=== PATIENT | male | born 1965 | race Caucasian/White ===

== ENCOUNTER 2017-07-19 09:00 | Day surgery (SDC) | payer BC ==
[2017-07-15 11:38] VITALS: BMI 24.3
[~2017-07-19 09:00] MED LIST: LACTATED RINGERS 1,000 ML IV SCH
[2017-07-19 09:27] VITALS: RESP 18; TEMP 07.7
[2017-07-19] MEDS ORDERED: LIDOCAINE 1% INJ 10MG/ML (20 ML MDV) ONE (09:42)
[2017-07-19] MEDS ORDERED: PROPOFOL 10 MG/ML 20 ML VIAL IV ONE (09:42)
[2017-07-19 10:45] VITALS: BP 138/87; PULSE 58
--- NOTE | 2017-07-19 14:45 | P.PCN ---
Date of Procedure: 07/19/17 Procedure(s) Performed: Procedure: Total colonoscopy. Preoperative diagnosis: Screening for neoplasia, patient has history of polyps. Postoperative diagnosis: Sigmoid diverticulosis with no evidence of acute diverticulitis, strictures, polyps or cancer. Preparation: HalfLytely prep. Sedation: Was provided by anesthesia. Brief clinical history: The patient is a 52-year-old male who is scheduled for this evaluation because of history of polyps. His last exam was at age 49. The patient has no abdominal complaints, bleeding or anemia. Procedure: With the patient on his left lateral decubitus position and after informed consent and adequate sedation, the perianal area was inspected and it did not show any fissures or fistulas. There were no masses felt on digital rectal examination. The Olympus CFQ 160L video colonoscope was then inserted in the rectum in the usual fashion and advanced to the cecum. There were multiple diverticular orifices seen scattered in the sigmoid as previously described with no evidence of acute diverticulitis or strictures. The mucosa appeared healthy. No obvious polyps or tumors were seen. I retroflexed the endoscope in the rectum before the endoscope was withdrawn. The patient tolerated the procedure well. Plan: Discussed dietary measures. Repeat exam in 5 years. He will follow up with you as planned.
== END 2017-07-19 11:03 | disposition home or self-care (01) ==
LOC: ORWHC2ENDO 09:00
DX: Z12.11 Encounter for screening for malignant neoplasm of colon (principal); Z86.010 Personal history of colon polyps; K57.30 Diverticulosis of large intestine without perforation or abscess without bleeding; Z87.891 Personal history of nicotine dependence; Z79.899 Other long term (current) drug therapy
CPT/HCPCS: J2001; J2704; G0105; 45378

== ENCOUNTER → 2017-10-05 | Outpatient (CLI) | payer BC ==
--- NOTE | 2017-10-06 09:26 | XR ---
EXAMINATION TYPE: XR chest 2V DATE OF EXAM: 10/05/2017 COMPARISON: 06/30/2016 TECHNIQUE: PA and lateral views submitted. HISTORY: Cough FINDINGS: The lungs are clear and there is no pneumothorax, pleural effusion, or focal pneumonia. Hyperinflat ion suggests COPD. Biapical pleural thickening. Hypertrophic and degenerative change of the spine. No overt failure. There is a 5 mm nodule in the right upper lobe. IMPRESSION: 1. COPD. There is a new 5 mm nodule right upper lobe recommend CT scan of the chest..
== END | disposition home or self-care (01) ==
LOC: RADXRMAIN 16:20
PROVIDERS: ATTEND Internal Medicine
DX: J44.9 Chronic obstructive pulmonary disease, unspecified (principal); R91.1 Solitary pulmonary nodule
CPT/HCPCS: 71046

== ENCOUNTER → 2017-10-21 | Outpatient (CLI) | payer BC ==
--- NOTE | 2017-10-21 14:33 | CT ---
EXAMINATION TYPE: CT chest w con DATE OF EXAM: 10/21/2017 COMPARISON: Chest x-ray 10/05/2017 HISTORY: Patient complains of chronic unproductive cough. Abnormal CXR here showing solitary lung no dule. CT DLP: 265.7 mGycm Automated exposure control for dose reduction was used. CONTRAST: CT scan of the chest is performed with IV Contrast, patient injected with 100 mL of Isovue 300. FINDINGS: LUNGS: The lungs are remarkable for 2 spiculated densities in the right upper lobe one of which measu res approximately 7 x 9 x 11 mm and the second measuring approximately 15 x 4 x 8 mm. Spiculations ex tend to the pleural surface. There are interstitial changes within the lungs. Interlobular septal ple ural lines are present in the upper lobes anteriorly. Subpleural cystic change, paraseptal emphysemat ous change at the apices bilaterally. Subpleural nodule and axial image 34 is 5 mm in the superior se gment of the left lower lobe, some minimal additional subpleural nodularity is questioned which may B E postinflammatory at this level and also in the right lower lobe, some additional interstitial vergara es are present in the lower lobes posteriorly. There is no pleural effusion or pneumothorax seen. Th e tracheobronchial tree is patent. MEDIASTINUM: There are no greater than 1 cm hilar or mediastinal lymph nodes. No pericardial effusi on is seen. AORTA: No additional significant abnormality is seen. OTHER: The liver shows low attenuation likely due to hepatic steatosis. There is a hypodense exophyt ic focus at the midpole the posterior right kidney measuring approximately 10 to 11 mm which could po ssibly represent a proteinaceous cyst. Nonobstructive calculus is present in the mid pole calyx in th e right kidney. No evident adrenal mass. IMPRESSION: Spiculated masses are small in the right upper lobe. Bronchogenic carcinoma not excluded . Follow-up is recommended. Interstitial lung disease. Nonobstructive right nephrolithiasis. Hyperden se focus in the right kidney could represent proteinaceous cyst. Follow-up to assess for stability. A dditional findings above.
== END | disposition home or self-care (01) ==
LOC: RADCTMAIN 12:55
PROVIDERS: ATTEND Internal Medicine
DX: J84.9 Interstitial pulmonary disease, unspecified (principal); R91.8 Other nonspecific abnormal finding of lung field; J43.9 Emphysema, unspecified
CPT/HCPCS: 71260; Q9967

== ENCOUNTER → 2018-04-04 | Outpatient (CLI) | payer BC ==
--- NOTE | 2018-04-04 18:20 | CT ---
EXAMINATION TYPE: CT chest w con DATE OF EXAM: 04/04/2018 COMPARISON: Prior chest CT October 21, 2017 HISTORY: Follow up pulmonary nodule. CT DLP: 515 mGycm. Automated Exposure Control for Dose Reduction was Utilized. TECHNIQUE: CT scan of the thorax is performed following with IV Contrast, patient injected with 100 mL of Isovue 300. FINDINGS: LUNGS: There is background mild to moderate chronic emphysematous change redemonstrated most prominen t in the lung apices. There is stable right apical scar like opacity measuring 1.2 x 0.5 cm axial yolette ge 8 and second inferior lateral lesion is slightly more suspicious measuring 1.0 x 0.8 cm axial imag e 10. Neither are significantly changed in size or appearance from prior. There is third 5 x 3 mm sca rlike opacity inferior to these right upper lobe axial image 18 in retrospect stable from prior. Ther e is dependent atelectasis in the bilateral lower lobes. This additional scattered linear scarring an d/or atelectasis in both bases. No new concerning greater than 5 mm parenchymal nodules or masses are clearly identified bilaterally. No pleural effusion or pneumothorax is seen bilaterally. Tracheobron chial tree is patent. MEDIASTINUM: There are no greater than 1 cm hilar or mediastinal lymph nodes. No cardiomegaly or p ericardial effusion is seen. OTHER: Nonspecific borderline 1.0 cm exophytic low dense lesion right kidney axial image 65 is stable favoring proteinaceous cyst. Slight thickening of both adrenal glands favors hyperplasia. IMPRESSION: Stable scarlike opacities right upper lung favor postinflammatory etiology, spiculated no dules related neoplasm not excluded. Consider PET CT and/or follow-up CT in 6 months time to follow.
== END | disposition home or self-care (01) ==
LOC: RADCTMAIN 17:37
PROVIDERS: ATTEND Internal Medicine
DX: R91.8 Other nonspecific abnormal finding of lung field (principal)
CPT/HCPCS: 71260; Q9967

== ENCOUNTER → 2018-10-03 | Outpatient (CLI) | payer BC ==
--- NOTE | 2018-10-03 13:21 | XR ---
EXAMINATION TYPE: XR hand complete LT DATE OF EXAM: 10/03/2018 COMPARISON: NONE HISTORY: Pain TECHNIQUE: Three views are submitted. FINDINGS: There is marked deformity of the proximal middle phalanx second digit with fusion of the joint space. Findings suggest remote trauma. Arthropathy of the PIP and DIP joints of the second no acute fractur e. Dislocation IMPRESSION: 1. Chronic deformity involving the third digit likely the basis of previous trauma with fusion of the PIP joint. Marked arthropathy of the MCP joint. 2. PIP and DIP joint arthropathy second digit. There appears to be a flexion deformity which could be correlated with MRI if there is concern for ligamentous or tendinous injury.
== END | disposition home or self-care (01) ==
LOC: RADXRMAIN 12:42
PROVIDERS: ATTEND Internal Medicine
DX: M19.042 Primary osteoarthritis, left hand (principal); M20.002 Unspecified deformity of left finger(s)

== ENCOUNTER → 2018-10-27 | Outpatient (CLI) | payer BC ==
--- NOTE | 2018-10-28 08:25 | CT ---
EXAMINATION TYPE: CT chest w con DATE OF EXAM: 10/27/2018 COMPARISON: 04/04/2018 HISTORY: Solitary pulmonary nodule. CT DLP: 253.7 mGycm Automated exposure control for dose reduction was used. CONTRAST: CT scan of the chest is performed with IV Contrast, patient injected with 100ml mL of Isovue 300. FINDINGS: LUNGS: 3 pulmonary nodules right upper lobe remains stable. Right apical nodule currently measures 7. 3 mm versus up to 1.2 cm previously. Adjacent pulmonary nodule measures 7 mm versus 7 mm previously. A third pulmonary nodule within the right upper lobe image 18 of 73 measures 5 mm versus 5 mm previou sly. No additional nodules are identified. No new nodules are seen. There is mild linear atelectasis or parenchymal scarring at the lung bases. Mild upper lobe emphysematous changes noted. No evidence f or pneumonia or effusion. MEDIASTINUM: There are no greater than 1 cm hilar or mediastinal lymph nodes. No pericardial effusi on is seen. Thoracic aorta is of normal caliber. The heart is not enlarged. UPPER ABDOMEN: Stable high density right renal lesion measuring 1 cm may reflect a hemorrhagic cyst o r proteinaceous cyst. OTHER: No additional significant abnormality is seen. IMPRESSION: 1. Stable upper lobe pulmonary nodules. Quality over a two-year timeframe should be documented radiog raphically.
== END ==
LOC: RADCTMAIN 16:37
PROVIDERS: ATTEND Internal Medicine
DX: R91.8 Other nonspecific abnormal finding of lung field (principal)
CPT/HCPCS: 71260; Q9967

== ENCOUNTER → 2019-12-14 | Outpatient (CLI) | payer BC ==
--- NOTE | 2019-12-14 16:12 | CT ---
EXAMINATION TYPE: CT chest w con DATE OF EXAM: 12/14/2019 COMPARISON: 10/27/2018 and 10/21/2017 HISTORY: 54-year-old male follow up abnormal lung monteiro TECHNIQUE: Contiguous axial scanning of the chest after the administration of 100 mL of Isovue 300. Coronal/sagittal reconstructions performed. CT DLP: 260.2mGycm. Automatic exposure control utilized for a dose reduction. FINDINGS: Heart normal size without pericardial effusion. Aortic root is ectatic at 3.8 cm. Bovine configuration to the aortic arch. No thoracic lymphadenopathy by CT size criteria. Some strandy left basilar atelectasis. Hazy posterior midlung density along the dependent portion of the lungs, likely atelectasis. Mild emphysematous changes present. Irregular right apical nodule redemonstrated. Its irregular shape is best demonstrated on coronal yolette ge 57 and continues to measure approximately 1.2 cm wide on axial series. Right upper lobe nodule just adjacent continues to measure 1.0 cm, axial image 13. A third right upper lobe nodule measures 7 mm, axial image 20, also unchanged. No new nodules, consolidation, or pleural effusion. This seems to be some mucosal fold thickening throughout the gastric body and fundus. 1.2 cm intermed iate density exophytic lesion posterior right kidney measured 10 mm, previously. Probable right-sided cortical cyst measuring 1 cm. Mild diffuse thickening left adrenal gland without discrete nodularity . Bones: No osseous destructive process. IMPRESSION: 1. Three right upper lobe nodules measuring up to 1.2 cm remain relatively stable back to 10/21/2017. Continued annual surveillance is recommended given their irregular shape and patient's increased risk for development of lung cancer. 2. A 1.2 cm indeterminate exophytic lesion posterior right kidney minimally larger from 1.0 cm, previ ously. Hemorrhagic/proteinaceous cyst and an indolent small solid mass/RCC are in the differential. C ontinued surveillance recommended.
== END | disposition home or self-care (01) ==
LOC: RADCTMAIN 14:49
PROVIDERS: ATTEND Internal Medicine Critical Care Medicine
DX: R91.8 Other nonspecific abnormal finding of lung field (principal); J98.4 Other disorders of lung
CPT/HCPCS: 71260; Q9967

== ENCOUNTER → 2020-06-21 | Outpatient (CLI) | payer BC ==
--- NOTE | 2020-06-21 14:01 | CT ---
EXAMINATION TYPE: CT chest w con DATE OF EXAM: 06/21/2020 COMPARISON: 12/14/2019 HISTORY: Abnormal lung field CT DLP: 291.3 mGycm Automated exposure control for dose reduction was used. CONTRAST: CT scan of the chest is performed with IV Contrast, patient injected with 100 mL of Isovue 300. FINDINGS: LUNGS: Right apical pulmonary nodule is redemonstrated however smaller in size and measures 9.5 mm ve rsus 12 mm previously. An adjacent pulmonary nodule right upper lobe is also smaller in size and does persist and currently measures 7.6 mm versus 10 mm previously. A third pulmonary nodule right upper lobe image 18 measures 6 mm versus 7 mm previously. No new pulmonary nodules seen. No additional pulm onary nodules or masses seen. MEDIASTINUM: There are no greater than 1 cm hilar or mediastinal lymph nodes. No pericardial effusi on is seen. Thoracic aorta is of normal caliber. The heart is not enlarged. UPPER ABDOMEN: Hyperdense lesion upper pole right kidney measures 1 cm unchanged from prior study. Th ere is also nephrolithiasis of the right kidney. OTHER: No additional significant abnormality is seen. IMPRESSION: 1. 3 right upper lobe pulmonary nodules are redemonstrated. 2 of the nodules appear to be slightly sm aller in size. No new nodules are evident.
== END | disposition home or self-care (01) ==
LOC: RADCTMAIN 12:54
PROVIDERS: ATTEND Internal Medicine
DX: R91.8 Other nonspecific abnormal finding of lung field (principal)
CPT/HCPCS: 71260; Q9967

== ENCOUNTER → 2021-07-24 | Outpatient (CLI) | payer BC ==
--- NOTE | 2021-07-24 19:07 | CT ---
EXAMINATION TYPE: CT chest w con CT DLP: 299.4 mGycm, Automated exposure control for dose reduction was used. DATE OF EXAM: 07/24/2021 6:03 PM COMPARISON: Multiple CTs of the chest with most recent on 06/21/2020 . CLINICAL INDICATION:Male, 56 years old with history of R91.8 abnormal lung monteiro;, h/o abnormal lung field TECHNIQUE: Multiple axial images were obtained through the chest without IV contrast. Lack of IV or o ral contrast limits evaluation of solid and hollow organ viscera. FINDINGS: LUNGS/ PLEURA: Stable right upper lobe pulmonary nodules measuring 9 mm in the right lung apex. More inferior right upper lobe nodule measures 6 mm and is also stable back to at least inferior nodule mo re solid-appearing. Streaky atelectasis/scarring seen in the dependent portion of the lungs and withi n the lung bases. AIRWAY: Patent and unremarkable. HEART: Size within normal limits. MEDIASTINUM: No gross evidence of adenopathy. VASCULATURE: No aortic aneurysm. MUSCULOSKELETAL: No acute osseous abnormalities SOFT TISSUES/LYMPH NODES: Unremarkable. LOWER NECK: No significant findings. UPPER ABDOMEN: A right renal exophytic hyperdense cyst measuring 14 mm on today's exam was 12 mm in 2 018 likely representing proteinaceous cyst. IMPRESSION: 1. Stable right upper lobe pulmonary nodules dating back to at least 2018. 2. Stable right renal exophytic hyperdense cyst likely representing proteinaceous cyst.
== END | disposition home or self-care (01) ==
LOC: RADCTMAIN 17:36 → MERGE 18:00
PROVIDERS: ATTEND Internal Medicine Critical Care Medicine
DX: R91.8 Other nonspecific abnormal finding of lung field (principal); N28.1 Cyst of kidney, acquired
CPT/HCPCS: 71260; Q9967

== ENCOUNTER → 2022-08-03 | Outpatient (CLI) | payer BC ==
--- NOTE | 2022-08-04 07:27 | XR ---
EXAMINATION TYPE: XR chest 2V DATE OF EXAM: 08/03/2022 4:00 PM COMPARISON: Chest radiographs from 10/05/2017 TECHNIQUE: XR chest 2V Frontal and lateral views of the chest. CLINICAL INDICATION:Male, 57 years old with history of J44.9; FINDINGS: Lungs/Pleura: There is no evidence of pleural effusion, focal consolidation, or pneumothorax. Right u pper lobe nodule not definitively visualized on today's exam. Pulmonary vascularity: Unremarkable. Heart/mediastinum: Cardiomediastinal silhouette is unremarkable. Musculoskeletal: No acute osseous pathology. IMPRESSION: No acute cardiopulmonary disease/process.
== END | disposition home or self-care (01) ==
LOC: RADXRMAIN 15:50
PROVIDERS: ATTEND Nurse Practitioner Family
DX: J44.9 Chronic obstructive pulmonary disease, unspecified (principal)
CPT/HCPCS: 71046

== ENCOUNTER → 2022-10-09 | Outpatient (CLI) | payer BC ==
--- NOTE | 2022-10-09 15:13 | CT ---
EXAMINATION TYPE: CT soft tissue neck w con DATE OF EXAM: 10/09/2022 HISTORY: 3 lumps on right side of neck, marked by radiopaque BB's. COMPARISON: Chest CT December 14, 2019 CT DLP: 462 mGycm. Automated Exposure Control for Dose Reduction was Utilized. TECHNIQUE: CT scan of the neck is performed with IV Contrast, patient injected with 100cc mL of Isov ue 300, axial images are obtained, coronal and sagittal reformatted images are reviewed. FINDINGS: Airway: Mild emphysematous change and visualized upper lungs. Stable 1.1 x 0.7 cm spiculated nodule i n the right lung apex axial image 77 and 1.0 x 0.8 cm right lung nodule axial image 81 from several p rior studies consistent with postinflammatory and nodular scarring. Irregularly otherwise grossly pat ent. No obvious mucosal mass. Parotid/submandibular glands: No gross abnormality seen. Carotid/Vascular Structures: No suspicious abnormality. Osseous Structures: Grade 1 retrolisthesis C4 on C5 and C5 on C6 . Other: Abnormal right neck adenopathy corresponds to metallic BB. Right supraclavicular adenopathy is present on the current study. For reference is largest 2.4 x 1.9 cm lymph node at level of right thy roid gland on axial image 75. There are adjacent prominent and enlarged lymph node superior to this. 4) a 1.4 x 1.3 cm lymph node at level of the vocal cords axial image 61. There are prominent but subc entimeter lymph nodes superior to the hyoid bone. No greater than 1 cm left-sided neck adenopathy is seen. Prominent right-sided vessels near the physical therapist muscles axial image 25 are noted. IMPRESSION: Abnormal right neck adenopathy. Neoplasm needs to be excluded. Etiology uncertain as ther e is no definitive adnexal mucosal mass or neoplasm identified. Consider follow-up PET/CT to further evaluate. Consider ENT referral.
== END | disposition home or self-care (01) ==
LOC: RADCTMAIN 14:20
PROVIDERS: ATTEND Internal Medicine Geriatric Medicine
DX: R22.1 Localized swelling, mass and lump, neck (principal)
CPT/HCPCS: 70491; Q9967

== ENCOUNTER → 2022-11-19 | Outpatient (CLI) | payer BC ==
--- NOTE | 2022-11-19 21:21 | MR ---
EXAMINATION TYPE: MR brain wo/w con DATE OF EXAM: 11/19/2022 8:49 PM CLINICAL INDICATION:Male, 57 years old with history of C80.0; Cancer unknown primary. COMPARISON: 11/07/2022 TECHNIQUE: Multi planar, multi sequence imaging was performed through the brain including: T1, T2, In version recovery, susceptibility weighted imaging and gradient echo imaging and Diffusion weighted im aging. The patient was then given intravenous contrast and multi planar, T1 fat-saturation images wer e obtained. IV Contrast: 7.5 cc Gadavist FINDINGS: Mild cerebral atrophy changes with proportional dilation to the ventricular system. The mcpherson-white junctions, ventricular system, basal cisterns appear unremarkable. Diffusion-weighted imaging shows no evidence of restricted diffusion to suggest acute/subacute infarct. Intracranial art erial flow voids are maintained. Midline structures show no abnormality. The susceptibility weighted images do not reveal any evidence for micro-hemorrhage. After administration of gadolinium, no abnorm al enhancement is seen. The bone marrow signal is within normal limits. Paranasal sinuses and mastoid air cells: Mild scattered paranasal sinus disease. Visualized orbits: Orbital contents are intact. IMPRESSION: 1. No evidence of intracranial mass, acute/subacute infarct, or abnormal enhancement to suggest meta static disease. 2. Mild cerebral atrophy
== END | disposition home or self-care (01) ==
LOC: RADMRIMAIN 20:15
PROVIDERS: ATTEND Internal Medicine
DX: G31.9 Degenerative disease of nervous system, unspecified (principal); C80.0 Disseminated malignant neoplasm, unspecified
CPT/HCPCS: 70553; A9585

== ENCOUNTER 2022-11-25 05:36 | Day surgery (SDC) | payer BC ==
[2022-11-23 13:49] VITALS: BMI 25.0
[2022-11-25] MEDS ORDERED: LACTATED RINGERS 1,000 ML IV SCH (05:53)
[2022-11-25 06:19] VITALS: RESP 16; TEMP 96.5
[2022-11-25] MEDS ORDERED: LACTATED RINGERS 1,000 ML IV ONE (06:28)
[2022-11-25] MEDS ORDERED: LIDOCAINE 2% INJ 20 MG/ML (2 ML VIAL) ONE (07:02)
[2022-11-25] MEDS ORDERED: PROPOFOL 10 MG/ML 20 ML VIAL IV ONE (07:02)
--- NOTE | 2022-11-25 07:30 | P.PCN ---
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 He denies any GI symptoms. Procedure performed: Esophagogastroduodenoscopy Colonoscopy Preoperative diagnosis: Metastatic carcinoma of unknown primary Anesthesia: MAC Procedure: After informed consent was obtained from the patient was brought into the end oscopy unit and IV sedation was administered by anesthesia under continuous monitoring. Initially upper endoscopy was done. The Olympus GF 160 video endoscope was inserted inserted into the mouth and esophagus intubated without any difficulty and was gradually advanced into the stomach and duodenum and carefully examined. The bulb and second part of the duodenum appeared normal. The scope was then withdrawn into the stomach adequately insufflated with air and upon careful examination the antrum and body, cardia and fundus appeared normal. The scope was then withdrawn into the esophagus. The GE junction was located at 40 cm to the incisors. It appeared regular with no erythema erosions or ulcerations. Rest of the esophagus appeared normal. Patient tolerated the procedure well. At this time the patient continued to remain sedation. Initial digital rectal examination was normal. Olympus CF 160 video colonoscope was then inserted into the rectum and gradually advanced to the cecum without any difficulty. Careful examination was performed as the scope was gradually being withdrawn. The prep was excellent. The cecum, ascending colon, transverse colon, descending colon, sigmoid colon and rectum appeared normal. Retroflexion was performed in the rectum and all internal hemorrhoids were noted. Patient tolerated the procedure well. Impression: 1. Upper endoscopy was within normal limits with no evidence of esophagitis or peptic ulcer disease 2. Colonoscopy revealed small internal hemorrhoids but no evidence of colorectal neoplasia Recommendations: Findings of this examination were discussed with the patient as well as his family. He was advised to follow with Dr. barcenas, scheduled the rectum and a repeat screening colonoscopy in 10 years.
[2022-11-25 07:48] VITALS: BP 117/77; PULSE 61
== END 2022-11-25 08:17 ==
LOC: ORWHC2ENDO 05:36
PROVIDERS: ATTEND Internal Medicine Gastroenterology
DX: K64.8 Other hemorrhoids (principal); J44.9 Chronic obstructive pulmonary disease, unspecified; C34.90 Malignant neoplasm of unspecified part of unspecified bronchus or lung; Z79.899 Other long term (current) drug therapy
CPT/HCPCS: 45378; 43235; J2704; J2001

== ENCOUNTER → 2023-02-24 | Outpatient (CLI) | payer BC ==
[2023-02-24 12:00] LABS: African American GFR (CKD) >90 (>60 ml/min/1.73 sqM); Blood Urea Nitrogen 15 mg/dL (9-20); Non-African American GFR(CKD) >90 (>60 ml/min/1.73 sqM)
--- NOTE | 2023-02-24 13:13 | CT ---
EXAMINATION TYPE: CT soft tissue neck w con DATE OF EXAM: 02/24/2023 COMPARISON: HISTORY: lung ca, possible mets CT DLP: 279.8 mGycm CONTRAST: CT scan of the neck is performed with IV Contrast, patient injected with 100 mL of Isovue 300. Contrast enhanced CT of the neck was performed from the skull base through the lung apices. AIRWAY: The supraglottic, glottic, and subglottic portions of the airway appear patent and free of mass. SALIVARY GLANDS: The submandibular and parotid glands are free of mass or inflammatory process. THYROID GLAND: No nodules or masses seen. LYMPH NODES: No adenopathy seen greater than 1cm. Supraclavicular adenopathy seen previously on the r ight has resolved in the interval. No new adenopathy present. OTHER: Vascular structures are patent. No significant degenerative change of the cervical spine. N o abscess seen. IMPRESSION: Supraclavicular adenopathy seen previously on the right has resolved in the interval. No new adenopat hy present.
--- NOTE | 2023-02-24 13:25 | CT ---
EXAMINATION TYPE: CT chest abdomen w con DATE OF EXAM: 02/24/2023 COMPARISON: 07/24/2021 CT chest and PET/CT 11/07/2022 HISTORY: f/u lung ca CT DLP: 614.4 mGycm CONTRAST: CT scan of the chest, abdomen is performed with Oral Contrast and with IV Contrast, patient injected with 100 mL of I[address]vue [address]. [address] Chest: LUNGS: Right apical pulmonary nodule measures 1.1 cm versus 1.1 cm previously. Spiculated right upper lobe nodule measures 10 mm versus 9 mm previously. Additional right upper lobe pulmonary nodule emma ures 7 mm versus 6 mm previously. There is pleural-based density right lower lobe measuring about 1.2 cm with increased activity seen at the PET scan. There is also lobulated right lower lobe pulmonary nodule measuring 1.9 x 1.4 cm. There is right basilar compressive atelectasis. The left lung is free of nodule or mass. Mild subpleural fibrosis noted. MEDIASTINUM: Thoracic aorta is of normal caliber. The heart is not enlarged. Subcarinal adenopathy measures 1.2 cm versus subcentimeter previously. No paratracheal or AP window adenopathy greater than 1 cm. HILAR STRUCTURES: No evidence for mass. No hilar adenopathy is appreciated. OTHER: No significant abnormality. CONTRAST CT ABDOMEN AND PELVIS FINDINGS: LIVER/GB: No calcified gallstones. No space occupying hepatic lesion. Biliary tree is of normal ca liber. PANCREAS: No inflammation. No distinct mass. SPLEEN: No splenic enlargement. No lesion seen. ADRENALS: No nodule. No thickening. KIDNEYS/BLADDER: No hydronephrosis. No nephrolithiasis. Solid exophytic nodule upper pole right kid brennan measures 1.4 cm versus 1.4 cm previously. Renal cystic changes persist. BOWEL: Normal appendix. Normal bowel caliber. No inflammation. GENITAL ORGANS: No gross abnormality. LYMPH NODES: No greater than 1cm abdominal or pelvic lymph nodes are appreciated. AORTA: No significant abnormality. OSSEOUS STRUCTURES: T12 superior endplate compression fracture(o is new since the prior study. Pathol ogic component not excluded. OTHER: No significant additional abnormality is seen. IMPRESSION: 1. Right-sided pulmonary nodules as discussed above as well as pleural-based nodule right lower lobe and new lobulated nodular density right lower lobe. 2. Persistent but improved mediastinal adenopathy. 3. Stable solid nodule upper pole right kidney. 4. New mild compression fracture involving the superior endplate of T12 with loss of height estimated at 15%. Pathologic component cannot be excluded. Consider further evaluation with bone scan and/or M RI.
== END | disposition home or self-care (01) ==
LOC: RADCTMAIN 10:42
PROVIDERS: ATTEND Internal Medicine
DX: C34.11 Malignant neoplasm of upper lobe, right bronchus or lung (principal); M48.54XA Collapsed vertebra, not elsewhere classified, thoracic region, initial encounter for fracture; N28.89 Other specified disorders of kidney and ureter; R91.8 Other nonspecific abnormal finding of lung field; R59.0 Localized enlarged lymph nodes; R29.890 Loss of height
CPT/HCPCS: 82565; 84520; 70491; 71260; 74160; 36415; Q9967

== ENCOUNTER → 2023-04-26 | Outpatient (CLI) | payer BC ==
[2023-04-27 02:40] LABS: HCT 40.2 % (39.6-50.0); HGB 12.9 d/dL (13.0-17.0); MCH 34.8 pg (27.0-32.0); MCHC 32.1 d/dL (32.0-37.0); MCV 108.4 FL (80.0-97.0); Mean Platelet Volume 9.2 FL (9.5-12.2); NRBC Per 100 WBC 0 X 10*3/uL (0.00-0.01); Platelet Count 310 X 10*3/uL (140-440); RBC 3.71 X 10*6/uL (4.40-5.60); RDW 13.5 % (11.5-14.5); WBC 5.01 X 10*3/uL (4.50-10.00)
[2023-04-27 03:46] LABS: INR 1.01 sec (0.93-1.11); Prothrombin Time 10.9 sec (9.9-11.9)
[2023-04-27 04:04] LABS: ALT 23 U/L (10-49); AST 24 U/L (14-35); Albumin/Globulin Ratio 1.38 Ratio (1.60-3.17); Alkaline Phosphatase 107 U/L (41-126); BUN/Creat Ratio 20.71 Ratio (12.00-20.00); Blood Urea Nitrogen 14.5 mg/dL (9.0-27.0); Calcium 10.3 mg/dL (8.7-10.3); Chloride 105 mmol/L (96-109); Globulin 2.9 d/dL (1.6-3.3); Glucose 95 mg/dL (70-110); Potassium 4.6 mmol/L (3.5-5.5); Sodium 140 mmol/L (135-145); Total Bilirubin 0.4 mg/dL (0.3-1.2); Total Protein 6.9 d/dL (6.2-8.2)
[2023-04-27 05:51] LABS: Basophils # (A) 0.02 X 10*3/uL (0.00-0.10); Basophils % (A) 0.4 %; Eosinophils # (A) 0.12 X 10*3/uL (0.04-0.35); Eosinophils % (A) 2.4 %; Lymphocytes # (A) 0.54 X 10*3/uL (0.90-5.00); Lymphocytes % (A) 10.8 %; Macrocytosis (M) 3+; Monocytes # (A) 0.77 X 10*3/uL (0.20-1.00); Monocytes % (A) 15.4 %; Neutrophils # (A) 3.54 X 10*3/uL (1.80-7.70); Neutrophils % (A) 70.6 %
[2023-04-27 06:40] LABS: Microalbumin Creatinine Ratio <9 mg/g Cr (0-30)
== END | disposition home or self-care (01) ==
LOC: LABWHC1 14:19
PROVIDERS: ATTEND Orthopaedic Surgery
DX: Z01.812 Encounter for preprocedural laboratory examination (principal); Z22.322 Carrier or suspected carrier of Methicillin resistant Staphylococcus aureus; S22.009A Unspecified fracture of unspecified thoracic vertebra, initial encounter for closed fracture; Y99.9 Unspecified external cause status
CPT/HCPCS: 36415; 80053; 82043; 82570; 85025; 85610; 86850; 86900; 86901; 87070; 93005

== ENCOUNTER → 2023-05-10 | Outpatient (CLI) | payer BC ==
[2023-05-10 16:38] LABS: African American GFR (CKD) >90 (>60 ml/min/1.73 sqM); Blood Urea Nitrogen 22 mg/dL (9-20); Non-African American GFR(CKD) >90 (>60 ml/min/1.73 sqM)
--- NOTE | 2023-05-11 09:43 | CT ---
EXAMINATION TYPE: CT chest w con DATE OF EXAM: 05/10/2023 COMPARISON: 02/24/2023 HISTORY: dx with lung cancer November 2022 CT DLP: 233.6 mGycm Automated exposure control for dose reduction was used. TECHNIQUE: CT scan of the chest is performed with IV Contrast, patient injected with 100 cc mL of Isovue 300. M IP Images are created on CT scanner and reviewed. 3D reconstructed images are created on an [employer] workstation and reviewed. FINDINGS: LUNGS: There multiple 1 cm nodules in the right apex stable. Emphysematous changes are seen with subsegmental scarring or the lung bases. There is a area of consolidation extending from the right hilum and in the right lower lobe with smal l pleural effusion. No pneumothorax. A 1 cm subpleural nodule right upper lobe anteriorly. Right lowe r lobe lobulated nodule noted in prior exam is obscured by the consolidation. Bilateral subsegmental consolidation scarring. Subpleural additional bilateral micronodules stable. MEDIASTINUM: There is right paratracheal soft tissue density measuring 1.5 cm in short axis. There is a 1.2 cm short axis right hilar lymphadenopathy. Small pericardial effusion is seen. Aorta normal c aliber with mild atherosclerotic change OTHER: Previous vertebroplasty with multilevel hypertrophic and degenerative change of the spine. Th ere is a right-sided renal calculus. Bilateral hypodense lesions are most simple cyst. However there is a suspicious exophytic right upper pole solid lesion measuring 1.7 cm. Bilateral adrenal gland thi ckening nonspecific. IMPRESSION: 1. Small right effusion with large areas of consolidation involving the superior segment right lower lobe could represent pneumonia or post therapeutic atelectasis. Correlation with repeat PET scan as c linically warranted. 2. Pulmonary nodules previously noted are stable. 3. Emphysematous changes. 4. Hilar and subcarinal pathologic adenopathy. 5. There is a solid upper pole right renal exophytic lesion measuring 1.7 cm increased in size from p rior exam where it measured 1.4 cm and suspicious for malignancy.
== END | disposition home or self-care (01) ==
LOC: RADCTMAIN 15:46
PROVIDERS: ATTEND Internal Medicine
DX: J43.9 Emphysema, unspecified (principal); R59.0 Localized enlarged lymph nodes; N28.89 Other specified disorders of kidney and ureter; R91.8 Other nonspecific abnormal finding of lung field
CPT/HCPCS: 82565; 84520; 71260; 36415; Q9967

== ENCOUNTER 2023-06-04 11:03 | Day surgery (SDC) | payer BC ==
[2023-06-02 10:36] VITALS: BMI 21.9
[2023-06-04] MEDS ORDERED: LACTATED RINGERS 1,000 ML IV SCH (11:23)
[2023-06-04] MEDS ORDERED: DEXAMETHASONE SOD PHOSPHATE 4 MG/ML 1 ML VIAL IV ONE (11:23)
[2023-06-04] MEDS ORDERED: ONDANSETRON 4 MG/2 ML VIAL IVP ONE ×2 (11:23→11:51)
[2023-06-04] MEDS ORDERED: LIDOCAINE 1% (10MG/ML) FOR IV START INTRADERMA PRN (11:23)
[2023-06-04] MEDS ORDERED: MIDAZOLAM 2 MG/2 ML VIAL IV PRN (11:23)
[2023-06-04] MEDS ORDERED: HYDROmorphone 0.5 MG/0.5 ML SYRINGE IVP PRN (11:23)
[2023-06-04] MEDS ORDERED: DEXAMETHASONE SOD PHOSPHATE 4 MG/ML 1 ML VIAL IVP ONE (11:51)
[2023-06-04] MEDS ORDERED: GLYCOPYRROLATE 0.2 MG/ML 2 ML VIAL ONE (12:11)
[2023-06-04] MEDS ORDERED: MIDAZOLAM 2 MG/2 ML VIAL ONE (12:11)
[2023-06-04] MEDS ORDERED: fentaNYL (PF) 50 MCG/ML 2 ML AMP ONE (12:11)
[2023-06-04] MEDS ORDERED: PROPOFOL 10 MG/ML 20 ML VIAL IV ONE (12:11)
[2023-06-04] MEDS ORDERED: KETAMINE HCL IN 0.9 % NACL 50 MG/5 ML SYRINGE ONE (12:11)
[2023-06-04 12:12] VITALS: TEMP 97.6
[2023-06-04] MEDS ORDERED: LIDOCAINE 2% INJ 20 MG/ML INTRATRACH ONE ×2 (12:15)
[2023-06-04 13:05] VITALS: RESP 20
[2023-06-04 13:32] VITALS: BP 124/86; PULSE 93
--- NOTE | 2023-06-04 20:05 | OP ---
OPERATIVE REPORT DATE OF SERVICE : PROCEDURES PERFORMED: Bronchoscopy, bronchoalveolar lavage of the right lower lobe, and endobronchial biopsies of the superior segment bronchus of the right lower lobe. PREOPERATIVE DIAGNOSIS: Right lower lobe and right middle lobe collapse. POSTOPERATIVE DIAGNOSIS: Right lower lobe and right middle lobe collapse. Strongly suspect bronchogenic carcinoma involving the superior segment of the right lower lobe bronchus. ANESTHESIA USED: IV conscious sedation. DESCRIPTION OF PROCEDURE: The patient was prepared according to the bronchoscopy protocol. He was brought into the bronchoscopy suite. O2 was applied via Ventimask. The patient was monitored including monitoring his blood pressure intermittently, cardiac rhythm was continuously monitored, and O2 saturation was continuously monitored. After adequate IV conscious sedation, lidocaine was instilled in the right nostril, and the bronchoscope was advanced through the right nostril down to the area of the vocal cords. No vocal cord abnormality was noted. Lidocaine was applied over the vocal cords, and the bronchoscope was advanced further down, and though examination was done of the right upper lobe, right middle lobe, right lower lobe, left upper lobe, lingula, and left lower lobe. There was evidence of minimal purulent secretions throughout, and these were suctioned. Then, as we entered the right upper lobe, there was slightly extrinsic compression on the right upper lobe bronchus, but no evidence of endobronchial tumor in the right upper lobe bronchus. Went down to the right middle lobe, which was compressed, and the patient seemed to have what looked like a right middle lobe syndrome with extreme narrowing of the segment into the right middle lobe and seemed to be extrinsically compressed. But I was able to visualize the right middle lobe medial and lateral segments as I went in through the narrow opening. Then, the right lower lobe was examined, and the main finding in the right lower lobe was the fact that the superior segment of the right lower lobe was noted to be extremely narrowed, the bronchus was very prominent, and multiple endobronchial biopsies were done from the bronchus of the superior segment of the right lower lobe. Lavage of the right lower lobe was also performed including the basilar and the superior segment of the right lower lobe. Procedure was well tolerated, no complications, minimal and negligible blood loss noted. Biopsies were sent for different diagnostic studies, and the lavage from the right lower lobe was also sent for different diagnostic studies. Again, no complications. Family was updated on his condition. MMODL / IJN: [id number] /
== END 2023-06-04 13:25 | disposition home or self-care (01) ==
LOC: ORWHC2ENDO 11:03
PROVIDERS: ATTEND Internal Medicine
DX: C34.31 Malignant neoplasm of lower lobe, right bronchus or lung (principal); J98.19 Other pulmonary collapse; K21.9 Gastro-esophageal reflux disease without esophagitis; Z79.51 Long term (current) use of inhaled steroids; Z79.899 Other long term (current) drug therapy
CPT/HCPCS: 88108; 88305; 88342; 88341; 87070; 87205; 87116; 87102; 87206; 31625; 31624; J2001; J2250; J1100; J2405; J3010; J2704

== ENCOUNTER 2023-06-08 17:47 | Emergency (ER) | payer BC ==
[2023-06-08] MEDS ORDERED: SODIUM CHLORIDE 0.9% 500 ML 500 ML IV STA (18:17)
[2023-06-08] MEDS ORDERED: SODIUM CHLORIDE 0.9% 1,000 ML IV STA (18:17)
[2023-06-08] MEDS ORDERED: IPRATROPIUM-ALBUTEROL 3 ML NEB INHALATION STA (18:17)
[2023-06-08] MEDS ORDERED: MORPHINE SULFATE 4 MG/ML SYRINGE IV STA (18:18)
--- NOTE | 2023-06-08 18:35 | ED ---
General Adult HPI - General Chief complaint: Recheck/Abnormal Lab/Rx Stated complaint: KHOI,history of Lung Cancer Time Seen by Provider: 06/08/23 18:06 Source: patient Mode of arrival: ambulatory Limitations: no limitations - History of Present Illness Initial comments: This 58-year-old male presents with complaint of right-sided chest pain. This extends from the upper lateral chest down to the inferior ribs on the right side. He states that this is been chronic in nature but worse over the past 3 days. It is worse with any deep inspiration. He states that it is fairly severe in nature. He was prescribed [place] for the pain but this does not seem to alleviate his symptomatology. He also has had an increased cough over the last 3 days. He denies any fevers or chills. There is occasional shortness of breath. He does have a history of lung cancer. This was initially diagnosed in November of this year. He is undergone chemotherapy as well as radiation therapy and also is currently on immunotherapy. He just had a lung biopsy this past week and they're waiting on the results. He was sent in by his art framing manager for further evaluation and treatment. He denies any leg pain or swelling. There is no history of DVT or PE. No other complaints or modifying factors. He relates that they diagnosed him with pneumonia during the bronchoscopy and he was prescribed doxycycline. He is only had 2 doses of this medication so far. He states that he did have some spread of the cancer into the lymph nodes of his left neck at one time. He denies any bone metastasis that he is aware of. He does have an albuterol inhaler but he utilizes this very infrequently. He was prescribed [place] 5/325 to take every 6 hours as needed for pain. He is only taking about 1-1/2 pills every 12 hours. - Related Data Home Medications Medication Instructions Recorded Confirmed Doxycycline Hyclate 100 mg PO BID 06/08/23 06/08/23 HYDROcodone/APAP 5-325MG [Delhi 1 tab PO Q6HR PRN 06/08/23 06/08/23 5-325] Allergies Allergy/AdvReac Type Severity Reaction Status Date / Time No Known Allergies Allergy Verified 06/08/23 19:21 Review of Systems ROS Statement: Those systems with pertinent positive or pertinent negative responses have been documented in the HPI. ROS Other: All systems not noted in ROS Statement are negative. Past Medical History Past Medical History: Cancer, COPD Additional Past Medical History / Comment(s): Small cell carcinoma - lung. CHEMO AND RADIATION, Mild COPD. History of Any Multi-Drug Resistant Organisms: None Reported Past Surgical History: Orthopedic Surgery Additional Past Surgical History / Comment(s): LEFT HAND SURGERY, COLONOSCOPY. T-12 FUSION FOR FX, Past Anesthesia/Blood Transfusion Reactions: No Reported Reaction Past Psychological History: No Psychological Hx Reported Smoking Status: Former smoker Past Alcohol Use History: None Reported Past Drug Use History: None Reported - Past Family History Mother Family Medical History: No Reported History General Exam - General Exam Comments Initial Comments: GENERAL: The patient is well nourished and well hydrated. VITAL SIGNS: Heart rate, blood pressure, respiratory rate reviewed as recorded in nurse's notes. EYES: Pupils are round and reactive. Extraocular movements are intact. No conjunctival / lid redness or swelling. ENT: No external evidence of injury, swelling, or ecchymosis. Airway is patent. Throat is clear. NECK: Nontender. No swelling or evidence of injury. No subcutaneous emphysema. Trachea is midline. No thyroid mass. HEART: Regular rate and rhythm. Good peripheral pulses. LUNGS/CHEST: Rhonchi noted to the right lung. Left lung is clear. ABDOMEN: Abdomen soft without tenderness. No palpable masses or organomegaly. No peritoneal signs. No abdominal wall swelling or ecchymosis. EXTREMITIES: No extremity tenderness. Normal muscle tone and function. No thoracolumbar tenderness. No extremity swelling. NEUROLOGIC: Sensation is grossly intact. Cranial nerve exam reveals face is symmetrical, tongue is midline, speech is clear. SKIN: No abrasions or ecchymosis is noted. No induration or masses noted. PSYCHIATRIC: Alert and oriented. Appropriate behavior and judgment. Limitations: no limitations Course Vital Signs 06/08/23 06/08/23 17:54 20:00 Temperature 97.5 F L Pulse Rate 96 83 Respiratory 18 16 Rate Blood Pressure 141/95 151/101 O2 Sat by Pulse 96 97 Oximetry Medical Decision Making - Medical Decision Making The patient was seen and examined. All diagnostics are reviewed. EKG shows a normal sinus rhythm at a rate of 97. There is no acute ST or T wave changes noted per my interpretation. Intervals are normal. IV is established and patient is mildly hydrated. He also receives morphine for pain. He receives a DuoNeb breathing treatment. The laboratory does not show any acute significant abnormalities. The patient also had a CT angiogram of the chest and this does not show any evidence of pulmonary embolism per my interpretation and radiologist interpretation. There is a consolidation in the right perihilum region. There are also was 3 spiculated masses that are apparently 1-2 mm larger than previous per radiologist. Please see report for details. He is feeling markedly improved on recheck. It is felt as though his pain likely is related to the cancer and potentially related to the pneumonia. He is to tian nue with his doxycycline. He is to utilize his albuterol more frequently at approximately 2 puffs every 4 hours as needed for cough. It is also felt as though he may benefit from increasing his pain medication from 1 pill as prescribed to 2 pills every 6 hours as needed for pain. He has an appointment with his art framing manager as well as a PET scan in 3 days. He also was offered admission to the hospital for further pain control and IV antibiotics but refuses. Risks and benefits are discussed in this regard. Return parameters are discussed. Close follow-up with primary care also recommended. Was pt. sent in by a medical professional or institution (, PA, SECURITY SHIFT SUPERVISOR, urgent care, hospital, or [place] [facility] facility...) When possible be specific @ -Patient was sent in by his art framing manager. Did you speak to anyone other than the patient for history (EMS, parent, family, police, friend...)? What history was obtained from this source @ -Case is discussed with family who is present and they give additional medical information. Did you review nursing and triage notes (agree or disagree)? Why? @ -I reviewed and agree with nursing and triage notes Were old charts reviewed (outside hosp., previous admission, EMS record, old EKG, old radiological studies, urgent care reports/EKG's, [place] health [facility] facility records)? Report findings @ -Old records were reviewed in detail. Bronchoscopy report is reviewed from this past week. Differential Diagnosis (chest pain, altered mental status, abdominal pain women, abdominal pain men, vaginal bleeding, weakness, fever, dyspnea, syncope, headache, dizziness, GI bleed, back pain, seizure, CVA, palpatations, mental health, musculoskeletal)? @ -Pulmonary embolism, chest pain related to lung cancer, chest pain related to pneumonia, pneumonia, lung cancer, musculoskeletal chest pain. EKG interpreted by me (3pts min.). @ -As above X-rays interpreted by me (1pt min.). @ -None done CT interpreted by me (1pt min.). @ -As above U/S interpreted by me (1pt. min.). @ -None done What testing was considered but not performed or refused? (CT, X-rays, U/S, labs)? Why? @ -None What meds were considered but not given or refused? Why? @ -None Did you discuss the management of the patient with other professionals (professionals i.e. DrMinh, PA, SECURITY SHIFT SUPERVISOR, lab, RT, psych nurse, social service worker, shredded filler machine wrapper layer, teacher, zoology technical officer, ed case manager)? Give summary @ -No Was smoking cessation discussed for >3mins.? @ -No Was critical care preformed (if so, how long)? @ -No Were there social determinants of health that impacted care today? How? (Homelessness, low income, unemployed, alcoholism, drug addiction, transportation, low edu. Level, literacy, decrease access to med. care, fdc, rehab)? @ -No Was there de-escalation of care discussed even if they declined (Discuss DNR or withdrawal of care, Hospice)? DNR status @ -No What co-morbidities impacted this encounter? (DM, HTN, Smoking, COPD, CAD, Cancer, CVA, ARF, Chemo, Hep., AIDS, mental health diagnosis, sleep apnea, morbid obesity)? @ -Lung cancer Was patient admitted / discharged? Hospital course, mention meds given and route, prescriptions, significant lab abnormalities, going to OR and other pertinent info. @ -She was discharged, please see above. Undiagnosed new problem with uncertain prognosis? @ -No Drug Therapy requiring intensive monitoring for toxicity (Heparin, Nitro, Insulin, Cardizem)? @ -No Were any procedures done? @ -No Diagnosis/symptom? @ -Right-sided chest pain, pneumonia, lung cancer Acute, or Chronic, or Acute on Chronic? @ -Acute on chronic Uncomplicated (without systemic symptoms) or Complicated (systemic symptoms)? @ -Uncomplicated Side effects of treatment? @ -No Exacerbation, Progression, or Severe Exacerbation? @ -Exacerbation Poses a threat to life or bodily function? How? (Chest pain, [place], [place], pneumonia, PE, COPD, DKA, ARF, appy, cholecystitis, CVA, Diverticulitis, Homicidal, Suicidal, threat to staff... and all critical care pts) @ -No - Lab Data Result diagrams: 06/08/23 18:30 06/08/23 18:30 Lab Results 06/08/23 06/08/23 06/08/23 Range/Units 18:30 18:30 18:30 WBC 5.9 (3.8-10.6) k/uL RBC 4.73 (4.30-5.90) m/uL Hgb 16.1 (13.0-17.5) gm/dL Hct 47.7 (39.0-53.0) % MCV 100.9 H (80.0-100.0) fL MCH 34.0 (25.0-35.0) pg MCHC 33.7 (31.0-37.0) g/dL RDW 12.9 (11.5-15.5) % Plt Count 299 (150-450) k/uL MPV 7.0 Neutrophils % 71 % Lymphocytes % 11 % Monocytes % 12 % Eosinophils % 3 % Basophils % 1 % Neutrophils # 4.2 (1.3-7.7) k/uL Lymphocytes # 0.7 L (1.0-4.8) k/uL Monocytes # 0.7 (0-1.0) k/uL Eosinophils # 0.2 (0-0.7) k/uL Basophils # 0.0 (0-0.2) k/uL PT 10.5 (10.0-12.5) sec INR 0.9 (<1.2) APTT 24.3 (22.0-30.0) sec Sodium 134 L (137-145) mmol/L Potassium 4.2 (3.5-5.1) mmol/L Chloride 105 (98-107) mmol/L Carbon Dioxide 16 L (22-30) mmol/L Anion Gap 13 mmol/L BUN 17 (9-20) mg/dL Creatinine 0.66 (0.66-1.25) mg/dL Est GFR (CKD-EPI)AfAm >90 (>60 ml/min/1.73 sqM) Est GFR (CKD-EPI)NonAf >90 (>60 ml/min/1.73 sqM) Glucose 100 H (74-99) mg/dL Plasma Lactic Acid Yandel (0.7-2.0) mmol/L Calcium 9.8 (8.4-10.2) mg/dL Total Bilirubin 0.8 (0.2-1.3) mg/dL AST 35 (17-59) U/L ALT 26 (4-49) U/L Alkaline Phosphatase 118 (38-126) U/L Troponin I (0.000-0.034) ng/mL NT-Pro-B Natriuret Pep 51 pg/mL Total Protein 7.4 (6.3-8.2) g/dL Albumin 4.0 (3.5-5.0) g/dL 06/08/23 06/08/23 Range/Units 18:30 18:30 WBC (3.8-10.6) k/uL RBC (4.30-5.90) m/uL Hgb (13.0-17.5) gm/dL Hct (39.0-53.0) % MCV (80.0-100.0) fL MCH (25.0-35.0) pg MCHC (31.0-37.0) g/dL RDW (11.5-15.5) % Plt Count (150-450) k/uL MPV Neutrophils % % Lymphocytes % % Monocytes % % Eosinophils % % Basophils % % Neutrophils # (1.3-7.7) k/uL Lymphocytes # (1.0-4.8) k/uL Monocytes # (0-1.0) k/uL Eosinophils # (0-0.7) k/uL Basophils # (0-0.2) k/uL PT (10.0-12.5) sec INR (<1.2) APTT (22.0-30.0) sec Sodium (137-145) mmol/L Potassium (3.5-5.1) mmol/L Chloride (98-107) mmol/L Carbon Dioxide (22-30) mmol/L Anion Gap mmol/L BUN (9-20) mg/dL Creatinine (0.66-1.25) mg/dL Est GFR (CKD-EPI)AfAm (>60 ml/min/1.73 sqM) Est GFR (CKD-EPI)NonAf (>60 ml/min/1.73 sqM) Glucose (74-99) mg/dL Plasma Lactic Acid Yandel 1.0 (0.7-2.0) mmol/L Calcium (8.4-10.2) mg/dL Total Bilirubin (0.2-1.3) mg/dL AST (17-59) U/L ALT (4-49) U/L Alkaline Phosphatase (38-126) U/L Troponin I <0.012 (0.000-0.034) ng/mL NT-Pro-B Natriuret Pep pg/mL Total Protein (6.3-8.2) g/dL Albumin (3.5-5.0) g/dL Disposition Clinical Impression: Right-sided chest pain, Cough, Lung cancer, Pneumonia Disposition: HOME SELF-CARE Condition: Good Instructions (If sedation given, give patient instructions): Bacterial Pneumonia (ED), Noncardiac Chest Pain (ED) Is patient prescribed a controlled substance at d/c from ED?: No Referrals: Rigo Dinero MD [Primary Care Provider] - 1-2 days Tessa Avilez MD [STAFF PHYSICIAN] - 06/11/23 Time of Disposition: 20:42
[2023-06-08 18:50] LABS: Basophils % (A) 1 %; Eosinophils # (A) 0.2 k/uL (0-0.7); Eosinophils % (A) 3 %; HCT 47.7 % (39.0-53.0); HGB 16.1 gm/dL (13.0-17.5); Lymphocytes # (A) 0.7 k/uL (1.0-4.8); Lymphocytes % (A) 11 %; MCHC 33.7 g/dL (31.0-37.0); MCV 100.9 fL (80.0-100.0); Monocytes # (A) 0.7 k/uL (0-1.0); Monocytes % (A) 12 %; Neutrophils # (A) 4.2 k/uL (1.3-7.7); Neutrophils % (A) 71 %; Platelet Count 299 k/uL (150-450); RBC 4.73 m/uL (4.30-5.90); RDW 12.9 % (11.5-15.5); WBC 5.9 k/uL (3.8-10.6)
[2023-06-08 19:01] LABS: ALT 26 U/L (4-49); AST 35 U/L (17-59); African American GFR (CKD) >90 (>60 ml/min/1.73 sqM); Alkaline Phosphatase 118 U/L (38-126); Anion Gap 13 mmol/L; Blood Urea Nitrogen 17 mg/dL (9-20); Calcium 9.8 mg/dL (8.4-10.2); Carbon Dioxide 16 mmol/L (22-30); Chloride 105 mmol/L (98-107); Glucose 100 mg/dL (74-99); Non-African American GFR(CKD) >90 (>60 ml/min/1.73 sqM); Potassium 4.2 mmol/L (3.5-5.1); Sodium 134 mmol/L (137-145); Total Bilirubin 0.8 mg/dL (0.2-1.3); Total Protein 7.4 g/dL (6.3-8.2)
[2023-06-08 19:02] LABS: INR 0.9 (<1.2); Partial Thromboplastin Time 24.3 sec (22.0-30.0); Prothrombin Time 10.5 sec (10.0-12.5)
[2023-06-08 19:09] LABS: NT-Pro-B-Type Natriuretic Pept 51 pg/mL
--- NOTE | 2023-06-08 20:18 | CT ---
EXAMINATION TYPE: CT angio chest CT DLP: 283.4 mGycm, Automated exposure control for dose reduction was used. DATE OF EXAM: 06/08/2023 7:21 PM COMPARISON: 05/10/2023 CT. CLINICAL INDICATION:Male, 58 years old with history of Chest pain, pulmonary embolism suspected; ches t pain, lung ca TECHNIQUE/CONTRAST: CTA scan of the thorax is performed with IV Contrast, patient injected with 100 mL of Isovue 370, MIP images are created and reviewed these are created on a separate workstation.. FINDINGS: Pulmonary Artery: There is no evidence for a filling defect within the pulmonary vasculature to sugge st acute pulmonary embolism. The pulmonary artery is of normal size. Lungs/Pleura: Small right pleural effusion with associated atelectasis. Right perihilar consolidation . There is spiculated right upper lung nodules including a apical 14 x 11 mm image 19 series 401 nodu le previously 13 x 7, 10 x 9 mm image 23 previously 9 x 9 mm. 8mm image 37 previously 6 mm no left-si ded pneumothorax, pleural effusion or focal consolidation. Mild emphysema changes around the lungs bi laterally. Airway: Large airways are patent. Heart: Heart is within normal limits for size. Vasculature: No evidence of aortic aneurysm. Mediastinum: No gross evidence of adenopathy. Musculoskeletal: No acute osseous abnormalities Soft Tissues: Unremarkable. Lower neck: No significant findings. Upper Abdomen: Nonobstructing right renal calculus measuring 8 mm. IMPRESSION: 1. No evidence of pulmonary embolism. 2. Right pleural effusion with right perihilar soft tissue mass with surrounding atelectasis. Overall the pleural effusion and masslike area has increased compared to immediate prior. Right apical nodul es also appear fractionally larger. Follow up recommendations for incidental pulmonary nodules, if there are any, are per [employer] or [employer].
[2023-06-08 21:53] VITALS: BP 152/113; PULSE 92; RESP 18; TEMP 97.9
== END 2023-06-08 21:59 | disposition home or self-care (01) ==
LOC: EC 17:47
DX: C34.90 Malignant neoplasm of unspecified part of unspecified bronchus or lung (principal); R07.89 Other chest pain; R05.9 Cough, unspecified; J18.9 Pneumonia, unspecified organism; J90 Pleural effusion, not elsewhere classified; J44.9 Chronic obstructive pulmonary disease, unspecified; Z87.891 Personal history of nicotine dependence
CPT/HCPCS: 36415; 94640; 93005; 83880; 80053; 83605; 84484; 85025; 85610; 85730; 87040; 71275; 99284; 96374; 96361 ×3; J2270; Q9967

== ENCOUNTER → 2023-06-11 | Outpatient (CLI) | payer BC ==
--- NOTE | 2023-06-14 18:06 | PE ---
EXAMINATION TYPE: PET CT fusion skull to thigh DATE OF EXAM: 06/11/2023 COMPARISON: 06/08/2023 CTA chest Prior PET/CT: 11/07/2022 HISTORY: Lung cancer TECHNIQUE: Following the intravenous administration of 11.7 mCi of F-18 FDG, whole body images are p erformed from the skull base to the midthigh. Images are reviewed on the computer in the coronal, ax ial, and sagittal planes. Reconstructed rotating images are created on independent workstation and r eviewed on the computer. A localization and attenuation correction CT is performed in conjunction w ith the PET scan. DLP: 268.12 mGycm SCAN: Subsequent Scan Blood glucose: 79 mg/dL Average Mediastinum SUV: 2.5 Average Liver SUV: 2.57 FINDINGS: NECK: No abnormal soft tissue uptake THORAX: There are bilateral foci of uptake within the hilar regions compatible with metastatic lesion s. Image 93, SUV 8 at the right hilum, image 91, SUV 5.46 left hilum. Image 101 left infrahilar regio n with an SUV of 6.43. There is a focus of uptake within the right infrahilar region image 108 SUV 8. 4. Focus of radiotracer is posterior to the aorta within the lower left lung field, image 118, SUV 10 .13. There is more generalized uptake within the consolidation in the left lower lung field. A area of hig her uptake within the midportion of this consolidation has an SUV of 8.11. ABDOMEN: There is a small focus of radiotracer anterior to the liver, image 129, SUV 5.48. Retrocrura l adenopathy appears to be present, image 129, SUV 13.87 the posterior aortic region and SUV 8.95 to the right the aorta. Large subcarinal lymph node is an SUV of 12.91, image 141 PELVIS: A subcutaneous hyperintense nodules present posterior to the left gluteal muscle, image 193 S UV 9.21. OSSEOUS STRUCTURES: Multiple osseous metastases are present. This would include a focus of radiotrace r at the left C2 vertebral body, image 28, SUV 14.5. There is uptake within the right sixth seventh a nd eighth ribs. This would include image 136 anterior laterally with an SUV of 13.28, Lateral right l ower rib, image 139, SUV 4.86 slightly more anterior image 142 additional rib uptake is on the right with an SUV of 5.48. There is a focus of radiotracer within the L2 vertebral body on the right, SUV 13.4. There is a focus of radiotracer within the anterior lateral left L3 vertebral body, SUV 4.27. Some uptake may be with in the spinous process at the same level. Image 179, SUV 4.46. There is a focus of radiotracer commun ication within the posterior lateral right fourth rib image 190, SUV 3.45. There is a focus of radiot racer accumulation within the anterior right L5 level, image 197, SUV 6.69. This focus radiotracer ac cumulation within the left ischio ramus, image 242 SUV 12.73. Some uptake is within the posterior rig ht hemipelvis at the level of the right acetabulum, image 223, SUV 10.48. There is a focus of radiotr acer within the right superior acetabulum, image 228, SUV 12.[address]: Small right pleural effusion is present. COMPARISON: Previous right neck uptake not identified currently. Superior mediastinal and pretracheal and subcarinal adenopathy is diminished. Right hilar adenopathy was present previously. Uptake withi n the posterior right lung is not identified currently. Osseous metastases appear to be an interval f inding. IMPRESSION: 1. Interval development of multiple osseous metastasis extending from the neck to the pelvis. 2. There are new soft tissue metastases discussed above. 3. Hilar uptake is diminished in intensity centrally although new hilar adenopathy appears to be pres ent. 4. Previous posterior right lung cancer not identified on the current examination. This may be dimini shed within the consolidation anterior to the pleural effusion
== END | disposition home or self-care (01) ==
LOC: RADPETMAIN 13:09
PROVIDERS: ATTEND Internal Medicine
DX: C79.51 Secondary malignant neoplasm of bone (principal); C34.11 Malignant neoplasm of upper lobe, right bronchus or lung; C79.89 Secondary malignant neoplasm of other specified sites
CPT/HCPCS: 78815; A9552

== ENCOUNTER → 2023-06-22 | Outpatient (CLI) | payer BC ==
--- NOTE | 2023-06-22 19:53 | MR ---
EXAMINATION TYPE: MR brain wo/w con DATE OF EXAM: 06/22/2023 7:38 PM CLINICAL INDICATION:Male, 58 years old with history of C34.11; PHH, Lung and bone cancer COMPARISON: Pet/CT 06/11/2023 MRI brain 11/19/2022 TECHNIQUE: Multi planar, multi sequence imaging was performed through the brain including: T1, T2, In version recovery, susceptibility weighted imaging and gradient echo imaging and Diffusion weighted im aging. The patient was then given intravenous contrast and multi planar, T1 fat-saturation images wer e obtained. IV Contrast: 7 cc Gadavist FINDINGS: Scattered peripherally enhancing lesions are new one which demonstrates restricted effusion in the left frontal lobe centrum semiovale measuring 6 mm. Other examples as described below: Left frontal lobe cortex series 801 image 143, image 135 left frontal lobe, image 94 left occipital l obe which is the largest and measures at least 10 mm with at least 2 adjacent lesions also present. Blooming artifact along the left occipital lobe lesion suggestive of hemosiderin deposition. The mcpherson -white junctions, ventricular system, basal cisterns appear unremarkable. Intracranial arterial flow voids are maintained. Midline structures show no abnormality. The bone marrow signal is within normal limits. Paranasal sinuses and mastoid air cells: No significant paranasal sinus disease. Visualized orbits: Orbital contents are intact. IMPRESSION: Scattered peripherally enhancing lesions are now present, (at least 6) These are new from 11/19/2022. Findings concerning for metastatic disease. One of the lesions in the left frontal lobe centrum semio samir demonstrates restricted diffusion.
== END | disposition home or self-care (01) ==
LOC: RADMRIMAIN 18:41
PROVIDERS: ATTEND Internal Medicine
DX: C34.11 Malignant neoplasm of upper lobe, right bronchus or lung (principal)
CPT/HCPCS: 70553; A9585

== ENCOUNTER 2023-07-04 08:48 | Emergency (ER) | payer BC, OTHER ==
[2023-07-04 09:05] VITALS: RESP 18; TEMP 97.8
[2023-07-04] MEDS ORDERED: HYDROmorphone 1 MG/ML 1 ML SYRINGE IM STA ×2 (09:23→13:54)
--- NOTE | 2023-07-04 09:28 | ED ---
General Adult HPI - General Chief complaint: Abdominal Pain Stated complaint: Constipation Time Seen by Provider: 07/04/23 09:20 Source: patient, RN notes reviewed, old records reviewed Mode of arrival: ambulatory Limitations: no limitations - History of Present Illness Initial comments: This is an 58-year-old male who presents emergency Department with a past history significant for lung cancer which has metastasized to the bone. Patient states his pain is been chronic but the pain medicines at home have not been helping. Patient states he takes [place] 7.5. Patient states he came in today because he hasn't had a bowel movement in 2 weeks. States he normally doesn't have one for about 3 days been 2 weeks is excessive. Patient states she's ta patricia Colace and senna and he is not had any results. Patient denies any fever chills for palpitations any chest pain. Patient denies any new difficulty breathing or worsening of difficulty breathing. Patient states he is being treated for infection in the lung currently. - Related Data Home Medications Medication Instructions Recorded Confirmed Doxycycline Hyclate 100 mg PO BID 06/08/23 06/08/23 HYDROcodone/APAP 5-325MG [[place] 1 tab PO Q6HR PRN 06/08/23 06/08/23 5-325] Allergies Allergy/AdvReac Type Severity Reaction Status Date / Time No Known Allergies Allergy Verified 07/04/23 09:03 Review of Systems ROS Statement: Those systems with pertinent positive or pertinent negative responses have been documented in the HPI. ROS Other: All systems not noted in ROS Statement are negative. Past Medical History Past Medical History: Cancer, COPD Additional Past Medical History / Comment(s): Small cell carcinoma - lung. CHEMO AND RADIATION, Mild COPD. History of Any Multi-Drug Resistant Organisms: None Reported Past Surgical History: Orthopedic Surgery Additional Past Surgical History / Comment(s): LEFT HAND SURGERY, COLONOSCOPY. T-12 FUSION FOR FX, Past Anesthesia/Blood Transfusion Reactions: No Reported Reaction Past Psychological History: No Psychological Hx Reported Smoking Status: Former smoker Past Alcohol Use History: None Reported Past Drug Use History: None Reported - Past Family History Mother Family Medical History: No Reported History General Exam - General Exam Comments Initial Comments: GENERAL: Patient is well-developed and well-nourished. Patient is nontoxic and well- hydrated and is in mild distress. ENT: Neck is soft and supple. No significant lymphadenopathy is noted. Oropharynx is clear. Moist mucous membranes. Neck has full range of motion without eliciting any pain. EYES: The sclera were anicteric and conjunctiva were pink and moist. Extraocular movements were intact and pupils were equal round and reactive to light. Eyelids were unremarkable. PULMONARY: Unlabored respirations. Good breath sounds bilaterally. No audible rales rhonchi or wheezing was noted. CARDIOVASCULAR: There is a regular rate and rhythm without any murmurs gallops or rubs. ABDOMEN: Soft and nontender with normal bowel sounds. SKIN: Skin is clear with no lesions or rashes and otherwise unremarkable. NEUROLOGIC: Patient is alert and oriented x3. Cranial nerves II through XII are grossly intact. Motor and sensory are also intact. Normal speech, volume and content. Symmetrical smile. MUSCULOSKELETAL: Normal extremities with adequate strength and full range of motion. LYMPHATICS: No significant lymphadenopathy is noted PSYCHIATRIC: Normal psychiatric evaluation. Limitations: no limitations Course Vital Signs 07/04/23 09:00 Temperature 97.8 F Pulse Rate 83 Respiratory 18 Rate Blood Pressure 140/90 O2 Sat by Pulse 96 Oximetry Medical Decision Making - Medical Decision Making Was pt. sent in by a medical professional or institution (, PA, COMMERCIAL LIGHT FIXTURE ASSEMBLER, urgent care, hospital, or assisted...) When possible be specific @ -No Did you speak to anyone other than the patient for history (EMS, parent, family, police, friend...)? What history was obtained from this source @ -No Did you review nursing and triage notes (agree or disagree)? Why? @ -I reviewed and agree with nursing and triage notes Were old charts reviewed (outside hosp., previous admission, EMS record, old EKG, old radiological studies, urgent care reports/EKG's, assisted records)? Report findings @ -No old charts were reviewed Differential Diagnosis (chest pain, altered mental status, abdominal pain women, abdominal pain men, vaginal bleeding, weakness, fever, dyspnea, syncope, headache, dizziness, GI bleed, back pain, seizure, CVA, palpatations, mental health, musculoskeletal)? @ -not applicable EKG interpreted by me (3pts min.). @ -As above X-rays interpreted by me (1pt min.). @ -KUB shows moderate constipation CT interpreted by me (1pt min.). @ -None done U/S interpreted by me (1pt. min.). @ -None done What testing was considered but not performed or refused? (CT, X-rays, U/S, labs)? Why? @ -None What meds were considered but not given or refused? Why? @ -None Did you discuss the management of the patient with other professionals (professionals i.e. , PA, COMMERCIAL LIGHT FIXTURE ASSEMBLER, lab, RT, psych nurse, social insurance analyst, bake room worker, teacher, transit police officer, case folder)? Give summary @ -No Was smoking cessation discussed for >3mins.? @ -No Was critical care preformed (if so, how long)? @ -No Were there social determinants of health that impacted care today? How? (Homelessness, low income, unemployed, alcoholism, drug addiction, transportation, low edu. Level, literacy, decrease access to med. care, alf, rehab)? @ -No Was there de-escalation of care discussed even if they declined (Discuss DNR or withdrawal of care, Hospice)? DNR status @ -No What co-morbidities impacted this encounter? (DM, HTN, Smoking, COPD, CAD, Cancer, CVA, ARF, Chemo, Hep., AIDS, mental health diagnosis, sleep apnea, morbid obesity)? @ -None Was patient admitted / discharged? Hospital course, mention meds given and route, prescriptions, significant lab abnormalities, going to OR and other pertinent info. @ -Patient had 2 enemas with some results patient was comfortable going home and following up with his oncologist. Patient also did receive Dilaudid here for his chronic pain. Undiagnosed new problem with uncertain prognosis? @ -No Drug Therapy requiring intensive monitoring for toxicity (Heparin, Nitro, Insulin, Cardizem)? @ -No Were any procedures done? @ -No Diagnosis/symptom? @ -Constipation Acute, or Chronic, or Acute on Chronic? @ -Acute Uncomplicated (without systemic symptoms) or Complicated (systemic symptoms)? @ -Uncomplicated Side effects of treatment? @ -No Exacerbation, Progression, or Severe Exacerbation? @ -No Poses a threat to life or bodily function? How? (Chest pain, [place], [place], pneumonia, PE, COPD, DKA, ARF, appy, cholecystitis, CVA, Diverticulitis, Homicidal, Suicidal, threat to staff... and all critical care pts) @ -No Diagnosis/symptom? @ -Chronic pain Acute, or Chronic, or Acute on Chronic? @ -Chronic Uncomplicated (without systemic symptoms) or Complicated (systemic symptoms)? @ -Uncomplicated Side effects of treatment? @ -No Exacerbation, Progression, or Severe Exacerbation? @ -No Poses a threat to life or bodily function? How? (Chest pain, [place], [place], pneumonia, PE, COPD, DKA, ARF, appy, cholecystitis, CVA, Diverticulitis, Homicidal, Suicidal, threat to staff... and all critical care pts) @ -No Disposition Clinical Impression: Constipation, Chronic pain Disposition: HOME SELF-CARE Condition: Good Instructions (If sedation given, give patient instructions): Constipation (ED) Is patient prescribed a controlled substance at d/c from ED?: No Referrals: Rigo Dinero MD [Primary Care Provider] - 1-2 days Time of Disposition: 13:54
--- NOTE | 2023-07-04 10:14 | XR ---
EXAMINATION TYPE: XR KUB DATE OF EXAM: 07/04/2023 9:40 AM CLINICAL INDICATION:Male, 58 years old with history of constipation; [facility] COMPARISON: Chest x-ray 08/03/2022 TECHNIQUE: Frontal upright views of the abdomen and pelvis. FINDINGS: Please refer to separate chest x-ray report. The bowel gas pattern is nonspecific, likely nonobstructive without dilated loops of small or large b owel. Fecal material and gas are demonstrated throughout the colon and rectum. Mild to moderate colon ic stool burden. No gross evidence of organomegaly. No evidence of pneumoperitoneum. Calcification up to 8.2 mm in size projects over the mid right kidney. Pelvic phleboliths. Osseous structures appear grossly intact, with S-shaped thoracolumbar scoliosis noted. Vertebral augmentation cement in T12. IMPRESSION: 1. Probable 8 mm right renal calculus. 2. Nonspecific, likely nonobstructive bowel gas pattern. Mild/moderate colonic stool burden.
--- NOTE | 2023-07-04 10:25 | XR ---
EXAMINATION TYPE: XR chest 2V DATE OF EXAM: 07/04/2023 9:40 AM CLINICAL INDICATION:Male, 58 years old with history of COUGH, HX LUNG CA; PHH COMPARISON: Chest x-ray 06/01/2023, PET/CT 06/11/2023, CT chest 06/08/2023 TECHNIQUE: XR chest 2V. Frontal PA and lateral views of the chest. FINDINGS: Lines/Tubes: None. Heart/mediastinum: Cardiac mediastinal silhouette is partially obscured by the lung opacities, heart size is indeterminate. Similar enlarged appearance of the right hilum could be from consolidation mas s or adenopathy. Pulmonary vascularity: Mild congestion, appears increased from prior. Lungs/Pleura: Moderate to large right pleural effusion with atelectasis or infiltrate in the right mi d to lower lung. Some fluid tracks along the horizontal fissure and right lung apex. Right apical daniel g nodule without significant change. Left lung shows mild congestive changes without focal consolidat ion, sizable effusion, or pneumothorax. Musculoskeletal: No acute osseous abnormality demonstrated in the limits of the exam. Mild osseous d egenerative changes and kyphoplasty cement in T12. Other findings: None. IMPRESSION: 1. Pulmonary vascular congestion, appears increased from previous. 2. Similar enlarged appearance of the right hilum could be from consolidation, mass, or adenopathy. 3. Moderate to large right pleural effusion with atelectasis or infiltrate in the right mid to lower lung, slightly increased from prior. 4. Right apical lung nodule without significant change.
[2023-07-04 14:44] VITALS: BP 158/98; PULSE 72
== END 2023-07-04 14:37 | disposition home or self-care (01) ==
LOC: EC 08:48
DX: G89.29 Other chronic pain (principal); K59.00 Constipation, unspecified; J90 Pleural effusion, not elsewhere classified; J44.9 Chronic obstructive pulmonary disease, unspecified; Z87.891 Personal history of nicotine dependence
CPT/HCPCS: 71046; 74018; 99284; 96372 ×2; J1170

== ENCOUNTER 2023-07-11 05:47 | Emergency (ER) | payer BC ==
[2023-07-11] MEDS ORDERED: PEG 3350 (236 GM/BTL) + LYTES 4,000 ML BOTTLE PO ONE (06:29)
[2023-07-11] MEDS ORDERED: HYDROmorphone 1 MG/ML 1 ML SYRINGE IM STA (07:17)
[2023-07-11] MEDS ORDERED: oxyCODONE-APAP 5-325MG 1 EACH TAB PO STA (07:23)
--- NOTE | 2023-07-11 07:23 | XR ---
EXAMINATION TYPE: XR KUB DATE OF EXAM: 07/11/2023 Comparison: 07/04/2023 Clinical History: 58-year-old male Pain, constipation Findings: Moderate right pleural effusion persists. No evidence for free intraperitoneal air. A few scattered small air-fluid levels seen throughout the central small bowel as well as the colon. No dilated small bowel. [id number] overall stool burden with air and stool extending distally to the rectum. 7 mm right renal calculus redemonstrated. Previous T12 vertebroplasty changes. Impression: 1. A few scattered small air-fluid levels within both the small bowel and colon could reflect a mild ileus or enteritis. Overall nonobstructive bowel gas pattern. 2. Mild to moderate stool burden. 3. A 7 mm right renal calculus redemonstrated. 4. Ongoing moderate right pleural effusion with adjacent atelectasis and/or consolidation. Correlate with prior workup and any known diagnosis.
--- NOTE | 2023-07-11 07:24 | ED ---
Abdominal Pain HPI - General Chief Complaint: Abdominal Pain Stated Complaint: Abdominal Pain, Cough Time Seen by Provider: 07/11/23 05:57 Source: patient, RN notes reviewed Mode of arrival: ambulatory Limitations: no limitations - History of Present Illness Initial Comments: 58-year-old male presents emergency Department chief complaint constipation. He states he has not had a bowel movement in several weeks. Patient states he was seen in emergency department but did not have relief after. Patient states she still complaint abdominal pain constipation this is from his chronic pain meds there is currently on from his lung cancer with metastasis. Patient states she's tried several phjm-mvx-kwhidem laxatives and stool softeners patient denies any fever or Chills no localized abdominal pain. - Related Data Home Medications Medication Instructions Recorded Confirmed Doxycycline Hyclate 100 mg PO BID 06/08/23 06/08/23 HYDROcodone/APAP 5-325MG [[place] 1 tab PO Q6HR PRN 06/08/23 06/08/23 5-325] Allergies Allergy/AdvReac Type Severity Reaction Status Date / Time No Known Allergies Allergy Verified 07/04/23 09:03 Review of Systems ROS Statement: Those systems with pertinent positive or pertinent negative responses have been documented in the HPI. ROS Other: All systems not noted in ROS Statement are negative. Past Medical History Past Medical History: Cancer, COPD Additional Past Medical History / Comment(s): Small cell carcinoma - lung. CHEMO AND RADIATION, Mild COPD. History of Any Multi-Drug Resistant Organisms: None Reported Past Surgical History: Orthopedic Surgery Additional Past Surgical History / Comment(s): LEFT HAND SURGERY, COLONOSCOPY. T-12 FUSION FOR FX, Past Anesthesia/Blood Transfusion Reactions: No Reported Reaction Past Psychological History: No Psychological Hx Reported Smoking Status: Former smoker Past Alcohol Use History: None Reported Past Drug Use History: None Reported - Past Family History Mother Family Medical History: No Reported History General Exam Limitations: no limitations General appearance: alert, in no apparent distress Head exam: Present: atraumatic, normocephalic, normal inspection Eye exam: Present: normal appearance, PERRL, EOMI. Absent: scleral icterus, conjunctival injection, periorbital swelling Neck exam: Present: normal inspection. Absent: tenderness, meningismus, lymphadenopathy Respiratory exam: Present: normal lung sounds bilaterally. Absent: respiratory distress, wheezes, rales, rhonchi, stridor Cardiovascular Exam: Present: regular rate, normal rhythm, normal heart sounds. Absent: systolic murmur, diastolic murmur, rubs, gallop, clicks GI/Abdominal exam: Present: soft, normal bowel sounds. Absent: distended, tenderness, guarding, rebound, rigid Course Vital Signs 07/11/23 07/11/23 05:50 07:37 Temperature 98.1 F 97.9 F Pulse Rate 93 79 Respiratory 18 Rate Blood Pressure 141/98 158/105 O2 Sat by Pulse 98 97 Oximetry Medical Decision Making - Medical Decision Making Was pt. sent in by a medical professional or institution (CAROL Hernandez, LOCKS INSPECTOR, urgent care, hospital, or longterm...) When possible be specific @ -No Did you speak to anyone other than the patient for history (EMS, parent, family, police, friend...)? What history was obtained from this source @ -No Did you review nursing and triage notes (agree or disagree)? Why? @ -I reviewed and agree with nursing and triage notes Were old charts reviewed (outside hosp., previous admission, EMS record, old EKG, old radiological studies, urgent care reports/EKG's, longterm records)? Report findings @ -Reviewed imaging and charting from prior ER visit Differential Diagnosis (chest pain, altered mental status, abdominal pain women, abdominal pain men, vaginal bleeding, weakness, fever, dyspnea, syncope, headache, dizziness, GI bleed, back pain, seizure, CVA, palpatations, mental health, musculoskeletal)? @ -Constipation, abdominal pain, lung cancer with metastasis EKG interpreted by me (3pts min.). @ -As above X-rays interpreted by me (1pt min.). @ -X-ray KUB overall nonobstructive, there is moderate constipation noted CT interpreted by me (1pt min.). @ -None done U/S interpreted by me (1pt. min.). @ -None done What testing was considered but not performed or refused? (CT, X-rays, U/S, labs)? Why? @ -None What meds were considered but not given or refused? Why? @ -None Did you discuss the management of the patient with other professionals (professionals i.e. CAROL Hernandez, LOCKS INSPECTOR, lab, RT, psych nurse, social work therapist, gravel machine operator, teacher, chief safety officer, assistant case manager)? Give summary @ -No Was smoking cessation discussed for >3mins.? @ -No Was critical care preformed (if so, how long)? @ -No Were there social determinants of health that impacted care today? How? (Homelessness, low income, unemployed, alcoholism, drug addiction, transportation, low edu. Level, literacy, decrease access to med. care, alf, rehab)? @ -No Was there de-escalation of care discussed even if they declined (Discuss DNR or withdrawal of care, Hospice)? DNR status @ -No What co-morbidities impacted this encounter? (DM, HTN, Smoking, COPD, CAD, Cancer, CVA, ARF, Chemo, Hep., AIDS, mental health diagnosis, sleep apnea, morbid obesity)? @ -[Lung CVA, chronic pain meds Was patient admitted / discharged? Hospital course, mention meds given and route, prescriptions, significant lab abnormalities, going to OR and other pertinent info. @ -[Discharge patient started with GoLYTELY had significant stool output stated that he feels greatly improved does not want enema at this time. Enema was ordered. Patient feels comfortable discharged return parameters were discussed. Undiagnosed new problem with uncertain prognosis? @ -No Drug Therapy requiring intensive monitoring for toxicity (Heparin, Nitro, Insulin, Cardizem)? @ -No Were any procedures done? @ -No Diagnosis/symptom? @ -Constipation Acute, or Chronic, or Acute on Chronic? @ -Acute Uncomplicated (without systemic symptoms) or Complicated (systemic symptoms)? @ -Uncomplicated Side effects of treatment? @ -No Exacerbation, Progression, or Severe Exacerbation? @ -No Poses a threat to life or bodily function? How? (Chest pain, [place], [place], pneumonia, PE, COPD, DKA, ARF, appy, cholecystitis, CVA, Diverticulitis, Homicidal, Suicidal, threat to staff... and all critical care pts) @ -No Disposition Clinical Impression: Constipation Disposition: HOME SELF-CARE Condition: Stable Instructions (If sedation given, give patient instructions): Constipation (ED) Additional Instructions: Please return to the Emergency Department if symptoms worsen or any other concerns. Is patient prescribed a controlled substance at d/c from ED?: No Referrals: Rigo Dinero MD [Primary Care Provider] - 1-2 days Time of Disposition: 07:23
[2023-07-11 07:53] VITALS: TEMP 97.9
[2023-07-11 08:17] VITALS: BP 159/98; PULSE 89; RESP 16
== END 2023-07-11 08:07 | disposition home or self-care (01) ==
LOC: EC 05:47
DX: K59.00 Constipation, unspecified (principal); J44.9 Chronic obstructive pulmonary disease, unspecified; Z87.891 Personal history of nicotine dependence
CPT/HCPCS: 74018; 99284; 96372; J1170

== ENCOUNTER → 2023-07-20 | Outpatient (CLI) | payer BC ==
--- NOTE | 2023-07-23 13:21 | MR ---
EXAMINATION TYPE: MR brain wo/w con DATE OF EXAM: 07/20/2023 8:42 PM CLINICAL INDICATION:Male, 58 years old with history of C79.51; PHH, Lung cancer COMPARISON: 06/22/2023 TECHNIQUE: Multi planar, multi sequence imaging was performed through the brain including: T1, T2, In version recovery, susceptibility weighted imaging and gradient echo imaging and Diffusion weighted im aging. The patient was then given intravenous contrast and multi planar, T1 fat-saturation images wer e obtained. IV Contrast: 6.5 cc Gadavist FINDINGS: Scattered lytic lesions with peripheral enhancement throughout the left frontal lobe the largest emma uring 11 x 11 mm series 1001 image 137 previously 5 x 7 mm., additionally 5 mm 4 mm and 6 mm lesions are also present. In the left occipital lobe there is areas of peripheral enhancement compatible with additional site of metastatic disease measuring 15 x 11, previously 13 x 10 mm series 901 image 77. There is mild vasogenic edema on FLAIR imaging. No evidence for acute/subacute ischemia. The bone marrow signal is within normal limits. Paranasal sinuses and mastoid air cells: No significant paranasal sinus disease. Visualized orbits: Orbital contents are intact. IMPRESSION: No demonstration metastatic foci with the dominant left frontal lobe and left occipital lobe lesions appearing larger on today's exam.
== END | disposition home or self-care (01) ==
LOC: RADMRIMAIN 20:00
PROVIDERS: ATTEND Radiology Radiation Oncology
DX: C79.51 Secondary malignant neoplasm of bone (principal); C34.31 Malignant neoplasm of lower lobe, right bronchus or lung; C77.8 Secondary and unspecified malignant neoplasm of lymph nodes of multiple regions
CPT/HCPCS: 70553; A9585

== ENCOUNTER 2023-07-27 17:01 | Inpatient (IN) | payer BC ==
[2023-07-27] MEDS: SODIUM CHLORIDE 0.9% 500 ML 500 ML IV STA (18:23)
[2023-07-27 18:30] LABS: Basophils % (A) 0 %; Eosinophils # (A) 0.1 k/uL (0-0.7); Eosinophils % (A) 1 %; HCT 39.7 % (39.0-53.0); HGB 13.5 gm/dL (13.0-17.5); Lymphocytes # (A) 0.4 k/uL (1.0-4.8); Lymphocytes % (A) 4 %; MCH 33.4 pg (25.0-35.0); MCHC 33.9 g/dL (31.0-37.0); MCV 98.5 fL (80.0-100.0); Mean Platelet Volume 7.4; Monocytes # (A) 0.9 k/uL (0-1.0); Monocytes % (A) 9 %; Neutrophils # (A) 8.6 k/uL (1.3-7.7); Neutrophils % (A) 84 %; Platelet Count 324 k/uL (150-450); RBC 4.04 m/uL (4.30-5.90); RDW 13.8 % (11.5-15.5); WBC 10.3 k/uL (3.8-10.6)
--- NOTE | 2023-07-27 18:38 | XR ---
EXAMINATION TYPE: XR chest 2V DATE OF EXAM: 07/27/2023 6:29 PM CLINICAL INDICATION:Male, 58 years old with history of difficulty breathing; COMPARISON: Chest radiographs from 07/04/2023 TECHNIQUE: XR chest 2V Frontal and lateral views of the chest. FINDINGS: Lungs/Pleura: Increased left upper lung airspace opacities. Similar tenting of the right diaphragm wi th right pleural effusion. There is no evidence of pleural effusion, focal consolidation, or pneumoth orax. Pulmonary vascularity: Unremarkable. Heart/mediastinum: Cardiomediastinal silhouette is unremarkable. Musculoskeletal: No acute osseous pathology. Fixation changes to the spine with vertebroplasty cement . IMPRESSION: Increased left upper lung airspace opacities correlate for pneumonia.
[2023-07-27 18:41] LABS: ALT 65 U/L (4-49); AST 48 U/L (17-59); African American GFR (CKD) >90 (>60 ml/min/1.73 sqM); Albumin 3.6 g/dL (3.5-5.0); Alkaline Phosphatase 138 U/L (38-126); Anion Gap 8 mmol/L; Blood Urea Nitrogen 14 mg/dL (9-20); Calcium 8.3 mg/dL (8.4-10.2); Carbon Dioxide 22 mmol/L (22-30); Chloride 101 mmol/L (98-107); Glucose 105 mg/dL (74-99); Magnesium 2.1 mg/dL (1.6-2.3); Non-African American GFR(CKD) >90 (>60 ml/min/1.73 sqM); Sodium 131 mmol/L (137-145); Total Bilirubin 0.9 mg/dL (0.2-1.3); Total Protein 7.1 g/dL (6.3-8.2)
[2023-07-27 18:42] LABS: Potassium 3.5 mmol/L (3.5-5.1)
[2023-07-27] MEDS ORDERED: PNEUMONIA PROTOCOL UTILIZED 1 EACH MISC PO PRN (18:46)
[2023-07-27] MEDS ORDERED: LACTULOSE 20 GM/30 ML CUP PO PRN (18:56)
[2023-07-27] MEDS ORDERED: ALBUTEROL NEBULIZED 2.5 MG/3 ML INHALATION PRN (18:56)
[2023-07-27 18:57] LABS: NT-Pro-B-Type Natriuretic Pept 81 pg/mL
[2023-07-27] MEDS: PIPERACILLIN-TAZOBACTAM 3.375 GM in SODIUM CHLORIDE 0.9% 100 ML IVPB STA (19:02)
[2023-07-27 19:07] LABS: INR 0.9 (<1.2); Partial Thromboplastin Time 24.3 sec (22.0-30.0); Prothrombin Time 10.2 sec (10.0-12.5)
[2023-07-27 19:28] LABS: Appearance,Urine Clear (Clear); Bilirubin,Urine Negative (Negative); Blood,Urine Negative (Negative); Color,Urine Yellow; Glucose,Urine (UA) Negative (Negative); Ketones,Urine Negative (Negative); Leukocyte Esterase,Urine Negative (Negative); Mucus,Urine Rare /hpf; Nitrite,Urine Negative (Negative); PH, Urine 6.5 (5.0-8.0); Protein,Urine 1+ (Negative); Specific Gravity,Urine 1.022 (1.001-1.035); WBC,Urine 6 /hpf (0-5)
[2023-07-27] MEDS: IPRATROPIUM-ALBUTEROL 3 ML NEB INHALATION STA (19:35)
[2023-07-27] MEDS ORDERED: ONDANSETRON 4 MG/2 ML VIAL IVP PRN (19:43)
[2023-07-27] MEDS ORDERED: NALOXONE 0.4 MG/ML 1 ML VIAL IV PRN (19:43)
[2023-07-27] MEDS: MORPHINE SULFATE IR 15 MG TABLET PO SCH (19:45)
--- NOTE | 2023-07-27 19:47 | ED ---
General Adult HPI - General Chief complaint: Shortness of Breath Stated complaint: SOB Time Seen by Provider: 07/27/23 17:54 Source: patient, RN notes reviewed, old records reviewed Mode of arrival: ambulatory Limitations: no limitations - History of Present Illness Initial comments: Patient is a 58-year-old male with past medical history remarkable for lung cancer who presents emergency department complaining of shortness of breath since Wednesday. Has been worse with a productive cough of colored sputum. He has chronic right-sided chest discomfort from his known cancer on that side. Also endorses worsening shortness of breath when laying down flat. States he does have a known fluid collection around his right lung diagnosed on prior chest x-ray. Denies any chest pain otherwise. Denies any nausea or vomiting or abdominal pain. Denies any fevers. Is on oral chemotherapy medication. Presents for further evaluation at this time. - Related Data Home Medications Medication Instructions Recorded Confirmed Afatinib Dimaleate [Gilotrif] 40 mg PO DAILY@0830 07/27/23 07/27/23 Albuterol Sulfate [Albuterol 2 puff INHALATION RT-Q4H PRN 07/27/23 07/27/23 Sulfate Hfa] Docusate [Colace] 200 mg PO DAILY 07/27/23 07/27/23 Lactulose 30 gm PO DAILY PRN 07/27/23 07/27/23 Morphine Sulfate Ir [MSIR] 15 mg PO Q4H 07/27/23 07/27/23 Omeprazole Magnesium [PriLOSEC OTC] 20 mg PO DAILY 07/27/23 07/27/23 Ondansetron [Zofran] 4 mg PO Q4H PRN 07/27/23 07/27/23 Allergies Allergy/AdvReac Type Severity Reaction Status Date / Time No Known Allergies Allergy Verified 07/27/23 18:51 Review of Systems ROS Statement: Those systems with pertinent positive or pertinent negative responses have been documented in the HPI. Review of Systems: CONST: Denies fever EYES: Denies blurry vision ENT: Endorses nasal congestion C/V: Denies Chest pain RESP: Endorses shortness of breath, cough GI: Denies abdominal pain : Denies dysuria SKIN: Denies rash. MSK: Denies joint pain. NEURO: Denies headache ROS Other: All systems not noted in ROS Statement are negative. Past Medical History Past Medical History: Cancer, COPD Additional Past Medical History / Comment(s): Small cell carcinoma - lung. CHEMO AND RADIATION, Mild COPD. History of Any Multi-Drug Resistant Organisms: None Reported Past Surgical History: Orthopedic Surgery Additional Past Surgical History / Comment(s): LEFT HAND SURGERY, COLONOSCOPY. T-12 FUSION FOR FX, Past Anesthesia/Blood Transfusion Reactions: No Reported Reaction Past Psychological History: No Psychological Hx Reported Smoking Status: Former smoker Past Alcohol Use History: None Reported Past Drug Use History: None Reported - Past Family History Mother Family Medical History: No Reported History General Exam - General Exam Comments Initial Comments: General: Appears in no acute distress. HEAD: Normal with no signs of head trauma. EYES: PERRLA, EOMI, conjunctiva normal, no discharge. ENT: Hearing grossly intact, normal oropharynx. RESPIRATORY: Reduced breath sounds over the right lung field. Coarse breath sounds over the left lung field. Hypoxic on room air. In triage she was 84% but in the room he is 89% on room air. Placed on nasal cannula oxygen. C/V: Regular rate and rhythm. S1 and S2 auscultated, no significant edema, peripheral pulses 2+ and intact throughout ABD: Abd is soft, nontender, nondistended EXT: Normal range of motion, no obvious deformity SKIN: No rashes or lesions observed on exposed skin. NEURO: Alert and oriented x 4. Limitations: no limitations Course Vital Signs 07/27/23 07/27/23 07/27/23 17:10 18:18 18:21 Temperature 97.8 F Pulse Rate 110 H 98 Respiratory 18 20 20 Rate Blood Pressure 99/64 103/79 O2 Sat by Pulse 84 L 97 Oximetry 07/27/23 07/27/23 07/27/23 19:35 19:45 20:36 Temperature Pulse Rate 106 H 109 H 111 H Respiratory 18 Rate Blood Pressure 118/76 O2 Sat by Pulse 93 L Oximetry Medical Decision Making - Medical Decision Making Was pt. sent in by a medical professional or institution (, PA, HELP DESK MANAGER, urgent care, hospital, or fdc...) When possible be specific @ -No Did you speak to anyone other than the patient for history (EMS, parent, family, police, friend...)? What history was obtained from this source @ -No Did you review nursing and triage notes (agree or disagree)? Why? @ -I reviewed and agree with nursing and triage notes Were old charts reviewed (outside hosp., previous admission, EMS record, old EKG, old radiological studies, urgent care reports/EKG's, fdc records)? Report findings @ -No old charts were reviewed Differential Diagnosis (chest pain, altered mental status, abdominal pain women, abdominal pain men, vaginal bleeding, weakness, fever, dyspnea, syncope, headache, dizziness, GI bleed, back pain, seizure, CVA, palpatations, mental health, musculoskeletal)? @ -Differential Dyspnea: Coronary syndrome, arrhythmia, tamponade, asthma, COPD, pulmonary embolism, pneumonia, pneumothorax, pulmonary effusion, anaphylaxis, diabetic ketoacidosis, flailed chest, pulmonary contusion, diaphragmatic rupture, anemia, neuromuscular, this is not meant to be an all-inclusive list. EKG interpreted by me (3pts min.). @ -As above X-rays interpreted by me (1pt min.). @ -Chest x-ray shows what appears to be worsening right-sided pleural effusion as well as a new left suspected pneumonic infiltrate in the left lung. CT interpreted by me (1pt min.). @ -None done U/S interpreted by me (1pt. min.). @ -None done What testing was considered but not performed or refused? (CT, X-rays, U/S, labs)? Why? @ -Considered CT of the chest however chest x-ray reveals worsening of the pleural effusion as well as left sided pneumonia. With obvious findings and explanation for the shortness of breath, I discussed with the patient we both agreed to defer CT angiogram at this time to avoid excess radiation exposure. What meds were considered but not given or refused? Why? @ -None Did you discuss the management of the patient with other professionals (professionals i.e. , PA, HELP DESK MANAGER, lab, RT, psych nurse, social services analyst, milk inspector, teacher, transit authority police officer, case packer and sealer)? Give summary @ -Discussed with the admitting team, MAYRA Merchant of [facility] who accepted the patient. Was smoking cessation discussed for >3mins.? @ -No Was critical care preformed (if so, how long)? @ -Yes, 35 minutes. Were there social determinants of health that impacted care today? How? (Homelessness, low income, unemployed, alcoholism, drug addiction, transportation, low edu. Level, literacy, decrease access to med. care, fdc, rehab)? @ -No Was there de-escalation of care discussed even if they declined (Discuss DNR or withdrawal of care, Hospice)? DNR status @ -No What co-morbidities impacted this encounter? (DM, HTN, Smoking, COPD, CAD, Cancer, CVA, ARF, Chemo, Hep., AIDS, mental health diagnosis, sleep apnea, morbid obesity)? @ -None Was patient admitted / discharged? Hospital course, mention meds given and route, prescriptions, significant lab abnormalities, going to OR and other pertinent info. @ -Based on the patient's presentation and physical exam, presents with hypoxic respiratory failure likely secondary to pulmonary etiology with his history of lung cancer. We did discuss obtaining CT imaging to evaluate for possible PE however both agree that we will first obtain a chest x-ray as he does have a known right-sided pleural effusion. Seems to also be having some upper respiratory symptoms with productive cough. Vital signs are remarkable for hypoxia on room air but this improves on 2 to 4 L nasal cannula. Mild tachycardia. He will be given IV fluids. EKG showed no signs of acute ischemia. Chest x-ray shows the right-sided pleural effusion that appears slightly worse as well as left-sided new pneumonia. Laboratory studies remarkable for absence of leukopenia. No significant leukocytosis. Troponin undetectable. Viral swabs negative. On reevaluation, I discussed with the patient, and patient will be admitted to the hospital at this time. He will be started on IV antibiotics. Due to his history of cancer I did start the patient on Zosyn and azithromycin. He feels improved on nasal cannula oxygen. Will continue with IV fluid hydration and restarting his home medications. Blood culture sent. Patient was in agreement this plan. Oncology consulted. Pulmonology consulted. I spoke with the admitting team, MAYRA Merchant of [facility] who accepted the patient. Undiagnosed new problem with uncertain prognosis? @ -No Drug Therapy requiring intensive monitoring for toxicity (Heparin, Nitro, Insulin, Cardizem)? @ -No Were any procedures done? @ -No Diagnosis/symptom? @ -Lung cancer, pneumonia, pleural effusion, hypoxic respiratory failure Acute, or Chronic, or Acute on Chronic? @ -Acute Uncomplicated (without systemic symptoms) or Complicated (systemic symptoms)? @ -Complicated Side effects of treatment? @ -No Exacerbation, Progression, or Severe Exacerbation? @ -No Poses a threat to life or bodily function? How? (Chest pain, [place], [place], pneumonia, PE, COPD, DKA, ARF, appy, cholecystitis, CVA, Diverticulitis, Homicidal, Suicidal, threat to staff... and all critical care pts) @ -Yes - Lab Data Result diagrams: 07/27/23 18:16 07/27/23 18:16 Lab Results 07/27/23 07/27/23 07/27/23 Range/Units 18:16 18:16 18:16 WBC 10.3 (3.8-10.6) k/uL RBC 4.04 L (4.30-5.90) m/uL Hgb 13.5 (13.0-17.5) gm/dL Hct 39.7 (39.0-53.0) % MCV 98.5 (80.0-100.0) fL MCH 33.4 (25.0-35.0) pg MCHC 33.9 (31.0-37.0) g/dL RDW 13.8 (11.5-15.5) % Plt Count 324 (150-450) k/uL MPV 7.4 Neutrophils % 84 % Lymphocytes % 4 % Monocytes % 9 % Eosinophils % 1 % Basophils % 0 % Neutrophils # 8.6 H (1.3-7.7) k/uL Lymphocytes # 0.4 L (1.0-4.8) k/uL Monocytes # 0.9 (0-1.0) k/uL Eosinophils # 0.1 (0-0.7) k/uL Basophils # 0.0 (0-0.2) k/uL PT 10.2 (10.0-12.5) sec INR 0.9 (<1.2) APTT 24.3 (22.0-30.0) sec Sodium (137-145) mmol/L Potassium (3.5-5.1) mmol/L Chloride (98-107) mmol/L Carbon Dioxide (22-30) mmol/L Anion Gap mmol/L BUN (9-20) mg/dL Creatinine (0.66-1.25) mg/dL Est GFR (CKD-EPI)AfAm (>60 ml/min/1.73 sqM) Est GFR (CKD-EPI)NonAf (>60 ml/min/1.73 sqM) Glucose (74-99) mg/dL Plasma Lactic Acid [place]andel (0.7-2.0) mmol/L Calcium (8.4-10.2) mg/dL Magnesium (1.6-2.3) mg/dL Total Bilirubin (0.2-1.3) mg/dL AST (17-59) U/L ALT (4-49) U/L Alkaline Phosphatase (38-126) U/L Troponin I (0.000-0.034) ng/mL NT-Pro-B Natriuret Pep pg/mL Total Protein (6.3-8.2) g/dL Albumin (3.5-5.0) g/dL Urine Color Yellow Urine Appearance Clear (Clear) Urine pH 6.5 (5.0-8.0) Ur Specific [place] 1.022 (1.001-1.035) Urine Protein 1+ H (Negative) Urine Glucose (UA) Negative (Negative) Urine Ketones Negative (Negative) Urine Blood Negative (Negative) Urine Nitrite Negative (Negative) Urine Bilirubin Negative (Negative) Urine Urobilinogen 2.0 (<2.0) mg/dL Ur Leukocyte Esterase Negative (Negative) Urine WBC 6 H (0-5) /hpf Urine Mucus Rare H (None) /hpf Influenza Type A (PCR) (Not Detectd) Influenza Type B (PCR) (Not Detectd) RSV (PCR) (Not Detectd) SARS-CoV-2 (PCR) (Not Detectd) 07/27/23 07/27/23 07/27/23 Range/Units 18:16 18:16 18:16 WBC (3.8-10.6) k/uL RBC (4.30-5.90) m/uL Hgb (13.0-17.5) gm/dL Hct (39.0-53.0) % MCV (80.0-100.0) fL MCH (25.0-35.0) pg MCHC (31.0-37.0) g/dL RDW (11.5-15.5) % Plt Count (150-450) k/uL MPV Neutrophils % % Lymphocytes % % Monocytes % % Eosinophils % % Basophils % % Neutrophils # (1.3-7.7) k/uL Lymphocytes # (1.0-4.8) k/uL Monocytes # (0-1.0) k/uL Eosinophils # (0-0.7) k/uL Basophils # (0-0.2) k/uL PT (10.0-12.5) sec INR (<1.2) APTT (22.0-30.0) sec Sodium 131 L (137-145) mmol/L Potassium 3.5 (3.5-5.1) mmol/L Chloride 101 (98-107) mmol/L Carbon Dioxide 22 (22-30) mmol/L Anion Gap 8 mmol/L BUN 14 (9-20) mg/dL Creatinine 0.52 L (0.66-1.25) mg/dL Est GFR (CKD-EPI)AfAm >90 (>60 ml/min/1.73 sqM) Est GFR (CKD-EPI)NonAf >90 (>60 ml/min/1.73 sqM) Glucose 105 H (74-99) mg/dL Plasma Lactic Acid Yandel 1.2 (0.7-2.0) mmol/L Calcium 8.3 L (8.4-10.2) mg/dL Magnesium 2.1 (1.6-2.3) mg/dL Total Bilirubin 0.9 (0.2-1.3) mg/dL AST 48 (17-59) U/L ALT 65 H (4-49) U/L Alkaline Phosphatase 138 H (38-126) U/L Troponin I <0.012 (0.000-0.034) ng/mL NT-Pro-B Natriuret Pep 81 pg/mL Total Protein 7.1 (6.3-8.2) g/dL Albumin 3.6 (3.5-5.0) g/dL Urine Color Urine Appearance (Clear) Urine pH (5.0-8.0) Ur Specific [place] (1.001-1.035) Urine Protein (Negative) Urine Glucose (UA) (Negative) Urine Ketones (Negative) Urine Blood (Negative) Urine Nitrite (Negative) Urine Bilirubin (Negative) Urine Urobilinogen (<2.0) mg/dL Ur Leukocyte Esterase (Negative) Urine WBC (0-5) /hpf Urine Mucus (None) /hpf Influenza Type A (PCR) (Not Detectd) Influenza Type B (PCR) (Not Detectd) RSV (PCR) (Not Detectd) SARS-CoV-2 (PCR) (Not Detectd) 07/27/23 Range/Units 18:16 WBC (3.8-10.6) k/uL RBC (4.30-5.90) m/uL Hgb (13.0-17.5) gm/dL Hct (39.0-53.0) % MCV (80.0-100.0) fL MCH (25.0-35.0) pg MCHC (31.0-37.0) g/dL RDW (11.5-15.5) % Plt Count (150-450) k/uL MPV Neutrophils % % Lymphocytes % % Monocytes % % Eosinophils % % Basophils % % Neutrophils # (1.3-7.7) k/uL Lymphocytes # (1.0-4.8) k/uL Monocytes # (0-1.0) k/uL Eosinophils # (0-0.7) k/uL Basophils # (0-0.2) k/uL PT (10.0-12.5) sec INR (<1.2) APTT (22.0-30.0) sec Sodium (137-145) mmol/L Potassium (3.5-5.1) mmol/L Chloride (98-107) mmol/L Carbon Dioxide (22-30) mmol/L Anion Gap mmol/L BUN (9-20) mg/dL Creatinine (0.66-1.25) mg/dL Est GFR (CKD-EPI)AfAm (>60 ml/min/1.73 sqM) Est GFR (CKD-EPI)NonAf (>60 ml/min/1.73 sqM) Glucose (74-99) mg/dL Plasma Lactic Acid Yandel (0.7-2.0) mmol/L Calcium (8.4-10.2) mg/dL Magnesium (1.6-2.3) mg/dL Total Bilirubin (0.2-1.3) mg/dL AST (17-59) U/L ALT (4-49) U/L Alkaline Phosphatase (38-126) U/L Troponin I (0.000-0.034) ng/mL NT-Pro-B Natriuret Pep pg/mL Total Protein (6.3-8.2) g/dL Albumin (3.5-5.0) g/dL Urine Color Urine Appearance (Clear) Urine pH (5.0-8.0) Ur Specific [place] (1.001-1.035) Urine Protein (Negative) Urine Glucose (UA) (Negative) Urine Ketones (Negative) Urine Blood (Negative) Urine Nitrite (Negative) Urine Bilirubin (Negative) Urine Urobilinogen (<2.0) mg/dL Ur Leukocyte Esterase (Negative) Urine WBC (0-5) /hpf Urine Mucus (None) /hpf Influenza Type A (PCR) Not Detected (Not Detectd) Influenza Type B (PCR) Not Detected (Not Detectd) RSV (PCR) Not Detected (Not Detectd) SARS-CoV-2 (PCR) Not Detected (Not Detectd) - EKG Data -: EKG Interpreted by Me EKG Comments: 12-lead Electrocardiogram Interpretation Note EKG was reviewed and interpreted by myself. 12-lead ECG performed at 1802 is interpreted by me as revealing sinus tachycardia with occasional PVC at a rate of 105 beats per minute. [place] is normal. MI interval is 159 ms, QRS duration is 97 ms, QTc is 382 ms.. There were no ST or T wave abnormalities to suggest myocardial ischemia or injury. R wave progression across the precordium was satisfactory. By my interpretation this EKG is non-diagnostic for acute ischemia. Disposition Clinical Impression: Pneumonia, Hypoxic respiratory failure, Lung cancer, Pleural effusion Disposition: ADMITTED IP TO THIS HOSP Condition: Stable Time of Disposition: 19:38
[2023-07-27] MEDS: AZITHROMYCIN 500 MG in SODIUM CHLORIDE 0.9% 250 ML IVPB STA (20:35)
[2023-07-28] MEDS: SODIUM CHLORIDE 0.9% 1,000 ML IV SCH (00:06)
[2023-07-28] MEDS: HEPARIN SODIUM,PORCINE 5,000 UNIT/ML 1 ML VIAL SQ SCH (00:20)
[2023-07-28] MEDS: PIPERACILLIN-TAZOBACTAM 3.375 GM in SODIUM CHLORIDE 0.9% 100 ML IVPB SCH (02:32)
[2023-07-28] MEDS: IPRATROPIUM-ALBUTEROL 3 ML NEB INHALATION SCH (07:40)
--- NOTE | 2023-07-28 07:41 | P.CNPUL ---
History of Present Illness Consult date: 07/28/23 Requesting physician: Mulugeta Light Reason for consult: pneumonia Chief complaint: acute on chronic dyspnea History of present illness: I am seeing this patient in consultation today July 28, 2023 in the emergency room after he presented with complaints of increased shortness of breath, w orsening since Wednesday. Patient is a 58-year-old white male with past medical history significant for metastatic non-small cell lung carcinoma, COPD, former tobacco dependence. He follows with Dr. Avilez in the pulmonary office. Patient has biopsy-proven non-small cell carcinoma, with metastasis within the chest, brain, and diffuse osseous metastasis. He also has a right renal nodule which is being followed up by urology. He has been following with radiation oncology and medical oncology. He has been treated with immunotherapy in the past, but has failed treatment. He has recently been started on daily Gilotrif on July 14. Since Wednesday, the patient has had worsening shortness of breath. This is especially noticeable during exertion. He is not normally oxygen dependent at home. He has been wheezing while at home. He has also had a change in his chronic cough with limited amounts of sputum production. Denies any fevers, chills, chest pain, hemoptysis. He presented to the emergency room last night with the above-mentioned symptoms. He is currently lying in bed, on 4 L/min nasal cannula, in no acute distress. He is generally weak and requires assistance to sit up in bed. His is at bedside. Chest x-ray on arrival demonstrated a new bilateral infiltrates, especially involving the left upper lung field, chronic right lung changes, and a chronic right-sided pleural effusion. These findings are concerning for bilateral multifocal pneumonia or possible pulmonary drug toxicity. CBC on arrival was fairly unremarkable. WBC count 10.3, hematocrit 13.5, hematocrit 39.7, platelets 324. CMP on arrival: Sodium 131, potassium 3.5, chloride 101, serum bicarb 22, BUN 14, creatinine 0.52, glucose 105. Infusing at 75 mL/h. Lactic acid level not elevated. Mild elevation in LFTs. Troponin less than 0.012. NT proBNP not elevated. Urinalysis not concerning for UTI. Negative for influenza, RSV, COVID. Patient has been started on empiric antibiotics. He is afebrile. Vital signs are stable. Review of Systems REVIEW OF SYSTEMS: CONSTITUTIONAL: Admits weight loss since lung cancer diagnosis EYES: Denies change in vision. EARS, NOSE, MOUTH, THROAT: Denies headaches, denies sore throat. CARDIOVASCULAR: Denies chest pain, palpitations or syncopal episodes. RESPIRATORY: See HPI GASTROINTESTINAL: Denies change in appetite, abdominal pain, nausea and vomiting, or diarrhea. Admits occasional constipation issues and takes stool so fteners GENITOURINARY: Denies hematuria, denies infections. Admits suprapubic discomfort MUSKULOSKELETAL: Denies pain, denies swelling. INTEGUMENTARY: Denies rash, denies eczema. NEUROLOGICAL: Denies recent memory loss, no recent seizure activity. PSYCHIATRIC: Denies anxiety, denies depression. HEMATOLOGIC/LYMPHATIC: Denies anemia, denies enlarged lymph node Past Medical History Past Medical History: Cancer, COPD Additional Past Medical History / Comment(s): Small cell carcinoma - lung. CHEMO AND RADIATION, Mild COPD. History of Any Multi-Drug Resistant Organisms: None Reported Past Surgical History: Orthopedic Surgery Additional Past Surgical History / Comment(s): LEFT HAND SURGERY, COLONOSCOPY. T-12 FUSION FOR FX, Past Anesthesia/Blood Transfusion Reactions: No Reported Reaction Past Psychological History: No Psychological Hx Reported Smoking Status: Former smoker Past Alcohol Use History: None Reported Past Drug Use History: None Reported - Past Family History Mother Family Medical History: No Reported History Medications and Allergies Home Medications Medication Instructions Recorded Confirmed Type Afatinib Dimaleate [Gilotrif] 40 mg PO DAILY@0830 07/27/23 07/27/23 History Albuterol Sulfate [Albuterol 2 puff INHALATION RT-Q4H PRN 07/27/23 07/27/23 History Sulfate Hfa] Docusate [Colace] 200 mg PO DAILY 07/27/23 07/27/23 History Lactulose 30 gm PO DAILY PRN 07/27/23 07/27/23 History Morphine Sulfate Ir [MSIR] 15 mg PO Q4H 07/27/23 07/27/23 History Omeprazole Magnesium [PriLOSEC OTC] 20 mg PO DAILY 07/27/23 07/27/23 History Ondansetron [Zofran] 4 mg PO Q4H PRN 07/27/23 07/27/23 History Allergies Allergy/AdvReac Type Severity Reaction Status Date / Time No Known Allergies Allergy Verified 07/27/23 18:51 Physical Exam Vitals: Vital Signs Temp Pulse Resp BP Pulse Ox 07/28/23 00:19 96 20 97/66 90 L 07/27/23 20:36 111 H 18 118/76 93 L 07/27/23 19:45 109 H 07/27/23 19:35 106 H 07/27/23 18:21 98 20 103/79 97 07/27/23 18:18 20 07/27/23 17:10 97.8 F 110 H 18 99/64 84 L Intake and Output 07/27/23 07/27/23 07/28/23 14:59 22:59 06:59 Other: Weight 63.503 kg GENERAL EXAM: Alert, 58-year-old male, frail, comfortable in no apparent distress. HEAD: Normocephalic and atraumatic EYES: Normal reaction of pupils, equal size. NOSE: Clear with pink turbinates. THROAT: No erythema or exudates. NECK: No masses, no JVD. CHEST: No chest wall deformity. LUNGS: Equal air entry with markedly diminished right lung sounds and scattered rhonchi throughout. On 4 L/min nasal cannula. No conversational dyspnea or accessory muscle use.. CVS: S1 and S2 normal with no audible murmur, regular rhythm. No extra heart sounds ABDOMEN: No hepatosplenomegaly, active bowel sounds, no guarding or rigidity. SPINE: No scoliosis or deformity SKIN: No rashes CENTRAL NERVOUS SYSTEM: No focal deficits, tone is normal in all 4 extremities. EXTREMITIES: There is no peripheral edema, clubbing, or cyanosis. Peripheral pulses are intact. Results - Laboratory Findings CBC and BMP: 07/27/23 18:16 07/27/23 18:16 PT/INR, D-dimer PT 10.2 sec (10.0-12.5) 07/27/23 18:16 INR 0.9 (<1.2) 07/27/23 18:16 Abnormal lab findings: Abnormal Labs 07/27/23 07/27/23 07/27/23 18:16 18:16 18:16 RBC 4.04 L Neutrophils # 8.6 H Lymphocytes # 0.4 L Sodium 131 L Creatinine 0.52 L Glucose 105 H Calcium 8.3 L ALT 65 H Alkaline Phosphatase 138 H Urine Protein 1+ H Urine WBC 6 H Urine Mucus Rare H - Diagnostic Findings Chest x-ray: image reviewed Assessment and Plan Assessment: Acute hypoxemic respiratory failure, multifactorial, related to a combination of possible bilateral community-acquired pneumonia, metastatic lung cancer, and ch ronic right pleural effusion. Chest x-ray on arrival demonstrated a new bilateral infiltrates, especially involving the left upper lung field. These findings are concerning for bilateral multifocal pneumonia or possible pulmonary drug toxicity. Patient has recently started Gilotrif on July 14. There were chronic right-sided changes with a moderate-sized right-sided pleural effusion which is felt to be malignant. Negative for influenza, RSV, COVID. Suspected mild exacerbation of COPD, secondary to above Non-small cell lung carcinoma, with metastasis within the chest, brain, and diffuse osseous involvement. Right renal nodule, being followed up outpatient with urology Chronic right-sided pleural effusion, thought to be malignant until proven otherwise Recent T12 kyphoplasty May 07, 2023 Former tobacco dependence Plan: Patient's medications, labs, chest x-ray reviewed Continue supplemental oxygen, currently on 4 L/min nasal cannula. Continue empiric antibiotics Check procalcitonin level Continue bronchodilators around the clock and IV Solumedrol Obtain ultrasound of the chest, however, high likelyhoood of trapped lung if patient undergoes a right sided thoracentesis. This is a chronic pleural effusion. Medical oncology also added to the case. Prognosis is guarded related to above mentioned comorbidities. We will continue to follow, and further recommendations are forthcoming I have personally seen and examined the patient, performed the documentation and the assessment and plan as written. Number of minutes spent on the visit: 20 Time with Patient: Greater than 30
--- NOTE | 2023-07-28 08:18 | XR ---
EXAMINATION TYPE: XR chest 2V DATE OF EXAM: 07/28/2023 5:43 AM CLINICAL INDICATION:Male, 58 years old with history of pneumonia; H COMPARISON: Chest radiograph from one day prior. TECHNIQUE: XR chest 2V Frontal and lateral views of the chest. FINDINGS: Lungs/Pleura: Similar left upper lung airspace opacities. Similar tenting of the right diaphragm with right pleural effusion. There is no evidence of pleural effusion, focal consolidation, or pneumothor ax. Pulmonary vascularity: Unremarkable. Heart/mediastinum: Cardiomediastinal silhouette is unremarkable. Musculoskeletal: No acute osseous pathology. Fixation changes to the spine with vertebroplasty cement . IMPRESSION: Similar left upper lung airspace opacities correlate for pneumonia.
[2023-07-28] MEDS ORDERED: RX INFO: IV CONTRAST WAS GIVEN 1 EACH MISC MISCELLANE PRN (08:19)
--- NOTE | 2023-07-28 08:23 | US ---
EXAMINATION TYPE: US chest DATE OF EXAM: 07/28/2023 COMPARISON: 07/28/2023 chest radiograph CLINICAL INDICATION: Male, 58 years old with history of right sided pleural effusion; pleural effusio n Lung CA TECHNIQUE: Targeted ultrasound of the posterior lower right hemithorax EXAM MEASUREMENTS: Right Pleural Effusion pocket size: 12.2 Right skin surface to fluid distance: 1.5m lung tissue visualized 5.5 cm in fluid pocket. Right side marked for possible thoracentesis outside the dept. Pulmonologists are able to review the images in the patient?s EMR. IMPRESSIONS: Moderate right pleural effusion marked for thoracentesis.
[2023-07-28] MEDS ORDERED: AFATINIB DIMALEATE 40 MG PO SCH (08:30)
[2023-07-28] MEDS: PANTOPRAZOLE 40 MG TABLET PO SCH (09:11)
[2023-07-28] MEDS: DOCUSATE 100 MG CAP PO SCH (09:11)
[2023-07-28] MEDS: methylPREDNISolone SOD SUCCI 40 MG/ML 1 ML VIAL IV SCH (09:20)
[2023-07-28 11:05] LABS: Basophils # (A) 0.03 X 10*3/uL (0.00-0.10); Basophils % (A) 0.3 %; Eosinophils # (A) 0.16 X 10*3/uL (0.04-0.35); Eosinophils % (A) 1.5 %; HCT 37.1 % (39.6-50.0); HGB 12.4 g/dL (13.0-17.0); Lymphocytes # (A) 0.49 X 10*3/uL (0.90-5.00); Lymphocytes % (A) 4.6 %; MCH 32.4 pg (27.0-32.0); MCHC 33.4 g/dL (32.0-37.0); MCV 96.9 FL (80.0-97.0); Mean Platelet Volume 9.2 FL (9.5-12.2); Monocytes # (A) 1.15 X 10*3/uL (0.20-1.00); Monocytes % (A) 10.9 %; NRBC Per 100 WBC 0 X 10*3/uL (0.00-0.01); Neutrophils # (A) 8.66 X 10*3/uL (1.80-7.70); Platelet Count 308 X 10*3/uL (140-440); RBC 3.83 X 10*6/uL (4.40-5.60); WBC 10.56 X 10*3/uL (4.50-10.00)
[2023-07-28 11:23] LABS: Blood Urea Nitrogen 11.1 mg/dL (9.0-27.0); Carbon Dioxide 20.8 mmol/L (21.6-31.8); Chloride 100 mmol/L (96-109); Glucose 102 mg/dL (70-110); Potassium 3.6 mmol/L (3.5-5.5); Sodium 133 mmol/L (135-145)
--- NOTE | 2023-07-28 11:24 | CT ---
EXAMINATION TYPE: CT chest w con DATE OF EXAM: 07/28/2023 COMPARISON: 06/08/2023 HISTORY: Hypoxia, rule out pneumonitis CT DLP: 305.2 mGycm, Automated exposure control for dose reduction was used. CONTRAST: Performed injected with iso 370/100ml mL of Isovue 370. TECHNIQUE: Axial images were obtained at 5 mm thick sections. Reconstructed images are reviewed on [employer] computer in the coronal plane. FINDINGS: Portion of the thyroid visualized is normal. Diffuse increased lung markings are through the lung monteiro. There is milder preservation of the lung bases relative to the upper lung monteiro. Moderate right small left pleural effusions are present. So me adjacent atelectasis may be present. 1.0 cm lymph node is adjacent to the left main pulmonary artery. Slightly smaller periaortic lymph n odes are at the aortic arch. The ascending aorta diameter at the level of the main pulmonary artery i s 3.5 cm. The main pulmonary artery diameter at the bifurcation is 3.[address] sections are obtained through the upper abdomen. There is a 1.6 cm cyst on the posterior u pper pole right kidney. Couple of small cortical renal cysts are present bilaterally. Upper abdomen i s otherwise unremarkable. IMPRESSION: 1. Moderate right and small left pleural effusions. 2. Diffuse increased lung markings, greater through the upper lung monteiro. Correlate for pulmonary ed maria antonia. Atypical pneumonia should be considered. Pneumonitis of other etiologies would be within the dif ferential. 3. Couple of prominent lymph nodes adjacent to the aortic arch and left main pulmonary artery
[2023-07-28] MEDS: SENNOSIDES-DOCUSATE SODIUM 1 EACH TAB PO SCH (11:40)
[2023-07-28] MEDS: methylPREDNISolone SOD SUCCI 125 MG/2 ML VIAL IV SCH (11:40)
--- NOTE | 2023-07-28 15:29 | P.CONS ---
History of Present Illness - Reason for Consult Consult date: 07/28/23 Sq cell lung cancer on treatment Requesting physician: Mulugeta Light - Chief Complaint SOB - History of Present Illness Mr. Rojas is a 58 year old male pt of Dr. Dima Gamez no significant PMH with a recent diagnosis of poorly differentiated lung carcinoma. In September 2022, he reported painless lymphadenopathy in the right neck/shoulder. Prior to this, he had been having increased discomfort in the right chest wall radiating to the mid back on coughing or deep inspiration. He was seen by Dr. Marks and when his right neck lymphadenopathy did not resolve following administration of steroids, CT of the neck done 10/09/2022 revealed 2.4 x 1.9 cm right supracla vicular lymph node at the level of the right thyroid along with lymphadenopathy at the level of the vocal cords. In addition, there was a 1.1 x 0.7 cm spiculated nodule in the right lung apex and a 1 x 0.8 cm right lung nodule consistent with postinflammatory changes and nodular scarring. Given these findings, PET/CT was done 11/07/2022 revealing FDG avid lymphadenopathy in the right neck (SUV of 5, measuring 7 mm in largest dimension), right lung apex mass measuring 2.1 x 1.4 cm (SUV 7.6), mediastinal lymphadenopathy in the paratracheal, precarinal, subcarinal regions, right hilar lymphadenopathy, and left periaortic lymphadenopathy. There was right axillary lymphadenopathy that was mildly FDG avid, that was thought to be secondary to recent vaccination to shingles proximately 3 to 4 days prior to PET/CT. Core needle biopsy of the right supraclavicular lymph node on 11/04/2022 was consistent with metastatic poorly differentiated non-small cell carcinoma. IHC was positive for CK7 and focal positivity for CDX2 and GATA3. Rare positivity was noted for p40. IHC was negative for CK20, Napsin A, TTF-1. Based on this pattern, no clear primary could be established. Based on the imaging findings and history provided, lung primary was suspected as the most likely site, but GI primary (esophageal, gastric, pancreatic) and urothelial carcinomas could not be definitively excluded. EGD/colonoscopy 11/25/2022, no significant abnormalities. Cancer type ID noted 71% consistent with squamous cell lung carcinoma along with a 25% probability of lung adenocarcinoma. Head and neck primary was noted to be less than 5% probability. Guardant 360 and NGS from the tissue noted non targetable TP53 and PTEN mutations. EGFR mutation on Guardant 360, which was originally believed to be non-sensitizing mutation located exon 15. 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 Treatment with concurrent chemoradiation, completed 6 cycles on 02/08/2023, radiation therapy completed on 02/16/2023. CT neck/chest/abdomen on 02/24/2023 revealed stable disease. He initiated cycle 1 of consolidative durvalumab on 03/19/2023. Bronchoscopy performed on 06/04/2023 with biopsy of the right hilar region revealed evidence of poorly differentiated non-small cell carcinoma positive for CK7 and negative for p40, Napsin A, and TT F-1. Moraxella Catarra grown from cultures on bronchoscopy. PET/CT 06/11/2023 noted evidence of metastasis to the bones including right lower ribs/pelvis/C2 and L5 vertebral bodies, intra-abdominal lymphadenopathy, and right hilar region. MRI brain showed at least 6 peripherally enhancing lesions. His malignancy progressed early on with consolidative immunotherapy. Concerned that progression may have occurred due to presence of EGFR mutation, which is known to be resistant to immunotherapy. Afatinib was started about 2 weeks ago. He is supposed to see Dr. Bolanos next week for possible radiation to painful rib mets and brain mets. Last seen in office 07/20/23 Since Wednesday, pt and family report worsening shortness of breath, he could not walk to bathroom without being SOB, he couldn't talk without being SOB. This is progressive since starting gilotrif. He is not O2 dependent at home, he is on 9L here, O2 91 %, goes down when he talks. Denies fevers, chills, chest pain, hemoptysis, N, V, RODRIGUEZ. He has persistent pain in the right abd that radiates to the flank, he reports "flashing" a few times in his peripheral vision. He is generally weak and requires assistance to sit up in bed. His and daughter are at bedside. Chest x-ray reports new bilateral infiltrates, left upper lung field, chronic right lung changes, and a chronic right-sided pleural effusion. Negative for influenza, RSV, COVID. Patient has been started on empiric antibiotics. He is afebrile. Vital signs are stable. Review of Systems 10 point ROS is neg except as stated in HPI Past Medical History Past Medical History: Cancer, COPD Additional Past Medical History / Comment(s): Small cell carcinoma - lung. CHEMO AND RADIATION, Mild COPD. History of Any Multi-Drug Resistant Organisms: None Reported Past Surgical History: Orthopedic Surgery Additional Past Surgical History / Comment(s): LEFT HAND SURGERY, COLONOSCOPY. T -12 FUSION FOR FX, Past Anesthesia/Blood Transfusion Reactions: No Reported Reaction Past Psychological History: No Psychological Hx Reported Smoking Status: Former smoker Past Alcohol Use History: None Reported Past Drug Use History: None Reported - Past Family History Mother Family Medical History: No Reported History Medications and Allergies Home Medications Medication Instructions Recorded Confirmed Type Afatinib Dimaleate [Gilotrif] 40 mg PO DAILY@0830 07/27/23 07/27/23 History Albuterol Sulfate [Albuterol 2 puff INHALATION RT-Q4H PRN 07/27/23 07/27/23 H istory Sulfate Hfa] Docusate [Colace] 200 mg PO DAILY 07/27/23 07/27/23 History Lactulose 30 gm PO DAILY PRN 07/27/23 07/27/23 History Morphine Sulfate Ir [MSIR] 15 mg PO Q4H 07/27/23 07/27/23 History Omeprazole Magnesium [PriLOSEC OTC] 20 mg PO DAILY 07/27/23 07/27/23 History Ondansetron [Zofran] 4 mg PO Q4H PRN 07/27/23 07/27/23 History Allergies Allergy/AdvReac Type Severity Reaction Status Date / Time No Known Allergies Allergy Verified 07/27/23 18:51 Physical Exam Vitals: Vital Signs Temp Pulse Resp BP Pulse Ox 07/28/23 07:50 96 07/28/23 07:43 92 90 L 07/28/23 04:00 88 17 107/71 94 L 07/28/23 00:19 96 20 97/66 90 L 07/27/23 20:36 111 H 18 118/76 93 L 07/27/23 19:45 109 H 07/27/23 19:35 106 H 07/27/23 18:21 98 20 103/79 97 07/27/23 18:18 20 07/27/23 17:10 97.8 F 110 H 18 99/64 84 L Intake and Output 07/27/23 07/28/23 07/28/23 22:59 06:59 14:59 Other: Weight 63.503 kg - Constitutional General appearance: cooperative, mild distress, thin - EENT Eyes: anicteric sclerae, EOMI ENT: hearing grossly normal, normal oropharynx - Neck Neck: no lymphadenopathy - Respiratory resp mildly labored, pt does have SOB when speaking Audible crackles with inspiration Respiratory: right: diminished, left: rales - Cardiovascular Rhythm: regular Heart sounds: normal: S1, S2 Abnormal Heart Sounds: no systolic murmur, no diastolic murmur, no rub, no S3 Gallop, no S4 Gallop, no click, no other leg Peripheral Edema: bilateral: None - Gastrointestinal General gastrointestinal: no absent bowel sounds, no decreased bowel sounds, no distended, no hepatomegaly, no hyperactive bowel sounds, normal bowel sounds, no organomegaly, no rigid, no scaphoid, soft, no splenomegaly, no tenderness, no umbilical hernia, no ventral hernia - Integumentary Integumentary: normal - Neurologic Neurologic: CNII-XII intact - Musculoskeletal Musculoskeletal: generalized weakness - Psychiatric Psychiatric: A&O x's 3, appropriate affect, intact judgment & insight Results CBC & Chem 7: 07/28/23 05:55 07/28/23 05:55 Labs: Abnormal Lab Results - Last 24 Hours (Table) 07/27/23 07/27/23 07/27/23 Range/Units 18:16 18:16 18:16 RBC 4.04 L (4.30-5.90) m/uL Neutrophils # 8.6 H (1.3-7.7) k/uL Lymphocytes # 0.4 L (1.0-4.8) k/uL Sodium 131 L (137-145) mmol/L Creatinine 0.52 L (0.66-1.25) mg/dL Glucose 105 H (74-99) mg/dL Calcium 8.3 L (8.4-10.2) mg/dL ALT 65 H (4-49) U/L Alkaline Phosphatase 138 H (38-126) U/L Procalcitonin (0.02-0.09) ng/mL Urine Protein 1+ H (Negative) Urine WBC 6 H (0-5) /hpf Urine Mucus Rare H (None) /hpf 07/28/23 Range/Units 02:01 RBC (4.30-5.90) m/uL Neutrophils # (1.3-7.7) k/uL Lymphocytes # (1.0-4.8) k/uL Sodium (137-145) mmol/L Creatinine (0.66-1.25) mg/dL Glucose (74-99) mg/dL Calcium (8.4-10.2) mg/dL ALT (4-49) U/L Alkaline Phosphatase (38-126) U/L Procalcitonin 0.20 H (0.02-0.09) ng/mL Urine Protein (Negative) Urine WBC (0-5) /hpf Urine Mucus (None) /hpf Comments: US chest report reviewed Chest x-ray: report reviewed, image reviewed Assessment and Plan (1) Pleural effusion Current Visit: Yes Status: Acute Code(s): J90 - PLEURAL EFFUSION, NOT ELSEWHERE CLASSIFIED SNOMED Code(s): 60432148 Plan: Sq cell carcinoma, recurrent, on gilotrif targeted agent -Concerns for drug induced pneumonitis, though pl effusion is not usually consistent with the same and abnormal findings on CXR would be expected to be more bilateral -CT chest ordered to further assess -Agree with steroids, abx and infection work up -Hold gilotrif -Await Pulm assessment and recommendations Malignancy related pain -Pain meds adjusted -Meds ordered to prevent narcotic induced constipation -Rad Onc is supposed to see pt next week to discuss the same. We will talk with them about case once pt more stable. Attests: I have seen and examined pt, performed H&P, developed impression and plan of care. Discussed with dictator. Agree with documentation, dictated as a scribe.
[2023-07-28] MEDS: AZITHROMYCIN 500 MG in SODIUM CHLORIDE 0.9% 250 ML IVPB SCH (18:39)
[2023-07-28] MEDS: guaiFENesin-Coden 100-10MG/5ML 10 ML CUP PO PRN (23:45)
--- NOTE | 2023-07-29 01:24 | P.HPIM ---
History of Present Illness H&P Date: 07/28/23 Chief Complaint: Shortness of breath Patient is a 58-year-old male with a known history of COPD on home oxygen, non- small cell lung cancer status post core needle biopsy of right supraclavicular lymph node on 11/04/2022 consistent with metastatic poorly differentiated non-smal l cell carcinoma. Patient completed 6 cycles of concurrent chemoradiation on 02/08/2023 and radiation therapy completed on 02/16/2023. CT neck,/chest and abdomen on 02/24/2023 showed stable disease. He was started on cycle 1 of consolidative durvalumab on 03/19/2023. Bronchoscopy on 06/04/2023 with the biopsy of the right hilar region reveals evidence of poorly differentiated non- small cell carcinoma. PET scan showed evidence of metastasis to the bones including right lower ribs/pelvis/C2 and L5 vertebral bodies, intra-abdominal lymphadenopathy, right hilar region. MRI brain showed at least 6 peripherally enhancing lesions. Patient was started on afatinib about 2 weeks ago. Patient presented to ER with complaints of worsening shortness of breath. Patient is requiring 9 L oxygen via nasal cannula. Otherwise denies any complaints of fever or chills. No nausea vomiting. No hematemesis or melena. No headache or dizziness. Patient also having generalized weakness and requiring assistance with sitting up and ambulation. Chest x-ray showed increased right upper lobe lung airspace opacities correlate for pneumonia. EKG showed sinus tachycardia with occasional ventricular premature complexes. Laboratory data showed WBC 10.3 hemoglobin 13.5 and platelets 324 Sodium 131 potassium 3.5 chloride 101 bicarb is 22 BUN 14 and creatinine 0.52 and blood sugar is 105 and calcium 8.3 AST 48 ALT 65 and alk phos 138. Troponin x 1 negative and procalcitonin level is 0.2 Urinalysis is negative for infection Influenza A, B, Legionella, RSV and COVID-19 PCR not detected. Review of Systems Constitutional: Patient denies any fever or chills . Patient does have ge neralized weakness and fatigue. Abdomen: Patient denied any nausea or vomiting or abd. pain Cardiovascular: Patient denies any chest pain. Complains of short of breath no palpitations. No leg swelling Respiratory: patient does have cough without sputum production. Worsening shortness of breath Neurologic: Patient denied any numbness or tingling or headache. Musculoskeletal: Patient denies any complaints of joint swelling or deformity. Skin: Negative Psychiatric: Negative Endocrine: No heat or cold intolerance. No recent weight gain. Genitourinary: No dysuria or hematuria. All other 14 point ROS negative except the above Past Medical History Past Medical History: Cancer, COPD Additional Past Medical History / Comment(s): Small cell carcinoma - lung. CHEMO AND RADIATION, Mild COPD. History of Any Multi-Drug Resistant Organisms: None Reported Past Surgical History: Orthopedic Surgery Additional Past Surgical History / Comment(s): LEFT HAND SURGERY, COLONOSCOPY. T-12 FUSION FOR FX, Past Anesthesia/Blood Transfusion Reactions: No Reported Reaction Past Psychological History: No Psychological Hx Reported Smoking Status: Former smoker Past Alcohol Use History: None Reported Past Drug Use History: None Reported - Past Family History Mother Family Medical History: No Reported History Medications and Allergies Home Medications Medication Instructions Recorded Confirmed Type Afatinib Dimaleate [Gilotrif] 40 mg PO DAILY@0830 07/27/23 07/27/23 History Albuterol Sulfate [Albuterol 2 puff INHALATION RT-Q4H PRN 07/27/23 07/27/23 History Sulfate Hfa] Docusate [Colace] 200 mg PO DAILY 07/27/23 07/27/23 History Lactulose 30 gm PO DAILY PRN 07/27/23 07/27/23 History Morphine Sulfate Ir [MSIR] 15 mg PO Q4H 07/27/23 07/27/23 History Omeprazole Magnesium [PriLOSEC OTC] 20 mg PO DAILY 07/27/23 07/27/23 History Ondansetron [Zofran] 4 mg PO Q4H PRN 07/27/23 07/27/23 History Allergies Allergy/AdvReac Type Severity Reaction Status Date / Time No Known Allergies Allergy Verified 07/27/23 18:51 Physical Exam Vitals: Vital Signs Temp Pulse Pulse Resp BP BP Pulse Ox 07/28/23 08:00 98.3 F 107 H 22 97/68 92 L 07/28/23 07:50 96 07/28/23 07:43 92 90 L 07/28/23 04:00 88 17 107/71 94 L 07/28/23 00:19 96 20 97/66 90 L 07/27/23 20:36 111 H 18 118/76 93 L 07/27/23 19:45 109 H 07/27/23 19:35 106 H 07/27/23 18:21 98 20 103/79 97 07/27/23 18:18 20 07/27/23 17:10 97.8 F 110 H 18 99/64 84 L Intake and Output 07/27/23 07/28/23 07/28/23 22:59 06:59 14:59 Other: Weight 63.503 kg PHYSICAL EXAMINATION: Patient is lying in the bed , no acute distress, awake alert and oriented but lethargic and weak... HEENT: Normocephalic. Neck is supple. Pupils reactive. Nostrils clear. Oral cavity is moist. Neck reveals no JVD, carotid bruits, or thyromegaly. CHEST EXAMINATION: Trachea is central. Symmetrical expansion. Bilateral scattered rhonchi and coarse sounds. Basilar diminished sounds. CARDIAC: Normal S1, S2 with no gallops. No murmurs ABDOMEN: Soft. Bowel sounds present. Nontender. No organomegaly. No abdominal bruits. Extremities: reveal no edema. No clubbing or cyanosis Neurologically awake, alert, oriented x3 with well-coordinated movements. No gross focal deficits noted Skin: No rash or skin lesions. Psychiatric: Coperative. Nonsuicidal, Musculoskeletal: No joint swelling or deformity. Results CBC & Chem 7: 07/28/23 05:55 07/28/23 05:55 Labs: Abnormal Lab Results - Last 24 Hours (Table) 07/27/23 07/27/23 07/27/23 Range/Units 18:16 18:16 18:16 RBC 4.04 L (4.30-5.90) m/uL Neutrophils # 8.6 H (1.3-7.7) k/uL Lymphocytes # 0.4 L (1.0-4.8) k/uL Sodium 131 L (137-145) mmol/L Creatinine 0.52 L (0.66-1.25) mg/dL Glucose 105 H (74-99) mg/dL Calcium 8.3 L (8.4-10.2) mg/dL ALT 65 H (4-49) U/L Alkaline Phosphatase 138 H (38-126) U/L Procalcitonin (0.02-0.09) ng/mL Urine Protein 1+ H (Negative) Urine WBC 6 H (0-5) /hpf Urine Mucus Rare H (None) /hpf 07/28/23 Range/Units 02:01 RBC (4.30-5.90) m/uL Neutrophils # (1.3-7.7) k/uL Lymphocytes # (1.0-4.8) k/uL Sodium (137-145) mmol/L Creatinine (0.66-1.25) mg/dL Glucose (74-99) mg/dL Calcium (8.4-10.2) mg/dL ALT (4-49) U/L Alkaline Phosphatase (38-126) U/L Procalcitonin 0.20 H (0.02-0.09) ng/mL Urine Protein (Negative) Urine WBC (0-5) /hpf Urine Mucus (None) /hpf Thrombosis Risk Factor Assmnt - DVT/VTE Prophylaxis DVT/VTE Prophylaxis: Pharmacologic Prophylaxis ordered Assessment and Plan Assessment: Acute on chronic hypoxemic respiratory failure with multifocal due to right upper lobe pneumonia and metastatic lung cancer and pleural effusion. Possible afatinib pneumonitis cannot be excluded. Non-small cell lung cancer status post chemoradiation, with metastasis to right lower rib, pelvis, vertebral bodies and brain metastatic lesions. Patient was started on afatinib about 2 weeks ago. COPD with mild exacerbation Hypovolemic hyponatremia Mild transaminitis Chronic right-sided pleural effusion. Likely malignant effusion Prior history of smoking GI and DVT prophylaxis with PPI and heparin subcu Plan: Patient will be continued on oxygen supplementation Started on antibiotics Zosyn and azithromycin. Patient was also started on IV Solu-Medrol, DuoNebs and gentle IV hydration. Follow-up culture reports. Pulmonary and oncology is on board. Ultrasound chest was ordered for possible right-sided thoracentesis. Prognosis is guarded at this time. Time with Patient: Greater than 30
[2023-07-29] MEDS: MORPHINE SULFATE IR 15 MG TABLET PO PRN (06:32)
[2023-07-29] MEDS: FUROSEMIDE 10 MG/ML 2 ML VIAL ONE (06:37)
[2023-07-29 07:17] LABS: Glucose,Whole Blood 150 mg/dL (70-110)
--- NOTE | 2023-07-29 07:27 | XR ---
EXAMINATION TYPE: XR chest 1V DATE OF EXAM: 07/29/2023 COMPARISON: 07/28/2023 HISTORY: 58 year-old male shortness of breath TECHNIQUE: Single frontal view of the chest is obtained. FINDINGS: Heart upper limits of normal in size. Hyperinflation. Worsening interstitial and patchy opacity left greater than right lungs. Ongoing patchy density right upper lobe. Ongoing volume loss at the right b ase with underlying pleural effusion suspected. Vertebroplasty change T12. IMPRESSION: 1. COPD with worsening interstitial and airspace disease 2. Ongoing or focal patchy opacity of the right upper lobe. 3. Redemonstrated volume loss right hemithorax with underlying pleural effusion.
--- NOTE | 2023-07-29 08:03 | XR ---
EXAMINATION TYPE: XR chest 1V DATE OF EXAM: 07/29/2023 COMPARISON: 07/29/2023 HISTORY: 58-year-old male postthoracentesis on the right TECHNIQUE: Single frontal view of the chest is obtained. FINDINGS: Following thoracentesis, the area and will decrease in size of the right pleural effusion. Small right pleural effusion remains. Opacity at the right midlung is increased. A right apical pneu mothorax is now seen measuring 2.0 cm. Hazy and interstitial opacity throughout the bilateral lungs p ersists. IMPRESSION: 1. Small pneumothorax measuring 2.0 cm at the apex now present following right thoracentesis. Residua l small right pleural effusion remains. 2. Diffuse bilateral hazy and interstitial opacity persists. 3. Worsening in the focal right midlung opacity.
[2023-07-29] MEDS: FUROSEMIDE 10 MG/ML 2 ML VIAL IV STA (08:08)
[2023-07-29] MEDS: FUROSEMIDE 10 MG/ML 4 ML VIAL IV STA (08:38)
[2023-07-29 08:59] LABS: Blood Urea Nitrogen 11.5 mg/dL (9.0-27.0); Calcium 8.4 mg/dL (8.7-10.3); Carbon Dioxide 21.8 mmol/L (21.6-31.8); Chloride 103 mmol/L (96-109); Glucose 139 mg/dL (70-110); Potassium 3.6 mmol/L (3.5-5.5); Sodium 136 mmol/L (135-145)
[2023-07-29 09:30] LABS: Basophils # (A) 0.02 X 10*3/uL (0.00-0.10); Basophils % (A) 0.2 %; Eosinophils # (A) 0 X 10*3/uL (0.04-0.35); Eosinophils % (A) 0 %; HCT 36.2 % (39.6-50.0); HGB 12.4 g/dL (13.0-17.0); Lymphocytes # (A) 0.29 X 10*3/uL (0.90-5.00); Lymphocytes % (A) 2.5 %; MCH 32.9 pg (27.0-32.0); MCHC 34.3 g/dL (32.0-37.0); Mean Platelet Volume 9.3 FL (9.5-12.2); Monocytes # (A) 0.54 X 10*3/uL (0.20-1.00); Monocytes % (A) 4.6 %; NRBC Per 100 WBC 0 X 10*3/uL (0.00-0.01); Neutrophils # (A) 10.72 X 10*3/uL (1.80-7.70); Neutrophils % (A) 91.9 %; Platelet Count 313 X 10*3/uL (140-440); RBC 3.77 X 10*6/uL (4.40-5.60); RDW 14.1 % (11.5-14.5); WBC 11.66 X 10*3/uL (4.50-10.00)
--- NOTE | 2023-07-29 13:25 | P.PN ---
Subjective Progress Note Date: 07/29/23 Principal diagnosis: Acute hypoxic respiratory failure, multifactorial am seeing this patient in consultation today July 28, 2023 in the emergency room after he presented with complaints of increased shortness of breath, worsening since Wednesday. Patient is a 58-year-old white male with past medical history significant for metastatic non-small cell lung carcinoma, COPD, former tobacco dependence. He follows with Dr. Avilez in the pulmonary office. Patient has biopsy-proven non-small cell carcinoma, with metastasis within the chest, brain, and diffuse osseous metastasis. He also has a right renal nodule which is being followed up by urology. He has been following with radiation oncology and medical oncology. He has been treated with immunotherapy in the past, but has failed treatment. He has recently been started on daily Gilotrif on July 14. Since Wednesday, the patient has had worsening shortness of breath. This is especially noticeable during exertion. He is not normally oxygen dependent at home. He has been wheezing while at home. He has also had a change in his chronic cough with limited amounts of sputum production. Denies any fevers, chills, chest pain, hemoptysis. He presented to the emergency room last night with the above-mentioned symptoms. He is currently lying in bed, on 4 L/min nasal cannula, in no acute distress. He is generally weak and requires assistance to sit up in bed. His is at bedside. Chest x-ray on arrival de monstrated a new bilateral infiltrates, especially involving the left upper lung field, chronic right lung changes, and a chronic right-sided pleural effusion. These findings are concerning for bilateral multifocal pneumonia or possible pulmonary drug toxicity. CBC on arrival was fairly unremarkable. WBC count 10.3, hematocrit 13.5, hematocrit 39.7, platelets 324. CMP on arrival: Sodium 131, potassium 3.5, chloride 101, serum bicarb 22, BUN 14, creatinine 0.52, glucose 105. Infusing at 75 mL/h. Lactic acid level not elevated. Mild elevation in LFTs. Troponin less than 0.012. NT proBNP not elevated. Urinalysis not concerning for UTI. Negative for influenza, RSV, COVID. Patient has been started on empiric antibiotics. He is afebrile. Vital signs are stable. Patient was reevaluated today on 07/29/23, I transferred the patient early this morning to the ICU mostly because of worsening respiratory status. Patient was placed on 15 L high flow nasal cannula on the floor, and his O2 saturation was in the 80s. Transferred the patient to the ICU, came in and evaluated the patient, and recommended immediate thoracentesis for his pleural effusion. This was performed at bedside, and I was able to drain 1150 cc of serosanguineous fluid patient had dramatic improvement clinically, follow-up chest x-ray showed apical right-sided pneumothorax however I believe it is not a true pneumothorax, I believe mostly due to trapped lung that did not fully expand any rate patient will have a follow-up chest x-ray in few hours after the thoracentesis. Fluid was sent for different diagnostic studies, and clinically felt much betterWBC count is 11.6 hemoglobin 12.4 basic metabolic profile is normal renal profile is normal Objective - Vital Signs Vital signs: Vital Signs Temp 98.2 F 07/29/23 08:00 Pulse 108 H 07/29/23 12:33 Resp 36 H 07/29/23 12:00 BP 124/87 07/29/23 11:30 Pulse Ox 93 L 07/29/23 12:22 FiO2 80 07/29/23 12:22 Intake & Output 07/28/23 07/29/23 07/29/23 18:59 06:59 18:59 Intake Total 540 100 Output Total 300 1550 Balance 240 -1450 Weight 63.503 kg 63.503 kg Intake: Oral 540 100 Output: Urine 300 1550 Other: Voiding Method Bedside Commode Urinal # Voids 1 2 - Exam General: The patient is awake and alert, on Airvo Skin: Skin is warm and dry and no rashes or lesions are noted. Eye: Pupils are equal, round and reactive to light, extra-ocular movements are intact; there is normal conjunctiva bilaterally. Ears, nose, mouth and throat: There are moist mucous membranes and no oral lesions. Neck: The neck is supple, there is no tenderness or JVD. Cardiovascular: There is a regular rate and rhythm. No murmur, rub or gallop is appreciated. Respiratory: Minich breath sounds at the right base with dullness Gastrointestinal: Soft, non-distended, non-tender abdomen without masses or organomegaly noted. There is no rebound or guarding present. Bowel sounds are unremarkable. Back: There is no tenderness to palpation in the midline. There is no obvious deformity. Musculoskeletal: Normal ROM, no tenderness, There is no pedal edema. Neurological: CN II-XII intact, Cranial nerves III through XII are intact. There are no obvious motor or sensory deficits. Coordination appears grossly intact. Speech is normal. Psychiatric: Cooperative, appropriate mood & affect, normal judgment. - Labs CBC & Chem 7: 07/29/23 05:06 07/29/23 05:06 Labs: Abnormal Lab Results - Last 24 Hours (Table) 07/29/23 07/29/23 07/29/23 Range/Units 05:06 05:06 07:15 WBC 11.66 H (4.50-10.00) X 10*3/uL RBC 3.77 L (4.40-5.60) X 10*6/uL Hgb 12.4 L (13.0-17.0) g/dL Hct 36.2 L (39.6-50.0) % MCH 32.9 H (27.0-32.0) pg MPV 9.3 L (9.5-12.2) FL Immature Gran # 0.09 H (0.00-0.04) X 10*3/uL Neutrophils # 10.72 H (1.80-7.70) X 10*3/uL Lymphocytes # 0.29 L (0.90-5.00) X 10*3/uL Eosinophils # 0 L (0.04-0.35) X 10*3/uL Creatinine 0.5 L (0.6-1.5) mg/dL BUN/Creatinine Ratio 23.00 H (12.00-20.00) Ratio Glucose 139 H (70-110) mg/dL POC Glucose (mg/dL) 150 H (70-110) mg/dL Calcium 8.4 L (8.7-10.3) mg/dL Microbiology - Last 24 Hours (Table) 07/28/23 15:45 Gram Stain - Preliminary Sputum Sputum Culture - Preliminary Shanta albicans 07/27/23 19:03 Blood Culture - Preliminary Blood 07/27/23 19:03 Blood Culture - Preliminary Blood Assessment and Plan Assessment: Impression: Acute hypoxic respiratory failure, multifactorial related to pneumonia, could be bacterial pneumonia or could be viral or most likely related to immunotherapy induced pneumonitis. Acute exacerbation of COPD Large right-sided pleural effusion Non-small cell lung cancer with metastasis to the chest brain and skeletal metastasis noted. Right renal nodule, suspicious for malignancy Recent T12 kyphoplasty May 07 2023 Former smoker Trapped lung post thoracentesis, doubt iatrogenic pneumothorax, 07/29/2023 Recommendation: Patient underwent right-sided thoracentesis with improvement Continue empiric antibiotics Continue steroids/IV Solu-Medrol. Continue to monitor in the ICU or possibly 3 S. Continue bronchodilators Long-term prognosis remains poor and guarded Will continue to Time with Patient: Less than 30
--- NOTE | 2023-07-29 13:30 | OP ---
OPERATIVE REPORT DATE OF SERVICE : PROCEDURE PERFORMED: Right-sided thoracentesis. PREOPERATIVE DIAGNOSIS: Right pleural effusion. POSTOPERATIVE DIAGNOSIS: Right pleural effusion. ANESTHESIA USED: 2 mL of 1% lidocaine. DESCRIPTION OF PROCEDURE: The patient was placed in a sitting upright position, the area below the right scapula was prepared in a sterile fashion and drapes were applied. The fluid was earlier localized by ultrasound, and the marking was placed at the 8th intercostal space and tip of the scapula. The area at that site was locally anesthetized with lidocaine. A 26-gauge needle was inserted into the pleural space and the fluid was localized with the needle. Then a small tiny incision was made, and a standard thoracentesis catheter and needle were used. The needle was inserted at the same site, advanced into the pleural space and as soon as the pleural space was entered, the catheter was advanced over the needle, and the needle was pulled out of the pleural space. Freely flowing fluid was removed. The total 1150 mL of serosanguineous fluid was removed from the right pleural space. The procedure was well tolerated, no complications. However, followup chest x-ray showed a right small apical pneumothorax, felt to be not a truly a pneumothorax, but basically the trapped lung considering the patient's significant cancer involving the right lung. Again, this is not truly a pneumothorax. I believe this is mostly a trapped lung that looks like a right apical pneumothorax. No intervention is felt to be necessary at that point. The fluid was sent for different diagnostic studies, results of which are pending. MMODL / IJN: [id number] /
--- NOTE | 2023-07-29 13:52 | XR ---
EXAMINATION TYPE: XR chest 1V portable DATE OF EXAM: 07/29/2023 1:43 PM CLINICAL INDICATION:Male, 58 years old with history of ptx f/u; [facility] COMPARISON: Chest radiographs from 07/29/2023. TECHNIQUE: XR chest 1V portable Frontal view of the chest. FINDINGS: Lungs/Pleura: Right pneumothorax is increased in size from prior. There is no evidence of pleural eff usion, or left pneumothorax. Scattered airspace opacities throughout the left lung in the collapsed right lung. Pulmonary vascularity: Unremarkable. Heart/mediastinum: Cardiomediastinal silhouette is unremarkable. Musculoskeletal: No acute osseous pathology. IMPRESSION: 1. Worsening right pneumothorax. Now large in size. 2. Superimposed multifocal pneumonia versus pulmonary congestion in the left lung.
--- NOTE | 2023-07-29 14:45 | P.PN ---
Subjective Progress Note Date: 07/29/23 Principal diagnosis: Difficulty in breathing, shortness of breath. Non-small cell, sq cell lung cancer In follow-up today patient seems to be doing fairly well, he is breathing much better after 3.2 L thoracentesis. He denies any fevers, bleeding, chest pain. Objective - Vital Signs Vital signs: Vital Signs Temp 98.2 F 07/29/23 08:00 Pulse 114 H 07/29/23 13:00 Resp 35 H 07/29/23 13:00 BP 138/93 07/29/23 13:00 Pulse Ox 81 L 07/29/23 13:00 FiO2 85 07/29/23 13:45 Intake & Output 07/28/23 07/29/23 07/29/23 18:59 06:59 18:59 Intake Total 540 100 Output Total 300 1950 Balance 240 -1850 Weight 63.503 kg 63.503 kg Intake: Oral 540 100 Output: Urine 300 1950 Other: Voiding Method Bedside Commode Urinal # Voids 1 2 # Bowel Movements 1 - Constitutional General appearance: Present: cooperative, no acute distress, thin - EENT Eyes: Present: anicteric sclerae, EOMI ENT: Present: hearing grossly normal - Respiratory Respiratory: bilateral: diminished - Cardiovascular Rhythm: regular - Peripheral edema leg Peripheral Edema: bilateral: None - Gastrointestinal General gastrointestinal: Present: normal bowel sounds, soft - Neurologic Neurologic: Present: CNII-XII intact - Musculoskeletal Musculoskeletal: Present: generalized weakness, strength equal bilaterally - Psychiatric Psychiatric: Present: A&O x's 3, appropriate affect, intact judgment & insight - Labs CBC & Chem 7: 07/29/23 05:06 07/29/23 05:06 Labs: Abnormal Lab Results - Last 24 Hours (Table) 07/29/23 07/29/23 07/29/23 Range/Units 05:06 05:06 07:15 WBC 11.66 H (4.50-10.00) X 10*3/uL RBC 3.77 L (4.40-5.60) X 10*6/uL Hgb 12.4 L (13.0-17.0) g/dL Hct 36.2 L (39.6-50.0) % MCH 32.9 H (27.0-32.0) pg MPV 9.3 L (9.5-12.2) FL Immature Gran # 0.09 H (0.00-0.04) X 10*3/uL Neutrophils # 10.72 H (1.80-7.70) X 10*3/uL Lymphocytes # 0.29 L (0.90-5.00) X 10*3/uL Eosinophils # 0 L (0.04-0.35) X 10*3/uL Creatinine 0.5 L (0.6-1.5) mg/dL BUN/Creatinine Ratio 23.00 H (12.00-20.00) Ratio Glucose 139 H (70-110) mg/dL POC Glucose (mg/dL) 150 H (70-110) mg/dL Calcium 8.4 L (8.7-10.3) mg/dL Microbiology - Last 24 Hours (Table) 07/28/23 15:45 Gram Stain - Preliminary Sputum Sputum Culture - Preliminary Shanat albicans 07/27/23 19:03 Blood Culture - Preliminary Blood 07/27/23 19:03 Blood Culture - Preliminary Blood - Imaging and Cardiology Chest x-ray: report reviewed CT scan - chest: report reviewed, image reviewed Assessment and Plan (1) Drug-induced pneumonitis Current Visit: Yes Status: Acute Priority: High Code(s): J98.4 - OTHER DISORDERS OF LUNG; T50.905A - ADVERSE EFFECT OF UNSP DRUG/MEDS/BIOL SUBST, INIT SNOMED Code(s): 849782975 (2) Pleural effusion Current Visit: Yes Status: Acute Priority: High Code(s): J90 - PLEURAL EFFUSION, NOT ELSEWHERE CLASSIFIED SNOMED Code(s): 48953298 (3) Squamous cell carcinoma of lung, stage IV Current Visit: Yes Status: Chronic Priority: Medium Code(s): C34.90 - MALIGNANT NEOPLASM OF UNSP PART OF UNSP BRONCHUS OR LUNG SNOMED Code(s): 435487546 Plan: Drug-induced pneumonitis -CT chest reviewed. Imaging and assessment are most consistent with drug induced pneumonitis -Agree with steroids, abx and infection work up in case of any underlying infection contributing to worsening symptoms -Discontinue Gilotrif. Pleural effusion -Status post 3.2 L thoracentesis -Cytology pending -Improvement in patient's respiratory symptoms Sq cell carcinoma, recurrent, on gilotrif targeted agent -Patient is status post a 3.2 L thoracentesis on the right. Cytology is pending. -Discontinue gilotrif secondary to drug-induced pneumonitis -Primary Oncologist plans for change in therapy once patient current condition has resolved. Malignancy related pain -Pain meds adjusted -Meds ordered to prevent narcotic induced constipation -Rad Onc is supposed to see pt next week to discuss the same. We will talk with them about case once pt more stable. Attests: I have seen and examined pt, performed H&P, developed impression and plan of care. Discussed with dictator. Agree with documentation, dictated as a scribe.
[2023-07-29] MEDS: HYDROmorphone 1 MG/ML 1 ML SYRINGE IVP STA (15:54)
--- NOTE | 2023-07-29 15:57 | P.PN ---
Subjective Progress Note Date: 07/29/23 Patient is a 58-year-old male with a known history of COPD on home oxygen, non- small cell lung cancer status post core needle biopsy of right supraclavicular lymph node on 11/04/2022 consistent with metastatic poorly differentiated non- small cell carcinoma. Patient completed 6 cycles of concurrent chemoradiation on 02/08/2023 and radiation therapy completed on 02/16/2023. CT neck,/chest and abdomen on 02/24/2023 showed stable disease. He was started on cycle 1 of consolidative durvalumab on 03/19/2023. Bronchoscopy on 06/04/2023 with the biopsy of the right hilar region reveals evidence of poorly differentiated non- small cell carcinoma. PET scan showed evidence of metastasis to the bones including right lower ribs/pelvis/C2 and L5 vertebral bodies, intra-abdominal lymphadenopathy, right hilar region. MRI brain showed at least 6 peripherally enhancing lesions. Patient was started on afatinib about 2 weeks ago. Patient presented to ER with complaints of worsening shortness of breath. Patient is requiring 9 L oxygen via nasal cannula. Otherwise denies any complaints of fever or chills. No nausea vomiting. No hematemesis or melena. No headache or dizziness. Patient also having generalized weakness and requiring assistance with sitting up and ambulation. Chest x-ray showed increased right upper lobe lung airspace opacities correlate for pneumonia. EKG showed sinus tachycardia with occasional ventricular premature complexes. Laboratory data showed WBC 10.3 hemoglobin 13.5 and platelets 324 Sodium 131 potassium 3.5 chloride 101 bicarb is 22 BUN 14 and creatinine 0.52 and blood sugar is 105 and calcium 8.3 AST 48 ALT 65 and alk phos 138. Troponin x 1 negative and procalcitonin level is 0.2 Urinalysis is negative for infection Influenza A, B, Legionella, RSV and COVID-19 PCR not detected. 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 Patient is status post thoracentesis on the right with approximately 3.2 liters removed. Patient requiring more oxygen currently maintained on airvo 60/80. Patient is lethargic and significantly weak and appears restless in mild respiratory distress. Patient reports not much of an appetite and has been tolerating supplements and will continue. Patient with significant weakness although respiratory status making it difficult for ambulation. Patient also reports to not sleeping well and will add low-dose medication as needed. Patient is currently afebrile with no reported chest pain. Cultures have been sent and pending. Review of systems: Constitutional: No reports of fatigue, fever, or chills Cardiovascular: No reports of chest pain or palpitations Respiratory: No reports of shortness of breath or cough GI: No reports of nausea, vomiting, or diarrhea : No reports of dysuria or retention Neurovascular: No reports of weakness or numbness All medications have been reviewed PHYSICAL EXAMINATION: Patient is lying in the bed , with mild respiratory distress maintained on airvo , awake alert and oriented but lethargic and weak... Thin built, elderly appearing, ill-appearing HEENT: Normocephalic. Neck is supple. Pupils reactive. Nostrils clear. Oral cavity is moist. Neck reveals no JVD, carotid bruits, or thyromegaly. CHEST EXAMINATION: Trachea is central. Symmetrical expansion. Bilateral scattered rhonchi and coarse sounds. Basilar diminished sounds. CARDIAC: Normal S1, S2 with no gallops. No murmurs ABDOMEN: Soft. Thin, scaphoid bowel sounds present. Nontender. No organomegaly. No abdominal bruits. Extremities: reveal no edema. No clubbing or cyanosis Neurologically lethargic although easily arousable, alert, oriented x3 with well-coordinated movements. No gross focal deficits noted, diffusely weak Skin: No rash or skin lesions. Psychiatric: Cooperative. Non-suicidal, Musculoskeletal: No joint swelling or deformity. Assessment: Acute on chronic hypoxemic respiratory failure with multifocal right upper lobe pneumonia and metastatic lung cancer and pleural effusion. Possible afatinib pneumonitis cannot be excluded. Currently requiring more oxygen maintained on airvo Non-small cell lung cancer status post chemoradiation, with metastasis to right lower rib, pelvis, vertebral bodies and brain metastatic lesions. Patient was started on afatinib about 2 weeks ago. COPD with mild exacerbation Hypovolemic hyponatremia, likely secondary to poor oral intake Mild transaminitis Recent kyphoplasty in May 2023 Chronic right-sided pleural effusion. Likely malignant effusion, status post thoracentesis on the right with trapped lung post thoracentesis noted Prior history of smoking GI and DVT prophylaxis with PPI and heparin subcu Plan: Patient will be continued on oxygen supplementation and requiring more oxygen currently maintained on airvo 60/80 Patient is continued on antibiotics Zosyn and azithromycin. Patient to continue on IV Solu-Medrol, DuoNebs and gentle IV hydration. Follow- up culture reports. Pulmonary and oncology following and patient is status post thoracentesis of approximately 3 L removed and specimens were sent and pending. Concerns for trapped lung on the right and will follow-up with repeat chest x-rays Patient reports having difficulty with sleeping and will add low-dose as needed medication Due to multiple complex medical issues with metastasis, overall prognosis remains extremely poor and guarded at this time The impression and plan of care has been dictated by Merle Kenny, Nurse Practitioner as directed. Dr. Markel MD I have performed a history and examination and MDM of this patient, discussed the same with the dictator, and agree with the dictator's assessment and plan as written ,documented as a scribe. Based on total visit time, I have performed more than 50% of the visit. Objective - Vital Signs Vital signs: Vital Signs Temp 98.2 F 07/29/23 08:00 Pulse 96 07/29/23 10:05 Resp 20 07/29/23 10:05 BP 132/102 07/29/23 10:05 Pulse Ox 91 L 07/29/23 10:05 FiO2 90 07/29/23 09:12 Intake & Output 07/28/23 07/29/23 07/29/23 18:59 06:59 18:59 Intake Total 540 100 Output Total 300 1250 Balance 240 -1150 Weight 63.503 kg 63.503 kg Intake: Oral 540 100 Output: Urine 300 1250 Other: Voiding Method Bedside Commode Urinal # Voids 1 2 - Labs CBC & Chem 7: 07/29/23 05:06 07/29/23 05:06 Labs: Abnormal Lab Results - Last 24 Hours (Table) 07/28/23 07/28/23 07/29/23 Range/Units 05:55 05:55 05:06 WBC 10.56 H 11.66 H (4.50-10.00) X 10*3/uL RBC 3.83 L 3.77 L (4.40-5.60) X 10*6/uL Hgb 12.4 L 12.4 L (13.0-17.0) g/dL Hct 37.1 L 36.2 L (39.6-50.0) % MCH 32.4 H 32.9 H (27.0-32.0) pg MPV 9.2 L 9.3 L (9.5-12.2) FL Immature Gran # 0.07 H 0.09 H (0.00-0.04) X 10*3/uL Neutrophils # 8.66 H 10.72 H (1.80-7.70) X 10*3/uL Lymphocytes # 0.49 L 0.29 L (0.90-5.00) X 10*3/uL Monocytes # 1.15 H (0.20-1.00) X 10*3/uL Eosinophils # 0 L (0.04-0.35) X 10*3/uL Sodium 133 L (135-145) mmol/L Carbon Dioxide 20.8 L (21.6-31.8) mmol/L Anion Gap 12.20 H (4.00-12.00) mmol/L Creatinine 0.5 L (0.6-1.5) mg/dL BUN/Creatinine Ratio 22.20 H (12.00-20.00) Ratio Glucose (70-110) mg/dL POC Glucose (mg/dL) (70-110) mg/dL Calcium 8.0 L (8.7-10.3) mg/dL 07/29/23 07/29/23 Range/Units 05:06 07:15 WBC (4.50-10.00) X 10*3/uL RBC (4.40-5.60) X 10*6/uL Hgb (13.0-17.0) g/dL Hct (39.6-50.0) % MCH (27.0-32.0) pg MPV (9.5-12.2) FL Immature Gran # (0.00-0.04) X 10*3/uL Neutrophils # (1.80-7.70) X 10*3/uL Lymphocytes # (0.90-5.00) X 10*3/uL Monocytes # (0.20-1.00) X 10*3/uL Eosinophils # (0.04-0.35) X 10*3/uL Sodium (135-145) mmol/L Carbon Dioxide (21.6-31.8) mmol/L Anion Gap (4.00-12.00) mmol/L Creatinine 0.5 L (0.6-1.5) mg/dL BUN/Creatinine Ratio 23.00 H (12.00-20.00) Ratio Glucose 139 H (70-110) mg/dL POC Glucose (mg/dL) 150 H (70-110) mg/dL Calcium 8.4 L (8.7-10.3) mg/dL Microbiology - Last 24 Hours (Table) 07/28/23 15:45 Gram Stain - Preliminary Sputum 07/27/23 19:03 Blood Culture - Preliminary Blood 07/27/23 19:03 Blood Culture - Preliminary Blood
--- NOTE | 2023-07-29 16:07 | XR ---
EXAMINATION TYPE: XR chest 1V DATE OF EXAM: 07/29/2023 3:45 PM CLINICAL INDICATION:Male, 58 years old with history of post thora-vent placement; [facility] COMPARISON: Same day TECHNIQUE: XR chest 1V Frontal view of the chest. FINDINGS/IMPRESSION: Interval placement of right thoracotomy tube with reduction of right pneumothorax. There remains a sm all pneumothorax. Similar focal airspace opacities.
[2023-07-29 18:15] LABS: Appearance,BF Cloudy (Clear)
[2023-07-29] MEDS: SALT AND SODA MOUTHWASH 1,000 ML PO SCH (18:18)
[2023-07-29 18:53] LABS: Basophils % (A) 0 %; Eosinophils # (A) 0.2 k/uL (0-0.7); Eosinophils % (A) 1 %; HCT 37.2 % (39.0-53.0); HGB 12.5 gm/dL (13.0-17.5); Lymphocytes # (A) 0.4 k/uL (1.0-4.8); Lymphocytes % (A) 2 %; MCH 32.7 pg (25.0-35.0); MCHC 33.5 g/dL (31.0-37.0); MCV 97.7 fL (80.0-100.0); Mean Platelet Volume 7.2; Monocytes # (A) 0.9 k/uL (0-1.0); Monocytes % (A) 5 %; Neutrophils # (A) 15.4 k/uL (1.3-7.7); Neutrophils % (A) 91 %; Platelet Count 372 k/uL (150-450); RBC 3.81 m/uL (4.30-5.90); RDW 13.9 % (11.5-15.5)
--- NOTE | 2023-07-29 22:00 | OP ---
OPERATIVE REPORT DATE OF SERVICE : PROCEDURE PERFORMED: Placement of a right-sided chest tube/Thora-Vent. PREOPERATIVE DIAGNOSIS: Right-sided pneumothorax/trapped lung. POSTOPERATIVE DIAGNOSIS: Right-sided pneumothorax/trapped lung. ANESTHESIA USED: 5 mL of 1% lidocaine. DESCRIPTION OF PROCEDURE: The patient was placed in a sitting upright position, the area below the right scapula was prepared in a sterile fashion and drapes were applied. The area between the 2nd and 3rd intercostal space was locally anesthetized, and a 26-gauge needle was inserted all the way into the pleural space and bubbles were noted. Then the area was locally anesthetized quite well, and a small tiny incision was made at the same site, and a 13- Hebrew Thora-Vent/chest tube was used, it was inserted with a trocar and the catheter advanced all the way into the pleural space. As the pleural space was entered, the catheter was advanced over the trocar, and the trocar was removed. There was evidence of air leak, the diaphragm on the Thora-Vent was noted to move up and down and Thora- Vent was connected to a Pleur-evac and connected to suction. Air leak was noted, bubbles of air were noted, and a small amount of serous fluid was also noted with the air bubbles. No bleeding, no complications. Chest x-ray showed adequate placement of the Thora-Vent and better expansion of the right lung with residual apical pneumothorax. No complications. MMODL / IJN: [id number] /
[2023-07-29] MEDS: MELATONIN 5 MG TABLET PO PRN (23:16)
[2023-07-30 04:28] LABS: HCT 33.5 % (39.0-53.0); HGB 11.7 gm/dL (13.0-17.5); MCH 34.2 pg (25.0-35.0); MCHC 34.9 g/dL (31.0-37.0); MCV 98.2 fL (80.0-100.0); Mean Platelet Volume 7.2; Platelet Count 301 k/uL (150-450); RBC 3.41 m/uL (4.30-5.90); RDW 13.8 % (11.5-15.5)
[2023-07-30 04:41] LABS: African American GFR (CKD) >90 (>60 ml/min/1.73 sqM); Anion Gap 5 mmol/L; Blood Urea Nitrogen 22 mg/dL (9-20); Calcium 7.9 mg/dL (8.4-10.2); Carbon Dioxide 23 mmol/L (22-30); Chloride 107 mmol/L (98-107); Glucose 142 mg/dL (74-99); Non-African American GFR(CKD) >90 (>60 ml/min/1.73 sqM); Potassium 3.2 mmol/L (3.5-5.1); Sodium 135 mmol/L (137-145)
[2023-07-30] MEDS ORDERED: DEXMEDETOMIDINE/0.9% NACL(PMX) 400 MCG in EMPTY BAG 1 BAG IV SCH (05:30)
[2023-07-30] MEDS: POTASSIUM CHLORIDE ER 20 MEQ TAB.ER PO SCH (07:02)
--- NOTE | 2023-07-30 08:40 | XR ---
EXAMINATION TYPE: XR chest 1V portable DATE OF EXAM: 07/30/2023 5:46 AM CLINICAL INDICATION:Male, 58 years old with history of thoravent; [facility] COMPARISON: Chest radiographs from 07/29/2023 TECHNIQUE: XR chest 1V portable Frontal view of the chest. FINDINGS: Lungs/Pleura: Right pneumothorax is stable in size from prior. There is no evidence of left pleural e ffusion, or left pneumothorax. Scattered airspace opacities throughout the left lung in the collapse d right lung. Pulmonary vascularity: Unremarkable. Heart/mediastinum: Cardiomediastinal silhouette is unremarkable. Musculoskeletal: No acute osseous pathology. Right upper thoracotomy tube remains in place. IMPRESSION: 1. Thoracotomy tube in place with stable right pneumothorax. 2. Superimposed multifocal pneumonia versus pulmonary congestion in the left lung.
[2023-07-30] MEDS: HYDROmorphone 1 MG/ML 1 ML SYRINGE IVP PRN (12:58)
--- NOTE | 2023-07-30 13:46 | P.PN ---
Subjective Progress Note Date: 07/30/23 Principal diagnosis: Acute hypoxic respiratory failure, multifactorial am seeing this patient in consultation today July 28, 2023 in the emergency room after he presented with complaints of increased shortness of breath, worsening since Wednesday. Patient is a 58-year-old white male with past medical history significant for metastatic non-small cell lung carcinoma, COPD, former tobacco dependence. He follows with Dr. Avilez in the pulmonary office. Patient has biopsy-proven non-small cell carcinoma, with metastasis within the chest, brain, and diffuse osseous metastasis. He also has a right renal nodule which is being followed up by urology. He has been following with radiation oncology and medical oncology. He has been treated with immunotherapy in the past, but has failed treatment. He has recently been started on daily Gilotrif on July 14. Since Wednesday, the patient has had worsening shortness of breath. This is especially noticeable during exertion. He is not normally oxygen dependent at home. He has been wheezing while at home. He has also had a change in his chronic cough with limited amounts of sputum production. Denies any fevers, chills, chest pain, hemoptysis. He presented to the emergency room last night with the above-mentioned symptoms. He is currently lying in bed, on 4 L/min nasal cannula, in no acute distress. He is generally weak and requires assistance to sit up in bed. His is at bedside. Chest x-ray on arrival de monstrated a new bilateral infiltrates, especially involving the left upper lung field, chronic right lung changes, and a chronic right-sided pleural effusion. These findings are concerning for bilateral multifocal pneumonia or possible pulmonary drug toxicity. CBC on arrival was fairly unremarkable. WBC count 10.3, hematocrit 13.5, hematocrit 39.7, platelets 324. CMP on arrival: Sodium 131, potassium 3.5, chloride 101, serum bicarb 22, BUN 14, creatinine 0.52, glucose 105. Infusing at 75 mL/h. Lactic acid level not elevated. Mild elevation in LFTs. Troponin less than 0.012. NT proBNP not elevated. Urinalysis not concerning for UTI. Negative for influenza, RSV, COVID. Patient has been started on empiric antibiotics. He is afebrile. Vital signs are stable. Patient was reevaluated today on 07/29/23, I transferred the patient early this morning to the ICU mostly because of worsening respiratory status. Patient was placed on 15 L high flow nasal cannula on the floor, and his O2 saturation was in the 80s. Transferred the patient to the ICU, came in and evaluated the patient, and recommended immediate thoracentesis for his pleural effusion. This was performed at bedside, and I was able to drain 1150 cc of serosanguineous fluid patient had dramatic improvement clinically, follow-up chest x-ray showed apical right-sided pneumothorax however I believe it is not a true pneumothorax, I believe mostly due to trapped lung that did not fully expand any rate patient will have a follow-up chest x-ray in few hours after the thoracentesis. Fluid was sent for different diagnostic studies, and clinically felt much betterWBC count is 11.6 hemoglobin 12.4 basic metabolic profile is normal renal profile is normal Reevaluated today on 07/30/2023, patient remains in the ICU, feeling better today, is breathing easier, nonetheless remains on Airvo, 60% FiO2 and 50 L flow ontinues to have Thora vent in place, small tiny right-sided apical pneumothorax is noted, continues to have significant amount of air and fluid coming out of the Thora vent tube. Cytology on the fluid is pending/pleural effusion cytology is pending. WBC is 14.0 hemoglobin 11.7 his basic metabolic profile is normal except for low potassium of 3.2, patient is requiring narcotics for pain control Objective - Vital Signs Vital signs: Vital Signs Temp 98.1 F 07/30/23 12:00 Pulse 102 H 07/30/23 12:00 Resp 18 07/30/23 12:00 BP 127/85 07/30/23 12:00 Pulse Ox 93 L 07/30/23 12:00 FiO2 60 07/30/23 12:00 Intake & Output 07/29/23 07/30/23 07/30/23 18:59 06:59 18:59 Intake Total 575 570 720 Output Total 6971 822 380 Balance -1475 -52 340 Weight 63.503 kg 62.8 kg Intake: IV 200 240 120 0.9 NACL 200 240 120 Intake, IV Titration 275 100 50 Amount Azithromycin 500 mg In 250 Sodium Chloride 0.9% 250 ml @ 250 mls/hr IVPB DAILY@1900 [facility] Rx#: [id number] Piperacillin-Tazobactam 3 25 100 50 .375 gm In Sodium Chloride 0.9% 100 ml @ 25 mls/hr IVPB Q8H [facility] Rx#: [id number] Oral 100 230 550 Output: Chest Tube Drainage 100 322 30 Right Anterior Chest 100 322 30 Urine 1950 300 350 Other: Voiding Method Bedside Commode Bedside Commode Bedside Commode Urinal Urinal Urinal # Bowel Movements 1 - Exam General: The patient is awake and alert, on Airvo Skin: Skin is warm and dry and no rashes or lesions are noted. Eye: Pupils are equal, round and reactive to light, extra-ocular movements are intact; there is normal conjunctiva bilaterally. Ears, nose, mouth and throat: There are moist mucous membranes and no oral lesi ons. Neck: The neck is supple, there is no tenderness or JVD. Cardiovascular: There is a regular rate and rhythm. No murmur, rub or gallop is appreciated. Respiratory: Good breath sound bilaterally no rhonchi no wheezes, right-sided Thora vent remains in place. Gastrointestinal: Soft, non-distended, non-tender abdomen without masses or organomegaly noted. There is no rebound or guarding present. Bowel sounds are unremarkable. Back: There is no tenderness to palpation in the midline. There is no obvious deformity. Musculoskeletal: Normal ROM, no tenderness, There is no pedal edema. Neurological: CN II-XII intact, Cranial nerves III through XII are intact. There are no obvious motor or sensory deficits. Coordination appears grossly intact. Speech is normal. Psychiatric: Cooperative, appropriate mood & affect, normal judgment. - Labs CBC & Chem 7: 07/30/23 04:06 07/30/23 04:06 Labs: Abnormal Lab Results - Last 24 Hours (Table) 07/29/23 07/29/23 07/30/23 Range/Units 07:30 18:36 04:06 WBC 17.0 H 14.0 H (3.8-10.6) k/uL RBC 3.81 L 3.41 L (4.30-5.90) m/uL Hgb 12.5 L 11.7 L (13.0-17.5) gm/dL Hct 37.2 L 33.5 L (39.0-53.0) % Neutrophils # 15.4 H (1.3-7.7) k/uL Lymphocytes # 0.4 L (1.0-4.8) k/uL Sodium (137-145) mmol/L Potassium (3.5-5.1) mmol/L BUN (9-20) mg/dL Creatinine (0.66-1.25) mg/dL Glucose (74-99) mg/dL Calcium (8.4-10.2) mg/dL Fluid Appearance Cloudy A (Clear) 07/30/23 Range/Units 04:06 WBC (3.8-10.6) k/uL RBC (4.30-5.90) m/uL Hgb (13.0-17.5) gm/dL Hct (39.0-53.0) % Neutrophils # (1.3-7.7) k/uL Lymphocytes # (1.0-4.8) k/uL Sodium 135 L (137-145) mmol/L Potassium 3.2 L (3.5-5.1) mmol/L BUN 22 H (9-20) mg/dL Creatinine 0.41 L (0.66-1.25) mg/dL Glucose 142 H (74-99) mg/dL Calcium 7.9 L (8.4-10.2) mg/dL Fluid Appearance (Clear) Microbiology - Last 24 Hours (Table) 07/29/23 07:30 Gram Stain - Preliminary Pleural Fluid Body Fluid Culture - Preliminary 07/28/23 15:45 Gram Stain - Final Sputum Sputum Culture - Final Shanta albicans 07/27/23 19:03 Blood Culture - Preliminary Blood 07/27/23 19:03 Blood Culture - Preliminary Blood Assessment and Plan Assessment: Impression: Acute hypoxic respiratory failure, multifactorial related to pneumonia, could be bacterial pneumonia or could be viral or most likely related to immunotherapy induced pneumonitis. Acute exacerbation of COPD Large right-sided pleural effusion Non-small cell lung cancer with metastasis to the chest brain and skeletal metastasis noted. Right renal nodule, suspicious for malignancy Recent T12 kyphoplasty May 07 2023 Former smoker Trapped lung post thoracentesis, doubt iatrogenic pneumothorax, 07/29/2023 Recommendation: Patient underwent right-sided thoracentesis, however the patient developed trapped lung/pneumothorax requiring Thora vent placement with improvement, however the patient continues to have air leak and fluid coming out of the Thora vent tube. Continue empiric antibiotics Continue steroids/IV Solu-Medrol. Continue to monitor in the ICU for now. Continue bronchodilators Long-term prognosis remains poor and guarded. Discussed CODE STATUS with yesterday and daughter undecided at this point regarding CODE STATUS and life support. Will continue to follow Time with Patient: Less than 30
[2023-07-30] MEDS: ACETAMINOPHEN TAB 325 MG TAB PO PRN (14:57)
--- NOTE | 2023-07-30 16:10 | P.PN ---
Subjective Progress Note Date: 07/30/23 Patient seen in ICU at today's visit. Continues on high flow oxygen, breathing is labored but improved. Reports significant improvement in breathing S/P thoracentesis. Objective - Vital Signs Vital signs: Vital Signs Temp 98.1 F 07/30/23 12:00 Pulse 91 07/30/23 15:55 Resp 21 07/30/23 15:00 BP 125/82 07/30/23 15:00 Pulse Ox 97 07/30/23 15:57 FiO2 45 07/30/23 15:57 Intake & Output 07/29/23 07/30/23 07/30/23 18:59 06:59 18:59 Intake Total 304 801 8869 Output Total 2050 622 655 Balance -1475 -52 375 Weight 63.503 kg 62.8 kg Intake: IV 200 240 180 0.9 NACL 200 240 180 Intake, IV Titration 275 100 100 Amount Azithromycin 500 mg In 250 Sodium Chloride 0.9% 250 ml @ 250 mls/hr IVPB DAILY@1900 [facility] Rx#: [id number] Piperacillin-Tazobactam 3 25 100 100 .375 gm In Sodium Chloride 0.9% 100 ml @ 25 mls/hr IVPB Q8H [facility] Rx#: [id number] Oral 100 230 750 Output: Chest Tube Drainage 100 322 30 Right Anterior Chest 100 322 30 Urine 1950 300 625 Other: Voiding Method Bedside Commode Bedside Commode Bedside Commode Urinal Urinal Urinal # Bowel Movements 1 - Constitutional General appearance: Present: average body habitus, no acute distress - EENT Eyes: Present: anicteric sclerae, EOMI ENT: Present: hearing grossly normal - Respiratory Details: breathing mildly labored - Cardiovascular Details: well perfused - Integumentary Integumentary: Absent: cyanotic - Musculoskeletal Musculoskeletal: Present: strength equal bilaterally - Psychiatric Psychiatric: Present: A&O x's 3 - Labs CBC & Chem 7: 07/30/23 04:06 07/30/23 04:06 Labs: Abnormal Lab Results - Last 24 Hours (Table) 07/29/23 07/29/23 07/30/23 Range/Units 07:30 18:36 04:06 WBC 17.0 H 14.0 H (3.8-10.6) k/uL RBC 3.81 L 3.41 L (4.30-5.90) m/uL Hgb 12.5 L 11.7 L (13.0-17.5) gm/dL Hct 37.2 L 33.5 L (39.0-53.0) % Neutrophils # 15.4 H (1.3-7.7) k/uL Lymphocytes # 0.4 L (1.0-4.8) k/uL Sodium (137-145) mmol/L Potassium (3.5-5.1) mmol/L BUN (9-20) mg/dL Creatinine (0.66-1.25) mg/dL Glucose (74-99) mg/dL Calcium (8.4-10.2) mg/dL Fluid Appearance Cloudy A (Clear) 07/30/23 Range/Units 04:06 WBC (3.8-10.6) k/uL RBC (4.30-5.90) m/uL Hgb (13.0-17.5) gm/dL Hct (39.0-53.0) % Neutrophils # (1.3-7.7) k/uL Lymphocytes # (1.0-4.8) k/uL Sodium 135 L (137-145) mmol/L Potassium 3.2 L (3.5-5.1) mmol/L BUN 22 H (9-20) mg/dL Creatinine 0.41 L (0.66-1.25) mg/dL Glucose 142 H (74-99) mg/dL Calcium 7.9 L (8.4-10.2) mg/dL Fluid Appearance (Clear) Microbiology - Last 24 Hours (Table) 07/29/23 07:30 Gram Stain - Preliminary Pleural Fluid Body Fluid Culture - Preliminary 07/28/23 15:45 Gram Stain - Final Sputum Sputum Culture - Final Shanta albicans 07/27/23 19:03 Blood Culture - Preliminary Blood 07/27/23 19:03 Blood Culture - Preliminary Blood Assessment and Plan (1) Drug-induced pneumonitis Current Visit: Yes Status: Acute Priority: High Code(s): J98.4 - OTHER DISORDERS OF LUNG; T50.905A - ADVERSE EFFECT OF UNSP DRUG/MEDS/BIOL SUBST, INIT SNOMED Code(s): 085358936 (2) Hypoxic respiratory failure Current Visit: Yes Status: Acute Code(s): J96.91 - RESPIRATORY FAILURE, UNSPECIFIED WITH HYPOXIA SNOMED Code(s): 70625198554517150 (3) Pleural effusion Current Visit: Yes Status: Acute Priority: High Code(s): J90 - PLEURAL EFFUSION, NOT ELSEWHERE CLASSIFIED SNOMED Code(s): 15278893 (4) Squamous cell carcinoma of lung, stage IV Current Visit: Yes Status: Chronic Priority: High Code(s): C34.90 - MALIGNANT NEOPLASM OF UNSP PART OF UNSP BRONCHUS OR LUNG SNOMED Code(s): 737933259 Plan: Drug-induced pneumonitis -CT chest reviewed. Imaging and assessment are most consistent with drug induced pneumonitis -Agree with steroids, abx and infection work up in case of any underlying infection contributing to worsening symptoms -Discontinue Gilotrif. Pleural effusion -Status post 3.2 L thoracentesis -Cytology pending -Improvement in patient's respiratory symptoms Sq cell carcinoma, recurrent, on gilotrif targeted agent -Patient is status post a 3.2 L thoracentesis on the right. Cytology is pending. -Discontinue gilotrif secondary to drug-induced pneumonitis -Primary Oncologist plans for change in therapy once patient current condition has resolved. Malignancy related pain -Pain meds adjusted -Meds ordered to prevent narcotic induced constipation -Rad Onc is supposed to see pt next week to discuss the same. We will talk with them about case once pt more stable. Attests: I have seen and examined pt, performed H&P, developed impression and plan of care. Discussed with dictator. Agree with documentation, dictated as a scribe.
--- NOTE | 2023-07-31 02:54 | P.PN ---
Subjective Progress Note Date: 07/30/23 Patient is a 58-year-old male with a known history of COPD on home oxygen, non- small cell lung cancer status post core needle biopsy of right supraclavicular lymph node on 11/04/2022 consistent with metastatic poorly differentiated non- small cell carcinoma. Patient completed 6 cycles of concurrent chemoradiation on 02/08/2023 and radiation therapy completed on 02/16/2023. CT neck,/chest and abdomen on 02/24/2023 showed stable disease. He was started on cycle 1 of consolidative durvalumab on 03/19/2023. Bronchoscopy on 06/04/2023 with the biopsy of the right hilar region reveals evidence of poorly differentiated non- small cell carcinoma. PET scan showed evidence of metastasis to the bones including right lower ribs/pelvis/C2 and L5 vertebral bodies, intra-abdominal lymphadenopathy, right hilar region. MRI brain showed at least 6 peripherally enhancing lesions. Patient was started on afatinib about 2 weeks ago. Patient presented to ER with complaints of worsening shortness of breath. Patient is requiring 9 L oxygen via nasal cannula. Otherwise denies any complaints of fever or chills. No nausea vomiting. No hematemesis or melena. No headache or dizziness. Patient also having generalized weakness and requiring assistance with sitting up and ambulation. Chest x-ray showed increased right upper lobe lung airspace opacities correlate for pneumonia. EKG showed sinus tachycardia with occasional ventricular premature complexes. Laboratory data showed WBC 10.3 hemoglobin 13.5 and platelets 324 Sodium 131 potassium 3.5 chloride 101 bicarb is 22 BUN 14 and creatinine 0.52 and blood sugar is 105 and calcium 8.3 AST 48 ALT 65 and alk phos 138. Troponin x 1 negative and procalcitonin level is 0.2 Urinalysis is negative for infection Influenza A, B, Legionella, RSV and COVID-19 PCR not detected. 07/29/2023 Patient is seen and evaluated in follow-up this morning continues to be in the ICU with multiple medical consultations following including oncology and pulmonary carpet jack. Patient is status post thoracentesis on the right with approximately 3.2 liters removed. Patient requiring more oxygen currently maintained on airvo 60/80. Patient is lethargic and significantly weak and appears restless in mild respiratory distress. Patient reports not much of an appetite and has been tolerating supplements and will continue. Patient with significant weakness although respiratory status making it difficult for ambulation. Patient also reports to not sleeping well and will add low-dose medication as needed. Patient is currently afebrile with no reported chest pain. Cultures have been sent and pending. 07/30/2023 Patient is seen in follow-up this morning continues to be in the ICU maintained on airvo 60/50 and continues with significant shortness of breath although feels slightly improved. Patient continues with chest tube and is status postthoracentesis. Cytology is pending. Patient is afebrile. Patient continues to be significantly weak and extremely dyspneic with minimal exertion. Encouraged oral intake. Review of systems: Constitutional: reports of fatigue, fever, or chills Cardiovascular: No reports of chest pain or palpitations Respiratory: reports of continued shortness of breath and cough GI: No reports of nausea, vomiting, or diarrhea, reports not much of an appetite : No reports of dysuria or retention Neurovascular: reports of generalized weakness All medications have been reviewed PHYSICAL EXAMINATION: Patient is lying in the bed , with mild respiratory distress maintained on airvo, awake alert and oriented but lethargic and weak... Thin built, elderly appearing, ill-appearing HEENT: Normocephalic. Neck is supple. Pupils reactive. Nostrils clear. Oral cavity is moist. Neck reveals no JVD, carotid bruits, or thyromegaly. CHEST EXAMINATION: Trachea is central. Symmetrical expansion. Bilateral scattered rhonchi and coarse sounds. Basilar diminished sounds. CARDIAC: Normal S1, S2 with no gallops. No murmurs ABDOMEN: Soft. Thin, scaphoid bowel sounds present. Nontender. No organomegaly. No abdominal bruits. Extremities: reveal no edema. No clubbing or cyanosis Neurologically awake, alert, oriented x3 with well-coordinated movements. No gross focal deficits noted, diffusely weak Skin: No rash or skin lesions. Psychiatric: Cooperative. Non-suicidal, slightly anxious at times Musculoskeletal: No joint swelling or deformity. Assessment: Acute on chronic hypoxemic respiratory failure with multifocal right upper lobe pneumonia and metastatic lung cancer and pleural effusion. Possible afatinib pneumonitis cannot be excluded. Currently requiring more oxygen maintained on airvo Non-small cell lung cancer status post chemoradiation, with metastasis to right lower rib, pelvis, vertebral bodies and brain metastatic lesions. Patient was started on afatinib about 2 weeks ago. COPD with mild exacerbation Hypovolemic hyponatremia, likely secondary to poor oral intake Mild transaminitis Recent kyphoplasty in May 2023 Chronic right-sided pleural effusion. Likely malignant effusion, status post thoracentesis on the right with trapped lung post thoracentesis noted requiring chest tube on 07/29/2023 Prior history of smoking GI and DVT prophylaxis with PPI and heparin subcu Full code Plan: Patient will be continued on oxygen supplementation and requiring more oxygen. Weaning FiO2 as tolerated. Currently maintained on airvo 60/50 Patient is continued on antibiotics Zosyn and azithromycin. Patient to continue on IV Solu-Medrol, DuoNebs and gentle IV hydration. Follow- up culture reports remain pending. Pulmonary and oncology following and patient is status post thoracentesis of approximately 3 L removed and specimens were sent and pending. Concerns for trapped lung on the right and is status post chest tube placement Encouraged oral intake and increased activity as tolerated Due to multiple complex medical issues with metastasis, overall prognosis remains extremely poor and guarded at this time The impression and plan of care has been dictated by Merle Kenny, Nurse Practitioner as directed. Dr. Markel MD I have performed a history and examination and MDM of this patient, discussed the same with the dictator, and agree with the dictator's assessment and plan as written ,documented as a scribe. Based on total visit time, I have performed more than 50% of the visit. Objective - Vital Signs Vital signs: Vital Signs Temp 97.6 F 07/30/23 08:00 Pulse 92 07/30/23 10:00 Resp 15 07/30/23 10:00 BP 117/94 07/30/23 10:00 Pulse Ox 95 07/30/23 10:00 FiO2 50 07/30/23 10:00 Intake & Output 07/29/23 07/30/23 07/30/23 18:59 06:59 18:59 Intake Total 575 570 430 Output Total 1069 232 380 Balance -1475 -52 50 Weight 63.503 kg 62.8 kg Intake: IV 200 240 80 0.9 NACL 200 240 80 Intake, IV Titration 275 100 Amount Azithromycin 500 mg In 250 Sodium Chloride 0.9% 250 ml @ 250 mls/hr IVPB DAILY@1900 [facility] Rx#: [id number] Piperacillin-Tazobactam 3 25 100 .375 gm In Sodium Chloride 0.9% 100 ml @ 25 mls/hr IVPB Q8H [facility] Rx#: [id number] Oral 100 230 350 Output: Chest Tube Drainage 100 322 30 Right Anterior Chest 100 322 30 Urine 1950 300 350 Other: Voiding Method Bedside Commode Bedside Commode Bedside Commode Urinal Urinal Urinal # Bowel Movements 1 - Labs CBC & Chem 7: 07/30/23 04:06 07/30/23 04:06 Labs: Abnormal Lab Results - Last 24 Hours (Table) 07/29/23 07/29/23 07/30/23 Range/Units 07:30 18:36 04:06 WBC 17.0 H 14.0 H (3.8-10.6) k/uL RBC 3.81 L 3.41 L (4.30-5.90) m/uL Hgb 12.5 L 11.7 L (13.0-17.5) gm/dL Hct 37.2 L 33.5 L (39.0-53.0) % Neutrophils # 15.4 H (1.3-7.7) k/uL Lymphocytes # 0.4 L (1.0-4.8) k/uL Sodium (137-145) mmol/L Potassium (3.5-5.1) mmol/L BUN (9-20) mg/dL Creatinine (0.66-1.25) mg/dL Glucose (74-99) mg/dL Calcium (8.4-10.2) mg/dL Fluid Appearance Cloudy A (Clear) 07/30/23 Range/Units 04:06 WBC (3.8-10.6) k/uL RBC (4.30-5.90) m/uL Hgb (13.0-17.5) gm/dL Hct (39.0-53.0) % Neutrophils # (1.3-7.7) k/uL Lymphocytes # (1.0-4.8) k/uL Sodium 135 L (137-145) mmol/L Potassium 3.2 L (3.5-5.1) mmol/L BUN 22 H (9-20) mg/dL Creatinine 0.41 L (0.66-1.25) mg/dL Glucose 142 H (74-99) mg/dL Calcium 7.9 L (8.4-10.2) mg/dL Fluid Appearance (Clear) Microbiology - Last 24 Hours (Table) 07/29/23 07:30 Gram Stain - Preliminary Pleural Fluid Body Fluid Culture - Preliminary 07/28/23 15:45 Gram Stain - Final Sputum Sputum Culture - Final Shanta albicans 07/27/23 19:03 Blood Culture - Preliminary Blood 07/27/23 19:03 Blood Culture - Preliminary Blood
[2023-07-31 04:49] LABS: African American GFR (CKD) >90 (>60 ml/min/1.73 sqM); Anion Gap 6 mmol/L; Blood Urea Nitrogen 26 mg/dL (9-20); Calcium 8.6 mg/dL (8.4-10.2); Carbon Dioxide 25 mmol/L (22-30); Chloride 105 mmol/L (98-107); Glucose 114 mg/dL (74-99); Non-African American GFR(CKD) >90 (>60 ml/min/1.73 sqM); Potassium 4.2 mmol/L (3.5-5.1); Sodium 136 mmol/L (137-145)
[2023-07-31 05:37] LABS: Basophils % (A) 0 %; Eosinophils % (A) 0 %; HCT 34.9 % (39.0-53.0); Lymphocytes # (A) 0.3 k/uL (1.0-4.8); Lymphocytes % (A) 3 %; MCH 33.7 pg (25.0-35.0); MCHC 34.4 g/dL (31.0-37.0); Mean Platelet Volume 7.3; Monocytes # (A) 0.5 k/uL (0-1.0); Monocytes % (A) 5 %; Neutrophils % (A) 91 %; Platelet Count 354 k/uL (150-450); RBC 3.56 m/uL (4.30-5.90); WBC 9.9 k/uL (3.8-10.6)
--- NOTE | 2023-07-31 08:23 | XR ---
EXAMINATION TYPE: XR chest 1V portable DATE OF EXAM: 07/31/2023 COMPARISON: 07/30/2023 INDICATION: Pneumothorax TECHNIQUE: Single frontal view of the chest is obtained. FINDINGS: The heart size is normal. The pulmonary vasculature is prominent. Diffuse increased lung markings are present through the left lung. This is worsening. Right perihilar consolidation appears similar to comparison. Right side pneumothorax appears resolved. Chest tube re sindhu in position. IMPRESSION: 1. Resolution previous right apical pneumothorax. Chest tube remains in position. 2. Worsening lung opacity left lung. 3. Stable right perihilar consolidation.
[2023-07-31] MEDS: FLUCONAZOLE 100 MG TAB PO SCH (10:36)
[2023-07-31] MEDS: FUROSEMIDE 10 MG/ML 2 ML VIAL IV SCH (10:49)
--- NOTE | 2023-07-31 12:02 | P.PN ---
Subjective Progress Note Date: 07/31/23 Principal diagnosis: Acute hypoxic respiratory failure, multifactorial am seeing this patient in consultation today July 28, 2023 in the emergency room after he presented with complaints of increased shortness of breath, worsening since Wednesday. Patient is a 58-year-old white male with past medical history significant for metastatic non-small cell lung carcinoma, COPD, former tobacco dependence. He follows with Dr. Avilez in the pulmonary office. Patient has biopsy-proven non-small cell carcinoma, with metastasis within the chest, brain, and diffuse osseous metastasis. He also has a right renal nodule which is being followed up by urology. He has been following with radiation oncology and medical oncology. He has been treated with immunotherapy in the past, but has failed treatment. He has recently been started on daily Gilotrif on July 14. Since Wednesday, the patient has had worsening shortness of breath. This is especially noticeable during exertion. He is not normally oxygen dependent at home. He has been wheezing while at home. He has also had a change in his chronic cough with limited amounts of sputum production. Denies any fevers, chills, chest pain, hemoptysis. He presented to the emergency room last night with the above-mentioned symptoms. He is currently lying in bed, on 4 L/min nasal cannula, in no acute distress. He is generally weak and requires assistance to sit up in bed. His is at bedside. Chest x-ray on arrival de monstrated a new bilateral infiltrates, especially involving the left upper lung field, chronic right lung changes, and a chronic right-sided pleural effusion. These findings are concerning for bilateral multifocal pneumonia or possible pulmonary drug toxicity. CBC on arrival was fairly unremarkable. WBC count 10.3, hematocrit 13.5, hematocrit 39.7, platelets 324. CMP on arrival: Sodium 131, potassium 3.5, chloride 101, serum bicarb 22, BUN 14, creatinine 0.52, glucose 105. Infusing at 75 mL/h. Lactic acid level not elevated. Mild elevation in LFTs. Troponin less than 0.012. NT proBNP not elevated. Urinalysis not concerning for UTI. Negative for influenza, RSV, COVID. Patient has been started on empiric antibiotics. He is afebrile. Vital signs are stable. Patient was reevaluated today on 07/29/23, I transferred the patient early this morning to the ICU mostly because of worsening respiratory status. Patient was placed on 15 L high flow nasal cannula on the floor, and his O2 saturation was in the 80s. Transferred the patient to the ICU, came in and evaluated the patient, and recommended immediate thoracentesis for his pleural effusion. This was performed at bedside, and I was able to drain 1150 cc of serosanguineous fluid patient had dramatic improvement clinically, follow-up chest x-ray showed apical right-sided pneumothorax however I believe it is not a true pneumothorax, I believe mostly due to trapped lung that did not fully expand any rate patient will have a follow-up chest x-ray in few hours after the thoracentesis. Fluid was sent for different diagnostic studies, and clinically felt much betterWBC count is 11.6 hemoglobin 12.4 basic metabolic profile is normal renal profile is normal Reevaluated today on 07/30/2023, patient remains in the ICU, feeling better today, is breathing easier, nonetheless remains on Airvo, 60% FiO2 and 50 L flow ontinues to have Thora vent in place, small tiny right-sided apical pneumothorax is noted, continues to have significant amount of air and fluid coming out of the Thora vent tube. Cytology on the fluid is pending/pleural effusion cytology is pending. WBC is 14.0 hemoglobin 11.7 his basic metabolic profile is normal except for low potassium of 3.2, patient is requiring narcotics for pain control Patient was reevaluated today on 07/31/2023, remains in the ICU, patient is an overflow, doing well, on 50 L high flow and 50% FiO2 via Airvo. Feeling better today compared to yesterday, continues to have a minimal leak in the Pleur-evac from his Thora vent. Drained about 200 cc over the last 24 hours from his Thora vent/chest tube. Chest x-ray showed significant improvement in his right-sided pneumothorax, however there is significant airspace disease involving the left lung, patient is on steroids, and today I recommended 1 dose of Lasix 20 mg IV push to be given. WBC count is 9.9 hemoglobin is 12 electrolytes are normal renal profile is normal, final report on his pleural effusion is pending so far no growth Objective - Vital Signs Vital signs: Vital Signs Temp 97.7 F 07/31/23 08:00 Pulse 85 07/31/23 11:52 Resp 21 07/31/23 08:00 BP 135/93 07/31/23 03:40 Pulse Ox 94 L 07/31/23 03:19 FiO2 50 07/31/23 11:05 Intake & Output 07/30/23 07/31/23 07/31/23 18:59 06:59 18:59 Intake Total 1370 290 Output Total 805 675 Balance 565 -385 Weight 64.5 kg Intake: IV 320 240 0.9 NACL 220 140 Piperacillin-Tazobactam 3 100 100 .375 gm In Sodium Chloride 0.9% 100 ml @ 25 mls/hr IVPB Q8H [facility] Rx#: [id number] Intake, IV Titration 100 Amount Piperacillin-Tazobactam 3 100 .375 gm In Sodium Chloride 0.9% 100 ml @ 25 mls/hr IVPB Q8H [facility] Rx#: [id number] Oral 950 50 Output: Chest Tube Drainage 180 100 Right Anterior Chest 180 100 Urine 625 575 Other: Voiding Method Bedside Commode Bedside Commode Bedside Commode Urinal Urinal Urinal - Exam General: The patient is awake and alert, on Airvo, 50% and 50 L flow Skin: Skin is warm and dry and no rashes or lesions are noted. Eye: Pupils are equal, round and reactive to light, extra-ocular movements are intact; there is normal conjunctiva bilaterally. Ears, nose, mouth and throat: There are moist mucous membranes and no oral lesions. Neck: The neck is supple, there is no tenderness or JVD. Cardiovascular: There is a regular rate and rhythm. No murmur, rub or gallop is appreciated. Respiratory: Good breath sound bilaterally no rhonchi no wheezes, right-sided Thora vent remains in place. Airleak persists but smaller Gastrointestinal: Soft, non-distended, non-tender abdomen without masses or organomegaly noted. There is no rebound or guarding present. Bowel sounds are unremarkable. Back: There is no tenderness to palpation in the midline. There is no obvious deformity. Musculoskeletal: Normal ROM, no tenderness, There is no pedal edema. Neurological: CN II-XII intact, Cranial nerves III through XII are intact. There are no obvious motor or sensory deficits. Coordination appears grossly intact. Speech is normal. Psychiatric: Cooperative, appropriate mood & affect, normal judgment. - Labs CBC & Chem 7: 07/31/23 05:12 07/31/23 03:29 Labs: Abnormal Lab Results - Last 24 Hours (Table) 07/31/23 07/31/23 Range/Units 03:29 05:12 RBC 3.56 L (4.30-5.90) m/uL Hgb 12.0 L (13.0-17.5) gm/dL Hct 34.9 L (39.0-53.0) % Neutrophils # 9.0 H (1.3-7.7) k/uL Lymphocytes # 0.3 L (1.0-4.8) k/uL Sodium 136 L (137-145) mmol/L BUN 26 H (9-20) mg/dL Creatinine 0.50 L (0.66-1.25) mg/dL Glucose 114 H (74-99) mg/dL Microbiology - Last 24 Hours (Table) 07/27/23 19:03 Blood Culture - Preliminary Blood 07/27/23 19:03 Blood Culture - Preliminary Blood 07/29/23 07:30 Acid Fast Bacilli Smear - Preliminary Pleural Fluid 07/29/23 07:30 Gram Stain - Preliminary Pleural Fluid Body Fluid Culture - Preliminary 07/28/23 15:45 Gram Stain - Final Sputum Sputum Culture - Final Shanta albicans Assessment and Plan Assessment: Impression: Acute hypoxic respiratory failure, multifactorial related to pneumonia, could be bacterial pneumonia or could be viral or most likely related to immunotherapy induced pneumonitis. And large sided pleural effusion Acute exacerbation of COPD Large right-sided pleural effusion Non-small cell lung cancer with metastasis to the chest brain and skeletal metastasis noted. Right renal nodule, suspicious for malignancy Recent T12 kyphoplasty May 07 2023 Former smoker Trapped lung post thoracentesis, doubt iatrogenic pneumothorax, 07/29/2023, required Thora vent placement 4 hours after the procedure, Thora vent remains in place Recommendation: Patient underwent right-sided thoracentesis, however the patient developed trapped lung/pneumothorax requiring Thora vent placement with improvement, considering the patient continues to have air leak and fluid draining from the Thora vent, no plans to remove the Thora vent today or tomorrow. Continue empiric antibiotics Continue steroids/IV Solu-Medrol. Transfer patient out of the ICU to 3 . Continue bronchodilators Long-term prognosis remains poor and guarded. Will continue to follow Time with Patient: Less than 30
--- NOTE | 2023-07-31 21:35 | P.PN ---
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 Patient completed 6 cycles of concurrent chemoradiation on 02/08/2023 and radiation therapy completed on 02/16/2023. CT neck,/chest and abdomen on 02/24/2023 showed stable disease. He was started on cycle 1 of consolidative durvalumab on 03/19/2023. Bronchoscopy on 06/04/2023 with the biopsy of the right hilar region reveals evidence of poorly differentiated non- small cell carcinoma. PET scan showed evidence of metastasis to the bones including right lower ribs/pelvis/C2 and L5 vertebral bodies, intra-abdominal lymphadenopathy, right hilar region. MRI brain showed at least 6 peripherally enhancing lesions. Patient was started on afatinib about 2 weeks ago. Patient presented to ER with complaints of worsening shortness of breath. Patient is requiring 9 L oxygen via nasal cannula. Otherwise denies any complaints of fever or chills. No nausea vomiting. No hematemesis or melena. No headache or dizziness. Patient also having generalized weakness and requiring assistance with sitting up and ambulation. Chest x-ray showed increased right upper lobe lung airspace opacities correlate for pneumonia. EKG showed sinus tachycardia with occasional ventricular premature complexes. Laboratory data showed WBC 10.3 hemoglobin 13.5 and platelets 324 Sodium 131 potassium 3.5 chloride 101 bicarb is 22 BUN 14 and creatinine 0.52 and blood sugar is 105 and calcium 8.3 AST 48 ALT 65 and alk phos 138. Troponin x 1 negative and procalcitonin level is 0.2 Urinalysis is negative for infection Influenza A, B, Legionella, RSV and COVID-19 PCR not detected. 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 Patient is status post thoracentesis on the right with approximately 3.2 liters removed. Patient requiring more oxygen currently maintained on airvo 60/80. Patient is lethargic and significantly weak and appears restless in mild respiratory distress. Patient reports not much of an appetite and has been tolerating supplements and will continue. Patient with significant weakness although respiratory status making it difficult for ambulation. Patient also reports to not sleeping well and will add low-dose medication as needed. Patient is currently afebrile with no reported chest pain. Cultures have been sent and pending. 07/30/2023 Patient is seen in follow-up this morning continues to be in the ICU maintained on airvo 60/50 and continues with significant shortness of breath although feels slightly improved. Patient continues with chest tube and is status postthoracentesis. Cytology is pending. Patient is afebrile. Patient continues to be significantly weak and extremely dyspneic with minimal exertion. Encouraged oral intake. 07/31/2023 Patient is seen in follow-up today continues to be in the ICU with multiple medical consultations following. Weaning FiO2 as tolerated currently maintained on 5050 of airvo with supplemental oxygen of nonrebreather as needed. Patient continues with Pleurx catheter on the right chest wall with pulmonary following. Sputum culture showing Shanta and patient is also continued on Zosyn and will continue for now. Patient reports having some mouth soreness and does appear to have thrush. Patient is afebrile with no reported chest pain. Patient with overall weakness and prolonged hospitalization, recommend increased activity as tolerated. Overall prognosis remains guarded. Review of systems: Constitutional: reports of fatigue, fever, or chills Cardiovascular: No reports of chest pain or palpitations Respiratory: reports of continued shortness of breath and cough, although reports this feeling slightly improved GI: No reports of nausea, vomiting, or diarrhea, reports not much of an appetite, and mouth pain although able to eat a little more today sitting up : No reports of dysuria or retention Neurovascular: reports of generalized weakness All medications have been reviewed PHYSICAL EXAMINATION: Patient is sitting up in the bed , maintained on airvo 50/50, awake alert and oriented, appears weak... Thin built, elderly appearing, ill-appearing HEENT: Normocephalic. Neck is supple. Pupils reactive. Nostrils clear. Oral cavity is moist. Neck reveals no JVD, carotid bruits, or thyromegaly. CHEST EXAMINATION: Trachea is central. Symmetrical expansion. Bilateral scattered rhonchi and coarse sounds. Basilar diminished sounds. Worse on the right CARDIAC: Normal S1, S2 with no gallops. No murmurs ABDOMEN: Soft. Thin, scaphoid bowel sounds present. Nontender. No organomegaly. No abdominal bruits. Extremities: reveal no edema. No clubbing or cyanosis Neurologically awake, alert, oriented x3 with well-coordinated movements. No gross focal deficits noted, diffusely weak Skin: No rash or skin lesions. Psychiatric: Cooperative. Non-suicidal, slightly anxious at times Musculoskeletal: No joint swelling or deformity. Assessment: Acute on chronic hypoxemic respiratory failure with multifocal right upper lobe pneumonia and metastatic lung cancer and pleural effusion. Possible afatinib pn eumonitis cannot be excluded. Currently requiring more oxygen maintained on airvo 50/50 Non-small cell lung cancer status post chemoradiation, with metastasis to right lower rib, pelvis, vertebral bodies and brain metastatic lesions. Patient was started on afatinib about 2 weeks ago. Oral thrush with sputum culture showing Shanta COPD with mild exacerbation Hypovolemic hyponatremia, likely secondary to poor oral intake Mild transaminitis Recent kyphoplasty in May 2023 Chronic right-sided pleural effusion. Likely malignant effusion, status post thoracentesis on the right with trapped lung post thoracentesis noted requiring chest tube on 07/29/2023 Prior history of smoking GI and DVT prophylaxis with PPI and heparin subcu Full code Plan: Patient will be continued on oxygen supplementation and requiring more oxygen. Weaning FiO2 as tolerated. Currently maintained on airvo 50/50 Patient is continued on antibiotics Zosyn and azithromycin. Being started on Diflucan sputum culture showed Shanta Patient to continue on IV Solu-Medrol, DuoNebs and gentle IV hydration. Follow- up culture reports remain pending. Pulmonary and oncology following and patient is status post thoracentesis of approximately 3 L removed and specimens were sent and pending. Concerns for trapped lung on the right and is status post chest tube placement with a Pleurx on the right Encouraged oral intake and increased activity as tolerated Due to multiple complex medical issues with metastasis, overall prognosis remains extremely poor and guarded at this time The impression and plan of care has been dictated by Merle Kenny, Nurse Practitioner as directed. Dr. Markel MD I have performed a history and examination and MDM of this patient, discussed the same with the dictator, and agree with the dictator's assessment and plan as written ,documented as a scribe. Based on total visit time, I have performed more than 50% of the visit. Objective - Vital Signs Vital signs: Vital Signs Temp 98.5 F 07/31/23 20:00 Pulse 112 H 07/31/23 20:00 Resp 21 07/31/23 20:00 BP 126/88 07/31/23 20:00 Pulse Ox 94 L 07/31/23 03:19 FiO2 50 07/31/23 20:00 Intake & Output 07/31/23 07/31/23 08/01/23 06:59 18:59 06:59 Intake Total 290 240 Output Total 675 750 0 Balance -385 -510 0 Weight 64.5 kg Intake: IV 240 0.9 NACL 140 Piperacillin-Tazobactam 3 100 .375 gm In Sodium Chloride 0.9% 100 ml @ 25 mls/hr IVPB Q8H [facility] Rx#: [id number] Oral 50 240 Output: Chest Tube Drainage 100 0 0 Right Anterior Chest 100 0 0 Urine 575 750 Other: Voiding Method Bedside Commode Bedside Commode Bedside Commode Urinal Urinal Urinal - Labs CBC & Chem 7: 07/31/23 05:12 07/31/23 03:29 Labs: Abnormal Lab Results - Last 24 Hours (Table) 07/31/23 07/31/23 Range/Units 03:29 05:12 RBC 3.56 L (4.30-5.90) m/uL Hgb 12.0 L (13.0-17.5) gm/dL Hct 34.9 L (39.0-53.0) % Neutrophils # 9.0 H (1.3-7.7) k/uL Lymphocytes # 0.3 L (1.0-4.8) k/uL Sodium 136 L (137-145) mmol/L BUN 26 H (9-20) mg/dL Creatinine 0.50 L (0.66-1.25) mg/dL Glucose 114 H (74-99) mg/dL Microbiology - Last 24 Hours (Table) 07/29/23 07:30 Gram Stain - Preliminary Pleural Fluid Body Fluid Culture - Preliminary 07/27/23 19:03 Blood Culture - Preliminary Blood 07/27/23 19:03 Blood Culture - Preliminary Blood 07/29/23 07:30 Acid Fast Bacilli Smear - Preliminary Pleural Fluid
[2023-07-31] MEDS: ONDANSETRON 4 MG TAB PO PRN (21:43)
--- NOTE | 2023-08-01 08:31 | XR ---
EXAMINATION TYPE: XR chest 1V portable DATE OF EXAM: 08/01/2023 COMPARISON: 07/31/2023 earlier exam INDICATION: Pneumothorax, dyspnea TECHNIQUE: Single frontal view of the chest is obtained. FINDINGS: The heart size is normal. The pulmonary vasculature is normal. Right perihilar infiltrate is present. Correlate for pneumonia. There is increased lung markings in t he left lung. This may be slightly improved Right-sided chest tube remains present. The right apical pneumothorax has reoccurred. Small right ple ural effusion is present IMPRESSION: 1. Recurrent right apical pneumothorax may be approximately 20%. 2. Improving left lung infiltrate. 3. Stable consolidation right perihilar region. Continued follow-up recommended. A [place] critical message alert has been initiated for Tessa Avilez MD~[id number] via the [employer] Critical Results System on 08/01/2023 8:28 AM. This message alert has been sent to Tessa Avilez MD~[id number] via the preferences provided by the clinician for the receipt of Radiology Critical Findin gs. Message ID [id number].
[2023-08-01 09:31] LABS: Basophils % (A) 0 %; Eosinophils % (A) 0 %; HCT 37.9 % (39.0-53.0); HGB 12.8 gm/dL (13.0-17.5); Lymphocytes # (A) 0.3 k/uL (1.0-4.8); Lymphocytes % (A) 3 %; MCH 33.4 pg (25.0-35.0); MCHC 33.7 g/dL (31.0-37.0); Mean Platelet Volume 7.3; Monocytes # (A) 0.3 k/uL (0-1.0); Monocytes % (A) 3 %; Neutrophils # (A) 8.8 k/uL (1.3-7.7); Neutrophils % (A) 93 %; Platelet Count 354 k/uL (150-450); RBC 3.83 m/uL (4.30-5.90); WBC 9.5 k/uL (3.8-10.6)
[2023-08-01 09:50] LABS: African American GFR (CKD) >90 (>60 ml/min/1.73 sqM); Anion Gap 6 mmol/L; Blood Urea Nitrogen 22 mg/dL (9-20); Calcium 8.3 mg/dL (8.4-10.2); Carbon Dioxide 25 mmol/L (22-30); Chloride 104 mmol/L (98-107); Glucose 106 mg/dL (74-99); Magnesium 2.3 mg/dL (1.6-2.3); Non-African American GFR(CKD) >90 (>60 ml/min/1.73 sqM); Potassium 4.3 mmol/L (3.5-5.1); Sodium 135 mmol/L (137-145)
--- NOTE | 2023-08-01 13:47 | P.PN ---
Subjective Progress Note Date: 08/01/23 Principal diagnosis: Acute hypoxic respiratory failure, multifactorial am seeing this patient in consultation today July 28, 2023 in the emergency room after he presented with complaints of increased shortness of breath, worsening since Wednesday. Patient is a 58-year-old white male with past medical history significant for metastatic non-small cell lung carcinoma, COPD, former tobacco dependence. He follows with Dr. Avilez in the pulmonary office. Patient has biopsy-proven non-small cell carcinoma, with metastasis within the chest, brain, and diffuse osseous metastasis. He also has a right renal nodule which is being followed up by urology. He has been following with radiation oncology and medical oncology. He has been treated with immunotherapy in the past, but has failed treatment. He has recently been started on daily Gilotrif on July 14. Since Wednesday, the patient has had worsening shortness of breath. This is especially noticeable during exertion. He is not normally oxygen dependent at home. He has been wheezing while at home. He has also had a change in his chronic cough with limited amounts of sputum production. Denies any fevers, chills, chest pain, hemoptysis. He presented to the emergency room last night with the above-mentioned symptoms. He is currently lying in bed, on 4 L/min nasal cannula, in no acute distress. He is generally weak and requires assistance to sit up in bed. His is at bedside. Chest x-ray on arrival de monstrated a new bilateral infiltrates, especially involving the left upper lung field, chronic right lung changes, and a chronic right-sided pleural effusion. These findings are concerning for bilateral multifocal pneumonia or possible pulmonary drug toxicity. CBC on arrival was fairly unremarkable. WBC count 10.3, hematocrit 13.5, hematocrit 39.7, platelets 324. CMP on arrival: Sodium 131, potassium 3.5, chloride 101, serum bicarb 22, BUN 14, creatinine 0.52, glucose 105. Infusing at 75 mL/h. Lactic acid level not elevated. Mild elevation in LFTs. Troponin less than 0.012. NT proBNP not elevated. Urinalysis not concerning for UTI. Negative for influenza, RSV, COVID. Patient has been started on empiric antibiotics. He is afebrile. Vital signs are stable. Patient was reevaluated today on 07/29/23, I transferred the patient early this morning to the ICU mostly because of worsening respiratory status. Patient was placed on 15 L high flow nasal cannula on the floor, and his O2 saturation was in the 80s. Transferred the patient to the ICU, came in and evaluated the patient, and recommended immediate thoracentesis for his pleural effusion. This was performed at bedside, and I was able to drain 1150 cc of serosanguineous fluid patient had dramatic improvement clinically, follow-up chest x-ray showed apical right-sided pneumothorax however I believe it is not a true pneumothorax, I believe mostly due to trapped lung that did not fully expand any rate patient will have a follow-up chest x-ray in few hours after the thoracentesis. Fluid was sent for different diagnostic studies, and clinically felt much betterWBC count is 11.6 hemoglobin 12.4 basic metabolic profile is normal renal profile is normal Reevaluated today on 07/30/2023, patient remains in the ICU, feeling better today, is breathing easier, nonetheless remains on Airvo, 60% FiO2 and 50 L flow ontinues to have Thora vent in place, small tiny right-sided apical pneumothorax is noted, continues to have significant amount of air and fluid coming out of the Thora vent tube. Cytology on the fluid is pending/pleural effusion cytology is pending. WBC is 14.0 hemoglobin 11.7 his basic metabolic profile is normal except for low potassium of 3.2, patient is requiring narcotics for pain control Patient was reevaluated today on 07/31/2023, remains in the ICU, patient is an overflow, doing well, on 50 L high flow and 50% FiO2 via Airvo. Feeling better today compared to yesterday, continues to have a minimal leak in the Pleur-evac from his Thora vent. Drained about 200 cc over the last 24 hours from his Thora vent/chest tube. Chest x-ray showed significant improvement in his right-sided pneumothorax, however there is significant airspace disease involving the left lung, patient is on steroids, and today I recommended 1 dose of Lasix 20 mg IV push to be given. WBC count is 9.9 hemoglobin is 12 electrolytes are normal renal profile is normal, final report on his pleural effusion is pending so far no growth Reevaluated today on 08/01/2023, patient is now on the cardiac floor, basically about the same, remains on Airvo at 50% FiO2 and 50% liters flow, continues to have the Thora vent in place, connected to Pleur-evac, continues to have minimal air leak, right lung is expanded however still has a small right apical pneumothorax. The pneumonic process in the left lung seems to be improving a bit based on the chest x-ray. Clinically the patient is feeling better, breathing a bit easier. CBC today is relatively normal WBC count is 9.5 hemoglobin is 12.8 basic metabolic profile is normal renal profile is normal. Patient remains on antibiotics, bronchodilators, and steroids cytology from the pleural effusion is pending patient has been previously diagnosed with metastatic non-small cell lung cancer Objective - Vital Signs Vital signs: Vital Signs Temp 97.6 F 08/01/23 11:31 Pulse 83 08/01/23 13:00 Resp 21 08/01/23 13:00 BP 123/84 08/01/23 11:31 Pulse Ox 93 L 08/01/23 12:09 FiO2 50 08/01/23 12:09 Intake & Output 07/31/23 08/01/23 08/01/23 18:59 06:59 18:59 Intake Total 240 580 240 Output Total 750 1030 1735 Balance -510 450 -1493 Weight 51.5 kg Intake: Intake, IV Titration 100 Amount Piperacillin-Tazobactam 3 100 .375 gm In Sodium Chloride 0.9% 100 ml @ 25 mls/hr IVPB Q8H [facility] Rx#: [id number] Oral 240 480 240 Output: Chest Tube Drainage 0 30 10 Right Anterior Chest 0 30 10 Urine 750 1000 1725 Other: Voiding Method Bedside Commode Bedside Commode Bedside Commode Urinal Urinal Urinal # Voids 1 - Exam General: The patient is awake and alert, on Airvo, 50% and 50 L flow Skin: Skin is warm and dry and no rashes or lesions are noted. Eye: Pupils are equal, round and reactive to light, extra-ocular movements are intact; there is normal conjunctiva bilaterally. Ears, nose, mouth and throat: There are moist mucous membranes and no oral lesions. Neck: The neck is supple, there is no tenderness or JVD. Cardiovascular: There is a regular rate and rhythm. No murmur, rub or gallop is appreciated. Respiratory: Good breath sound bilaterally no rhonchi no wheezes, right-sided Thora vent remains in place. Airleak present Gastrointestinal: Soft, non-distended, non-tender abdomen without masses or organomegaly noted. There is no rebound or guarding present. Bowel sounds are unremarkable. Back: There is no tenderness to palpation in the midline. There is no obvious deformity. Musculoskeletal: Normal ROM, no tenderness, There is no pedal edema. Neurological: CN II-XII intact, Cranial nerves III through XII are intact. There are no obvious motor or sensory deficits. Coordination appears grossly intact. Speech is normal. Psychiatric: Cooperative, appropriate mood & affect, normal judgment. - Labs CBC & Chem 7: 08/01/23 07:48 08/01/23 07:48 Labs: Abnormal Lab Results - Last 24 Hours (Table) 08/01/23 08/01/23 Range/Units 07:48 07:48 RBC 3.83 L (4.30-5.90) m/uL Hgb 12.8 L (13.0-17.5) gm/dL Hct 37.9 L (39.0-53.0) % Neutrophils # 8.8 H (1.3-7.7) k/uL Lymphocytes # 0.3 L (1.0-4.8) k/uL Sodium 135 L (137-145) mmol/L BUN 22 H (9-20) mg/dL Creatinine 0.60 L (0.66-1.25) mg/dL Glucose 106 H (74-99) mg/dL Calcium 8.3 L (8.4-10.2) mg/dL Microbiology - Last 24 Hours (Table) 07/29/23 07:30 Gram Stain - Preliminary Pleural Fluid Body Fluid Culture - Preliminary Assessment and Plan Assessment: Impression: Acute hypoxic respiratory failure, multifactorial related to pneumonia, could be bacterial pneumonia or could be viral or most likely related to immunotherapy induced pneumonitis. And large sided pleural effusion, requiring thoracentesis Acute exacerbation of COPD Large right-sided pleural effusion, status postthoracentesis Non-small cell lung cancer with metastasis to the chest brain and skeletal metastasis noted. Right renal nodule, suspicious for malignancy Recent T12 kyphoplasty May 07 2023 Former smoker Right-sided pneumothorax/trapped lung s Immunotherapy induced pneumonitis Recommendation: Patient underwent right-sided thoracentesis, however the patient developed trapped lung/pneumothorax requiring Thora vent placement with improvement, considering the patient continues to have air leak and fluid draining from the Thora vent, no plans to remove the Thora vent, anytime soon, continues to have air leak Continue empiric antibiotics Continue steroids/IV Solu-Medrol. Continue bronchodilators Long-term prognosis remains poor and guarded. Will continue to follow Time with Patient: Less than 30
--- NOTE | 2023-08-02 09:37 | P.PN ---
Subjective Progress Note Date: 08/01/23 Patient is a 58-year-old male with a known history of COPD on home oxygen, non- small cell lung cancer status post core needle biopsy of right supraclavicular lymph node on 11/04/2022 consistent with metastatic poorly differentiated non- small cell carcinoma. Patient completed 6 cycles of concurrent chemoradiation on 02/08/2023 and radiation therapy completed on 02/16/2023. CT neck,/chest and abdomen on 02/24/2023 showed stable disease. He was started on cycle 1 of consolidative durvalumab on 03/19/2023. Bronchoscopy on 06/04/2023 with the biopsy of the right hilar region reveals evidence of poorly differentiated non- small cell carcinoma. PET scan showed evidence of metastasis to the bones including right lower ribs/pelvis/C2 and L5 vertebral bodies, intra-abdominal lymphadenopathy, right hilar region. MRI brain showed at least 6 peripherally enhancing lesions. Patient was started on afatinib about 2 weeks ago. Patient presented to ER with complaints of worsening shortness of breath. Patient is requiring 9 L oxygen via nasal cannula. Otherwise denies any complaints of fever or chills. No nausea vomiting. No hematemesis or melena. No headache or dizziness. Patient also having generalized weakness and requiring assistance with sitting up and ambulation. Chest x-ray showed increased right upper lobe lung airspace opacities correlate for pneumonia. EKG showed sinus tachycardia with occasional ventricular premature complexes. Laboratory data showed WBC 10.3 hemoglobin 13.5 and platelets 324 Sodium 131 potassium 3.5 chloride 101 bicarb is 22 BUN 14 and creatinine 0.52 and blood sugar is 105 and calcium 8.3 AST 48 ALT 65 and alk phos 138. Troponin x 1 negative and procalcitonin level is 0.2 Urinalysis is negative for infection Influenza A, B, Legionella, RSV and COVID-19 PCR not detected. 07/29/2023 Patient is seen and evaluated in follow-up this morning continues to be in the ICU with multiple medical consultations following including oncology and pulmonary cushion former. Patient is status post thoracentesis on the right with approximately 3.2 liters removed. Patient requiring more oxygen currently maintained on airvo 60/80. Patient is lethargic and significantly weak and appears restless in mild respiratory distress. Patient reports not much of an appetite and has been tolerating supplements and will continue. Patient with significant weakness although respiratory status making it difficult for ambulation. Patient also reports to not sleeping well and will add low-dose medication as needed. Patient is currently afebrile with no reported chest pain. Cultures have been sent and pending. 07/30/2023 Patient is seen in follow-up this morning continues to be in the ICU maintained on airvo 60/50 and continues with significant shortness of breath although feels slightly improved. Patient continues with chest tube and is status postthoracentesis. Cytology is pending. Patient is afebrile. Patient continues to be significantly weak and extremely dyspneic with minimal exertion. Encouraged oral intake. 07/31/2023 Patient is seen in follow-up today continues to be in the ICU with multiple medical consultations following. Weaning FiO2 as tolerated currently maintained on 5050 of airvo with supplemental oxygen of nonrebreather as needed. Patient continues with Pleurx catheter on the right chest wall with pulmonary following. Sputum culture showing Shanta and patient is also continued on Zosyn and will continue for now. Patient reports having some mouth soreness and does appear to have thrush. Patient is afebrile with no reported chest pain. Patient with overall weakness and prolonged hospitalization, recommend increased activity as tolerated. Overall prognosis remains guarded. 08/01/2023 Patient is seen in follow-up today has been transferred out of the ICU on 3 S. continued on IV Lasix daily along with continued IV steroids and Zosyn. Patient continues with Pleurx catheter and cultures preliminary showing no growth. Patient continues on Airvo at 50/50 and weaning as tolerated. White count has normalized and hemoglobin is stable at 12.8, sodium is 135 with a potassium of 4.3 and electrolytes within normal limits. Patient with weakness will have PT/OT evaluate once respiratory status more stable. Encouraged oral intake. Patient also to continue on Diflucan for oral thrush. Review of systems: Constitutional: reports of fatigue, fever, or chills Cardiovascular: No reports of chest pain or palpitations Respiratory: reports of continued shortness of breath and cough, although reports this feeling slightly improved GI: No reports of nausea, vomiting, or diarrhea, reports not much of an appetite, but eating a little more : No reports of dysuria or retention Neurovascular: reports of generalized weakness All medications have been reviewed PHYSICAL EXAMINATION: Patient is sitting up in the bed , maintained on airvo 50/50, awake alert and oriented, appears weak... Thin built, elderly appearing, ill-appearing HEENT: Normocephalic. Neck is supple. Pupils reactive. Nostrils clear. Oral cavity is moist. Neck reveals no JVD, carotid bruits, or thyromegaly. CHEST EXAMINATION: Trachea is central. Symmetrical expansion. Bilateral scattered rhonchi and coarse sounds. Basilar diminished sounds. Worse on the right CARDIAC: Normal S1, S2 with no gallops. No murmurs ABDOMEN: Soft. Thin, scaphoid bowel sounds present. Nontender. No organomegaly. No abdominal bruits. Extremities: reveal no edema. No clubbing or cyanosis Neurologically awake, alert, oriented x3 with well-coordinated movements. No gross focal deficits noted, diffusely weak Skin: No rash or skin lesions. Psychiatric: Cooperative. Non-suicidal, slightly anxious at times Musculoskeletal: No joint swelling or deformity. Assessment: Acute on chronic hypoxemic respiratory failure with multifocal right upper lobe pneumonia and metastatic lung cancer and pleural effusion. Possible afatinib pneumonitis cannot be excluded. Currently requiring more oxygen maintained on airvo 50/50 Non-small cell lung cancer status post chemoradiation, with metastasis to right lower rib, pelvis, vertebral bodies and brain metastatic lesions. Patient was started on afatinib about 2 weeks ago. Oral thrush with sputum culture showing Shanta COPD with mild exacerbation Hypovolemic hyponatremia, likely secondary to poor oral intake Mild transaminitis Recent kyphoplasty in May 2023 Chronic right-sided pleural effusion. Likely malignant effusion, status post thoracentesis on the right with trapped lung post thoracentesis noted requiring chest tube on 07/29/2023 Prior history of smoking GI and DVT prophylaxis with PPI and heparin subcu Full code Plan: Patient will be continued on oxygen supplementation and Weaning FiO2 as tolerated. Currently maintained on airvo 50/50 Patient is continued on antibiotics Zosyn and azithromycin. Continued on Diflucan sputum culture showed Shanta Patient to continue on IV Solu-Medrol, DuoNebs and gentle IV hydration. Follow- up culture reports remain pending. Pulmonary and oncology following and patient is status post thoracentesis of approximately 3 L removed and specimens were sent and pending. Concerns for trapped lung on the right and is status post chest tube placement with a Pleurx on the right Encouraged oral intake and increased activity as tolerated. Will have PT/OT therapy evaluate the patient once respiratory status more stable Due to multiple complex medical issues with metastasis, overall prognosis remains extremely poor and guarded at this time The impression and plan of care has been dictated by Merle Kenny, Nurse Practitioner as directed. Dr. Markel MD I have performed a history and examination and MDM of this patient, discussed the same with the dictator, and agree with the dictator's assessment and plan as written ,documented as a scribe. Based on total visit time, I have performed more than 50% of the visit. Objective - Vital Signs Vital signs: Vital Signs Temp 97.8 F 08/01/23 16:41 Pulse 94 08/01/23 16:41 Resp 21 08/01/23 16:41 BP 129/86 08/01/23 16:41 Pulse Ox 93 L 08/01/23 16:41 FiO2 50 08/01/23 16:41 Intake & Output 07/31/23 08/01/23 08/01/23 18:59 06:59 18:59 Intake Total 240 580 240 Output Total 750 1030 [facility] Balance -510 450 -1720 Weight 51.5 kg Intake: Intake, IV Titration 100 Amount Piperacillin-Tazobactam 3 100 .375 gm In Sodium Chloride 0.9% 100 ml @ 25 mls/hr IVPB Q8H [facility] Rx#: [id number] Oral 240 480 240 Output: Chest Tube Drainage 0 30 10 Right Anterior Chest 0 30 10 Urine 750 1000 1950 Other: Voiding Method Bedside Commode Bedside Commode Bedside Commode Urinal Urinal Urinal # Voids 1 - Labs CBC & Chem 7: 08/01/23 07:48 08/01/23 07:48 Labs: Abnormal Lab Results - Last 24 Hours (Table) 08/01/23 08/01/23 Range/Units 07:48 07:48 RBC 3.83 L (4.30-5.90) m/uL Hgb 12.8 L (13.0-17.5) gm/dL Hct 37.9 L (39.0-53.0) % Neutrophils # 8.8 H (1.3-7.7) k/uL Lymphocytes # 0.3 L (1.0-4.8) k/uL Sodium 135 L (137-145) mmol/L BUN 22 H (9-20) mg/dL Creatinine 0.60 L (0.66-1.25) mg/dL Glucose 106 H (74-99) mg/dL Calcium 8.3 L (8.4-10.2) mg/dL Microbiology - Last 24 Hours (Table) 07/29/23 07:30 Gram Stain - Preliminary Pleural Fluid Body Fluid Culture - Preliminary
--- NOTE | 2023-08-02 09:38 | XR ---
EXAMINATION TYPE: XR chest 1V portable DATE OF EXAM: 08/02/2023 Comparison: 08/01/2023 Clinical History: 58-year-old male pneumothorax Findings: Right-sided Thora vent catheter remains in place. There is a small to moderate-sized right apical pne umothorax measuring 4.0 cm, slightly increased from 3.2 cm, previously. Heart upper limits of normal in size. Diffuse interstitial density persists. Focal right midlung opacity is similar as well. Subcu taneous emphysema right chest wall. Impression: 1. Right apical pneumothorax slightly larger in size now 4.0 cm versus 3.2 cm, previously. Right-side d ThoraVent catheter in place. 2. Similar diffuse interstitial densities and focal right midlung opacity.
[2023-08-02] MEDS: LACTULOSE 20 GM/30 ML CUP PO PRN (12:24)
--- NOTE | 2023-08-02 13:41 | P.PN ---
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 Patient completed 6 cycles of concurrent chemoradiation on 02/08/2023 and radiation therapy completed on 02/16/2023. CT neck,/chest and abdomen on 02/24/2023 showed stable disease. He was started on cycle 1 of consolidative durvalumab on 03/19/2023. Bronchoscopy on 06/04/2023 with the biopsy of the right hilar region reveals evidence of poorly differentiated non- small cell carcinoma. PET scan showed evidence of metastasis to the bones including right lower ribs/pelvis/C2 and L5 vertebral bodies, intra-abdominal lymphadenopathy, right hilar region. MRI brain showed at least 6 peripherally enhancing lesions. Patient was started on afatinib about 2 weeks ago. Patient presented to ER with complaints of worsening shortness of breath. Patient is requiring 9 L oxygen via nasal cannula. Otherwise denies any complaints of fever or chills. No nausea vomiting. No hematemesis or melena. No headache or dizziness. Patient also having generalized weakness and requiring assistance with sitting up and ambulation. Chest x-ray showed increased right upper lobe lung airspace opacities correlate for pneumonia. EKG showed sinus tachycardia with occasional ventricular premature complexes. Laboratory data showed WBC 10.3 hemoglobin 13.5 and platelets 324 Sodium 131 potassium 3.5 chloride 101 bicarb is 22 BUN 14 and creatinine 0.52 and blood sugar is 105 and calcium 8.3 AST 48 ALT 65 and alk phos 138. Troponin x 1 negative and procalcitonin level is 0.2 Urinalysis is negative for infection Influenza A, B, Legionella, RSV and COVID-19 PCR not detected. 07/29/2023 Patient is seen and evaluated in follow-up this morning continues to be in the ICU with multiple medical consultations following including oncology and pulmonary manager pediatric. Patient is status post thoracentesis on the right with approximately 3.2 liters removed. Patient requiring more oxygen currently maintained on airvo 60/80. Patient is lethargic and significantly weak and appears restless in mild respiratory distress. Patient reports not much of an appetite and has been tolerating supplements and will continue. Patient with significant weakness although respiratory status making it difficult for ambulation. Patient also reports to not sleeping well and will add low-dose medication as needed. Patient is currently afebrile with no reported chest pain. Cultures have been sent and pending. 07/30/2023 Patient is seen in follow-up this morning continues to be in the ICU maintained on airvo 60/50 and continues with significant shortness of breath although feels slightly improved. Patient continues with chest tube and is status postthoracentesis. Cytology is pending. Patient is afebrile. Patient continues to be significantly weak and extremely dyspneic with minimal exertion. Encouraged oral intake. 07/31/2023 Patient is seen in follow-up today continues to be in the ICU with multiple medical consultations following. Weaning FiO2 as tolerated currently maintained on 5050 of airvo with supplemental oxygen of nonrebreather as needed. Patient continues with Pleurx catheter on the right chest wall with pulmonary following. Sputum culture showing Shanta and patient is also continued on Zosyn and will continue for now. Patient reports having some mouth soreness and does appear to have thrush. Patient is afebrile with no reported chest pain. Patient with overall weakness and prolonged hospitalization, recommend increased activity as tolerated. Overall prognosis remains guarded. 08/01/2023 Patient is seen in follow-up today has been transferred out of the ICU on 3 S. continued on IV Lasix daily along with continued IV steroids and Zosyn. Patient continues with Pleurx catheter and cultures preliminary showing no growth. Patient continues on Airvo at 50/50 and weaning as tolerated. White count has normalized and hemoglobin is stable at 12.8, sodium is 135 with a potassium of 4.3 and electrolytes within normal limits. Patient with weakness will have PT/OT evaluate once respiratory status more stable. Encouraged oral intake. Patient also to continue on Diflucan for oral thrush. 08/02/2023 patient is seen in follow-up today reports his breathing is slightly improved although continues on airvo 50/50 with pulmonary following. Patient also continues with Pleurx catheter noted of the right chest with serous drainage. Patient is continued on Zosyn along with Diflucan for oral thrush. Patient with prolonged hospitalization and generalized weakness, will have PT/OT therapy evaluate the patient. Patient reports has not had a bowel movement in a few days and is feeling constipated. Will add lactulose to make it 3 times daily as needed. Patient is afebrile with no reports of chest pain or palpitations. Follow-up chest x-ray today shows right apical pneumothorax slightly larger in size now 4.0 cm versus 3.2 cm previously with continued right side Thora vent with continued similar diffuse interstitial densities and right midlung opacities. Review of systems: Constitutional: reports of fatigue, fever, or chills Cardiovascular: No reports of chest pain or palpitations Respiratory: reports of continued shortness of breath and cough, although reports this feeling slightly improved GI: No reports of nausea, vomiting, or diarrhea, reports not much of an appetite, but eating a little more, reports constipation : No reports of dysuria or retention Neurovascular: reports of generalized weakness All medications have been reviewed PHYSICAL EXAMINATION: Patient is sitting up in the bed , maintained on airvo 50/50, awake alert and oriented, appears weak... Thin built, elderly appearing, ill-appearing HEENT: Normocephalic. Neck is supple. Pupils reactive. Nostrils clear. Oral cavity is moist. Neck reveals no JVD, carotid bruits, or thyromegaly. CHEST EXAMINATION: Trachea is central. Symmetrical expansion. Bilateral scattered rhonchi and coarse sounds. Basilar diminished sounds. Worse on the right CARDIAC: Normal S1, S2 with no gallops. No murmurs ABDOMEN: Soft. Thin, scaphoid bowel sounds present. Nontender. No organomegaly. No abdominal bruits. Extremities: reveal no edema. No clubbing or cyanosis Neurologically awake, alert, oriented x3 with well-coordinated movements. No gross focal deficits noted, diffusely weak Skin: No rash or skin lesions. Psychiatric: Cooperative. Non-suicidal, slightly anxious at times Musculoskeletal: No joint swelling or deformity. Assessment: Acute on chronic hypoxemic respiratory failure with multifocal right upper lobe pneumonia and metastatic lung cancer and pleural effusion. Possible afatinib pneumonitis cannot be excluded. Currently maintained on airvo 50/50 Non-small cell lung cancer status post chemoradiation, with metastasis to right lower rib, pelvis, vertebral bodies and brain metastatic lesions. Patient was started on afatinib about 2 weeks ago. Oral thrush with sputum culture showing Shanta COPD with mild exacerbation Hypovolemic hyponatremia, likely secondary to poor oral intake Mild transaminitis Recent kyphoplasty in May 2023 Chronic right-sided pleural effusion. Likely malignant effusion, status post thoracentesis on the right with trapped lung post thoracentesis noted requiring chest tube on 07/29/2023 Prior history of smoking GI and DVT prophylaxis with PPI and heparin subcu Full code Plan: Patient will be continued on oxygen supplementation and Weaning FiO2 as tolerated. Currently maintained on airvo 50/50 Patient reports feeling constipated and has not had a bowel movement in a few days and will add lactulose 3 times daily as needed Patient is continued on antibiotics Zosyn and azithromycin. Continued on Diflucan sputum culture showed Shanta Patient to continue on IV Solu-Medrol, DuoNebs and gentle IV hydration. Follow- up culture reports remain pending. Pulmonary and oncology following and patient is status post thoracentesis of approximately 3 L removed and specimens were sent and pending. Concerns for trapped lung on the right and is status post chest tube placement with a Pleurx on the right Encouraged oral intake and increased activity as tolerated. Will have PT/OT therapy evaluate the patient once respiratory status more stable Due to multiple complex medical issues with metastasis, overall prognosis remains extremely poor and guarded at this time The impression and plan of care has been dictated by Merle Kenny, Nurse Practitioner as directed. Dr. Markel MD I have performed a history and examination and MDM of this patient, discussed the same with the dictator, and agree with the dictator's assessment and plan as written ,documented as a scribe. Based on total visit time, I have performed more than 50% of the visit. Objective - Vital Signs Vital signs: Vital Signs Temp 98 F 08/02/23 08:15 Pulse 101 H 08/02/23 08:33 Resp 22 08/02/23 08:15 BP 150/96 08/02/23 08:15 Pulse Ox 91 L 08/02/23 08:22 FiO2 50 08/02/23 08:22 Intake & Output 08/01/23 08/02/23 08/02/23 18:59 06:59 18:59 Intake Total 240 Output Total 1960 057 650 Balance -8770 -710 650 Intake: Oral 240 Output: Chest Tube Drainage 10 10 Right Anterior Chest 10 10 Urine 1950 700 650 Other: Voiding Method Bedside Commode Bedside Commode Urinal Urinal # Voids 1 1 - Labs CBC & Chem 7: 08/01/23 07:48 08/01/23 07:48 Labs: Abnormal Lab Results - Last 24 Hours (Table) 08/01/23 Range/Units 07:48 Sodium 135 L (137-145) mmol/L BUN 22 H (9-20) mg/dL Creatinine 0.60 L (0.66-1.25) mg/dL Glucose 106 H (74-99) mg/dL Calcium 8.3 L (8.4-10.2) mg/dL Microbiology - Last 24 Hours (Table) 07/29/23 07:30 Gram Stain - Final Pleural Fluid Body Fluid Culture - Final 07/27/23 19:03 Blood Culture - Final Blood 07/27/23 19:03 Blood Culture - Final Blood
--- NOTE | 2023-08-02 13:56 | P.PN ---
Subjective Progress Note Date: 08/02/23 Principal diagnosis: Respiratory failure. Acute hypoxic respiratory failure, multifactorial am seeing this patient in consultation today July 28, 2023 in the emergency room after he presented with complaints of increased shortness of breath, worsening since Wednesday. Patient is a 58-year-old white male with past medical history significant for metastatic non-small cell lung carcinoma, COPD, former tobacco dependence. He follows with Dr. Avilez in the pulmonary office. Patient has biopsy-proven non-small cell carcinoma, with metastasis within the chest, brain, and diffuse osseous metastasis. He also has a right renal nodule which is being followed up by urology. He has been following with radiation oncology and medical oncology. He has been treated with immunotherapy in the past, but has failed treatment. He has recently been started on daily Gilotrif on July 14. Since Wednesday, the patient has had worsening shortness of breath. This is especially noticeable during exertion. He is not normally oxygen dependent at home. He has been wheezing while at home. He has also had a change in his chronic cough with limited amounts of sputum production. Denies any fevers, chills, chest pain, hemoptysis. He presented to the emergency room last night with the above-mentioned symptoms. He is currently lying in bed, on 4 L/min nasal cannula, in no acute distress. He is generally weak and requires assistance to sit up in bed. His is at bedside. Chest x-ray on arrival demonstrated a new bilateral infiltrates, especially involving the left upper imelda ng field, chronic right lung changes, and a chronic right-sided pleural effusion. These findings are concerning for bilateral multifocal pneumonia or possible pulmonary drug toxicity. CBC on arrival was fairly unremarkable. WBC count 10.3, hematocrit 13.5, hematocrit 39.7, platelets 324. CMP on arrival: Sodium 131, potassium 3.5, chloride 101, serum bicarb 22, BUN 14, creatinine 0.52, glucose 105. Infusing at 75 mL/h. Lactic acid level not elevated. Mild elevation in LFTs. Troponin less than 0.012. NT proBNP not elevated. Urinalysis not concerning for UTI. Negative for influenza, RSV, COVID. Patient has been started on empiric antibiotics. He is afebrile. Vital signs are stable. Patient was reevaluated today on 07/29/23, I transferred the patient early this morning to the ICU mostly because of worsening respiratory status. Patient was placed on 15 L high flow nasal cannula on the floor, and his O2 saturation was in the 80s. Transferred the patient to the ICU, came in and evaluated the patient, and recommended immediate thoracentesis for his pleural effusion. This was performed at bedside, and I was able to drain 1150 cc of serosanguineous fluid patient had dramatic improvement clinically, follow-up chest x-ray showed apical right-sided pneumothorax however I believe it is not a true pneumothorax, I believe mostly due to trapped lung that did not fully expand any rate patient will have a follow-up chest x-ray in few hours after the thoracentesis. Fluid was sent for different diagnostic studies, and clinically felt much betterWBC count is 11.6 hemoglobin 12.4 basic metabolic profile is normal renal profile is normal Reevaluated today on 07/30/2023, patient remains in the ICU, feeling better today, is breathing easier, nonetheless remains on Airvo, 60% FiO2 and 50 L flow ontinues to have Thora vent in place, small tiny right-sided apical pneumothorax is noted, continues to have significant amount of air and fluid coming out of the Thora vent tube. Cytology on the fluid is pending/pleural effusion cytology is pending. WBC is 14.0 hemoglobin 11.7 his basic metabolic profile is normal except for low potassium of 3.2, patient is requiring narcotics for pain control Patient was reevaluated today on 07/31/2023, remains in the ICU, patient is an overflow, doing well, on 50 L high flow and 50% FiO2 via Airvo. Feeling better today compared to yesterday, continues to have a minimal leak in the Pleur-evac from his Thora vent. Drained about 200 cc over the last 24 hours from his Thora vent/chest tube. Chest x-ray showed significant improvement in his right-sided pneumothorax, however there is significant airspace disease involving the left lung, patient is on steroids, and today I recommended 1 dose of Lasix 20 mg IV push to be given. WBC count is 9.9 hemoglobin is 12 electrolytes are normal renal profile is normal, final report on his pleural effusion is pending so far no growth Reevaluated today on 08/01/2023, patient is now on the cardiac floor, basically about the same, remains on Airvo at 50% FiO2 and 50% liters flow, continues to have the Thora vent in place, connected to Pleur-evac, continues to have minimal air leak, right lung is expanded however still has a small right apical pneumothorax. The pneumonic process in the left lung seems to be improving a bit based on the chest x-ray. Clinically the patient is feeling better, breathing a bit easier. CBC today is relatively normal WBC count is 9.5 hemoglobin is 12.8 basic metabolic profile is normal renal profile is normal. Patient remains on antibiotics, bronchodilators, and steroids cytology from the pleural effusion is pending patient has been previously diagnosed with metastatic non-small cell lung cancer Progress note dated August 02, 2023. This is a 58-year-old male seen in room 364. The patient continues on Airvo, at 50 L/min with an FiO2 of 50%. He continues on Zosyn. He is getting saline at 20 cc an hour. The patient has a right-sided Thora vent in place. The patient does have a small air leak. He appears stable from the pulmonary standpoint. His biggest complaint today is that he is constipated. No new labs today. Laboratory data from August 01 showed a white count of 9.5, hemoglobin 12.8, and a normal platelet count. Sodium 135, with a normal potassium chloride and CO2. BUN and creatinine were 22 and 0.6. Microbiologic data thus far is negative. Chest x-ray shows a small right apical pneumothorax, slightly larger in size, now 4 cm versus 3.2 cm previously. There is also some diffuse bilateral infiltrates, mostly in the right midlung. Objective - Vital Signs Vital signs: Vital Signs Temp 98 F 08/02/23 08:15 Pulse 105 H 08/02/23 12:05 Resp 22 08/02/23 08:15 BP 150/96 08/02/23 08:15 Pulse Ox 96 08/02/23 11:57 FiO2 50 08/02/23 11:57 Intake & Output 08/01/23 08/02/23 08/02/23 18:59 06:59 18:59 Intake Total 240 Output Total 1960 290 893 Balance -1291 -435 -969 Weight 51.5 kg Intake: Oral 240 Output: Chest Tube Drainage 10 10 Right Anterior Chest 10 10 Urine 1950 181 650 Other: Voiding Method Bedside Commode Bedside Commode Bedside Commode Urinal Urinal Urinal # Voids 1 1 - Exam No acute distress, oriented 3. Currently on Airvo at 50 L/min with an FiO2 of 50%. HEENT examination is grossly unremarkable. Mucous membranes are moist. No oral lesions. Neck supple. Full range of motion. No adenopathy thyromegaly or neck vein distention. Cardiovascular examination reveals regular rhythm rate. S1-S2 normal. No S3 or S4. No discernible murmur noted. Heart rate 82 bpm. Lungs reveal clear mild scattered rhonchi bilaterally. No wheezes or crackles. Right-sided Thora vent is noted. A small leak is noted. No subcutaneous emphysema. Abdomen soft bowel sounds are heard. No masses or tenderness. Extremities are intact. No cyanosis clubbing or edema. Skin is without rash or lesion. Neurologic examination is brief but nonfocal. - Labs CBC & Chem 7: 08/01/23 07:48 08/01/23 07:48 Labs: Microbiology - Last 24 Hours (Table) 07/29/23 07:30 Gram Stain - Final Pleural Fluid Body Fluid Culture - Final 07/27/23 19:03 Blood Culture - Final Blood 07/27/23 19:03 Blood Culture - Final Blood Assessment and Plan Assessment: Acute hypoxemic respiratory failure, multifactorial, secondary to pneumonia, and possible immunotherapy induced pneumonitis. In addition, the patient had a large right-sided effusion, which required thoracentesis. Acute exacerbation of COPD. Right pneumothorax, following right thoracentesis, status post Thora vent placement. Non-small cell lung cancer with metastasis to the chest, brain, and bone. Right renal nodule, suspicious for malignancy. T12 kyphoplasty. Former smoker. 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 Constipation Plan: Plan dated August 02, 2023. Today's chest x-ray shows a slightly larger right apical pneumothorax. The patient's lung may never fully expand, as he may have a trapped lung. There is still a small leak. I will leave the Thora vent in for now. Labs, x-rays, and medications are reviewed. The patient continues on bronchodilators, corticost eroids. The patient has metastatic lung cancer, so his overall prognosis is very poor. We will continue to follow make recommendations along the way. Prognosis is certainly very guarded. The patient's major complaint today was constipation. Time with Patient: Less than 30
--- NOTE | 2023-08-02 21:18 | P.PN ---
Subjective Progress Note Date: 08/02/23 Principal diagnosis: Difficulty in breathing, shortness of breath. Non-small cell, sq cell lung cancer In follow-up today patient reports feeling much better-he is currently on airvo at 15L. He denies any fever, nausea, reports that his appetite is definitely increased. Reports that the chest tube is draining good. Still pending cytology on pleural fluid. Objective - Vital Signs Vital signs: Vital Signs Temp 98 F 08/02/23 08:15 Pulse 95 08/02/23 16:41 Resp 20 08/02/23 16:00 BP 118/75 08/02/23 16:00 Pulse Ox 95 08/02/23 16:34 FiO2 40 08/02/23 16:34 Intake & Output 08/02/23 08/02/23 08/03/23 06:59 18:59 06:59 Intake Total 180 Output Total 710 650 Balance -710 -470 Weight 51.5 kg Intake: Oral 180 Output: Chest Tube Drainage 10 Right Anterior Chest 10 Urine 700 650 Other: Voiding Method Bedside Commode Bedside Commode Urinal Urinal # Voids 1 - Constitutional General appearance: Present: cooperative, no acute distress, thin - EENT Eyes: Present: anicteric sclerae, EOMI ENT: Present: hearing grossly normal - Respiratory Details: Diminished throughout, respirations mildly labored at rest - Cardiovascular Rhythm: regular - Peripheral edema leg Peripheral Edema: bilateral: None - Neurologic Neurologic: Present: CNII-XII intact - Musculoskeletal Musculoskeletal: Present: generalized weakness, strength equal bilaterally - Psychiatric Psychiatric: Present: A&O x's 3, appropriate affect, intact judgment & insight - Labs CBC & Chem 7: 08/01/23 07:48 08/01/23 07:48 Labs: Microbiology - Last 24 Hours (Table) 07/29/23 07:30 Gram Stain - Final Pleural Fluid Body Fluid Culture - Final 07/27/23 19:03 Blood Culture - Final Blood 07/27/23 19:03 Blood Culture - Final Blood - Imaging and Cardiology Chest x-ray: report reviewed Assessment and Plan (1) Drug-induced pneumonitis Current Visit: Yes Status: Acute Priority: High Code(s): J98.4 - OTHER DISORDERS OF LUNG; T50.905A - ADVERSE EFFECT OF UNSP DRUG/MEDS/BIOL SUBST, INIT SNOMED Code(s): 397326211 (2) Pleural effusion Current Visit: Yes Status: Acute Priority: High Code(s): J90 - PLEURAL EFFUSION, NOT ELSEWHERE CLASSIFIED SNOMED Code(s): 55015678 (3) Squamous cell carcinoma of lung, stage IV Current Visit: Yes Status: Chronic Priority: High Code(s): C34.90 - MALIGNANT NEOPLASM OF UNSP PART OF UNSP BRONCHUS OR LUNG SNOMED Code(s): 861861493 Plan: Drug-induced pneumonitis -[place] that imaging and assessment are most consistent with drug induced p neumonitis -Agree with steroids, abx and infection work up in case of any underlying infection contributing to worsening symptoms -Discontinue Gilotrif. -Pending cytology -F/U with primary Oncologist for treatment plans once acute condition adequately resolved Pleural effusion -Status post 3.2 L thoracentesis -Cytology pending -Pneumothorax, chest tube in place. Sq cell carcinoma, recurrent, on gilotrif targeted agent -Patient is status post a 3.2 L thoracentesis on the right. Cytology is p ending. -Discontinue gilotrif secondary to drug-induced pneumonitis -Primary Oncologist plans for change in therapy once patient current condition has resolved. -Did discuss the case with Radiation Oncologist. Based on patient's current condition, and overall asymptomatic brain mets, no radiation would be planned for at this time. Radiation Oncologist will review images though and, if necessary, will request a consult so the patient can be seen inpatient. Malignancy related pain -Pain meds adjusted, seem to have adequate pain control now -Meds ordered to prevent narcotic induced constipation Attests: I have seen and examined pt, performed H&P, developed impression and plan of care. Discussed with dictator. Agree with documentation, dictated as a scribe.
[2023-08-03 07:58] LABS: Basophils % (A) 0 %; Eosinophils # (A) 0.1 k/uL (0-0.7); Eosinophils % (A) 1 %; Lymphocytes # (A) 0.2 k/uL (1.0-4.8); Lymphocytes % (A) 2 %; MCH 33.1 pg (25.0-35.0); MCHC 33.3 g/dL (31.0-37.0); MCV 99.4 fL (80.0-100.0); Mean Platelet Volume 7.4; Monocytes # (A) 0.3 k/uL (0-1.0); Monocytes % (A) 3 %; Neutrophils # (A) 10.3 k/uL (1.3-7.7); Neutrophils % (A) 94 %; Platelet Count 323 k/uL (150-450); RBC 4.23 m/uL (4.30-5.90); RDW 14.2 % (11.5-15.5); WBC 10.9 k/uL (3.8-10.6)
[2023-08-03 08:16] LABS: ALT 58 U/L (4-49); AST 40 U/L (17-59); African American GFR (CKD) >90 (>60 ml/min/1.73 sqM); Albumin 2.9 g/dL (3.5-5.0); Alkaline Phosphatase 113 U/L (38-126); Anion Gap 7 mmol/L; Blood Urea Nitrogen 22 mg/dL (9-20); Calcium 8.4 mg/dL (8.4-10.2); Carbon Dioxide 24 mmol/L (22-30); Chloride 102 mmol/L (98-107); Glucose 129 mg/dL (74-99); Non-African American GFR(CKD) >90 (>60 ml/min/1.73 sqM); Potassium 4.2 mmol/L (3.5-5.1); Sodium 133 mmol/L (137-145); Total Bilirubin 0.6 mg/dL (0.2-1.3); Total Protein 5.7 g/dL (6.3-8.2)
--- NOTE | 2023-08-03 13:15 | P.PN ---
Subjective Progress Note Date: 08/03/23 Principal diagnosis: Respiratory failure. Acute hypoxic respiratory failure, multifactorial am seeing this patient in consultation today July 28, 2023 in the emergency room after he presented with complaints of increased shortness of breath, worsening since Wednesday. Patient is a 58-year-old white male with past medical history significant for metastatic non-small cell lung carcinoma, COPD, former tobacco dependence. He follows with Dr. Avilez in the pulmonary office. Patient has biopsy-proven non-small cell carcinoma, with metastasis within the chest, brain, and diffuse osseous metastasis. He also has a right renal nodule which is being followed up by urology. He has been following with radiation oncology and medical oncology. He has been treated with immunotherapy in the past, but has failed treatment. He has recently been started on daily Gilotrif on July 14. Since Wednesday, the patient has had worsening shortness of breath. This is especially noticeable during exertion. He is not normally oxygen dependent at home. He has been wheezing while at home. He has also had a change in his chronic cough with limited amounts of sputum production. Denies any fevers, chills, chest pain, hemoptysis. He presented to the emergency room last night with the above-mentioned symptoms. He is currently lying in bed, on 4 L/min nasal cannula, in no acute distress. He is generally weak and requires assistance to sit up in bed. His is at bedside. Chest x-ray on arrival demonstrated a new bilateral infiltrates, especially involving the left upper imelda ng field, chronic right lung changes, and a chronic right-sided pleural effusion. These findings are concerning for bilateral multifocal pneumonia or possible pulmonary drug toxicity. CBC on arrival was fairly unremarkable. WBC count 10.3, hematocrit 13.5, hematocrit 39.7, platelets 324. CMP on arrival: Sodium 131, potassium 3.5, chloride 101, serum bicarb 22, BUN 14, creatinine 0.52, glucose 105. Infusing at 75 mL/h. Lactic acid level not elevated. Mild elevation in LFTs. Troponin less than 0.012. NT proBNP not elevated. Urinalysis not concerning for UTI. Negative for influenza, RSV, COVID. Patient has been started on empiric antibiotics. He is afebrile. Vital signs are stable. Patient was reevaluated today on 07/29/23, I transferred the patient early this morning to the ICU mostly because of worsening respiratory status. Patient was placed on 15 L high flow nasal cannula on the floor, and his O2 saturation was in the 80s. Transferred the patient to the ICU, came in and evaluated the patient, and recommended immediate thoracentesis for his pleural effusion. This was performed at bedside, and I was able to drain 1150 cc of serosanguineous fluid patient had dramatic improvement clinically, follow-up chest x-ray showed apical right-sided pneumothorax however I believe it is not a true pneumothorax, I believe mostly due to trapped lung that did not fully expand any rate patient will have a follow-up chest x-ray in few hours after the thoracentesis. Fluid was sent for different diagnostic studies, and clinically felt much betterWBC count is 11.6 hemoglobin 12.4 basic metabolic profile is normal renal profile is normal Reevaluated today on 07/30/2023, patient remains in the ICU, feeling better today, is breathing easier, nonetheless remains on Airvo, 60% FiO2 and 50 L flow ontinues to have Thora vent in place, small tiny right-sided apical pneumothorax is noted, continues to have significant amount of air and fluid coming out of the Thora vent tube. Cytology on the fluid is pending/pleural effusion cytology is pending. WBC is 14.0 hemoglobin 11.7 his basic metabolic profile is normal except for low potassium of 3.2, patient is requiring narcotics for pain control Patient was reevaluated today on 07/31/2023, remains in the ICU, patient is an overflow, doing well, on 50 L high flow and 50% FiO2 via Airvo. Feeling better today compared to yesterday, continues to have a minimal leak in the Pleur-evac from his Thora vent. Drained about 200 cc over the last 24 hours from his Thora vent/chest tube. Chest x-ray showed significant improvement in his right-sided pneumothorax, however there is significant airspace disease involving the left lung, patient is on steroids, and today I recommended 1 dose of Lasix 20 mg IV push to be given. WBC count is 9.9 hemoglobin is 12 electrolytes are normal renal profile is normal, final report on his pleural effusion is pending so far no growth Reevaluated today on 08/01/2023, patient is now on the cardiac floor, basically about the same, remains on Airvo at 50% FiO2 and 50% liters flow, continues to have the Thora vent in place, connected to Pleur-evac, continues to have minimal air leak, right lung is expanded however still has a small right apical pneumothorax. The pneumonic process in the left lung seems to be improving a bit based on the chest x-ray. Clinically the patient is feeling better, breathing a bit easier. CBC today is relatively normal WBC count is 9.5 hemoglobin is 12.8 basic metabolic profile is normal renal profile is normal. Patient remains on antibiotics, bronchodilators, and steroids cytology from the pleural effusion is pending patient has been previously diagnosed with metastatic non-small cell lung cancer Progress note dated August 02, 2023. This is a 58-year-old male seen in room 364. The patient continues on Airvo, at 50 L/min with an FiO2 of 50%. He continues on Zosyn. He is getting saline at 20 cc an hour. The patient has a right-sided Thora vent in place. The patient does have a small air leak. He appears stable from the pulmonary standpoint. His biggest complaint today is that he is constipated. No new labs today. Laboratory data from August 01 showed a white count of 9.5, hemoglobin 12.8, and a normal platelet count. Sodium 135, with a normal potassium chloride and CO2. BUN and creatinine were 22 and 0.6. Microbiologic data thus far is negative. Chest x-ray shows a small right apical pneumothorax, slightly larger in size, now 4 cm versus 3.2 cm previously. There is also some diffuse bilateral infiltrates, mostly in the right midlung. Progress note dated August 03, 2023. This is a 58-year-old male seen in room 364. The patient continues on Airvo, with settings of 50 L/min, and an FiO2 40%. We will check a chest x-ray today. We have asked cardiothoracic surgery to see the patient, because the patient has a persistent small air leak, from the pneumothorax, after thoracentesis. He continues on Zosyn. No IV fluids. Clinically, he feels reasonable. He is hoping that the Thora vent can come out soon. Yesterday's chest x-ray showed an enlarging right-sided pneumothorax. Current labs include a white count of 10.9, hemoglobin 14, hematocrit 42, and a normal platelet count. Sodium 133, potassium 4.2, chloride 102, CO2 24, BUN 22, creatinine 0.53. Albumin is 2.9. Objective - Vital Signs Vital signs: Vital Signs Temp 98.7 F 08/03/23 11:28 Pulse 106 H 08/03/23 11:28 Resp 18 08/03/23 11:28 BP 110/74 08/03/23 11:28 Pulse Ox 98 08/03/23 11:28 FiO2 40 08/03/23 11:18 Intake & Output 08/02/23 08/03/23 08/03/23 18:59 06:59 18:59 Intake Total 180 Output Total 650 400 310 Balance -470 -400 -310 Weight 51.5 kg Intake: Oral 180 Output: Chest Tube Drainage 0 10 Right Anterior Chest 0 10 Urine 650 400 300 Other: Voiding Method Bedside Commode Bedside Commode Bedside Commode Urinal Urinal Urinal # Voids 1 # Bowel Movements 1 - Exam No acute distress, oriented 3. Currently on Airvo at 50 L/min with an FiO2 of 40 %. HEENT examination is grossly unremarkable. Mucous membranes are moist. No oral lesions. Neck supple. Full range of motion. No adenopathy thyromegaly or neck vein di stention. Cardiovascular examination reveals regular rhythm rate. S1-S2 normal. No S3 or S4. No discernible murmur noted. Heart rate 91 bpm. Lungs reveal clear mild scattered rhonchi bilaterally. No wheezes or crackles. Right-sided Thora vent is noted. A small leak is noted. No subcutaneous emphysema. Saturations are 98%. Abdomen soft bowel sounds are heard. No masses or tenderness. Extremities are intact. No cyanosis clubbing or edema. Skin is without rash or lesion. Neurologic examination is brief but nonfocal. - Labs CBC & Chem 7: 08/03/23 07:34 08/03/23 07:34 Labs: Abnormal Lab Results - Last 24 Hours (Table) 08/03/23 08/03/23 Range/Units 07:34 07:34 WBC 10.9 H (3.8-10.6) k/uL RBC 4.23 L (4.30-5.90) m/uL Neutrophils # 10.3 H (1.3-7.7) k/uL Lymphocytes # 0.2 L (1.0-4.8) k/uL Sodium 133 L (137-145) mmol/L BUN 22 H (9-20) mg/dL Creatinine 0.53 L (0.66-1.25) mg/dL Glucose 129 H (74-99) mg/dL ALT 58 H (4-49) U/L Total Protein 5.7 L (6.3-8.2) g/dL Albumin 2.9 L (3.5-5.0) g/dL Assessment and Plan Assessment: Acute hypoxemic respiratory failure, multifactorial, secondary to pneumonia, and possible immunotherapy induced pneumonitis. In addition, the patient had a large right-sided effusion, which required thoracentesis. Acute exacerbation of COPD. Right pneumothorax, following right thoracentesis, status post Thora vent placement. Non-small cell lung cancer with metastasis to the chest, brain, and bone. Right renal nodule, suspicious for malignancy. T12 kyphoplasty. Former smoker. 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 Constipation Plan: Plan dated August 02, 2023. Today's chest x-ray shows a slightly larger right apical pneumothorax. The patient's lung may never fully expand, as he may have a trapped lung. There is still a small leak. I will leave the Thora vent in for now. Labs, x-rays, and medications are reviewed. The patient continues on bronchodilators, corticosteroids. The patient has metastatic lung cancer, so his overall prognosis is very poor. We will continue to follow make recommendations along the way. Prognosis is certainly very guarded. The patient's major complaint today was constipation. Plan dated August 03, 2023. The patient will have a chest x-ray done today. Normal was ordered. In addition, will have cardiothoracic surgery see the patient, because of the persistent air leak on the right side. The Thora vent remains in place. Yesterday's chest x-ray showed a slightly larger right-sided pneumothorax. Labs, x-rays, and medications are reviewed. The patient has a history of metastatic lung cancer. Prognosis is certainly guarded. The patient continues on Diflucan, albuterol sulfate, and ipratropium bromide, Solu-Medrol, and Zosyn. We will continue to follow make recommendations along the way. We will await input by cardiothoracic surgery. Time with Patient: Less than 30
--- NOTE | 2023-08-03 13:32 | P.PN ---
Subjective Progress Note Date: 08/03/23 Reporting improvement in breathing, continues on airvo, working on weaning O2 down. Chest tube in place. Continues on steroids. Cytology positive for metastatic non-small cell lung adenocarcinoma. Objective - Vital Signs Vital signs: Vital Signs Temp 98.7 F 08/03/23 11:28 Pulse 106 H 08/03/23 11:28 Resp 18 08/03/23 11:28 BP 110/74 08/03/23 11:28 Pulse Ox 98 08/03/23 11:28 FiO2 40 08/03/23 11:18 Intake & Output 08/02/23 08/03/23 08/03/23 18:59 06:59 18:59 Intake Total 180 Output Total 650 400 310 Balance -470 -400 -310 Weight 51.5 kg Intake: Oral 180 Output: Chest Tube Drainage 0 10 Right Anterior Chest 0 10 Urine 650 400 300 Other: Voiding Method Bedside Commode Bedside Commode Bedside Commode Urinal Urinal Urinal # Voids 1 # Bowel Movements 1 - Constitutional General appearance: Present: no acute distress, thin - EENT Eyes: Present: anicteric sclerae, EOMI ENT: Present: hearing grossly normal - Respiratory Details: breathing non-labored - Cardiovascular Details: well-perfused - Integumentary Integumentary: Absent: cyanotic - Neurologic Neurologic Comment(s): grossly intact - Labs CBC & Chem 7: 08/03/23 07:34 08/03/23 07:34 Labs: Abnormal Lab Results - Last 24 Hours (Table) 08/03/23 08/03/23 Range/Units 07:34 07:34 WBC 10.9 H (3.8-10.6) k/uL RBC 4.23 L (4.30-5.90) m/uL Neutrophils # 10.3 H (1.3-7.7) k/uL Lymphocytes # 0.2 L (1.0-4.8) k/uL Sodium 133 L (137-145) mmol/L BUN 22 H (9-20) mg/dL Creatinine 0.53 L (0.66-1.25) mg/dL Glucose 129 H (74-99) mg/dL ALT 58 H (4-49) U/L Total Protein 5.7 L (6.3-8.2) g/dL Albumin 2.9 L (3.5-5.0) g/dL Assessment and Plan (1) Drug-induced pneumonitis Current Visit: Yes Status: Acute Priority: High Code(s): J98.4 - OTHER D ISORDERS OF LUNG; T50.905A - ADVERSE EFFECT OF UNSP DRUG/MEDS/BIOL SUBST, INIT SNOMED Code(s): 434648676 (2) Hypoxic respiratory failure Current Visit: Yes Status: Acute Code(s): J96.91 - RESPIRATORY FAILURE, UNSPECIFIED WITH HYPOXIA SNOMED Code(s): 23797128163216157 (3) Pleural effusion Current Visit: Yes Status: Acute Priority: High Code(s): J90 - PLEURAL EFFUSION, NOT ELSEWHERE CLASSIFIED SNOMED Code(s): 15494334 (4) Squamous cell carcinoma of lung, stage IV Current Visit: Yes Status: Chronic Priority: High Code(s): C34.90 - MALIGNANT NEOPLASM OF UNSP PART OF UNSP BRONCHUS OR LUNG SNOMED Code(s): 954416193 Plan: Drug-induced pneumonitis -[place] that imaging and assessment are most consistent with drug induced pneumonitis -Agree with steroids, abx and infection work up in case of any underlying infection contributing to worsening symptoms -Discontinue Gilotrif. -F/U with primary Oncologist for treatment plans once acute condition adequately resolved Pleural effusion -Status post 3.2 L thoracentesis -Cytology positive for non-small cell lung adenocarcinoma. -Pneumothorax, chest tube in place. Sq cell carcinoma, recurrent, on gilotrif targeted agent -Patient is status post a 3.2 L thoracentesis on the right. Cytology positive for non-small cell lung adenocarcinoma. -Discontinue gilotrif secondary to drug-induced pneumonitis -Primary Oncologist plans for change in therapy once patient current condition has resolved. -Did discuss the case with Radiation Oncologist. Based on patient's current condition, and overall asymptomatic brain mets, no radiation would be planned for at this time. Radiation Oncologist will review images though and, if necessary, will request a consult so the patient can be seen inpatient. -Clinic f/u in discharge plan Malignancy related pain -Pain meds adjusted, seem to have adequate pain control now -Meds ordered to prevent narcotic induced constipation
[2023-08-03 14:44] LABS: Glucose,Whole Blood 111 mg/dL (70-110)
--- NOTE | 2023-08-03 14:46 | XR ---
EXAMINATION TYPE: XR chest 1V portable DATE OF EXAM: 08/03/2023 Comparison: 08/02/2023 Clinical History: 58-year-old male Pneumothorax Findings: Heart normal size. Diffuse interstitial densities persist. Similar right perihilar/midlung opacity. R ight-sided Thoravent catheter remains in place with subcutaneous emphysema at the right axilla. A sma ll right apical pneumothorax remains measuring 2.2 cm versus 4.0 cm, previously. Impression: 1. Right sided Thora vent catheter remains in place. Small right apical pneumothorax measuring 2.2 cm versus 4.0 cm yesterday. 2. Diffuse interstitial densities remain similar. Right perihilar/midlung opacity is similar as well.
--- NOTE | 2023-08-03 16:01 | P.GSCN ---
History of Present Illness Consult date: 08/03/23 Reason for Consult: Persistent air leak from right chest Requesting physician: Dipti Alvarez History of present illness: This is a 58-year-old gentleman who follows outpatient with Dr. Dinero for primary care, Dr. Bolanos for radiation oncology, and Dr. Avilez for pulmonology. He has a previous medical history of metastatic non-small cell lung carcinoma, previous tobacco dependence, COPD. He presented to [facility] emergency room 07/27/23 with complaints of progressive shortness of breath and productive cough along with right-sided chest discomfort. On chest x-ray he was noted to have pneumonia along with chronic right-sided pleural effusion. Lab work revealed WBC 10.3, hemoglobin 13.5, INR 0.9, sodium 131, creatinine 0.52, lactic acid 1.2, negative troponin, negative BNP, and influenza/RSV/COVID PCR's were negative. His procalcitonin came back the next day at 0.2. The patient was admitted for evaluation and treatment with consultation placed to pulmonology. An ultrasound of the chest demonstrated right pleural effusion pocket 12.2 cm and decision was made for thoracentesis which was completed by Dr. Santillan on July 29, 2023. He was drained for 1150 mL serosanguineous fluid which was positive for metastatic non-small cell carcinoma consistent with pulmonary adenocarcinoma. Unfortunately the patient developed a pneumothorax after thoracentesis and a right-sided Thora vent was placed by Dr. Santillan and connected to continuous wall suction with positive air leak. The patient has continued to need high amounts of oxygen and is currently on Airvo. He has a continued intermittent air leak in the right sided Thora-vent so consultation was placed today by Dr. Caro to thoracic surgery for treatment recommendations. Review of Systems Review of systems was completed and was negative except as noted - Cardiovascular Reports as per HPI, Reports chest pain, Reports shortness of breath Past Medical History Past Medical History: Cancer, COPD Additional Past Medical History / Comment(s): Small cell carcinoma - lung. CHEMO AND RADIATION, Mild COPD. History of Any Multi-Drug Resistant Organisms: None Reported Past Surgical History: Orthopedic Surgery Additional Past Surgical History / Comment(s): LEFT HAND SURGERY, COLONOSCOPY. T-12 FUSION FOR FX, Past Anesthesia/Blood Transfusion Reactions: No Reported Reaction Past Psychological History: No Psychological Hx Reported Smoking Status: Former smoker Past Alcohol Use History: None Reported Past Drug Use History: None Reported - Past Family History Mother Family Medical History: No Reported History Medications and Allergies Home Medications Medication Instructions Recorded Confirmed Type Afatinib Dimaleate [Gilotrif] 40 mg PO DAILY@0830 07/27/23 07/27/23 History Albuterol Sulfate [Albuterol 2 puff INHALATION RT-Q4H PRN 07/27/23 07/27/23 History Sulfate Hfa] Docusate [Colace] 200 mg PO DAILY 07/27/23 07/27/23 History Lactulose 30 gm PO DAILY PRN 07/27/23 07/27/23 History Morphine Sulfate Ir [MSIR] 15 mg PO Q4H 07/27/23 07/27/23 History Omeprazole Magnesium [PriLOSEC OTC] 20 mg PO DAILY 07/27/23 07/27/23 History Ondansetron [Zofran] 4 mg PO Q4H PRN 07/27/23 07/27/23 History Allergies Allergy/AdvReac Type Severity Reaction Status Date / Time No Known Allergies Allergy Verified 07/27/23 18:51 Surgical - Exam Vital Signs Temp Pulse Resp BP Pulse Ox 97.8 F 110 H 18 99/64 84 L 07/27/23 17:10 07/27/23 17:10 07/27/23 17:10 07/27/23 17:10 07/27/23 17:10 CONSTITUTIONAL: Awake and alert, appears comfortable, cooperative, well- developed, well-nourished, no pain, no acute distress EYES: Pupils equal, round, reactive to light, normal ocular movement ENT: Moist mucous membranes without oral lesions present NECK: No masses, no bruits, trachea midline RESPIRATORY: Lungs sounds coarse bilaterally. Respirations even, nonlabored. Currently on Airvo 40% FiO2 at 40 L/min with oxygen saturation 95%. Strong cough. Right sided Thora-vent present to anterior chest wall and connected to atrium with continuous suction, intermittent air leak present CARDIOVASCULAR: S1, S2 present. Regular rate and rhythm, sinus rhythm on telemetry. Palpable peripheral pulses bilaterally. No edema present. No calf pain or tenderness noted GASTROINTESTINAL: Abdomen soft, nontender, nondistended without masses or organomegaly noted. There is no rebound or guarding present. Active bowel sounds present 4 quadrants. GENITOURINARY: Deferred INTEGUMENTARY: Skin is warm and dry with evidence of good perfusion. NEUROLOGIC: Cranial nerves II through XII intact, normal coordination, no obvious motor or sensory deficits, speech is normal MUSKULOSKELETAL: Able to move all extremities, strength equal bilaterally, normal posture PSYCHIATRIC: Alert and oriented to person place and time, appropriate affect, intact judgment and insight Results - Labs 08/03/23 07:34 08/03/23 07:34 Abnormal Lab Results - Last 24 Hours (Table) 08/03/23 08/03/23 08/03/23 Range/Units 07:34 07:34 14:42 WBC 10.9 H (3.8-10.6) k/uL RBC 4.23 L (4.30-5.90) m/uL Neutrophils # 10.3 H (1.3-7.7) k/uL Lymphocytes # 0.2 L (1.0-4.8) k/uL Sodium 133 L (137-145) mmol/L BUN 22 H (9-20) mg/dL Creatinine 0.53 L (0.66-1.25) mg/dL Glucose 129 H (74-99) mg/dL POC Glucose (mg/dL) 111 H (70-110) mg/dL ALT 58 H (4-49) U/L Total Protein 5.7 L (6.3-8.2) g/dL Albumin 2.9 L (3.5-5.0) g/dL Diabetes panel 08/03/23 Range/Units 07:34 Sodium 133 L (137-145) mmol/L Potassium 4.2 (3.5-5.1) mmol/L Chloride 102 (98-107) mmol/L Carbon Dioxide 24 (22-30) mmol/L BUN 22 H (9-20) mg/dL Creatinine 0.53 L (0.66-1.25) mg/dL Glucose 129 H (74-99) mg/dL Calcium 8.4 (8.4-10.2) mg/dL AST 40 (17-59) U/L ALT 58 H (4-49) U/L Alkaline Phosphatase 113 (38-126) U/L Total Protein 5.7 L (6.3-8.2) g/dL Albumin 2.9 L (3.5-5.0) g/dL Calcium panel 08/03/23 Range/Units 07:34 Calcium 8.4 (8.4-10.2) mg/dL Albumin 2.9 L (3.5-5.0) g/dL Pituitary panel 08/03/23 Range/Units 07:34 Sodium 133 L (137-145) mmol/L Potassium 4.2 (3.5-5.1) mmol/L Chloride 102 (98-107) mmol/L Carbon Dioxide 24 (22-30) mmol/L BUN 22 H (9-20) mg/dL Creatinine 0.53 L (0.66-1.25) mg/dL Glucose 129 H (74-99) mg/dL Calcium 8.4 (8.4-10.2) mg/dL Adrenal panel 08/03/23 Range/Units 07:34 Sodium 133 L (137-145) mmol/L Potassium 4.2 (3.5-5.1) mmol/L Chloride 102 (98-107) mmol/L Carbon Dioxide 24 (22-30) mmol/L BUN 22 H (9-20) mg/dL Creatinine 0.53 L (0.66-1.25) mg/dL Glucose 129 H (74-99) mg/dL Calcium 8.4 (8.4-10.2) mg/dL Total Bilirubin 0.6 (0.2-1.3) mg/dL AST 40 (17-59) U/L ALT 58 H (4-49) U/L Alkaline Phosphatase 113 (38-126) U/L Total Protein 5.7 L (6.3-8.2) g/dL Albumin 2.9 L (3.5-5.0) g/dL - Imaging Chest x-ray: report reviewed, image reviewed CT scan - chest: report reviewed, image reviewed Assessment and Plan Assessment: Acute hypoxic respiratory failure Pneumonia Right-sided pneumothorax after thoracentesis Shortness of breath Metastatic non-small cell lung carcinoma Previous tobacco dependence, COPD Plan: The patient was seen and examined at the bedside with present while eating lunch. Chart/diagnostics reviewed. The patient denies any pain currently, does not feel shortness of breath has gotten worse. Airvo being weaned down. Right-sided Thora-vent remains present and connected to -20 cm continuous wall suction, intermittent air leak present. Case discussed with Dr. Caden, recomme nd placing thoravent to water seal, will get chest CT without contrast in the morning and make further recommendations as appropriate. Discussed with Dr. Caro. Wean FiO2 as tolerated. Increase activity as tolerated. Medical management of other comorbidities per internal medicine, pulmonology, oncology. Thank you Dr. Alvarez for this consult, we will continue to follow along with you and make further recommendations. I have personally seen and examined the patient, performed the documentation and the assessment and plan as written. Number of minutes spent on the visit: 30. Kayli Mays, ARIANA-C
[2023-08-03 19:57] LABS: Glucose,Whole Blood 124 mg/dL (70-110)
--- NOTE | 2023-08-03 22:27 | XR ---
EXAMINATION TYPE: XR chest 1V portable DATE OF EXAM: 08/03/2023 CLINICAL HISTORY: Shortness of breath and right-sided chest pain. TECHNIQUE: Single AP portable upright view of the chest is obtained. COMPARISON: Chest x-ray from earlier today FINDINGS: There is now a large right-sided pneumothorax estimated 60-70%. Right apical chest tube re demonstrated but may have been retracted slightly in the interval. Adjacent right-sided subcutaneous air again seen. No new mediastinal shift. Right lower lobe shows diminished size and opacity consiste nt with complete atelectasis. Central vascular congestion remains present. Cardiac silhouette size is stable and within normal limits. Osseous structures are intact. IMPRESSION: Large right-sided pneumothorax significantly increased since chest x-ray earlier today an d right apical chest tube may have been slightly retracted in the interval. Adjacent subcutaneous air redemonstrated. Results communicated to patient's floor nurse by x-ray technologist at time of dictation.
[2023-08-03] MEDS: HYDROmorphone 0.5 MG/0.5 ML SYRINGE IVP STA (23:06)
--- NOTE | 2023-08-03 23:35 | XR ---
EXAMINATION TYPE: XR chest 1V portable DATE OF EXAM: 08/03/2023 CLINICAL HISTORY: Pneumothorax. TECHNIQUE: Single AP portable semiupright view of the chest is obtained. COMPARISON: Chest x-ray from earlier today FINDINGS: Marked improvement in right-sided pneumothorax on current study. Adjacent subcutaneous emp hysema is redemonstrated. Persistent right midlung opacity on the current study. Persistent central v ascular congestion. Cardiac silhouette size remains within normal limits. Osseous structures are inta ct. IMPRESSION: Small to tiny right apical pneumothorax significantly improved on current study more sim ilar in size to x-ray earlier in day.
[2023-08-04 05:48] LABS: Glucose,Whole Blood 123 mg/dL (70-110)
--- NOTE | 2023-08-04 05:49 | P.PN ---
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 Patient completed 6 cycles of concurrent chemoradiation on 02/08/2023 and radiation therapy completed on 02/16/2023. CT neck,/chest and abdomen on 02/24/2023 showed stable disease. He was started on cycle 1 of consolidative durvalumab on 03/19/2023. Bronchoscopy on 06/04/2023 with the biopsy of the right hilar region reveals evidence of poorly differentiated non- small cell carcinoma. PET scan showed evidence of metastasis to the bones including right lower ribs/pelvis/C2 and L5 vertebral bodies, intra-abdominal lymphadenopathy, right hilar region. MRI brain showed at least 6 peripherally enhancing lesions. Patient was started on afatinib about 2 weeks ago. Patient presented to ER with complaints of worsening shortness of breath. Patient is requiring 9 L oxygen via nasal cannula. Otherwise denies any complaints of fever or chills. No nausea vomiting. No hematemesis or melena. No headache or dizziness. Patient also having generalized weakness and requiring assistance with sitting up and ambulation. Chest x-ray showed increased right upper lobe lung airspace opacities correlate for pneumonia. EKG showed sinus tachycardia with occasional ventricular premature complexes. Laboratory data showed WBC 10.3 hemoglobin 13.5 and platelets 324 Sodium 131 potassium 3.5 chloride 101 bicarb is 22 BUN 14 and creatinine 0.52 and blood sugar is 105 and calcium 8.3 AST 48 ALT 65 and alk phos 138. Troponin x 1 negative and procalcitonin level is 0.2 Urinalysis is negative for infection Influenza A, B, Legionella, RSV and COVID-19 PCR not detected. 07/29/2023 Patient is seen and evaluated in follow-up this morning continues to be in the ICU with multiple medical consultations following including oncology and pulmonary metal finisher. Patient is status post thoracentesis on the right with approximately 3.2 liters removed. Patient requiring more oxygen currently maintained on airvo 60/80. Patient is lethargic and significantly weak and appears restless in mild respiratory distress. Patient reports not much of an appetite and has been tolerating supplements and will continue. Patient with significant weakness although respiratory status making it difficult for ambulation. Patient also reports to not sleeping well and will add low-dose medication as needed. Patient is currently afebrile with no reported chest pain. Cultures have been sent and pending. 07/30/2023 Patient is seen in follow-up this morning continues to be in the ICU maintained on airvo 60/50 and continues with significant shortness of breath although feels slightly improved. Patient continues with chest tube and is status postthoracentesis. Cytology is pending. Patient is afebrile. Patient continues to be significantly weak and extremely dyspneic with minimal exertion. Encouraged oral intake. 07/31/2023 Patient is seen in follow-up today continues to be in the ICU with multiple medical consultations following. Weaning FiO2 as tolerated currently maintained on 5050 of airvo with supplemental oxygen of nonrebreather as needed. Patient continues with Pleurx catheter on the right chest wall with pulmonary following. Sputum culture showing Shanta and patient is also continued on Zosyn and will continue for now. Patient reports having some mouth soreness and does appear to have thrush. Patient is afebrile with no reported chest pain. Patient with overall weakness and prolonged hospitalization, recommend increased activity as tolerated. Overall prognosis remains guarded. 08/01/2023 Patient is seen in follow-up today has been transferred out of the ICU on 3 S. continued on IV Lasix daily along with continued IV steroids and Zosyn. Patient continues with Pleurx catheter and cultures preliminary showing no growth. Patient continues on Airvo at 50/50 and weaning as tolerated. White count has normalized and hemoglobin is stable at 12.8, sodium is 135 with a potassium of 4.3 and electrolytes within normal limits. Patient with weakness will have PT/OT evaluate once respiratory status more stable. Encouraged oral intake. Patient also to continue on Diflucan for oral thrush. 08/02/2023 patient is seen in follow-up today reports his breathing is slightly improved although continues on airvo 50/50 with pulmonary following. Patient also continues with Pleurx catheter noted of the right chest with serous drainage. Patient is continued on Zosyn along with Diflucan for oral thrush. Patient with prolonged hospitalization and generalized weakness, will have PT/OT therapy evaluate the patient. Patient reports has not had a bowel movement in a few days and is feeling constipated. Will add lactulose to make it 3 times daily as needed. Patient is afebrile with no reports of chest pain or palpitations. Follow-up chest x-ray today shows right apical pneumothorax slightly larger in size now 4.0 cm versus 3.2 cm previously with continued right side Thora vent with continued similar diffuse interstitial densities and right midlung opacities. 08/03/2023 Patient is seen in follow-up continues on the stepdown unit currently maintained on Airvo and attempting to wean as patient also continues with 15 L nonre breather. Airvo being titrated down to 40 and patient is tolerating. Patient continues with shortness of breath and also has Pleurx catheter on the right reporting he feels his shortness of breath is slightly improving. Patient inquiring about when he can go home and discussed with him as well as family at the bedside he would need to be titrated down to nasal cannula prior to discharge. Patient has been using incentive spirometer and sitting up more often working to wean as tolerated. Patient with significant weakness being evaluated by physical therapy and recommend daily. Encouraged oral intake. Patient remains afebrile. Review of systems: Constitutional: reports of fatigue but improved, no fever, or chills, less anxious Cardiovascular: No reports of chest pain or palpitations Respiratory: reports of continued shortness of breath and cough, although reports this feeling slightly improved GI: No reports of nausea, vomiting, or diarrhea, reports not much of an appetite, but eating a little more, reports constipation has resolved : No reports of dysuria or retention Neurovascular: reports of generalized weakness All medications have been reviewed PHYSICAL EXAMINATION: Patient is sitting up in the chair, maintained on airvo 40/50, awake alert and oriented, appears weak... Thin built, elderly appearing, ill-appearing HEENT: Normocephalic. Neck is supple. Pupils reactive. Nostrils clear. Oral cavity is moist. Neck reveals no JVD, carotid bruits, or thyromegaly. CHEST EXAMINATION: Trachea is central. Symmetrical expansion. Bilateral scattered rhonchi and coarse sounds. Basilar diminished sounds. Worse on the right CARDIAC: Normal S1, S2 with no gallops. No murmurs ABDOMEN: Soft. Thin, scaphoid bowel sounds present. Nontender. No organomegaly. No abdominal bruits. Extremities: reveal no edema. No clubbing or cyanosis Neurologically awake, alert, oriented x3 with well-coordinated movements. No gross focal deficits noted, diffusely weak Skin: No rash or skin lesions. Psychiatric: Cooperative. Non-suicidal, slightly anxious at times Musculoskeletal: No joint swelling or deformity. Assessment: Acute on chronic hypoxemic respiratory failure with right upper lobe pneumonia and metastatic lung cancer and pleural effusion. Possible afatinib pneumonitis cannot be excluded. Currently maintained on airvo 40/50 Non-small cell lung cancer status post chemoradiation, with metastasis to right lower rib, pelvis, vertebral bodies and brain metastatic lesions. Patient was started on afatinib about 2 weeks ago. Treatment currently on hold with hematology/oncology following Oral thrush with sputum culture showing Shanta COPD with mild exacerbation Hypovolemic hyponatremia, likely secondary to poor oral intake, improving Mild transaminitis Recent kyphoplasty in May 2023 Chronic right-sided pleural effusion. Likely malignant effusion, status post thoracentesis on the right with trapped lung post thoracentesis noted requiring chest tube on 07/29/2023 Prior history of smoking GI and DVT prophylaxis with PPI and heparin subcu Full code Plan: Patient will be continued on oxygen supplementation and Weaning FiO2 as tolerated. Currently maintained on airvo 40/50, attempting to wean off and continue on nasal cannula Patient continuing with bowel regimen and lactulose as needed. Patient reports did have a bowel movement last night Patient is continued on Diflucan sputum culture showed Shanta. Antibiotics have been discontinued and being closely monitored off antibiotic therapy Patient to continue on IV Solu-Medrol, DuoNebs and gentle IV hydration. Pulmonary and oncology following and patient is status post thoracentesis of approximately 3 L removed and specimens were sent and pending. Concerns for trapped lung on the right and is status post chest tube placement with a Pleurx on the right Encouraged oral intake and increased activity as tolerated. PT/OT therapy following and working with the patient. Recommend daily as patient has had prolonged hospitalization and plans on returning home on discharge Due to multiple complex medical issues with metastasis, overall prognosis remains extremely poor and guarded at this time The impression and plan of care has been dictated by Merle Kenny, Nurse Practitioner as directed. Dr. Paris MD I have performed a history and examination and MDM of this patient, discussed the same with the dictator, and agree with the dictator's assessment and plan as written ,documented as a scribe. Based on total visit time, I have performed more than 50% of the visit. Objective - Vital Signs Vital signs: Vital Signs Temp 98.2 F 08/03/23 08:00 Pulse 96 08/03/23 08:00 Resp 18 08/03/23 08:00 BP 129/79 08/03/23 08:00 Pulse Ox 96 08/03/23 08:00 FiO2 40 08/03/23 07:40 Intake & Output 08/02/23 08/03/23 08/03/23 18:59 06:59 18:59 Intake Total 180 Output Total 650 400 10 Balance -470 -400 -10 Weight 51.5 kg Intake: Oral 180 Output: Chest Tube Drainage 0 10 Right Anterior Chest 0 10 Urine 650 400 Other: Voiding Method Bedside Commode Bedside Commode Urinal Urinal # Voids 1 # Bowel Movements 1 - Labs CBC & Chem 7: 08/03/23 07:34 08/03/23 07:34 Labs: Abnormal Lab Results - Last 24 Hours (Table) 08/03/23 08/03/23 Range/Units 07:34 07:34 WBC 10.9 H (3.8-10.6) k/uL RBC 4.23 L (4.30-5.90) m/uL Neutrophils # 10.3 H (1.3-7.7) k/uL Lymphocytes # 0.2 L (1.0-4.8) k/uL Sodium 133 L (137-145) mmol/L BUN 22 H (9-20) mg/dL Creatinine 0.53 L (0.66-1.25) mg/dL Glucose 129 H (74-99) mg/dL ALT 58 H (4-49) U/L Total Protein 5.7 L (6.3-8.2) g/dL Albumin 2.9 L (3.5-5.0) g/dL Microbiology - Last 24 Hours (Table) 07/29/23 07:30 Gram Stain - Final Pleural Fluid Body Fluid Culture - Final
--- NOTE | 2023-08-04 08:37 | CT ---
EXAMINATION TYPE: CT chest wo con CT DLP: 246.3 mGycm, Automated exposure control for dose reduction was used. DATE OF EXAM: 08/04/2023 7:59 AM COMPARISON: CT chest 07/28/2023, multiple chest radiograph most recent 08/03/2023 CLINICAL INDICATION:Male, 58 years old with history of eval pneumothorax; PHH, pneumothorax TECHNIQUE: Multiple axial images were obtained through the chest without IV contrast. Lack of IV or o ral contrast limits evaluation of solid and hollow organ viscera. . Coronal and sagittal reformats re viewed. FINDINGS: LUNGS/ PLEURA: Moderate size right pneumothorax with upper lung pleural catheter in place. No left p neumothorax. No left pleural effusion. Small right pleural effusion which is decreased from prior exa m. Right perihilar masslike consolidation demonstrated with air bronchograms. Grossly measures 9.5 x 6.4 cm. Scattered regions of patchy groundglass opacities throughout both lungs. This most prominent within the left lung and right upper lobe. Slightly improved from prior examination. Partial atelecta sis of the right upper and middle lobes. Subpleural cystic change identified in the left lung. Scatte red pulmonary nodules redemonstrated with exams including the right apex measuring up to 1.0 and 1.2 cm respectively (series 205, image 16 and 14). AIRWAY: Patent and unremarkable.. HEART: Size within normal limits. Trace pericardial effusion. MEDIASTINUM: Stable mildly enlarged AP window lymph node measuring 1.0 cm short axis. An additional s table mildly enlarged mediastinal lymph nodes. VASCULATURE: No aortic aneurysm. MUSCULOSKELETAL: No acute osseous abnormalities. Vertebral augmentation changes involving the T12 tasneem tebral body. SOFT TISSUES/LYMPH NODES: Right chest wall and shoulder subcutaneous emphysema demonstrated. LOWER NECK: No significant findings. UPPER ABDOMEN: Left renal 1.2 cm cyst. Right renal exophytic 1.7 cm hyperdense cyst. Nonobstructing r ight renal calculi measuring up to 6 mm. Moderate amount of stool within the visualized colon. IMPRESSION: 1. Moderate size right pneumothorax with upper lung pleural catheter in place. Right chest wall subcu taneous emphysema redemonstrated. 2. Small right pleural effusion which is decreased from prior exam. 3. Right perihilar masslike consolidation corresponding to known lung cancer and atelectasis/consolid ation. Multiple scattered pulmonary nodules suspicious for an infectious/inflammatory process versus metastasis. Attention on follow-up exam. 4. Scattered regions of groundglass opacities likely reflecting an infectious/inflammatory process. 5. Stable mildly enlarged mediastinal lymph nodes representing known metastasis. 6. Nonobstructive right renal calculi.
--- NOTE | 2023-08-04 08:45 | P.PN ---
Subjective Progress Note Date: 08/04/23 Principal diagnosis: Right-sided pneumothorax after thoracentesis with subsequent placement of right Thoravent with persistent airleak. Past medical history significant for metast atic non-small cell lung carcinoma, previous tobacco dependence, COPD. Status post right Thoravent placement by Dr. Santillan on 07/29/2023. The patient was seen and examined in follow-up today August 04, 2023 at his bedside on the third floor cardiac stepdown unit. He is currently laying in bed, eating his breakfast, is awake, alert, oriented x 3 and is in no acute apparent distress. The patient's right Thoravent chest tube was placed to waterseal last evening, and according to the patient about an hour or 2 after having the Thoravent removed from suction he developed some worsening shortness of breath. Dr. Caro was notified from pulmonary medicine and is Thoravent was placed back to low continuous wall suction -20 cm H2O. This morning the patient is on 6 L nasal cannula and occasionally a 100% nonrebreather with oxygen saturations currently 95%. He is achieving 1250 mL on his incentive spirometry with encouragement. Remote telemetry is showing sinus tachycardia heart rate 100 bpm. He does report a and occasional productive cough with díaz tenacious sputum. Sputum culture from July 28, 2023 showed Shanta albicans. Patient is also being treated with Solu-Medrol 60 mg IV every 6 hours. The patient is awaiting his CT scan of his chest without contrast this morning. Objective - Vital Signs Vital signs: Vital Signs Temp 98.4 F 08/04/23 07:20 Pulse 98 08/04/23 07:20 Resp 18 08/04/23 07:20 BP 147/92 08/04/23 07:20 Pulse Ox 91 L 08/04/23 07:20 FiO2 40 08/03/23 15:20 Intake & Output 08/03/23 08/04/23 08/04/23 18:59 06:59 18:59 Intake Total 236 Output Total 2170 550 Balance -1933 - Weight 58.9 kg Intake: Oral 236 Output: Chest Tube Drainage 20 Right Anterior Chest 20 Urine 2150 550 Other: Voiding Method Bedside Commode Bedside Commode Urinal Urinal # Voids 1 # Bowel Movements 1 - Exam CONSTITUTIONAL: Awake and alert, cooperative, well-developed, well-nourished, no pain, no acute distress. EYES: Pupils equal, round, reactive to light, normal ocular movement. ENT: Moist mucous membranes without oral lesions present. NECK: No masses, no bruits, trachea midline. RESPIRATORY: Lungs sounds bilaterally, right greater than left. Respirations symmetrical and nonlabored. Currently on 6 L nasal cannula with oxygen saturation 95%. Strong productive cough. Right sided Thora-vent present to anterior chest wall and connected to atrium with continuous low wall suction 20 mm H2O, intermittent air leak present. CARDIOVASCULAR: S1, S2 present. Regular rate and rhythm, sinus rhythm on telemetry. Palpable peripheral pulses bilaterally. No edema present. No calf pain or tenderness noted GASTROINTESTINAL: Abdomen soft, nontender, nondistended without organomegaly. There is no rebound or guarding present. Active bowel sounds present 4 nora drants. GENITOURINARY: Continues to void. 550 mL of urine output in the last 8 hours. INTEGUMENTARY: Skin is warm and dry with no clubbing or cyanosis. NEUROLOGIC: Cranial nerves II through XII intact, normal coordination, no focal deficits, speech is normal. MUSKULOSKELETAL: Able to move all extremities, strength equal bilaterally, normal posture. PSYCHIATRIC: Alert and oriented to person place and time, appropriate affect, intact judgment and insight. - Allied health notes Allied health notes reviewed: nursing - Labs CBC & Chem 7: 08/03/23 07:34 08/03/23 07:34 Labs: Abnormal Lab Results - Last 24 Hours (Table) 08/03/23 08/03/23 08/04/23 Range/Units 14:42 19:56 05:47 POC Glucose (mg/dL) 111 H 124 H 123 H (70-110) mg/dL Assessment and Plan Assessment: Acute hypoxic respiratory failure, currently on 6 L nasal cannula oxygen Pneumonia Right-sided pneumothorax after thoracentesis, status post right Thoravent p lacement with persistent intermittent airleak Shortness of breath Metastatic non-small cell lung carcinoma Previous tobacco dependence, COPD Plan: CT scan of the chest without contrast pending. Keep right Thoravent to low continuous wall suction -20 cm H2O, continue to mon itor for airleak resolution. Encourage use of incentive spirometry 10 times every hour while awake. Wean oxygen as tolerated, oxygen, Solu-Medrol and inhaler management per pulmonary/critical care recommendations. Medical management of other core morbidities per primary care service, pulmonology and oncology. More recommendations to follow based on patient's clinical course. Time with Patient: Greater than 30
[2023-08-04] MEDS: predniSONE 20 MG TAB PO SCH (11:53)
--- NOTE | 2023-08-04 13:28 | P.PN ---
Subjective Progress Note Date: 08/04/23 Principal diagnosis: Respiratory failure. Acute hypoxic respiratory failure, multifactorial am seeing this patient in consultation today July 28, 2023 in the emergency room after he presented with complaints of increased shortness of breath, worsening since Wednesday. Patient is a 58-year-old white male with past medical history significant for metastatic non-small cell lung carcinoma, COPD, former tobacco dependence. He follows with Dr. Avilez in the pulmonary office. Patient has biopsy-proven non-small cell carcinoma, with metastasis within the chest, brain, and diffuse osseous metastasis. He also has a right renal nodule which is being followed up by urology. He has been following with radiation oncology and medical oncology. He has been treated with immunotherapy in the past, but has failed treatment. He has recently been started on daily Gilotrif on July 14. Since Wednesday, the patient has had worsening shortness of breath. This is especially noticeable during exertion. He is not normally oxygen dependent at home. He has been wheezing while at home. He has also had a change in his chronic cough with limited amounts of sputum production. Denies any fevers, chills, chest pain, hemoptysis. He presented to the emergency room last night with the above-mentioned symptoms. He is currently lying in bed, on 4 L/min nasal cannula, in no acute distress. He is generally weak and requires assistance to sit up in bed. His is at bedside. Chest x-ray on arrival demonstrated a new bilateral infiltrates, especially involving the left upper imelda ng field, chronic right lung changes, and a chronic right-sided pleural effusion. These findings are concerning for bilateral multifocal pneumonia or possible pulmonary drug toxicity. CBC on arrival was fairly unremarkable. WBC count 10.3, hematocrit 13.5, hematocrit 39.7, platelets 324. CMP on arrival: Sodium 131, potassium 3.5, chloride 101, serum bicarb 22, BUN 14, creatinine 0.52, glucose 105. Infusing at 75 mL/h. Lactic acid level not elevated. Mild elevation in LFTs. Troponin less than 0.012. NT proBNP not elevated. Urinalysis not concerning for UTI. Negative for influenza, RSV, COVID. Patient has been started on empiric antibiotics. He is afebrile. Vital signs are stable. Patient was reevaluated today on 07/29/23, I transferred the patient early this morning to the ICU mostly because of worsening respiratory status. Patient was placed on 15 L high flow nasal cannula on the floor, and his O2 saturation was in the 80s. Transferred the patient to the ICU, came in and evaluated the patient, and recommended immediate thoracentesis for his pleural effusion. This was performed at bedside, and I was able to drain 1150 cc of serosanguineous fluid patient had dramatic improvement clinically, follow-up chest x-ray showed apical right-sided pneumothorax however I believe it is not a true pneumothorax, I believe mostly due to trapped lung that did not fully expand any rate patient will have a follow-up chest x-ray in few hours after the thoracentesis. Fluid was sent for different diagnostic studies, and clinically felt much betterWBC count is 11.6 hemoglobin 12.4 basic metabolic profile is normal renal profile is normal Reevaluated today on 07/30/2023, patient remains in the ICU, feeling better today, is breathing easier, nonetheless remains on Airvo, 60% FiO2 and 50 L flow ontinues to have Thora vent in place, small tiny right-sided apical pneumothorax is noted, continues to have significant amount of air and fluid coming out of the Thora vent tube. Cytology on the fluid is pending/pleural effusion cytology is pending. WBC is 14.0 hemoglobin 11.7 his basic metabolic profile is normal except for low potassium of 3.2, patient is requiring narcotics for pain control Patient was reevaluated today on 07/31/2023, remains in the ICU, patient is an overflow, doing well, on 50 L high flow and 50% FiO2 via Airvo. Feeling better today compared to yesterday, continues to have a minimal leak in the Pleur-evac from his Thora vent. Drained about 200 cc over the last 24 hours from his Thora vent/chest tube. Chest x-ray showed significant improvement in his right-sided pneumothorax, however there is significant airspace disease involving the left lung, patient is on steroids, and today I recommended 1 dose of Lasix 20 mg IV push to be given. WBC count is 9.9 hemoglobin is 12 electrolytes are normal renal profile is normal, final report on his pleural effusion is pending so far no growth Reevaluated today on 08/01/2023, patient is now on the cardiac floor, basically about the same, remains on Airvo at 50% FiO2 and 50% liters flow, continues to have the Thora vent in place, connected to Pleur-evac, continues to have minimal air leak, right lung is expanded however still has a small right apical pneumothorax. The pneumonic process in the left lung seems to be improving a bit based on the chest x-ray. Clinically the patient is feeling better, breathing a bit easier. CBC today is relatively normal WBC count is 9.5 hemoglobin is 12.8 basic metabolic profile is normal renal profile is normal. Patient remains on antibiotics, bronchodilators, and steroids cytology from the pleural effusion is pending patient has been previously diagnosed with metastatic non-small cell lung cancer Progress note dated August 02, 2023. This is a 58-year-old male seen in room 364. The patient continues on Airvo, at 50 L/min with an FiO2 of 50%. He continues on Zosyn. He is getting saline at 20 cc an hour. The patient has a right-sided Thora vent in place. The patient does have a small air leak. He appears stable from the pulmonary standpoint. His biggest complaint today is that he is constipated. No new labs today. Laboratory data from August 01 showed a white count of 9.5, hemoglobin 12.8, and a normal platelet count. Sodium 135, with a normal potassium chloride and CO2. BUN and creatinine were 22 and 0.6. Microbiologic data thus far is negative. Chest x-ray shows a small right apical pneumothorax, slightly larger in size, now 4 cm versus 3.2 cm previously. There is also some diffuse bilateral infiltrates, mostly in the right midlung. Progress note dated August 03, 2023. This is a 58-year-old male seen in room 364. The patient continues on Airvo, with settings of 50 L/min, and an FiO2 40%. We will check a chest x-ray today. We have asked cardiothoracic surgery to see the patient, because the patient has a persistent small air leak, from the pneumothorax, after thoracentesis. He continues on Zosyn. No IV fluids. Clinically, he feels reasonable. He is hoping that the Thora vent can come out soon. Yesterday's chest x-ray showed an enlarging right-sided pneumothorax. Current labs include a white count of 10.9, hemoglobin 14, hematocrit 42, and a normal platelet count. Sodium 133, potassium 4.2, chloride 102, CO2 24, BUN 22, creatinine 0.53. Albumin is 2.9. Progress note dated August 04, 2023. 58-year-old male again seen in room 364. The patient is currently on a partial rebreather mask, along with high flow nasal cannula. Yesterday, cardiothoracic surgery, wanted the patient changed from suction, to waterseal. Unfortunately, the patient became very short of breath, required high concentrations of oxygen, and I was called. I asked for an immediate stat portable chest x-ray, which showed a worsening right-sided pneumothorax. Afterwards I told him to place the patient back on suction. Subsequent x-ray showed almost near complete expansion of that right lung. We did ask cardiothoracic surgery to see the patient, and they recommended stopping the corticosteroids, and determining in the next few days, whether or not the patient would be a candidate for some sort of surgical procedure. The patient's not receiving any IV fluids. No new labs today other than a glucose of 123. Chest x-ray shows an improvement in the right-sided pneumothorax. Thora vent remains in place. CT scan of the chest shows a moderately sized right pneumothorax, with Thora vent catheter in place. There is right chest wall subcutaneous emphysema. There is a small right-sided pleural effusion, and a right perihilar masslike consolidation. Other noted findings on CT scan are reviewed. Objective - Vital Signs Vital signs: Vital Signs Temp 98.4 F 08/04/23 11:24 Pulse 108 H 08/04/23 11:47 Resp 20 08/04/23 11:47 BP 132/82 08/04/23 11:24 Pulse Ox 89 L 08/04/23 11:37 FiO2 40 08/03/23 15:20 Intake & Output 08/03/23 08/04/23 08/04/23 18:59 06:59 18:59 Intake Total 236 118 Output Total 2170 550 1660 Balance -9547 -641 -4087 Weight 58.9 kg Intake: Oral 236 118 Output: Chest Tube Drainage 20 10 Right Anterior Chest 20 10 Urine 2150 550 1650 Other: Voiding Method Bedside Commode Bedside Commode Bedside Commode Urinal Urinal Urinal # Voids 1 1 # Bowel Movements 1 1 - Exam No acute distress, oriented 3. Currently on high flow nasal cannula, and a partial rebreather mask. HEENT examination is grossly unremarkable. Mucous membranes are moist. No oral lesions. Neck supple. Full range of motion. No adenopathy thyromegaly or neck vein distention. Cardiovascular examination reveals regular rhythm rate. S1-S2 normal. No S3 or S4. No discernible murmur noted. Heart rate 100 bpm. Lungs reveal clear mild scattered rhonchi bilaterally. No wheezes or crackles. Right-sided Thora vent is noted. A small leak is noted. No subcutaneous emphysema. Saturations are 93 %. Abdomen soft bowel sounds are heard. No masses or tenderness. Extremities are intact. No cyanosis clubbing or edema. Skin is without rash or lesion. Neurologic examination is brief but nonfocal. - Labs CBC & Chem 7: 08/03/23 07:34 08/03/23 07:34 Labs: Abnormal Lab Results - Last 24 Hours (Table) 08/03/23 08/03/23 08/04/23 Range/Units 14:42 19:56 05:47 POC Glucose (mg/dL) 111 H 124 H 123 H (70-110) mg/dL Assessment and Plan Assessment: Acute hypoxemic respiratory failure, multifactorial, secondary to pneumonia, and possible immunotherapy induced pneumonitis. In addition, the patient had a large right-sided effusion, which required thoracentesis. Acute exacerbation of COPD. Right pneumothorax, following right thoracentesis, status post Thora vent placement. Non-small cell lung cancer with metastasis to the chest, brain, and bone. Right renal nodule, suspicious for malignancy. T12 kyphoplasty. Former smoker. 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 Constipation Plan: Plan dated August 02, 2023. Today's chest x-ray shows a slightly larger right apical pneumothorax. The patient's lung may never fully expand, as he may have a trapped lung. There is still a small leak. I will leave the Thora vent in for now. Labs, x-rays, and medications are reviewed. The patient continues on bronchodilators, corticosteroids. The patient has metastatic lung cancer, so his overall prognosis is very poor. We will continue to follow make recommendations along the way. Prognosis is certainly very guarded. The patient's major complaint today was constipation. Plan dated August 03, 2023. The patient will have a chest x-ray done today. Normal was ordered. In addition, will have cardiothoracic surgery see the patient, because of the persistent air leak on the right side. The Thora vent remains in place. Yesterday's chest x-ray showed a slightly larger right-sided pneumothorax. Labs, x-rays, and medications are reviewed. The patient has a history of metastatic lung cancer. Prognosis is certainly guarded. The patient continues on Diflucan, albuterol sulfate, and ipratropium bromide, Solu-Medrol, and Zosyn. We will continue to follow make recommendations along the way. We will await input by cardiothoracic surgery. Plan dated August 04, 2023. I had the opportunity to speak to Dr. Negrete about this patient and what to do next. We are going to stop the corticosteroids, which may improve the healing process. In addition, the Thora vent will remain on suction for the time being. Dr. Negrete thinks there is no really good solution for this patient, and surgery is not guaranteed to be effective. Nonetheless, we will give the patient a few days off the corticosteroids, see how he responds. Currently he is on high flow nasal cannula, and a partial rebreather mask. Labs, x-rays, and medications are reviewed. Corticosteroids are discontinued. Additional recommendations and suggestions are forthcoming. Prognosis is certainly guarded. Time with Patient: Less than 30
--- NOTE | 2023-08-04 16:41 | P.PN ---
Subjective Progress Note Date: 08/04/23 Patient has been transitioned off airvo and is on 6 L nasal cannula with SPO2 96%. Reporting improvement in breathing, but complaining of right-sided lung pain. Repeat chest x-ray was obtained revealing small tiny right apical pneumothorax. CT chest was subsequently ordered which showed moderate size ri ght pneumothorax with upper lung oral catheter in place. Right chest wall subcutaneous emphysema redemonstrated. CTS recommend to keep right Thoravent to low continuous wall suction, and if air leak does not improve will discuss other interventions. IV steroids were d/c today. Oral prednisone started for treatment of underlying pneumonitis. Will plan for slow 6 week taper. Objective - Vital Signs Vital signs: Vital Signs Temp 97.7 F 08/04/23 15:57 Pulse 115 H 08/04/23 15:57 Resp 18 08/04/23 15:57 BP 121/71 08/04/23 15:57 Pulse Ox 92 L 08/04/23 15:57 FiO2 40 08/03/23 15:20 Intake & Output 08/03/23 08/04/23 08/04/23 18:59 06:59 18:59 Intake Total 236 236 Output Total 2170 550 1885 Balance -4808 -001 -7952 Weight 58.9 kg Intake: Oral 236 236 Output: Chest Tube Drainage 20 10 Right Anterior Chest 20 10 Urine 2150 550 1875 Other: Voiding Method Bedside Commode Bedside Commode Bedside Commode Urinal Urinal Urinal # Voids 1 1 # Bowel Movements 1 1 - Constitutional General appearance: Present: no acute distress, thin - EENT Eyes: Present: anicteric sclerae, EOMI ENT: Present: hearing grossly normal - Respiratory Respiratory: right: diminished, left: CTA - Cardiovascular Rhythm: regular Heart sounds: normal: S1, S2 - Integumentary Integumentary: Absent: cyanotic - Neurologic Neurologic: Present: CNII-XII intact - Musculoskeletal Musculoskeletal: Present: strength equal bilaterally - Psychiatric Psychiatric: Present: A&O x's 3 - Labs CBC & Chem 7: 08/03/23 07:34 08/03/23 07:34 Labs: Abnormal Lab Results - Last 24 Hours (Table) 08/03/23 08/04/23 Range/Units 19:56 05:47 POC Glucose (mg/dL) 124 H 123 H (70-110) mg/dL - Imaging and Cardiology Chest x-ray: report reviewed CT scan - chest: report reviewed Assessment and Plan (1) Drug-induced pneumonitis Current Visit: Yes Status: Acute Priority: High Code(s): J98.4 - OTHER DISORDERS OF LUNG; T50.905A - ADVERSE EFFECT OF UNSP DRUG/MEDS/BIOL SUBST, INIT SNOMED Code(s): 249218341 (2) Hypoxic respiratory failure Current Visit: Yes Status: Acute Code(s): J96.91 - RESPIRATORY FAILURE, UNSPECIFIED WITH HYPOXIA SNOMED Code(s): 33577577764612096 (3) Pleural effusion Current Visit: Yes Status: Acute Priority: High Code(s): J90 - PLEURAL EFF USION, NOT ELSEWHERE CLASSIFIED SNOMED Code(s): 70944285 (4) Squamous cell carcinoma of lung, stage IV Current Visit: Yes Status: Chronic Priority: High Code(s): C34.90 - MALIGNANT NEOPLASM OF UNSP PART OF UNSP BRONCHUS OR LUNG SNOMED Code(s): 006783449 Plan: Drug-induced pneumonitis -[place] that imaging and assessment are most consistent with drug induced pneumonitis -Agree with steroids, abx and infection work up in case of any underlying infection contributing to worsening symptoms -Discontinue Gilotrif -Prednisone taper started, will plan for slow 6 week taper -F/U with primary Oncologist for treatment plans once acute condition adequately resolved Pleural effusion/pneumothorax -Status post 3.2 L thoracentesis -Cytology positive for non-small cell lung adenocarcinoma. -Pneumothorax, chest tube in place. Patient has been transitioned off airvo and is on 6 L nasal cannula with SPO2 96%. Repeat chest x-ray was obtained today revealing small tiny right apical pneumothorax. CT chest was subsequently ordered which showed moderate size right pneumothorax with upper lung pleural catheter in place. Right chest wall subcutaneous emphysema redemonstrated. CTS recommend to keep right Thoravent to low continuous wall suction, and if air leak does not improve will discuss other interventions. Sq cell carcinoma, recurrent, on gilotrif targeted agent -Patient is status post a 3.2 L thoracentesis on the right. Cytology positive for non-small cell lung adenocarcinoma. -Discontinue gilotrif secondary to drug-induced pneumonitis -Primary Oncologist plans for change in therapy once patient current condition has resolved. -Did discuss the case with Radiation Oncologist. Based on patient's current condition, and overall asymptomatic brain mets, no radiation would be planned for at this time. Radiation Oncologist will review images though and, if necessary, will request a consult so the patient can be seen inpatient. -Clinic f/u in discharge plan Malignancy related pain -Pain meds adjusted, seem to have adequate pain control now -Meds ordered to prevent narcotic induced constipation Attests: I have seen and examined pt, performed H&P, developed impression an d plan of care. Discussed with dictator. Agree with documentation, dictated as a scribe.
[2023-08-05] MEDS: SODIUM CHLORIDE 0.9% 1,000 ML IV SCH (05:43)
--- NOTE | 2023-08-05 06:37 | P.PN ---
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 Patient completed 6 cycles of concurrent chemoradiation on 02/08/2023 and radiation therapy completed on 02/16/2023. CT neck,/chest and abdomen on 02/24/2023 showed stable disease. He was started on cycle 1 of consolidative durvalumab on 03/19/2023. Bronchoscopy on 06/04/2023 with the biopsy of the right hilar region reveals evidence of poorly differentiated non- small cell carcinoma. PET scan showed evidence of metastasis to the bones including right lower ribs/pelvis/C2 and L5 vertebral bodies, intra-abdominal lymphadenopathy, right hilar region. MRI brain showed at least 6 peripherally enhancing lesions. Patient was started on afatinib about 2 weeks ago. Patient presented to ER with complaints of worsening shortness of breath. Patient is requiring 9 L oxygen via nasal cannula. Otherwise denies any complaints of fever or chills. No nausea vomiting. No hematemesis or melena. No headache or dizziness. Patient also having generalized weakness and requiring assistance with sitting up and ambulation. Chest x-ray showed increased right upper lobe lung airspace opacities correlate for pneumonia. EKG showed sinus tachycardia with occasional ventricular premature complexes. Laboratory data showed WBC 10.3 hemoglobin 13.5 and platelets 324 Sodium 131 potassium 3.5 chloride 101 bicarb is 22 BUN 14 and creatinine 0.52 and blood sugar is 105 and calcium 8.3 AST 48 ALT 65 and alk phos 138. Troponin x 1 negative and procalcitonin level is 0.2 Urinalysis is negative for infection Influenza A, B, Legionella, RSV and COVID-19 PCR not detected. 07/29/2023 Patient is seen and evaluated in follow-up this morning continues to be in the ICU with multiple medical consultations following including oncology and pulmonary heel turner. Patient is status post thoracentesis on the right with approximately 3.2 liters removed. Patient requiring more oxygen currently maintained on airvo 60/80. Patient is lethargic and significantly weak and appears restless in mild respiratory distress. Patient reports not much of an appetite and has been tolerating supplements and will continue. Patient with significant weakness although respiratory status making it difficult for ambulation. Patient also reports to not sleeping well and will add low-dose medication as needed. Patient is currently afebrile with no reported chest pain. Cultures have been sent and pending. 07/30/2023 Patient is seen in follow-up this morning continues to be in the ICU maintained on airvo 60/50 and continues with significant shortness of breath although feels slightly improved. Patient continues with chest tube and is status postthoracentesis. Cytology is pending. Patient is afebrile. Patient continues to be significantly weak and extremely dyspneic with minimal exertion. Encouraged oral intake. 07/31/2023 Patient is seen in follow-up today continues to be in the ICU with multiple medical consultations following. Weaning FiO2 as tolerated currently maintained on 5050 of airvo with supplemental oxygen of nonrebreather as needed. Patient continues with Pleurx catheter on the right chest wall with pulmonary following. Sputum culture showing Shanta and patient is also continued on Zosyn and will continue for now. Patient reports having some mouth soreness and does appear to have thrush. Patient is afebrile with no reported chest pain. Patient with overall weakness and prolonged hospitalization, recommend increased activity as tolerated. Overall prognosis remains guarded. 08/01/2023 Patient is seen in follow-up today has been transferred out of the ICU on 3 S. continued on IV Lasix daily along with continued IV steroids and Zosyn. Patient continues with Pleurx catheter and cultures preliminary showing no growth. Patient continues on Airvo at 50/50 and weaning as tolerated. White count has normalized and hemoglobin is stable at 12.8, sodium is 135 with a potassium of 4.3 and electrolytes within normal limits. Patient with weakness will have PT/OT evaluate once respiratory status more stable. Encouraged oral intake. Patient also to continue on Diflucan for oral thrush. 08/02/2023 patient is seen in follow-up today reports his breathing is slightly improved although continues on airvo 50/50 with pulmonary following. Patient also continues with Pleurx catheter noted of the right chest with serous drainage. Patient is continued on Zosyn along with Diflucan for oral thrush. Patient with prolonged hospitalization and generalized weakness, will have PT/OT therapy evaluate the patient. Patient reports has not had a bowel movement in a few days and is feeling constipated. Will add lactulose to make it 3 times daily as needed. Patient is afebrile with no reports of chest pain or palpitations. Follow-up chest x-ray today shows right apical pneumothorax slightly larger in size now 4.0 cm versus 3.2 cm previously with continued right side Thora vent with continued similar diffuse interstitial densities and right midlung opacities. 08/03/2023 Patient is seen in follow-up continues on the stepdown unit currently maintained on Airvo and attempting to wean as patient also continues with 15 L nonre breather. Airvo being titrated down to 40 and patient is tolerating. Patient continues with shortness of breath and also has Pleurx catheter on the right reporting he feels his shortness of breath is slightly improving. Patient inquiring about when he can go home and discussed with him as well as family at the bedside he would need to be titrated down to nasal cannula prior to discharge. Patient has been using incentive spirometer and sitting up more often working to wean as tolerated. Patient with significant weakness being evaluated by physical therapy and recommend daily. Encouraged oral intake. Patient remains afebrile. 08/04/2023 Patient is seen in follow-up with multiple medical consultations following including cardiothoracic surgery and pulmonary heel turner. Patient maintained on high flow nasal cannula at 6 L as well as 15 L nonrebreather and patient is off Airvo. Patient had an episode overnight of extreme chest pain and shortness of breath and chest x-ray was performed showing right-sided pneumothorax as patient was off suction and per nursing staff immediately placed back on suction with repeat chest x-ray showing resolution of the pneumothorax. CT surgery fo llowing and have discontinued corticosteroids and will monitor closely over the next few days with attempts to weaning from suctioning and discuss further about treatment plan moving forward if patient requires surgical intervention. Follow-up chest x-ray ordered and will also follow-up with repeat labs. Patient was on IV Lasix daily although appears clinically dry and will initiate gentle hydration and again follow-up with repeat labs. Sodium is 133. Review of systems: Constitutional: reports of fatigue but improved, no fever, or chills, less anxious Cardiovascular: No reports of chest pain or palpitations Respiratory: reports of continued shortness of breath and cough, although repo rts this feeling slightly improved GI: No reports of nausea, vomiting, or diarrhea, reports not much of an appetite, but eating a little more, reports constipation has resolved : No reports of dysuria or retention Neurovascular: reports of generalized weakness All medications have been reviewed PHYSICAL EXAMINATION: Patient is sitting up in the chair, maintained on 6 L nasal cannula along with 15 L nonrebreather, awake alert and oriented, appears weak... Thin built, elderly appearing, ill-appearing HEENT: Normocephalic. Neck is supple. Pupils reactive. Nostrils clear. Oral cavity is moist. Neck reveals no JVD, carotid bruits, or thyromegaly. CHEST EXAMINATION: Trachea is central. Symmetrical expansion. Bilateral scattered rhonchi and coarse sounds. Basilar diminished sounds. Worse on the right CARDIAC: Normal S1, S2 with no gallops. No murmurs ABDOMEN: Soft. Thin, scaphoid bowel sounds present. Nontender. No organomegaly. No abdominal bruits. Extremities: reveal no edema. No clubbing or cyanosis Neurologically awake, alert, oriented x3 with well-coordinated movements. No gross focal deficits noted, diffusely weak Skin: No rash or skin lesions. Psychiatric: Cooperative. Non-suicidal, slightly anxious at times Musculoskeletal: No joint swelling or deformity. Assessment: Acute on chronic hypoxemic respiratory failure with right upper lobe pneumonia and metastatic lung cancer and pleural effusion. Possible afatinib pneumonitis cannot be excluded. Currently maintained on 6 L nasal cannula along with 15 L nonrebreather at times Non-small cell lung cancer status post chemoradiation, with metastasis to right lower rib, pelvis, vertebral bodies and brain metastatic lesions. Patient was started on afatinib about 2 weeks ago. Treatment currently on hold with hematology/oncology following Oral thrush with sputum culture showing Shanta COPD with mild exacerbation Hypovolemic hyponatremia, likely secondary to poor oral intake Mild transaminitis Recent kyphoplasty in May 2023 Chronic right-sided pleural effusion. Likely malignant effusion, status post thoracentesis on the right with trapped lung post thoracentesis noted requiring chest tube on 07/29/2023 Prior history of smoking GI and DVT prophylaxis with PPI and heparin subcu Full code Plan: Patient will be continued on oxygen supplementation and Weaning FiO2 as tolerated. Currently maintained on 6 L nasal cannula along with intermittent periods of 15 L nonrebreather. Attempting to wean FiO2 as tolerated. Patient continues with Pleurx catheter on the right and had an episode of increased shortness of breath and chest x-ray showed pneumothorax on the right and patient was placed on suction with resolution. Unable to wean off suction per nursing staff. CT surgery following recommending holding corticosteroids and monitoring closely over the next few days to determine if patient requires surgical intervention Patient continuing with bowel regimen and lactulose as needed. Patient reports did have a bowel movement last night. Continue lactulose as follow-up x-rays show significant amount of stool present Patient is continued on Diflucan sputum culture showed Shanta. Antibiotics have been discontinued and being closely monitored off antibiotic therapy. Patient with thrush and will add cool solution with nystatin, discontinue Diflucan Patient to continue on DuoNebs and was maintained on low-dose Lasix although appears clinically dry and will add gentle hydration and follow-up with repeat labs. Yesterday sodium was 133 Oncology following as well as patient was continued on cancer treatment which is currently on hold and will follow-up in the outpatient setting encouraged oral intake and increased activity as tolerated. PT/OT therapy following and working with the patient. Recommend daily as patient has had prolonged hospitalization and plans on returning home on discharge Due to multiple complex medical issues with metastasis, overall prognosis r emains extremely poor and guarded at this time The impression and plan of care has been dictated by Merle Kenny, Nurse Practitioner as directed. Dr. Paris MD I have performed a history and examination and MDM of this patient, discussed the same with the dictator, and agree with the dictator's assessment and plan as written ,documented as a scribe. Based on total visit time, I have performed more than 50% of the visit. Objective - Vital Signs Vital signs: Vital Signs Temp 98.4 F 08/05/23 04:00 Pulse 80 08/05/23 04:00 Resp 20 08/05/23 04:00 BP 115/73 08/05/23 04:00 Pulse Ox 94 L 08/05/23 04:00 FiO2 40 08/03/23 15:20 Intake & Output 08/04/23 08/04/23 08/05/23 06:59 18:59 06:59 Intake Total 354 300 Output Total 550 0275 200 Balance -939 -6964 100 Weight 58.9 kg Intake: IV 180 0.9 NACL 80 Piperacillin-Tazobactam 3 100 .375 gm In Sodium Chloride 0.9% 100 ml @ 25 mls/hr IVPB Q8H [facility] Rx#: [id number] Oral 354 120 Output: Chest Tube Drainage 20 0 Right Anterior Chest 20 0 Urine 550 2075 200 Other: Voiding Method Bedside Commode Bedside Commode Bedside Commode Urinal Urinal Urinal # Voids 1 # Bowel Movements 1 - Labs CBC & Chem 7: 08/03/23 07:34 08/03/23 07:34
--- NOTE | 2023-08-05 07:55 | P.PN ---
Subjective Progress Note Date: 08/05/23 Principal diagnosis: Acute hypoxic respiratory failure, pneumonia, right-sided pneumothorax after thoracentesis with persistent air leak. History of metastatic non-small cell lung carcinoma, previous tobacco dependence, COPD The patient was seen and examined this morning sitting up in bed on the cardiac stepdown unit in no acute distress just finishing breakfast. He is currently on 5 L nasal cannula with oxygen saturation 88 to 89%, he does continue to cover his mouth with a nonrebreather to help him "catch up with his breathing". Patient does state he is a mouth breather. Right-sided Thora-vent remains connected to continuous wall suction, positive tidaling, tiny intermittent air leak with coughing. Chest x-ray reviewed. Discussion took place yesterday between Dr. Caden Caro re: need to discontinue steroids to help patient's lung heal, Solu-Medrol was discontinued however patient was started on oral prednisone by oncology. Will discuss steroid management today. Objective - Vital Signs Vital signs: Vital Signs Temp 98.4 F 08/05/23 04:00 Pulse 100 08/05/23 07:24 Resp 20 08/05/23 04:00 BP 115/73 08/05/23 04:00 Pulse Ox 94 L 08/05/23 04:00 FiO2 40 08/03/23 15:20 Intake & Output 08/04/23 08/05/23 08/05/23 18:59 06:59 18:59 Intake Total 354 300 Output Total 2095 200 200 Balance -1741 100 -200 Intake: IV 180 0.9 NACL 80 Piperacillin-Tazobactam 3 100 .375 gm In Sodium Chloride 0.9% 100 ml @ 25 mls/hr IVPB Q8H [facility] Rx#: [id number] Oral 354 120 Output: Chest Tube Drainage 20 0 Right Anterior Chest 20 0 Urine 2075 200 200 Other: Voiding Method Bedside Commode Bedside Commode Urinal Urinal # Voids 1 1 # Bowel Movements 1 - Exam CONSTITUTIONAL: Appears comfortable, cooperative, no acute distress RESPIRATORY: Lungs sounds diminished with expiratory wheeze present on the right side. Respirations even, nonlabored. Currently on 5 L nasal cannula with oxygen saturation 88-89%, supplementing with nonrebreather. Able to achieve 1000 mL on incentive spirometry. Strong cough. CARDIOVASCULAR: S1, S2 present. Regular rate and rhythm, sinus rhythm on telemetry. Palpable peripheral pulses bilaterally. No edema present. No calf pain or tenderness noted. SCDs present. GASTROINTESTINAL: Abdomen soft, nontender, nondistended. Active bowel sounds present 4 quadrants. Tolerating diet. Positive bowel movement 08/04 GENITOURINARY: Continues to void clear, yellow urine, output 2275 mL in the last 24 hours INTEGUMENTARY: Skin is warm and dry with evidence of good perfusion NEUROLOGIC: Cranial nerves II through XII intact MUSKULOSKELETAL: Able to move all extremities, strength equal bilaterally, gait normal PSYCHIATRIC: Alert and oriented to person place and time, appropriate affect, intact judgment and insight INVASIVE LINES AND TUBES: Right-sided Thora-vent present to continuous wall suction, small intermittent airleak present with coughing, good tidaling - Labs CBC & Chem 7: 08/03/23 07:34 08/03/23 07:34 Assessment and Plan Assessment: Acute hypoxic respiratory failure Pneumonia Right-sided pneumothorax after thoracentesis with placement of Thora vent, persistent air leak Shortness of breath Metastatic non-small cell lung carcinoma Previous tobacco dependence, COPD Plan: Keep right Thoravent to low continuous wall suction -20 cm H2O, continue to monitor for airleak resolution. Encourage use of incentive spirometry 10 times every hour while awake. Wean oxygen as tolerated Will discuss steroid management Increase activity as tolerated Medical management of other core morbidities per primary care service, pulmonology and oncology. More recommendations to follow based on patient's clinical course.
--- NOTE | 2023-08-05 08:28 | XR ---
EXAMINATION TYPE: XR chest 1V portable DATE OF EXAM: 08/05/2023 Comparison: 08/03/2023 Clinical History: 58-year-old male pneumothorax Findings: Right-sided Thoravent catheter remains in place with subcutaneous emphysema right axilla. Small right apical pneumothorax measures 1.5 cm now versus 1.2 cm, previously. Opacity is more confluent at the left perihilar and infrahilar region. Focal right midlung opacity also persist. Heart normal size. Impression: 1. Right-sided Thoravent catheter in place with redemonstrated small right apical pneumothorax (curre ntly 1.5 cm versus 1.2 cm, previously). 2. Unchanged focal right midlung opacity. Slight interval worsening and opacity now at the left mid a nd lower lung.
[2023-08-05 09:43] LABS: African American GFR (CKD) >90 (>60 ml/min/1.73 sqM); Anion Gap 1 mmol/L; Blood Urea Nitrogen 24 mg/dL (9-20); Calcium 9.2 mg/dL (8.4-10.2); Carbon Dioxide 31 mmol/L (22-30); Chloride 100 mmol/L (98-107); Glucose 102 mg/dL (74-99); Magnesium 2.1 mg/dL (1.6-2.3); Non-African American GFR(CKD) >90 (>60 ml/min/1.73 sqM); Potassium 4.1 mmol/L (3.5-5.1); Sodium 132 mmol/L (137-145)
[2023-08-05 09:54] LABS: Basophils % (A) 0 %; Eosinophils % (A) 0 %; HCT 40.7 % (39.0-53.0); HGB 13.7 gm/dL (13.0-17.5); Lymphocytes # (A) 0.4 k/uL (1.0-4.8); Lymphocytes % (A) 3 %; MCH 33.2 pg (25.0-35.0); MCHC 33.8 g/dL (31.0-37.0); MCV 98.4 fL (80.0-100.0); Mean Platelet Volume 7.7; Monocytes # (A) 0.3 k/uL (0-1.0); Monocytes % (A) 2 %; Neutrophils # (A) 12.4 k/uL (1.3-7.7); Neutrophils % (A) 95 %; Platelet Count 331 k/uL (150-450); RBC 4.13 m/uL (4.30-5.90); RDW 14.8 % (11.5-15.5); WBC 13.1 k/uL (3.8-10.6)
--- NOTE | 2023-08-05 12:33 | P.PN ---
Subjective Progress Note Date: 08/05/23 Principal diagnosis: Respiratory failure. Acute hypoxic respiratory failure, multifactorial am seeing this patient in consultation today July 28, 2023 in the emergency room after he presented with complaints of increased shortness of breath, worsening since Wednesday. Patient is a 58-year-old white male with past medical history significant for metastatic non-small cell lung carcinoma, COPD, former tobacco dependence. He follows with Dr. Avilez in the pulmonary office. Patient has biopsy-proven non-small cell carcinoma, with metastasis within the chest, brain, and diffuse osseous metastasis. He also has a right renal nodule which is being followed up by urology. He has been following with radiation oncology and medical oncology. He has been treated with immunotherapy in the past, but has failed treatment. He has recently been started on daily Gilotrif on July 14. Since Wednesday, the patient has had worsening shortness of breath. This is especially noticeable during exertion. He is not normally oxygen dependent at home. He has been wheezing while at home. He has also had a change in his chronic cough with limited amounts of sputum production. Denies any fevers, chills, chest pain, hemoptysis. He presented to the emergency room last night with the above-mentioned symptoms. He is currently lying in bed, on 4 L/min nasal cannula, in no acute distress. He is generally weak and requires assistance to sit up in bed. His is at bedside. Chest x-ray on arrival demonstrated a new bilateral infiltrates, especially involving the left upper imelda ng field, chronic right lung changes, and a chronic right-sided pleural effusion. These findings are concerning for bilateral multifocal pneumonia or possible pulmonary drug toxicity. CBC on arrival was fairly unremarkable. WBC count 10.3, hematocrit 13.5, hematocrit 39.7, platelets 324. CMP on arrival: Sodium 131, potassium 3.5, chloride 101, serum bicarb 22, BUN 14, creatinine 0.52, glucose 105. Infusing at 75 mL/h. Lactic acid level not elevated. Mild elevation in LFTs. Troponin less than 0.012. NT proBNP not elevated. Urinalysis not concerning for UTI. Negative for influenza, RSV, COVID. Patient has been started on empiric antibiotics. He is afebrile. Vital signs are stable. Patient was reevaluated today on 07/29/23, I transferred the patient early this morning to the ICU mostly because of worsening respiratory status. Patient was placed on 15 L high flow nasal cannula on the floor, and his O2 saturation was in the 80s. Transferred the patient to the ICU, came in and evaluated the patient, and recommended immediate thoracentesis for his pleural effusion. This was performed at bedside, and I was able to drain 1150 cc of serosanguineous fluid patient had dramatic improvement clinically, follow-up chest x-ray showed apical right-sided pneumothorax however I believe it is not a true pneumothorax, I believe mostly due to trapped lung that did not fully expand any rate patient will have a follow-up chest x-ray in few hours after the thoracentesis. Fluid was sent for different diagnostic studies, and clinically felt much betterWBC count is 11.6 hemoglobin 12.4 basic metabolic profile is normal renal profile is normal Reevaluated today on 07/30/2023, patient remains in the ICU, feeling better today, is breathing easier, nonetheless remains on Airvo, 60% FiO2 and 50 L flow ontinues to have Thora vent in place, small tiny right-sided apical pneumothorax is noted, continues to have significant amount of air and fluid coming out of the Thora vent tube. Cytology on the fluid is pending/pleural effusion cytology is pending. WBC is 14.0 hemoglobin 11.7 his basic metabolic profile is normal except for low potassium of 3.2, patient is requiring narcotics for pain control Patient was reevaluated today on 07/31/2023, remains in the ICU, patient is an overflow, doing well, on 50 L high flow and 50% FiO2 via Airvo. Feeling better today compared to yesterday, continues to have a minimal leak in the Pleur-evac from his Thora vent. Drained about 200 cc over the last 24 hours from his Thora vent/chest tube. Chest x-ray showed significant improvement in his right-sided pneumothorax, however there is significant airspace disease involving the left lung, patient is on steroids, and today I recommended 1 dose of Lasix 20 mg IV push to be given. WBC count is 9.9 hemoglobin is 12 electrolytes are normal renal profile is normal, final report on his pleural effusion is pending so far no growth Reevaluated today on 08/01/2023, patient is now on the cardiac floor, basically about the same, remains on Airvo at 50% FiO2 and 50% liters flow, continues to have the Thora vent in place, connected to Pleur-evac, continues to have minimal air leak, right lung is expanded however still has a small right apical pneumothorax. The pneumonic process in the left lung seems to be improving a bit based on the chest x-ray. Clinically the patient is feeling better, breathing a bit easier. CBC today is relatively normal WBC count is 9.5 hemoglobin is 12.8 basic metabolic profile is normal renal profile is normal. Patient remains on antibiotics, bronchodilators, and steroids cytology from the pleural effusion is pending patient has been previously diagnosed with metastatic non-small cell lung cancer Progress note dated August 02, 2023. This is a 58-year-old male seen in room 364. The patient continues on Airvo, at 50 L/min with an FiO2 of 50%. He continues on Zosyn. He is getting saline at 20 cc an hour. The patient has a right-sided Thora vent in place. The patient does have a small air leak. He appears stable from the pulmonary standpoint. His biggest complaint today is that he is constipated. No new labs today. Laboratory data from August 01 showed a white count of 9.5, hemoglobin 12.8, and a normal platelet count. Sodium 135, with a normal potassium chloride and CO2. BUN and creatinine were 22 and 0.6. Microbiologic data thus far is negative. Chest x-ray shows a small right apical pneumothorax, slightly larger in size, now 4 cm versus 3.2 cm previously. There is also some diffuse bilateral infiltrates, mostly in the right midlung. Progress note dated August 03, 2023. This is a 58-year-old male seen in room 364. The patient continues on Airvo, with settings of 50 L/min, and an FiO2 40%. We will check a chest x-ray today. We have asked cardiothoracic surgery to see the patient, because the patient has a persistent small air leak, from the pneumothorax, after thoracentesis. He continues on Zosyn. No IV fluids. Clinically, he feels reasonable. He is hoping that the Thora vent can come out soon. Yesterday's chest x-ray showed an enlarging right-sided pneumothorax. Current labs include a white count of 10.9, hemoglobin 14, hematocrit 42, and a normal platelet count. Sodium 133, potassium 4.2, chloride 102, CO2 24, BUN 22, creatinine 0.53. Albumin is 2.9. Progress note dated August 04, 2023. 58-year-old male again seen in room 364. The patient is currently on a partial rebreather mask, along with high flow nasal cannula. Yesterday, cardiothoracic surgery, wanted the patient changed from suction, to waterseal. Unfortunately, the patient became very short of breath, required high concentrations of oxygen, and I was called. I asked for an immediate stat portable chest x-ray, which showed a worsening right-sided pneumothorax. Afterwards I told him to place the patient back on suction. Subsequent x-ray showed almost near complete expansion of that right lung. We did ask cardiothoracic surgery to see the patient, and they recommended stopping the corticosteroids, and determining in the next few days, whether or not the patient would be a candidate for some sort of surgical procedure. The patient's not receiving any IV fluids. No new labs today other than a glucose of 123. Chest x-ray shows an improvement in the right-sided pneumothorax. Thora vent remains in place. CT scan of the chest shows a moderately sized right pneumothorax, with Thora vent catheter in place. There is right chest wall subcutaneous emphysema. There is a small right-sided pleural effusion, and a right perihilar masslike consolidation. Other noted findings on CT scan are reviewed. Progress note dated August 05, 2023. The patient is again seen in room 364. The patient is currently on 6 L high flow nasal cannula, and occasionally, we use a partial rebreather mask, when his sats drop below 90%. The patient does have a continuing leak, from the right Thora vent device, mostly when he coughs, not so much when he takes a deep breath. The patient is getting saline at 75 cc an hour. The patient's chest x- ray shows a relatively small right apical pneumothorax. Corticosteroids were discontinued, only to be restarted by oncology. The patient should not be getting steroids at the current time. Labs include a white count 13.1, hemoglobin 13.7, hematocrit 40.7, and a platelet count of 331,000. Sodium 132, potassium 4.1, chlorides 100, CO2 31, BUN 24, creatinine 0.58. Altered data is negative. Chest x-ray shows a small right apical pneumothorax. Objective - Vital Signs Vital signs: Vital Signs Temp 98.0 F 08/05/23 09:39 Pulse 104 H 08/05/23 11:23 Resp 20 08/05/23 09:39 BP 118/83 08/05/23 09:39 Pulse Ox 93 L 08/05/23 09:39 FiO2 40 08/03/23 15:20 Intake & Output 08/04/23 08/05/23 08/05/23 18:59 06:59 18:59 Intake Total 354 300 118 Output Total 2095 200 200 Balance -1741 100 -82 Intake: IV 180 0.9 NACL 80 Piperacillin-Tazobactam 3 100 .375 gm In Sodium Chloride 0.9% 100 ml @ 25 mls/hr IVPB Q8H [facility] Rx#: [id number] Oral 354 120 118 Output: Chest Tube Drainage 20 0 Right Anterior Chest 20 0 Urine 5 200 200 Other: Voiding Method Bedside Commode Bedside Commode Urinal Urinal # Voids 1 1 # Bowel Movements 1 - Exam No acute distress, oriented 3. Currently on high flow nasal cannula, and a partial rebreather mask, prn. HEENT examination is grossly unremarkable. Mucous membranes are moist. No oral lesions. Neck supple. Full range of motion. No adenopathy thyromegaly or neck vein distention. Cardiovascular examination reveals regular rhythm rate. S1-S2 normal. No S3 or S4. No discernible murmur noted. Heart rate 92 bpm. Lungs reveal clear mild scattered rhonchi bilaterally. No wheezes or crackles. Right-sided Thora vent is noted. A small leak is noted. No subcutaneous emphysema. Saturations are 93 %. Abdomen soft bowel sounds are heard. No masses or tenderness. Extremities are intact. No cyanosis clubbing or edema. Skin is without rash or lesion. Neurologic examination is brief but nonfocal. 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 In addition, the patient had a large right-sided effusion, which required thoracentesis. Acute exacerbation of COPD. Right pneumothorax, following right thoracentesis, status post Thora vent placement. Non-small cell lung cancer with metastasis to the chest, brain, and bone. Right renal nodule, suspicious for malignancy. T12 kyphoplasty. Former smoker. 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 Constipation Plan: Plan dated August 02, 2023. Today's chest x-ray shows a slightly larger right apical pneumothorax. The patient's lung may never fully expand, as he may have a trapped lung. There is still a small leak. I will leave the Thora vent in for now. Labs, x-rays, and medications are reviewed. The patient continues on bronchodilators, corticosteroids. The patient has metastatic lung cancer, so his overall prognosis is very poor. We will continue to follow make recommendations along the way. Prognosis is certainly very guarded. The patient's major complaint today was constipation. Plan dated August 03, 2023. The patient will have a chest x-ray done today. Normal was ordered. In addition, will have cardiothoracic surgery see the patient, because of the persistent air leak on the right side. The Thora vent remains in place. Yesterday's chest x-ray showed a slightly larger right-sided pneumothorax. Labs, x-rays, and medications are reviewed. The patient has a history of metastatic lung cancer. Prognosis is certainly guarded. The patient continues on Diflucan, albuterol sulfate, and ipratropium bromide, Solu-Medrol, and Zosyn. We will continue to follow make recommendations along the way. We will await input by cardiothoracic surgery. Plan dated August 04, 2023. I had the opportunity to speak to Dr. Negrete about this patient and what to do next. We are going to stop the corticosteroids, which may improve the healing process. In addition, the Thora vent will remain on suction for the time being. Dr. Negrete thinks there is no really good solution for this patient, and surgery is not guaranteed to be effective. Nonetheless, we will give the patient a few days off the corticosteroids, see how he responds. Currently he is on high flow nasal cannula, and a partial rebreather mask. Labs, x-rays, and medications are reviewed. Corticosteroids are discontinued. Additional recommendations and suggestions are forthcoming. Prognosis is certainly guarded. Plan dated August 05, 2023. Corticosteroids should be discontinued altogether. Were hoping, that the patient expands the right lung fully, without a leak, but if he does not, surgery may be indicated next week. I did speak to Dr. Negrete about the options. None of which are good. Nonetheless, the patient's apical pneumothorax today is smaller. He has a persistently, mostly when he coughs, not so much when he takes a deep breath. Labs, x-rays, medications are reviewed. The patient's overall prognosis remains very guarded. We will continue to follow the patient, make recommendations along the way. Time with Patient: Less than 30
[2023-08-05] MEDS ORDERED: HYDROcodone/APAP 5-325MG 1 EACH TAB PO PRN (14:08)
[2023-08-05] MEDS: MAG HYDROX/AL HYDROX/SIMETH 30 ML, LIDOCAINE VISCOUS 2% 30 ML, diphenhydrAMINE ELIXIR 7... PO SCH (15:08)
[2023-08-05] MEDS: LACTULOSE 20 GM/30 ML CUP PO SCH (16:29)
--- NOTE | 2023-08-05 20:12 | P.PN ---
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 Patient completed 6 cycles of concurrent chemoradiation on 02/08/2023 and radiation therapy completed on 02/16/2023. CT neck,/chest and abdomen on 02/24/2023 showed stable disease. He was started on cycle 1 of consolidative durvalumab on 03/19/2023. Bronchoscopy on 06/04/2023 with the biopsy of the right hilar region reveals evidence of poorly differentiated non- small cell carcinoma. PET scan showed evidence of metastasis to the bones including right lower ribs/pelvis/C2 and L5 vertebral bodies, intra-abdominal lymphadenopathy, right hilar region. MRI brain showed at least 6 peripherally enhancing lesions. Patient was started on afatinib about 2 weeks ago. Patient presented to ER with complaints of worsening shortness of breath. Patient is requiring 9 L oxygen via nasal cannula. Otherwise denies any complaints of fever or chills. No nausea vomiting. No hematemesis or melena. No headache or dizziness. Patient also having generalized weakness and requiring assistance with sitting up and ambulation. Chest x-ray showed increased right upper lobe lung airspace opacities correlate for pneumonia. EKG showed sinus tachycardia with occasional ventricular premature complexes. Laboratory data showed WBC 10.3 hemoglobin 13.5 and platelets 324 Sodium 131 potassium 3.5 chloride 101 bicarb is 22 BUN 14 and creatinine 0.52 and blood sugar is 105 and calcium 8.3 AST 48 ALT 65 and alk phos 138. Troponin x 1 negative and procalcitonin level is 0.2 Urinalysis is negative for infection Influenza A, B, Legionella, RSV and COVID-19 PCR not detected. 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 Patient is status post thoracentesis on the right with approximately 3.2 liters removed. Patient requiring more oxygen currently maintained on airvo 60/80. Patient is lethargic and significantly weak and appears restless in mild respiratory distress. Patient reports not much of an appetite and has been tolerating supplements and will continue. Patient with significant weakness although respiratory status making it difficult for ambulation. Patient also reports to not sleeping well and will add low-dose medication as needed. Patient is currently afebrile with no reported chest pain. Cultures have been sent and pending. 07/30/2023 Patient is seen in follow-up this morning continues to be in the ICU maintained on airvo 60/50 and continues with significant shortness of breath although feels slightly improved. Patient continues with chest tube and is status postthoracentesis. Cytology is pending. Patient is afebrile. Patient continues to be significantly weak and extremely dyspneic with minimal exertion. Encouraged oral intake. 07/31/2023 Patient is seen in follow-up today continues to be in the ICU with multiple medical consultations following. Weaning FiO2 as tolerated currently maintained on 5050 of airvo with supplemental oxygen of nonrebreather as needed. Patient continues with Pleurx catheter on the right chest wall with pulmonary following. Sputum culture showing Shanta and patient is also continued on Zosyn and will continue for now. Patient reports having some mouth soreness and does appear to have thrush. Patient is afebrile with no reported chest pain. Patient with overall weakness and prolonged hospitalization, recommend increased activity as tolerated. Overall prognosis remains guarded. 08/01/2023 Patient is seen in follow-up today has been transferred out of the ICU on 3 S. continued on IV Lasix daily along with continued IV steroids and Zosyn. Patient continues with Pleurx catheter and cultures preliminary showing no growth. Patient continues on Airvo at 50/50 and weaning as tolerated. White count has normalized and hemoglobin is stable at 12.8, sodium is 135 with a potassium of 4.3 and electrolytes within normal limits. Patient with weakness will have PT/OT evaluate once respiratory status more stable. Encouraged oral intake. Patient also to continue on Diflucan for oral thrush. 08/02/2023 patient is seen in follow-up today reports his breathing is slightly improved although continues on airvo 50/50 with pulmonary following. Patient also continues with Pleurx catheter noted of the right chest with serous drainage. Patient is continued on Zosyn along with Diflucan for oral thrush. Patient with prolonged hospitalization and generalized weakness, will have PT/OT therapy evaluate the patient. Patient reports has not had a bowel movement in a few days and is feeling constipated. Will add lactulose to make it 3 times daily as needed. Patient is afebrile with no reports of chest pain or palpitations. Follow-up chest x-ray today shows right apical pneumothorax slightly larger in size now 4.0 cm versus 3.2 cm previously with continued right side Thora vent with continued similar diffuse interstitial densities and right midlung opacities. 08/03/2023 Patient is seen in follow-up continues on the stepdown unit currently maintained on Airvo and attempting to wean as patient also continues with 15 L nonre breather. Airvo being titrated down to 40 and patient is tolerating. Patient continues with shortness of breath and also has Pleurx catheter on the right reporting he feels his shortness of breath is slightly improving. Patient inquiring about when he can go home and discussed with him as well as family at the bedside he would need to be titrated down to nasal cannula prior to discharge. Patient has been using incentive spirometer and sitting up more often working to wean as tolerated. Patient with significant weakness being evaluated by physical therapy and recommend daily. Encouraged oral intake. Patient remains afebrile. 08/04/2023 Patient is seen in follow-up with multiple medical consultations following including cardiothoracic surgery and pulmonary smocking machine operator. Patient maintained on high flow nasal cannula at 6 L as well as 15 L nonrebreather and patient is off Airvo. Patient had an episode overnight of extreme chest pain and shortness of breath and chest x-ray was performed showing right-sided pneumothorax as patient was off suction and per nursing staff immediately placed back on suction with repeat chest x-ray showing resolution of the pneumothorax. CT surgery fo llowing and have discontinued corticosteroids and will monitor closely over the next few days with attempts to weaning from suctioning and discuss further about treatment plan moving forward if patient requires surgical intervention. Follow-up chest x-ray ordered and will also follow-up with repeat labs. Patient was on IV Lasix daily although appears clinically dry and will initiate gentle hydration and again follow-up with repeat labs. Sodium is 133. 08/05/2023 Patient is seen in follow-up today with pulmonary, CT surgery, oncology following and patient continues with significant shortness of breath. Chest x- ray reveals smaller pneumo thorax and continues with Pleurx catheter to suction. Corticosteroids discontinued. Patient continues on gentle IV hydration and Lasix was also discontinued. Patient reports has not had a bowel movement again in a day and will make lactulose 3 times daily scheduled until having bowel movements. Encouraged oral intake and increased activity as tolerated. Patient is currently sitting up in the chair. Patient on 6 L nasal cannula and intermittently using nonrebreather. Encouraged the patient to continue with incentive spirometer and limiting nonrebreather use. Will follow-up on repeat labs. Review of systems: Constitutional: reports of fatigue but improved, no fever, or chills, less anxious Cardiovascular: No reports of chest pain or palpitations Respiratory: reports of continued shortness of breath and cough, although reports this feeling slightly improved GI: No reports of nausea, vomiting, or diarrhea, reports not much of an a ppetite, but eating a little more, reports no bowel movement in a day : No reports of dysuria or retention Neurovascular: reports of generalized weakness All medications have been reviewed PHYSICAL EXAMINATION: Patient is sitting up in the chair, maintained on 6 L nasal cannula along with 15 L nonrebreather, awake alert and oriented, appears weak... Thin built, elderly appearing, ill-appearing HEENT: Normocephalic. Neck is supple. Pupils reactive. Nostrils clear. Oral cavity is moist. Neck reveals no JVD, carotid bruits, or thyromegaly. CHEST EXAMINATION: Trachea is central. Symmetrical expansion. Bilateral scattered rhonchi and coarse sounds. Basilar diminished sounds. Worse on the right CARDIAC: Normal S1, S2 with no gallops. No murmurs ABDOMEN: Soft. Thin, scaphoid bowel sounds present. Nontender. No organomegaly. No abdominal bruits. Extremities: reveal no edema. No clubbing or cyanosis Neurologically awake, alert, oriented x3 with well-coordinated movements. No gross focal deficits noted, diffusely weak Skin: No rash or skin lesions. Psychiatric: Cooperative. Non-suicidal, slightly anxious at times Musculoskeletal: No joint swelling or deformity. Assessment: Acute on chronic hypoxemic respiratory failure with right upper lobe pneumonia and metastatic lung cancer and pleural effusion. Possible afatinib pneumonitis cannot be excluded. Currently maintained on 6 L nasal cannula along with 15 L nonrebreather at times, recommend limiting nonrebreather Non-small cell lung cancer status post chemoradiation, with metastasis to right lower rib, pelvis, vertebral bodies and brain metastatic lesions. Patient was started on afatinib about 2 weeks ago. Treatment currently on hold with hematology/oncology following Oral thrush with sputum culture showing Shanta COPD with mild exacerbation Hypovolemic hyponatremia, likely secondary to poor oral intake Mild transaminitis Recent kyphoplasty in May 2023 Chronic right-sided pleural effusion. Likely malignant effusion, status post thoracentesis on the right with trapped lung post thoracentesis noted requiring chest tube on 07/29/2023 Prior history of smoking GI and DVT prophylaxis with PPI and heparin subcu Full code Plan: Patient will be continued on oxygen supplementation and Weaning FiO2 as tolerated. Currently maintained on 6 L nasal cannula along with intermittent periods of 15 L nonrebreather. Attempting to wean FiO2 as tolerated. Patient continues with Pleurx catheter on the right and CT surgery following recommending holding corticosteroids and monitoring closely over the next few days to determine if patient requires surgical intervention. Chest x-ray daily Patient continuing with bowel regimen and lactulose and reports no bowel movement and will add lactulose scheduled until having bowel movements. Patient is continued on Diflucan sputum culture showed Shanta. Antibiotics have been discontinued and being closely monitored off antibiotic therapy. Patient with thrush and will add cool solution with nystatin, discontinue Diflucan Patient to continue on DuoNebs and was maintained on low-dose Lasix although appears clinically dry and will continue gentle hydration and follow-up with repeat labs. Oncology following as well as patient was continued on cancer treatment which is currently on hold and will follow-up in the outpatient setting encouraged oral intake and increased activity as tolerated. PT/OT therapy following and working with the patient. Recommend daily as patient has had prolonged hospitalization and plans on returning home on discharge Due to multiple complex medical issues with metastasis, overall prognosis remains extremely poor and guarded at this time The impression and plan of care has been dictated by Merle Kenny, Nurse Practitioner as directed. Dr. Paris MD I have performed a history and examination and MDM of this patient, discussed the same with the dictator, and agree with the dictator's assessment and plan as written ,documented as a scribe. Based on total visit time, I have performed more than 50% of the visit. Objective - Vital Signs Vital signs: Vital Signs Temp 98.0 F 08/05/23 09:39 Pulse 94 08/05/23 09:39 Resp 20 08/05/23 09:39 BP 118/83 08/05/23 09:39 Pulse Ox 93 L 08/05/23 09:39 FiO2 40 08/03/23 15:20 Intake & Output 08/04/23 08/05/23 08/05/23 18:59 06:59 18:59 Intake Total 354 300 118 Output Total 2095 200 200 Balance -1741 100 -82 Intake: IV 180 0.9 NACL 80 Piperacillin-Tazobactam 3 100 .375 gm In Sodium Chloride 0.9% 100 ml @ 25 mls/hr IVPB Q8H [facility] Rx#: [id number] Oral 354 120 118 Output: Chest Tube Drainage 20 0 Right Anterior Chest 20 0 Urine 2075 200 200 Other: Voiding Method Bedside Commode Bedside Commode Urinal Urinal # Voids 1 1 # Bowel Movements 1 - Labs CBC & Chem 7: 08/05/23 09:03 08/05/23 09:03 Labs: Abnormal Lab Results - Last 24 Hours (Table) 08/05/23 08/05/23 Range/Units 09:03 09:03 WBC 13.1 H (3.8-10.6) k/uL RBC 4.13 L (4.30-5.90) m/uL Neutrophils # 12.4 H (1.3-7.7) k/uL Lymphocytes # 0.4 L (1.0-4.8) k/uL Sodium 132 L (137-145) mmol/L Carbon Dioxide 31 H (22-30) mmol/L BUN 24 H (9-20) mg/dL Creatinine 0.58 L (0.66-1.25) mg/dL Glucose 102 H (74-99) mg/dL
--- NOTE | 2023-08-05 21:29 | P.PN ---
Subjective Progress Note Date: 08/05/23 Patient has been transitioned off airvo and is on 6 L nasal cannula with SPO2 90%. Reporting overall improvement in breathing, but complaining of persisting right-sided lung pain. Continues on incentive spirometer. Was found to have air leak, CT chest showed moderate size right pneumothorax. Right chest wall subcutaneous emphysema redemonstrated. CTS recommend to keep right Thoravent to low continuous wall suction, and if air leak does not improve will discuss other interventions. Objective - Vital Signs Vital signs: Vital Signs Temp 98.1 F 08/05/23 16:00 Pulse 93 08/05/23 21:05 Resp 20 08/05/23 20:00 BP 120/85 08/05/23 20:00 Pulse Ox 90 L 08/05/23 20:00 FiO2 40 08/03/23 15:20 Intake & Output 08/05/23 08/05/23 08/06/23 06:59 18:59 06:59 Intake Total 300 236 Output Total 200 700 0 Balance 100 -464 0 Intake: IV 180 0.9 NACL 80 Piperacillin-Tazobactam 3 100 .375 gm In Sodium Chloride 0.9% 100 ml @ 25 mls/hr IVPB Q8H [facility] Rx#: [id number] Oral 120 236 Output: Chest Tube Drainage 0 0 0 Right Anterior Chest 0 0 0 Urine 200 700 Other: Voiding Method Bedside Commode Bedside Commode Bedside Commode Urinal Urinal Urinal # Voids 1 - Constitutional General appearance: Present: no acute distress - EENT Eyes: Present: anicteric sclerae, EOMI ENT: Present: hearing grossly normal - Respiratory Details: breathing mildly labored, diminished right lung - Cardiovascular Details: tachycardia - Gastrointestinal General gastrointestinal: Present: soft. Absent: tenderness - Integumentary Integumentary: Absent: cyanotic - Neurologic Neurologic: Present: CNII-XII intact - Musculoskeletal Musculoskeletal: Present: strength equal bilaterally - Psychiatric Psychiatric: Present: A&O x's 3 - Labs CBC & Chem 7: 08/05/23 09:03 08/05/23 09:03 Labs: Abnormal Lab Results - Last 24 Hours (Table) 08/05/23 08/05/23 Range/Units 09:03 09:03 WBC 13.1 H (3.8-10.6) k/uL RBC 4.13 L (4.30-5.90) m/uL Neutrophils # 12.4 H (1.3-7.7) k/uL Lymphocytes # 0.4 L (1.0-4.8) k/uL Sodium 132 L (137-145) mmol/L Carbon Dioxide 31 H (22-30) mmol/L BUN 24 H (9-20) mg/dL Creatinine 0.58 L (0.66-1.25) mg/dL Glucose 102 H (74-99) mg/dL Microbiology - Last 24 Hours (Table) 07/29/23 07:30 Acid Fast Bacilli Smear - Preliminary Pleural Fluid Acid Fast Bacilli Culture - Preliminary - Imaging and Cardiology Chest x-ray: report reviewed Assessment and Plan (1) Drug-induced pneumonitis Current Visit: Yes Status: Acute Priority: High Code(s): J98.4 - OTHER DISORDERS OF LUNG; T50.905A - ADVERSE EFFECT OF UNSP DRUG/MEDS/BIOL SUBST, INIT SNOMED Code(s): 255272232 (2) Hypoxic respiratory failure Current Visit: Yes Status: Acute Code(s): J96.91 - RESPIRATORY FAILURE, UNS PECIFIED WITH HYPOXIA SNOMED Code(s): 39513490951781613 (3) Pleural effusion Current Visit: Yes Status: Acute Priority: High Code(s): J90 - PLEURAL E FFUSION, NOT ELSEWHERE CLASSIFIED SNOMED Code(s): 37742128 (4) Squamous cell carcinoma of lung, stage IV Current Visit: Yes Status: Chronic Priority: High Code(s): C34.90 - MALIGNANT NEOPLASM OF UNSP PART OF UNSP BRONCHUS OR LUNG SNOMED Code(s): 039302923 Plan: Drug-induced pneumonitis -[place] that imaging and assessment are most consistent with drug induced pneumonitis -Agree with steroids, abx and infection work up in case of any underlying infection contributing to worsening symptoms -Discontinue Gilotrif -Prednisone taper started, will plan for slow 6 week taper. Prednisone has been d/c by CTS, will speak with service about our recommendations and concerns for worsening respiratory status if abruptly stopped on steroids with suspected IO r/t pneumonitis -F/U with primary Oncologist for treatment plans once acute condition adequately resolved Pleural effusion/pneumothorax -Status post 3.2 L thoracentesis -Cytology positive for non-small cell lung adenocarcinoma. -Pneumothorax, chest tube in place. Patient has been transitioned off airvo and is on 6 L nasal cannula with SPO2 90%. Airleak within chest tube noted. CT chest was subsequently ordered which showed moderate size right pneumothorax with upper lung pleural catheter in place. Right chest wall subcutaneous emphysema redemonstrated. CTS recommend to keep right Thoravent to low continuous wall suction, and if air leak does not improve will discuss other interventions. Repeat chest x-ray today revealing redemonstrated small right apical pneumothorax. Sq cell carcinoma, recurrent, on gilotrif targeted agent -Patient is status post a 3.2 L thoracentesis on the right. Cytology positive for non-small cell lung adenocarcinoma. -Discontinue gilotrif secondary to drug-induced pneumonitis -Primary Oncologist plans for change in therapy once patient current condition has resolved. -Did discuss the case with Radiation Oncologist. Based on patient's current condition, and overall asymptomatic brain mets, no radiation would be planned for at this time. Radiation Oncologist will review images though and, if necessary, will request a consult so the patient can be seen inpatient. -Clinic f/u in discharge plan Malignancy related pain -Today, reporting pain medications are not adequately controlling pain. Only working for 1 hour of pain control. Will add IVP dilaudid for severe breakthrough pain. Hope once pneumothorax resolved and chest tube removal pt will have significant relief in pain. If pain persists will consider long acting medication. Will continue to monitor and make adjustments as needed -Meds ordered to prevent narcotic induced constipation Attests: I have seen and examined pt, performed H&P, developed impression and plan of care. Discussed with dictator. Agree with documentation, dictated as a scribe.
--- NOTE | 2023-08-06 01:07 | XR ---
EXAMINATION TYPE: XR chest 1V portable DATE OF EXAM: 08/06/2023 CLINICAL HISTORY: Right-sided pneumothorax. TECHNIQUE: Single AP portable upright view of the chest is obtained. COMPARISON: Chest x-ray from one day earlier FINDINGS: Persistent right apical pneumothorax despite right upper lung pleural drainage catheter. P neumothorax slightly increased in size from prior study. Apical measurement is 2.6 cm prior study tasneem nils 1.5 cm most recent prior. Adjacent subcutaneous emphysema is redemonstrated and felt stable or sl ightly improved. Persistent right hilar masslike consolidation and left central opacity. Cardiac silh ouette size stable and within normal limits. Osseous structures are intact. IMPRESSION: Right-sided thoracic vent catheter redemonstrated with small right upper lung pneumothora x slightly increased in size from most recent prior x-ray.
--- NOTE | 2023-08-06 08:49 | P.PN ---
Subjective Progress Note Date: 08/06/23 Principal diagnosis: Acute hypoxic respiratory failure, right-sided pleural effusion and subsequent right-sided pneumothorax after thoracentesis with placement of right Thoravent w ith persistent airleak, pneumonia. Past medical history significant for metastatic non-small cell lung carcinoma, previous tobacco dependence, and COPD. Status post right Thoravent placement by Dr. Santillan on 07/29/2023. The patient was seen and examined at his bedside today August 06, 2023 on the third floor cardiac stepdown unit. Currently he is sitting up in bed, is awake, alert, oriented x 3 and is in no acute apparent distress. He denies any complaints of pain at this time, although continues to complain of episodes of shortness of breath and is using his 100% nonrebreather for "episodes of recovery". He reports that he does get short winded with activity and needs the 100% nonrebreather to recover from these episodes. Oxygen saturations are currently 92% on 12 L high flow nasal cannula. He is achieving 1250 mL on his incentive spirometry with encouragement. Right Thoravent chest tube remains in place connected to Pleur-evac and low continuous wall suction -20 cm H2O. In termittent airleak remains present. Scant serous drainage with 5 to 10 mL output in the last 24 hours. Chest x-ray results reviewed. He remains off corticosteroids as discussed with Dr. Negrete from cardiothoracic surgery and Dr. Caro from pulmonary/critical care medicine. The patient reports he has been up ambulating in his room and has been getting up to the bedside chair frequently throughout the day. Objective - Vital Signs Vital signs: Vital Signs Temp 98.1 F 08/06/23 07:28 Pulse 100 08/06/23 08:26 Resp 18 08/06/23 07:28 BP 93/51 08/06/23 07:28 Pulse Ox 93 L 08/06/23 08:16 FiO2 40 08/03/23 15:20 Intake & Output 08/05/23 08/06/23 08/06/23 18:59 06:59 18:59 Intake Total 236 232 Output Total 700 10 Balance -464 -10 232 Intake: IV 10 Invasive Line 4 10 Oral 236 222 Output: Chest Tube Drainage 0 10 Right Anterior Chest 0 10 Urine 700 Other: Voiding Method Bedside Commode Bedside Commode Bedside Commode Urinal Urinal Urinal # Voids 1 1 # Bowel Movements 1 - Exam CONSTITUTIONAL: Awake and alert, cooperative, cachectic, no pain, no acute distress. RESPIRATORY: Lungs sounds bilaterally, right greater than left with few scattered crackles throughout. Respirations symmetrical and nonlabored. Currently on 12 L high flow nasal cannula with oxygen saturation 92%. Strong productive cough. Right sided Thora-vent present to anterior chest wall and connected to atrium with continuous low wall suction 20 mm H2O, intermittent air leak present. CARDIOVASCULAR: S1, S2 present. Regular tachycardic rate and rhythm, sinus tachycardia rhythm on telemetry, heart rate 111 bpm. Palpable peripheral pulses bilaterally. No edema present. No calf pain or tenderness noted GASTROINTESTINAL: Abdomen soft, nontender, nondistended without organomegaly. There is no rebound or guarding present. Active bowel sounds present 4 quadrants. GENITOURINARY: Continues to void. INTEGUMENTARY: Skin is warm and dry with no clubbing or cyanosis. NEUROLOGIC: Cranial nerves II through XII intact, normal coordination, no focal deficits, speech is normal. MUSKULOSKELETAL: Able to move all extremities, strength equal bilaterally, normal posture. PSYCHIATRIC: Alert and oriented to person place and time, appropriate affect, intact judgment and insight. - Allied health notes Allied health notes reviewed: nursing - Labs CBC & Chem 7: 08/05/23 09:03 08/05/23 09:03 Labs: Abnormal Lab Results - Last 24 Hours (Table) 08/05/23 08/05/23 Range/Units 09:03 09:03 WBC 13.1 H (3.8-10.6) k/uL RBC 4.13 L (4.30-5.90) m/uL Neutrophils # 12.4 H (1.3-7.7) k/uL Lymphocytes # 0.4 L (1.0-4.8) k/uL Sodium 132 L (137-145) mmol/L Carbon Dioxide 31 H (22-30) mmol/L BUN 24 H (9-20) mg/dL Creatinine 0.58 L (0.66-1.25) mg/dL Glucose 102 H (74-99) mg/dL Microbiology - Last 24 Hours (Table) 07/29/23 07:30 Acid Fast Bacilli Smear - Preliminary Pleural Fluid Acid Fast Bacilli Culture - Preliminary - Imaging and Cardiology Chest x-ray: report reviewed, image reviewed Assessment and Plan Assessment: Acute hypoxic respiratory failure, currently on 12 L high flow nasal cannula oxygen, using the 100% nonrebreather for recovery with activity Pneumonia Right-sided pneumothorax after thoracentesis, status post right Thoravent placement with persistent intermittent airleak Shortness of breath, likely secondary to above Metastatic non-small cell lung carcinoma Previous tobacco dependence, COPD Plan: Keep right Thoravent to low continuous wall suction -20 cm H2O, continue to monitor for airleak resolution. Encourage use of incentive spirometry 10 times every hour while awake. Wean oxygen as tolerated, oxygen, inhaler management per pulmonary/critical care recommendations. Medical management of other comorbidities per primary care service, pulmonology and oncology. Continue to hold corticosteroids per discussion with Dr. Negrete and Dr. Caro. Increase activity as tolerated. More recommendations to follow based on patient's clinical course. Time with Patient: Less than 30
[2023-08-06 09:41] LABS: Basophils % (A) 0 %; Eosinophils # (A) 0.1 k/uL (0-0.7); Eosinophils % (A) 0 %; HCT 42.7 % (39.0-53.0); HGB 14.4 gm/dL (13.0-17.5); Lymphocytes # (A) 0.3 k/uL (1.0-4.8); Lymphocytes % (A) 2 %; MCH 33.3 pg (25.0-35.0); MCHC 33.7 g/dL (31.0-37.0); MCV 98.9 fL (80.0-100.0); Mean Platelet Volume 7.5; Monocytes # (A) 0.3 k/uL (0-1.0); Monocytes % (A) 2 %; Neutrophils # (A) 12.8 k/uL (1.3-7.7); Neutrophils % (A) 96 %; Platelet Count 274 k/uL (150-450); RBC 4.32 m/uL (4.30-5.90); RDW 14.3 % (11.5-15.5); WBC 13.4 k/uL (3.8-10.6)
[2023-08-06 10:07] LABS: African American GFR (CKD) >90 (>60 ml/min/1.73 sqM); Anion Gap 5 mmol/L; Blood Urea Nitrogen 19 mg/dL (9-20); Calcium 8.7 mg/dL (8.4-10.2); Carbon Dioxide 27 mmol/L (22-30); Chloride 99 mmol/L (98-107); Glucose 126 mg/dL (74-99); Magnesium 1.9 mg/dL (1.6-2.3); Non-African American GFR(CKD) >90 (>60 ml/min/1.73 sqM); Potassium 3.9 mmol/L (3.5-5.1); Sodium 131 mmol/L (137-145)
--- NOTE | 2023-08-06 11:32 | P.PN ---
Subjective Progress Note Date: 08/06/23 Principal diagnosis: Respiratory failure. Acute hypoxic respiratory failure, multifactorial am seeing this patient in consultation today July 28, 2023 in the emergency room after he presented with complaints of increased shortness of breath, worsening since Wednesday. Patient is a 58-year-old white male with past medical history significant for metastatic non-small cell lung carcinoma, COPD, former tobacco dependence. He follows with Dr. Avilez in the pulmonary office. Patient has biopsy-proven non-small cell carcinoma, with metastasis within the chest, brain, and diffuse osseous metastasis. He also has a right renal nodule which is being followed up by urology. He has been following with radiation oncology and medical oncology. He has been treated with immunotherapy in the past, but has failed treatment. He has recently been started on daily Gilotrif on July 14. Since Wednesday, the patient has had worsening shortness of breath. This is especially noticeable during exertion. He is not normally oxygen dependent at home. He has been wheezing while at home. He has also had a change in his chronic cough with limited amounts of sputum production. Denies any fevers, chills, chest pain, hemoptysis. He presented to the emergency room last night with the above-mentioned symptoms. He is currently lying in bed, on 4 L/min nasal cannula, in no acute distress. He is generally weak and requires assistance to sit up in bed. His is at bedside. Chest x-ray on arrival demonstrated a new bilateral infiltrates, especially involving the left upper imelda ng field, chronic right lung changes, and a chronic right-sided pleural effusion. These findings are concerning for bilateral multifocal pneumonia or possible pulmonary drug toxicity. CBC on arrival was fairly unremarkable. WBC count 10.3, hematocrit 13.5, hematocrit 39.7, platelets 324. CMP on arrival: Sodium 131, potassium 3.5, chloride 101, serum bicarb 22, BUN 14, creatinine 0.52, glucose 105. Infusing at 75 mL/h. Lactic acid level not elevated. Mild elevation in LFTs. Troponin less than 0.012. NT proBNP not elevated. Urinalysis not concerning for UTI. Negative for influenza, RSV, COVID. Patient has been started on empiric antibiotics. He is afebrile. Vital signs are stable. Patient was reevaluated today on 07/29/23, I transferred the patient early this morning to the ICU mostly because of worsening respiratory status. Patient was placed on 15 L high flow nasal cannula on the floor, and his O2 saturation was in the 80s. Transferred the patient to the ICU, came in and evaluated the patient, and recommended immediate thoracentesis for his pleural effusion. This was performed at bedside, and I was able to drain 1150 cc of serosanguineous fluid patient had dramatic improvement clinically, follow-up chest x-ray showed apical right-sided pneumothorax however I believe it is not a true pneumothorax, I believe mostly due to trapped lung that did not fully expand any rate patient will have a follow-up chest x-ray in few hours after the thoracentesis. Fluid was sent for different diagnostic studies, and clinically felt much betterWBC count is 11.6 hemoglobin 12.4 basic metabolic profile is normal renal profile is normal Reevaluated today on 07/30/2023, patient remains in the ICU, feeling better today, is breathing easier, nonetheless remains on Airvo, 60% FiO2 and 50 L flow ontinues to have Thora vent in place, small tiny right-sided apical pneumothorax is noted, continues to have significant amount of air and fluid coming out of the Thora vent tube. Cytology on the fluid is pending/pleural effusion cytology is pending. WBC is 14.0 hemoglobin 11.7 his basic metabolic profile is normal except for low potassium of 3.2, patient is requiring narcotics for pain control Patient was reevaluated today on 07/31/2023, remains in the ICU, patient is an overflow, doing well, on 50 L high flow and 50% FiO2 via Airvo. Feeling better today compared to yesterday, continues to have a minimal leak in the Pleur-evac from his Thora vent. Drained about 200 cc over the last 24 hours from his Thora vent/chest tube. Chest x-ray showed significant improvement in his right-sided pneumothorax, however there is significant airspace disease involving the left lung, patient is on steroids, and today I recommended 1 dose of Lasix 20 mg IV push to be given. WBC count is 9.9 hemoglobin is 12 electrolytes are normal renal profile is normal, final report on his pleural effusion is pending so far no growth Reevaluated today on 08/01/2023, patient is now on the cardiac floor, basically about the same, remains on Airvo at 50% FiO2 and 50% liters flow, continues to have the Thora vent in place, connected to Pleur-evac, continues to have minimal air leak, right lung is expanded however still has a small right apical pneumothorax. The pneumonic process in the left lung seems to be improving a bit based on the chest x-ray. Clinically the patient is feeling better, breathing a bit easier. CBC today is relatively normal WBC count is 9.5 hemoglobin is 12.8 basic metabolic profile is normal renal profile is normal. Patient remains on antibiotics, bronchodilators, and steroids cytology from the pleural effusion is pending patient has been previously diagnosed with metastatic non-small cell lung cancer Progress note dated August 02, 2023. This is a 58-year-old male seen in room 364. The patient continues on Airvo, at 50 L/min with an FiO2 of 50%. He continues on Zosyn. He is getting saline at 20 cc an hour. The patient has a right-sided Thora vent in place. The patient does have a small air leak. He appears stable from the pulmonary standpoint. His biggest complaint today is that he is constipated. No new labs today. Laboratory data from August 01 showed a white count of 9.5, hemoglobin 12.8, and a normal platelet count. Sodium 135, with a normal potassium chloride and CO2. BUN and creatinine were 22 and 0.6. Microbiologic data thus far is negative. Chest x-ray shows a small right apical pneumothorax, slightly larger in size, now 4 cm versus 3.2 cm previously. There is also some diffuse bilateral infiltrates, mostly in the right midlung. Progress note dated August 03, 2023. This is a 58-year-old male seen in room 364. The patient continues on Airvo, with settings of 50 L/min, and an FiO2 40%. We will check a chest x-ray today. We have asked cardiothoracic surgery to see the patient, because the patient has a persistent small air leak, from the pneumothorax, after thoracentesis. He continues on Zosyn. No IV fluids. Clinically, he feels reasonable. He is hoping that the Thora vent can come out soon. Yesterday's chest x-ray showed an enlarging right-sided pneumothorax. Current labs include a white count of 10.9, hemoglobin 14, hematocrit 42, and a normal platelet count. Sodium 133, potassium 4.2, chloride 102, CO2 24, BUN 22, creatinine 0.53. Albumin is 2.9. Progress note dated August 04, 2023. 58-year-old male again seen in room 364. The patient is currently on a partial rebreather mask, along with high flow nasal cannula. Yesterday, cardiothoracic surgery, wanted the patient changed from suction, to waterseal. Unfortunately, the patient became very short of breath, required high concentrations of oxygen, and I was called. I asked for an immediate stat portable chest x-ray, which showed a worsening right-sided pneumothorax. Afterwards I told him to place the patient back on suction. Subsequent x-ray showed almost near complete expansion of that right lung. We did ask cardiothoracic surgery to see the patient, and they recommended stopping the corticosteroids, and determining in the next few days, whether or not the patient would be a candidate for some sort of surgical procedure. The patient's not receiving any IV fluids. No new labs today other than a glucose of 123. Chest x-ray shows an improvement in the right-sided pneumothorax. Thora vent remains in place. CT scan of the chest shows a moderately sized right pneumothorax, with Thora vent catheter in place. There is right chest wall subcutaneous emphysema. There is a small right-sided pleural effusion, and a right perihilar masslike consolidation. Other noted findings on CT scan are reviewed. Progress note dated August 05, 2023. The patient is again seen in room 364. The patient is currently on 6 L high flow nasal cannula, and occasionally, we use a partial rebreather mask, when his sats drop below 90%. The patient does have a continuing leak, from the right Thora vent device, mostly when he coughs, not so much when he takes a deep breath. The patient is getting saline at 75 cc an hour. The patient's chest x- ray shows a relatively small right apical pneumothorax. Corticosteroids were discontinued, only to be restarted by oncology. The patient should not be getting steroids at the current time. Labs include a white count 13.1, hemoglobin 13.7, hematocrit 40.7, and a platelet count of 331,000. Sodium 132, potassium 4.1, chlorides 100, CO2 31, BUN 24, creatinine 0.58. Altered data is negative. Chest x-ray shows a small right apical pneumothorax. Progress note dated August 06, 2023. The patient is seen today in room 364. Last night, the patient became acutely short of breath, and was notified by the nurses. I recommended high flow nasal O2, as well as either a partial rebreather mask or a nonrebreather mask. The patient's chest x-ray, that was ordered last night, stat, included a large right-sided pneumothorax. The patient is seen today in room 364. He is on 11 L high flow oxygen. The patient is on saline at 75 cc an hour. The patient continues to have a leak. We had a conversation today about CODE STATUS. The patient would not want to be on life support. Both him and his agree. The nurse heard the conversation, along with my nurse practitioner. White count is 13.4, hemoglobin 14.4, hematocrit 42.7, platelet count 274,000. Sodium 131, potassium 3.9, chloride 99, CO2 27, BUN 19, creatinine 0.51. Glucose 126. Calcium 8.7 magnesium 1.9. Cultures, have thus far been negative. Chest x-ray this morning, it is similar to the x-ray that was done about 1:00 in the morning last night. It shows a slightly larger right-sided apical pneumothorax. Thora vent is in place. Objective - Vital Signs Vital signs: Vital Signs Temp 98.1 F 08/06/23 07:28 Pulse 96 08/06/23 11:20 Resp 18 08/06/23 07:28 BP 93/51 08/06/23 07:28 Pulse Ox 93 L 08/06/23 08:16 FiO2 40 08/03/23 15:20 Intake & Output 08/05/23 08/06/23 08/06/23 18:59 06:59 18:59 Intake Total 236 472 Output Total 700 10 350 Balance -464 -10 122 Intake: IV 10 Invasive Line 4 10 Oral 236 462 Output: Chest Tube Drainage 0 10 Right Anterior Chest 0 10 Urine 700 350 Other: Voiding Method Bedside Commode Bedside Commode Urinal Urinal Urinal # Voids 1 1 # Bowel Movements 1 - Exam No acute distress, oriented 3. Currently on high flow nasal cannula, and a par tial rebreather mask, prn. HEENT examination is grossly unremarkable. Mucous membranes are moist. No oral lesions. Neck supple. Full range of motion. No adenopathy thyromegaly or neck vein dist ention. Cardiovascular examination reveals regular rhythm rate. S1-S2 normal. No S3 or S4. No discernible murmur noted. Heart rate 85 bpm. Lungs reveal clear mild scattered rhonchi bilaterally. No wheezes or crackles. Right-sided Thora vent is noted. A small leak is noted. No subcutaneous emphysema. Saturations are 92 %. Abdomen soft bowel sounds are heard. No masses or tenderness. Extremities are intact. No cyanosis clubbing or edema. Skin is without rash or lesion. Neurologic examination is brief but nonfocal. 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 In addition, the patient had a large right-sided effusion, which required thoracentesis. Acute exacerbation of COPD. Right pneumothorax, following right thoracentesis, status post Thora vent placement. Non-small cell lung cancer with metastasis to the chest, brain, and bone. Right renal nodule, suspicious for malignancy. T12 kyphoplasty. Former smoker. 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 Constipation Plan: Plan dated August 02, 2023. Today's chest x-ray shows a slightly larger right apical pneumothorax. The patient's lung may never fully expand, as he may have a trapped lung. There is still a small leak. I will leave the Thora vent in for now. Labs, x-rays, and medications are reviewed. The patient continues on bronchodilators, corticosteroids. The patient has metastatic lung cancer, so his overall prognosis is very poor. We will continue to follow make recommendations along the way. Prognosis is certainly very guarded. The patient's major complaint today was constipation. Plan dated August 03, 2023. The patient will have a chest x-ray done today. Normal was ordered. In addition, will have cardiothoracic surgery see the patient, because of the persistent air leak on the right side. The Thora vent remains in place. Yesterday's chest x-ray showed a slightly larger right-sided pneumothorax. Labs, x-rays, and medications are reviewed. The patient has a history of metastatic lung cancer. Prognosis is certainly guarded. The patient continues on Diflucan, albuterol sulfate, and ipratropium bromide, Solu-Medrol, and Zosyn. We will continue to follow make recommendations along the way. We will await input by cardiothoracic surgery. Plan dated August 04, 2023. I had the opportunity to speak to Dr. Negrete about this patient and what to do next. We are going to stop the corticosteroids, which may improve the healing process. In addition, the Thora vent will remain on suction for the time being. Dr. Negrete thinks there is no really good solution for this patient, and surgery is not guaranteed to be effective. Nonetheless, we will give the patient a few days off the corticosteroids, see how he responds. Currently he is on high flow nasal cannula, and a partial rebreather mask. Labs, x-rays, and medications are reviewed. Corticosteroids are discontinued. Additional recommendations and suggestions are forthcoming. Prognosis is certainly guarded. Plan dated August 05, 2023. Corticosteroids should be discontinued altogether. Were hoping, that the patient expands the right lung fully, without a leak, but if he does not, surgery may be indicated next week. I did speak to Dr. Negrete about the options. None of which are good. Nonetheless, the patient's apical pneumothorax today is smaller. He has a persistently, mostly when he coughs, not so much when he takes a deep breath. Labs, x-rays, medications are reviewed. The patient's overall prognosis remains very guarded. We will continue to follow the patient, make recommendations along the way. Plan dated August 06, 2023. The patient's right apical pneumothorax is slightly larger today than it was yesterday. The patient did have an episode of acute shortness of breath last night, and required high flow nasal O2, as well as a partial rebreather mask. The corticosteroids have been discontinued, hoping that the patient's right lung will expand, and his leak will dissipate. He currently still has a leak, mostly with coughing, not so much with breathing. Labs, x-rays, and medications are reviewed. We are trying to avoid a surgery. Finally, we had a conversation about CODE STATUS. The patient clearly does not want to be on life support, and states that he is a DNR/DNI. His who was in the room, agreed. The conversation was witnessed by the floor nurse, and my nurse practitioner. We will continue to follow make recommendations along the way. Prognosis is certainly very guarded. Time with Patient: Less than 30
--- NOTE | 2023-08-06 12:25 | XR ---
EXAMINATION TYPE: XR chest 1V portable DATE OF EXAM: 08/06/2023 10:55 AM CLINICAL INDICATION:Male, 58 years old with history of pneumothorax; COMPARISON: Chest radiographs from same day. TECHNIQUE: XR chest 1V portable Frontal view of the chest. FINDINGS: Lungs/Pleura: Persistent right perihilar consolidation and haziness the left lung. There is no eviden ce of pleural effusion, focal consolidation, or pneumothorax. Pulmonary vascularity: Unremarkable. Heart/mediastinum: Cardiomediastinal silhouette is unremarkable. Musculoskeletal: No acute osseous pathology. Other findings: Subcutaneous emphysema in the right axilla. Lines/Tubes: Right thoracotomy tube is present without evidence of pneumothorax. IMPRESSION: Right thoracotomy tube with persistent pneumothorax. Findings not significantly changed from earlier exam.
[2023-08-06 14:39] VITALS: BMI 19.7
[2023-08-06] MEDS: ALPRAZolam 0.5 MG TAB PO SCH (15:33)
[2023-08-06] MEDS ORDERED: ZINC OXIDE PASTE (Z-GUARD) 1 APPLIC TOPICAL PRN (16:00)
--- NOTE | 2023-08-06 19:46 | P.PN ---
Subjective Progress Note Date: 08/06/23 Patient O2 requirement increased to 12L high flow nasal cannula. SPO2 93%. Reports increasing SOB since last night. Complaining of persisting right-sided lung pain. Continues on incentive spirometer. Intermittent air leak persisting. Repeat CXR stable, no significant changes noted Objective - Vital Signs Vital signs: Vital Signs Temp 98.5 F 08/06/23 12:18 Pulse 121 H 08/06/23 16:00 Resp 28 H 08/06/23 16:00 BP 97/64 08/06/23 12:18 Pulse Ox 93 L 08/06/23 16:00 FiO2 40 08/03/23 15:20 Intake & Output 08/06/23 08/06/23 08/07/23 06:59 18:59 06:59 Intake Total 472 Output Total 10 650 Balance -10 -178 Weight 58.9 kg Intake: IV 10 Invasive Line 4 10 Oral 462 Output: Chest Tube Drainage 10 Right Anterior Chest 10 Urine 650 Other: Voiding Method Bedside Commode Urinal Urinal # Voids 1 # Bowel Movements 1 - Constitutional General appearance: Present: average body habitus, no acute distress - EENT Eyes: Present: anicteric sclerae, EOMI ENT: Present: hearing grossly normal - Respiratory Details: breathing mildly labored Respiratory: right: diminished - Cardiovascular Details: tachycardic - Integumentary Integumentary: Absent: cyanotic - Musculoskeletal Musculoskeletal: Present: generalized weakness - Psychiatric Psychiatric: Present: A&O x's 3 - Labs CBC & Chem 7: 08/06/23 09:21 08/06/23 09:21 Labs: Abnormal Lab Results - Last 24 Hours (Table) 08/06/23 08/06/23 Range/Units 09:21 09:21 WBC 13.4 H (3.8-10.6) k/uL Neutrophils # 12.8 H (1.3-7.7) k/uL Lymphocytes # 0.3 L (1.0-4.8) k/uL Sodium 131 L (137-145) mmol/L Creatinine 0.51 L (0.66-1.25) mg/dL Glucose 126 H (74-99) mg/dL Microbiology - Last 24 Hours (Table) 07/29/23 07:30 Fungal Culture - Preliminary Pleural Fluid 07/29/23 07:30 Acid Fast Bacilli Smear - Preliminary Pleural Fluid Acid Fast Bacilli Culture - Preliminary - Imaging and Cardiology Chest x-ray: report reviewed Assessment and Plan (1) Drug-induced pneumonitis Current Visit: Yes Status: Acute Priority: High Code(s): J98.4 - OTHER DISORDERS OF LUNG; T50.905A - ADVERSE EFFECT OF UNSP DRUG/MEDS/BIOL SUBST, INIT SNOMED Code(s): 928279020 (2) Hypoxic respiratory failure Current Visit: Yes Status: Acute Code(s): J96.91 - RESPIRATORY FAILURE, UNSPECIFIED WITH HYPOXIA SNOMED Code(s): 04711537581354737 (3) Pleural effusion Current Visit: Yes Status: Acute Priority: High Code(s): J90 - PLEURAL EFFUSION, NOT ELSEWHERE CLASSIFIED SNOMED Code(s): 26256544 (4) Squamous cell carcinoma of lung, stage IV Current Visit: Yes Status: Chronic Priority: High Code(s): C34.90 - MALIGNANT NEOPLASM OF UNSP PART OF UNSP BRONCHUS OR LUNG SNOMED Code(s): 062789444 Plan: Drug-induced pneumonitis -Cedar that imaging and assessment are most consistent with drug induced pneumonitis -Agree with steroids, abx and infection work up in case of any underlying infection contributing to worsening symptoms -Discontinue Gilotrif -Prednisone taper started, will plan for slow 6 week taper. Prednisone has been d/c by CTS as they hope stopping steroids will allow the pneumothorax time to improve so surgery can be avoided as patient is currently a poor surgical candidate. We have discussed with both CTS and pulmonology service regarding our recommendations and concerns for worsening respiratory status if abruptly stopped on steroids with suspected IO r/t pneumonitis. Dr. Caro will further discuss oncology recommendations with cardiothoracic surgeon. -F/U with primary Oncologist for treatment plans once acute condition adequately resolved Pleural effusion/pneumothorax -Status post 3.2 L thoracentesis -Cytology positive for non-small cell lung adenocarcinoma. -Pneumothorax, chest tube in place. Patient has been transitioned off airvo and is on 6 L nasal cannula with SPO2 90%. Airleak within chest tube noted. CT chest was subsequently ordered which showed moderate size right pneumothorax with upper lung pleural catheter in place. Right chest wall subcutaneous emphysema redemonstrated. CTS recommend to keep right Thoravent to low continuous wall suction, and if air leak does not improve will discuss other interventions. Repeat chest x-ray today stable, with no significant changes. Patient has required increase in oxygen today and is c/o worsening SOB Sq cell carcinoma, recurrent, on gilotrif targeted agent -Patient is status post a 3.2 L thoracentesis on the right. Cytology positive for non-small cell lung adenocarcinoma. -Discontinue gilotrif secondary to drug-induced pneumonitis -Primary Oncologist plans for change in therapy once patient current condition has resolved. -Did discuss the case with Radiation Oncologist. Based on patient's current condition, and overall asymptomatic brain mets, no radiation would be planned for at this time. Radiation Oncologist will review images though and, if necessary, will request a consult so the patient can be seen inpatient. -Clinic f/u in discharge plan Malignancy related pain -Reporting PO morphine IR wasn't adequately controlling pain. Only working for 1 hour of pain control. IVP dilaudid added for severe breakthrough pain. Hope once pneumothorax resolved and chest tube removed pt will have significant relief in pain. If pain persists will consider long acting medication. Will continue to monitor and make adjustments as needed -Meds ordered to prevent narcotic induced constipation Attests: I have seen and examined pt, performed H&P, developed impression and plan of care. Discussed with dictator. Agree with documentation, dictated as a scribe. Time with Patient: Greater than 30
--- NOTE | 2023-08-07 08:15 | XR ---
EXAMINATION TYPE: XR chest 2V DATE OF EXAM: 08/07/2023 COMPARISON: August 06, 2023 HISTORY: Shortness of breath TECHNIQUE: Frontal and lateral views of the chest are obtained. FINDINGS: Right upper lobe thoracotomy tube with persistent right apical pneumothorax unchanged in overall appe arance. Persistent infiltrate right perihilar region and scattered reticulonodular infiltrate throughout the left mid and left lower lung zones. Small effusions persist. Heart size is stable. Mediastinal structures are stable and grossly unremarkable. No evidence for hilar prominence. Degenerative changes dorsal spine. IMPRESSION: 1. Stable chest.
[2023-08-07 08:19] VITALS: TEMP 97.6
[2023-08-07] MEDS ORDERED: LACTULOSE 20 GM/30 ML CUP PO PRN (08:27)
--- NOTE | 2023-08-07 08:39 | P.PN ---
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 Patient completed 6 cycles of concurrent chemoradiation on 02/08/2023 and radiation therapy completed on 02/16/2023. CT neck,/chest and abdomen on 02/24/2023 showed stable disease. He was started on cycle 1 of consolidative durvalumab on 03/19/2023. Bronchoscopy on 06/04/2023 with the biopsy of the right hilar region reveals evidence of poorly differentiated non- small cell carcinoma. PET scan showed evidence of metastasis to the bones including right lower ribs/pelvis/C2 and L5 vertebral bodies, intra-abdominal lymphadenopathy, right hilar region. MRI brain showed at least 6 peripherally enhancing lesions. Patient was started on afatinib about 2 weeks ago. Patient presented to ER with complaints of worsening shortness of breath. Patient is requiring 9 L oxygen via nasal cannula. Otherwise denies any complaints of fever or chills. No nausea vomiting. No hematemesis or melena. No headache or dizziness. Patient also having generalized weakness and requiring assistance with sitting up and ambulation. Chest x-ray showed increased right upper lobe lung airspace opacities correlate for pneumonia. EKG showed sinus tachycardia with occasional ventricular premature complexes. Laboratory data showed WBC 10.3 hemoglobin 13.5 and platelets 324 Sodium 131 potassium 3.5 chloride 101 bicarb is 22 BUN 14 and creatinine 0.52 and blood sugar is 105 and calcium 8.3 AST 48 ALT 65 and alk phos 138. Troponin x 1 negative and procalcitonin level is 0.2 Urinalysis is negative for infection Influenza A, B, Legionella, RSV and COVID-19 PCR not detected. 07/29/2023 Patient is seen and evaluated in follow-up this morning continues to be in the ICU with multiple medical consultations following including oncology and pulmonary fitness club manager. Patient is status post thoracentesis on the right with approximately 3.2 liters removed. Patient requiring more oxygen currently maintained on airvo 60/80. Patient is lethargic and significantly weak and appears restless in mild respiratory distress. Patient reports not much of an appetite and has been tolerating supplements and will continue. Patient with significant weakness although respiratory status making it difficult for ambulation. Patient also reports to not sleeping well and will add low-dose medication as needed. Patient is currently afebrile with no reported chest pain. Cultures have been sent and pending. 07/30/2023 Patient is seen in follow-up this morning continues to be in the ICU maintained on airvo 60/50 and continues with significant shortness of breath although feels slightly improved. Patient continues with chest tube and is status postthoracentesis. Cytology is pending. Patient is afebrile. Patient continues to be significantly weak and extremely dyspneic with minimal exertion. Encouraged oral intake. 07/31/2023 Patient is seen in follow-up today continues to be in the ICU with multiple medical consultations following. Weaning FiO2 as tolerated currently maintained on 5050 of airvo with supplemental oxygen of nonrebreather as needed. Patient continues with Pleurx catheter on the right chest wall with pulmonary following. Sputum culture showing Shanta and patient is also continued on Zosyn and will continue for now. Patient reports having some mouth soreness and does appear to have thrush. Patient is afebrile with no reported chest pain. Patient with overall weakness and prolonged hospitalization, recommend increased activity as tolerated. Overall prognosis remains guarded. 08/01/2023 Patient is seen in follow-up today has been transferred out of the ICU on 3 S. continued on IV Lasix daily along with continued IV steroids and Zosyn. Patient continues with Pleurx catheter and cultures preliminary showing no growth. Patient continues on Airvo at 50/50 and weaning as tolerated. White count has normalized and hemoglobin is stable at 12.8, sodium is 135 with a potassium of 4.3 and electrolytes within normal limits. Patient with weakness will have PT/OT evaluate once respiratory status more stable. Encouraged oral intake. Patient also to continue on Diflucan for oral thrush. 08/02/2023 patient is seen in follow-up today reports his breathing is slightly improved although continues on airvo 50/50 with pulmonary following. Patient also continues with Pleurx catheter noted of the right chest with serous drainage. Patient is continued on Zosyn along with Diflucan for oral thrush. Patient with prolonged hospitalization and generalized weakness, will have PT/OT therapy evaluate the patient. Patient reports has not had a bowel movement in a few days and is feeling constipated. Will add lactulose to make it 3 times daily as needed. Patient is afebrile with no reports of chest pain or palpitations. Follow-up chest x-ray today shows right apical pneumothorax slightly larger in size now 4.0 cm versus 3.2 cm previously with continued right side Thora vent with continued similar diffuse interstitial densities and right midlung opacities. 08/03/2023 Patient is seen in follow-up continues on the stepdown unit currently maintained on Airvo and attempting to wean as patient also continues with 15 L nonre breather. Airvo being titrated down to 40 and patient is tolerating. Patient continues with shortness of breath and also has Pleurx catheter on the right reporting he feels his shortness of breath is slightly improving. Patient inquiring about when he can go home and discussed with him as well as family at the bedside he would need to be titrated down to nasal cannula prior to discharge. Patient has been using incentive spirometer and sitting up more often working to wean as tolerated. Patient with significant weakness being evaluated by physical therapy and recommend daily. Encouraged oral intake. Patient remains afebrile. 08/04/2023 Patient is seen in follow-up with multiple medical consultations following including cardiothoracic surgery and pulmonary fitness club manager. Patient maintained on high flow nasal cannula at 6 L as well as 15 L nonrebreather and patient is off Airvo. Patient had an episode overnight of extreme chest pain and shortness of breath and chest x-ray was performed showing right-sided pneumothorax as patient was off suction and per nursing staff immediately placed back on suction with repeat chest x-ray showing resolution of the pneumothorax. CT surgery fo llowing and have discontinued corticosteroids and will monitor closely over the next few days with attempts to weaning from suctioning and discuss further about treatment plan moving forward if patient requires surgical intervention. Follow-up chest x-ray ordered and will also follow-up with repeat labs. Patient was on IV Lasix daily although appears clinically dry and will initiate gentle hydration and again follow-up with repeat labs. Sodium is 133. 08/05/2023 Patient is seen in follow-up today with pulmonary, CT surgery, oncology following and patient continues with significant shortness of breath. Chest x- ray reveals smaller pneumo thorax and continues with Pleurx catheter to suction. Corticosteroids discontinued. Patient continues on gentle IV hydration and Lasix was also discontinued. Patient reports has not had a bowel movement again in a day and will make lactulose 3 times daily scheduled until having bowel movements. Encouraged oral intake and increased activity as tolerated. Patient is currently sitting up in the chair. Patient on 6 L nasal cannula and intermittently using nonrebreather. Encouraged the patient to continue with incentive spirometer and limiting nonrebreather use. Will follow-up on repeat labs. 08/06/2023 Patient is seen and evaluated in follow-up today continues on high flow nasal cannula currently on 11 to 12 L high flow and attempting to wean as tolerated. Patient continues to report right-sided chest wall pain with inspiration and cou ghing. Patient reports to having bowel movements and will make lactulose as needed. Patient continues on gentle hydration and encouraged oral intake as patient sodium is slightly low at 131. Patient reports not having much of an appetite. Patient is afebrile and continued on breathing treatments. All steroids are on hold. Review of systems: Constitutional: reports of fatigue but improved, no fever, or chills, less anxious Cardiovascular: No reports of chest pain or palpitations, reports chest wall pains on the right with cough Respiratory: reports of continued shortness of breath and cough, although reports this feeling slightly improved GI: No reports of nausea, vomiting, or diarrhea, reports not much of an appetite, but eating a little more, reports of having bowel movements : No reports of dysuria or retention Neurovascular: reports of generalized weakness All medications have been reviewed PHYSICAL EXAMINATION: Patient is sitting up in the chair, maintained on 12 L high flow nasal cannula, awake alert and oriented, appears weak... Thin built, elderly appearing, ill- appearing HEENT: Normocephalic. Neck is supple. Pupils reactive. Nostrils clear. Oral cavity is moist. Neck reveals no JVD, carotid bruits, or thyromegaly. CHEST EXAMINATION: Trachea is central. Symmetrical expansion. Bilateral scattered rhonchi and coarse sounds. Basilar diminished sounds. Worse on the right CARDIAC: Normal S1, S2 with no gallops. No murmurs ABDOMEN: Soft. Thin, scaphoid bowel sounds present. Nontender. No organomegaly. No abdominal bruits. Extremities: reveal no edema. No clubbing or cyanosis Neurologically awake, alert, oriented x3 with well-coordinated movements. No gross focal deficits noted, diffusely weak Skin: No rash or skin lesions. Psychiatric: Cooperative. Non-suicidal, slightly anxious at times Musculoskeletal: No joint swelling or deformity. Assessment: Acute on chronic hypoxemic respiratory failure with right upper lobe pneumonia and metastatic lung cancer and pleural effusion. Possible afatinib pneumonitis cannot be excluded. Currently maintained on 11 to 12 L high flow nasal cannula along with 15 L nonrebreather at times, recommend limiting nonrebreather Non-small cell lung cancer status post chemoradiation, with metastasis to right lower rib, pelvis, vertebral bodies and brain metastatic lesions. Patient was started on afatinib about 2 weeks ago. Treatment currently on hold with hematology/oncology following Oral thrush with sputum culture showing Shanta COPD with mild exacerbation Hypovolemic hyponatremia, likely secondary to poor oral intake Mild transaminitis Recent kyphoplasty in May 2023 Chronic right-sided pleural effusion. Likely malignant effusion, status post thoracentesis on the right with trapped lung post thoracentesis noted requiring chest tube on 07/29/2023 Prior history of smoking GI and DVT prophylaxis with PPI and heparin subcu Full code Plan: Patient will be continued on oxygen supplementation and Weaning FiO2 as tolerated. Currently maintained on 11 to 12 L high flow nasal cannula along with intermittent periods of 15 L nonrebreather. Attempting to wean FiO2 as tolerated. Patient continues with Pleurx catheter on the right and CT surgery following recommending holding corticosteroids and monitoring closely over the next few days to determine if patient requires surgical intervention. Chest x- ray daily Patient continuing with bowel regimen and lactulose and reports is having bowel movements and will make lactulose as needed Patient is continued on Diflucan sputum culture showed Shanta. Antibiotics have been discontinued and being closely monitored off antibiotic therapy. Patient with thrush and will continue cool solution with nystatin, discontinue Diflucan Patient to continue on DuoNebs and was maintained on low-dose Lasix although appears clinically dry and will continue gentle hydration and follow-up with repeat labs. Oncology following as well as patient was continued on cancer treatment which is currently on hold and will follow-up in the outpatient setting encouraged oral intake and increased activity as tolerated. PT/OT therapy following and working with the patient. Recommend daily as patient has had prolonged hospitalization and plans on returning home on discharge Due to multiple complex medical issues with metastasis, overall prognosis remains extremely poor and guarded at this time The impression and plan of care has been dictated by Merle Kenny, Nurse Practitioner as directed. Dr. Shawn MD I have performed a history and examination and MDM of this patient, discussed the same with the dictator, and agree with the dictator's assessment and plan as written ,documented as a scribe. Based on total visit time, I have performed more than 50% of the visit. Objective - Vital Signs Vital signs: Vital Signs Temp 98.1 F 08/06/23 07:28 Pulse 100 08/06/23 08:26 Resp 18 08/06/23 07:28 BP 93/51 08/06/23 07:28 Pulse Ox 93 L 08/06/23 08:16 FiO2 40 08/03/23 15:20 Intake & Output 08/05/23 08/06/23 08/06/23 18:59 06:59 18:59 Intake Total 236 232 Output Total 700 10 Balance -464 -10 232 Intake: IV 10 Invasive Line 4 10 Oral 236 222 Output: Chest Tube Drainage 0 10 Right Anterior Chest 0 10 Urine 700 Other: Voiding Method Bedside Commode Bedside Commode Urinal Urinal Urinal # Voids 1 1 # Bowel Movements 1 - Labs CBC & Chem 7: 08/06/23 09:21 08/06/23 09:21 Labs: Abnormal Lab Results - Last 24 Hours (Table) 08/06/23 Range/Units 09:21 WBC 13.4 H (3.8-10.6) k/uL Neutrophils # 12.8 H (1.3-7.7) k/uL Lymphocytes # 0.3 L (1.0-4.8) k/uL Microbiology - Last 24 Hours (Table) 07/29/23 07:30 Acid Fast Bacilli Smear - Preliminary Pleural Fluid Acid Fast Bacilli Culture - Preliminary
--- NOTE | 2023-08-07 09:54 | P.PN ---
Subjective Progress Note Date: 08/07/23 Principal diagnosis: Respiratory failure. Acute hypoxic respiratory failure, multifactorial am seeing this patient in consultation today July 28, 2023 in the emergency room after he presented with complaints of increased shortness of breath, worsening since Wednesday. Patient is a 58-year-old white male with past medical history significant for metastatic non-small cell lung carcinoma, COPD, former tobacco dependence. He follows with Dr. Avilez in the pulmonary office. Patient has biopsy-proven non-small cell carcinoma, with metastasis within the chest, brain, and diffuse osseous metastasis. He also has a right renal nodule which is being followed up by urology. He has been following with radiation oncology and medical oncology. He has been treated with immunotherapy in the past, but has failed treatment. He has recently been started on daily Gilotrif on July 14. Since Wednesday, the patient has had worsening shortness of breath. This is especially noticeable during exertion. He is not normally oxygen dependent at home. He has been wheezing while at home. He has also had a change in his chronic cough with limited amounts of sputum production. Denies any fevers, chills, chest pain, hemoptysis. He presented to the emergency room last night with the above-mentioned symptoms. He is currently lying in bed, on 4 L/min nasal cannula, in no acute distress. He is generally weak and requires assistance to sit up in bed. His is at bedside. Chest x-ray on arrival demonstrated a new bilateral infiltrates, especially involving the left upper imelda ng field, chronic right lung changes, and a chronic right-sided pleural effusion. These findings are concerning for bilateral multifocal pneumonia or possible pulmonary drug toxicity. CBC on arrival was fairly unremarkable. WBC count 10.3, hematocrit 13.5, hematocrit 39.7, platelets 324. CMP on arrival: Sodium 131, potassium 3.5, chloride 101, serum bicarb 22, BUN 14, creatinine 0.52, glucose 105. Infusing at 75 mL/h. Lactic acid level not elevated. Mild elevation in LFTs. Troponin less than 0.012. NT proBNP not elevated. Urinalysis not concerning for UTI. Negative for influenza, RSV, COVID. Patient has been started on empiric antibiotics. He is afebrile. Vital signs are stable. Patient was reevaluated today on 07/29/23, I transferred the patient early this morning to the ICU mostly because of worsening respiratory status. Patient was placed on 15 L high flow nasal cannula on the floor, and his O2 saturation was in the 80s. Transferred the patient to the ICU, came in and evaluated the patient, and recommended immediate thoracentesis for his pleural effusion. This was performed at bedside, and I was able to drain 1150 cc of serosanguineous fluid patient had dramatic improvement clinically, follow-up chest x-ray showed apical right-sided pneumothorax however I believe it is not a true pneumothorax, I believe mostly due to trapped lung that did not fully expand any rate patient will have a follow-up chest x-ray in few hours after the thoracentesis. Fluid was sent for different diagnostic studies, and clinically felt much betterWBC count is 11.6 hemoglobin 12.4 basic metabolic profile is normal renal profile is normal Reevaluated today on 07/30/2023, patient remains in the ICU, feeling better today, is breathing easier, nonetheless remains on Airvo, 60% FiO2 and 50 L flow ontinues to have Thora vent in place, small tiny right-sided apical pneumothorax is noted, continues to have significant amount of air and fluid coming out of the Thora vent tube. Cytology on the fluid is pending/pleural effusion cytology is pending. WBC is 14.0 hemoglobin 11.7 his basic metabolic profile is normal except for low potassium of 3.2, patient is requiring narcotics for pain control Patient was reevaluated today on 07/31/2023, remains in the ICU, patient is an overflow, doing well, on 50 L high flow and 50% FiO2 via Airvo. Feeling better today compared to yesterday, continues to have a minimal leak in the Pleur-evac from his Thora vent. Drained about 200 cc over the last 24 hours from his Thora vent/chest tube. Chest x-ray showed significant improvement in his right-sided pneumothorax, however there is significant airspace disease involving the left lung, patient is on steroids, and today I recommended 1 dose of Lasix 20 mg IV push to be given. WBC count is 9.9 hemoglobin is 12 electrolytes are normal renal profile is normal, final report on his pleural effusion is pending so far no growth Reevaluated today on 08/01/2023, patient is now on the cardiac floor, basically about the same, remains on Airvo at 50% FiO2 and 50% liters flow, continues to have the Thora vent in place, connected to Pleur-evac, continues to have minimal air leak, right lung is expanded however still has a small right apical pneumothorax. The pneumonic process in the left lung seems to be improving a bit based on the chest x-ray. Clinically the patient is feeling better, breathing a bit easier. CBC today is relatively normal WBC count is 9.5 hemoglobin is 12.8 basic metabolic profile is normal renal profile is normal. Patient remains on antibiotics, bronchodilators, and steroids cytology from the pleural effusion is pending patient has been previously diagnosed with metastatic non-small cell lung cancer Progress note dated August 02, 2023. This is a 58-year-old male seen in room 364. The patient continues on Airvo, at 50 L/min with an FiO2 of 50%. He continues on Zosyn. He is getting saline at 20 cc an hour. The patient has a right-sided Thora vent in place. The patient does have a small air leak. He appears stable from the pulmonary standpoint. His biggest complaint today is that he is constipated. No new labs today. Laboratory data from August 01 showed a white count of 9.5, hemoglobin 12.8, and a normal platelet count. Sodium 135, with a normal potassium chloride and CO2. BUN and creatinine were 22 and 0.6. Microbiologic data thus far is negative. Chest x-ray shows a small right apical pneumothorax, slightly larger in size, now 4 cm versus 3.2 cm previously. There is also some diffuse bilateral infiltrates, mostly in the right midlung. Progress note dated August 03, 2023. This is a 58-year-old male seen in room 364. The patient continues on Airvo, with settings of 50 L/min, and an FiO2 40%. We will check a chest x-ray today. We have asked cardiothoracic surgery to see the patient, because the patient has a persistent small air leak, from the pneumothorax, after thoracentesis. He continues on Zosyn. No IV fluids. Clinically, he feels reasonable. He is hoping that the Thora vent can come out soon. Yesterday's chest x-ray showed an enlarging right-sided pneumothorax. Current labs include a white count of 10.9, hemoglobin 14, hematocrit 42, and a normal platelet count. Sodium 133, potassium 4.2, chloride 102, CO2 24, BUN 22, creatinine 0.53. Albumin is 2.9. Progress note dated August 04, 2023. 58-year-old male again seen in room 364. The patient is currently on a partial rebreather mask, along with high flow nasal cannula. Yesterday, cardiothoracic surgery, wanted the patient changed from suction, to waterseal. Unfortunately, the patient became very short of breath, required high concentrations of oxygen, and I was called. I asked for an immediate stat portable chest x-ray, which showed a worsening right-sided pneumothorax. Afterwards I told him to place the patient back on suction. Subsequent x-ray showed almost near complete expansion of that right lung. We did ask cardiothoracic surgery to see the patient, and they recommended stopping the corticosteroids, and determining in the next few days, whether or not the patient would be a candidate for some sort of surgical procedure. The patient's not receiving any IV fluids. No new labs today other than a glucose of 123. Chest x-ray shows an improvement in the right-sided pneumothorax. Thora vent remains in place. CT scan of the chest shows a moderately sized right pneumothorax, with Thora vent catheter in place. There is right chest wall subcutaneous emphysema. There is a small right-sided pleural effusion, and a right perihilar masslike consolidation. Other noted findings on CT scan are reviewed. Progress note dated August 05, 2023. The patient is again seen in room 364. The patient is currently on 6 L high flow nasal cannula, and occasionally, we use a partial rebreather mask, when his sats drop below 90%. The patient does have a continuing leak, from the right Thora vent device, mostly when he coughs, not so much when he takes a deep breath. The patient is getting saline at 75 cc an hour. The patient's chest x- ray shows a relatively small right apical pneumothorax. Corticosteroids were discontinued, only to be restarted by oncology. The patient should not be getting steroids at the current time. Labs include a white count 13.1, hemoglobin 13.7, hematocrit 40.7, and a platelet count of 331,000. Sodium 132, potassium 4.1, chlorides 100, CO2 31, BUN 24, creatinine 0.58. Altered data is negative. Chest x-ray shows a small right apical pneumothorax. Progress note dated August 06, 2023. The patient is seen today in room 364. Last night, the patient became acutely short of breath, and was notified by the nurses. I recommended high flow nasal O2, as well as either a partial rebreather mask or a nonrebreather mask. The patient's chest x-ray, that was ordered last night, stat, included a large right-sided pneumothorax. The patient is seen today in room 364. He is on 11 L high flow oxygen. The patient is on saline at 75 cc an hour. The patient continues to have a leak. We had a conversation today about CODE STATUS. The patient would not want to be on life support. Both him and his agree. The nurse heard the conversation, along with my nurse practitioner. White count is 13.4, hemoglobin 14.4, hematocrit 42.7, platelet count 274,000. Sodium 131, potassium 3.9, chloride 99, CO2 27, BUN 19, creatinine 0.51. Glucose 126. Calcium 8.7 magnesium 1.9. Cultures, have thus far been negative. Chest x-ray this morning, it is similar to the x-ray that was done about 1:00 in the morning last night. It shows a slightly larger right-sided apical pneumothorax. Thora vent is in place. Progress note dated August 07, 2023. 58-year-old male seen today in room 364. The patient is currently on 12 L high flow oxygen, and occasionally has a partial rebreather that he uses. The patient's chest x-ray is unchanged. It shows a right apical pneumothorax. The patient is also receiving saline at 50 cc an hour. The patient still has a leak, from the right lung, with deep breathing, or coughing. Steroids have been discontinued. I did have a conversation with medical oncology yesterday about that. No new labs today. Chest x-rays reviewed. Clinically, the patient stable. Objective - Vital Signs Vital signs: Vital Signs Temp 97.6 F 08/07/23 07:54 Pulse 108 H 08/07/23 08:34 Resp 24 08/07/23 08:12 BP 100/67 08/07/23 07:54 Pulse Ox 91 L 08/07/23 07:54 FiO2 40 08/03/23 15:20 Intake & Output 08/06/23 08/07/23 08/07/23 18:59 06:59 18:59 Intake Total 472 540 540 Output Total 650 200 230 Balance -178 340 310 Weight 58.9 kg Intake: IV 10 Invasive Line 4 10 Oral 462 540 540 Output: Chest Tube Drainage 0 30 Right Anterior Chest 0 30 Urine 650 200 200 Other: Voiding Method Urinal Urinal Urinal - Exam No acute distress, oriented 3. Currently on high flow nasal cannula, and a partial rebreather mask, prn. HEENT examination is grossly unremarkable. Mucous membranes are moist. No oral lesions. Neck supple. Full range of motion. No adenopathy thyromegaly or neck vein distention. Cardiovascular examination reveals regular rhythm rate. S1-S2 normal. No S3 or S4. No discernible murmur noted. Heart rate 92 bpm. Lungs reveal clear mild scattered rhonchi bilaterally. No wheezes or crackles. Right-sided Thora vent is noted. A small leak is noted. No subcutaneous emphysema. Saturations are 91 %. Abdomen soft bowel sounds are heard. No masses or tenderness. Extremities are intact. No cyanosis clubbing or edema. Skin is without rash or lesion. Neurologic examination is brief but nonfocal. 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 In addition, the patient had a large right-sided effusion, which required thoracentesis. Acute exacerbation of COPD. Right pneumothorax, following right thoracentesis, status post Thora vent placement. Non-small cell lung cancer with metastasis to the chest, brain, and bone. Right renal nodule, suspicious for malignancy. T12 kyphoplasty. Former smoker. 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 Constipation Plan: Plan dated August 02, 2023. Today's chest x-ray shows a slightly larger right apical pneumothorax. The patient's lung may never fully expand, as he may have a trapped lung. There is still a small leak. I will leave the Thora vent in for now. Labs, x-rays, and medications are reviewed. The patient continues on bronchodilators, corticosteroids. The patient has metastatic lung cancer, so his overall prognosis is very poor. We will continue to follow make recommendations along the way. Prognosis is certainly very guarded. The patient's major complaint today was constipation. Plan dated August 03, 2023. The patient will have a chest x-ray done today. Normal was ordered. In addition, will have cardiothoracic surgery see the patient, because of the persistent air leak on the right side. The Thora vent remains in place. Yesterday's chest x-ray showed a slightly larger right-sided pneumothorax. Labs, x-rays, and medications are reviewed. The patient has a history of metastatic lung cancer. Prognosis is certainly guarded. The patient continues on Diflucan, albuterol sulfate, and ipratropium bromide, Solu-Medrol, and Zosyn. We will continue to follow make recommendations along the way. We will await input by cardiothoracic surgery. Plan dated August 04, 2023. I had the opportunity to speak to Dr. Negrete about this patient and what to do next. We are going to stop the corticosteroids, which may improve the healing process. In addition, the Thora vent will remain on suction for the time being. Dr. Negrete thinks there is no really good solution for this patient, and surgery is not guaranteed to be effective. Nonetheless, we will give the patient a few days off the corticosteroids, see how he responds. Currently he is on high flow nasal cannula, and a partial rebreather mask. Labs, x-rays, and medications are reviewed. Corticosteroids are discontinued. Additional recommendations and suggestions are forthcoming. Prognosis is certainly guarded. Plan dated August 05, 2023. Corticosteroids should be discontinued altogether. Were hoping, that the patient expands the right lung fully, without a leak, but if he does not, surgery may be indicated next week. I did speak to Dr. Negrete about the options. None of which are good. Nonetheless, the patient's apical pneumothorax today is smaller. He has a persistently, mostly when he coughs, not so much when he takes a deep breath. Labs, x-rays, medications are reviewed. The patient's overall prognosis remains very guarded. We will continue to follow the patient, make recommendations along the way. Plan dated August 06, 2023. The patient's right apical pneumothorax is slightly larger today than it was yesterday. The patient did have an episode of acute shortness of breath last night, and required high flow nasal O2, as well as a partial rebreather mask. The corticosteroids have been discontinued, hoping that the patient's right lung will expand, and his leak will dissipate. He currently still has a leak, mostly with coughing, not so much with breathing. Labs, x-rays, and medications are reviewed. We are trying to avoid a surgery. Finally, we had a conversation about CODE STATUS. The patient clearly does not want to be on life support, and states that he is a DNR/DNI. His who was in the room, agreed. The conversation was witnessed by the floor nurse, and my nurse practitioner. We will continue to follow make recommendations along the way. Prognosis is cert ainly very guarded. Plan dated August 07, 2023. The patient continues on high flow nasal O2, supplemented with a partial rebreather mask. The patient's corticosteroids have been discontinued. We did have a long conversation with the patient yesterday, about CODE STATUS, and he decided that he did not want to be intubated or mechanically ventilated. I believe that to be the best decision for this patient. I did have a conversation with medical oncology, about the corticosteroids. For now, no corticosteroids. The patient still has a leak, from the right sided pneumothorax. Labs, x-rays, and medications are reviewed. The patient's prognosis is guarded. He may require surgery next week, as discussed with Dr. Negrete, the cardiothoracic surgeon. Time with Patient: Less than 30
--- NOTE | 2023-08-07 10:07 | P.PN ---
Subjective Progress Note Date: 08/07/23 Principal diagnosis: Acute hypoxic respiratory failure, right-sided pleural effusion and subsequent right-sided pneumothorax after thoracentesis with placement of right Thoravent w ith persistent airleak, pneumonia. Past medical history significant for metastatic non-small cell lung carcinoma, previous tobacco dependence, and COPD. Status post right Thoravent placement by Dr. Santillan on 07/29/2023. The patient was seen and examined in follow-up today August 07, 2023 at his bedside on the third floor cardiac stepdown unit. He is currently sitting up to the bedside chair, is awake, alert, oriented x 3 and is in no acute apparent distress. The patient reports that he had a much better night last night and feels like he slept most of the night. The patient's is present at his bedside and reports that she feels he is doing much better this morning. He denies any complaints of pain at this time, although is complaining of some episodes of shortness of breath, but more related to shortness of breath to anxiety. The patient is currently on 12 L high flow nasal cannula with oxygen saturations 96%, he reports he is using the 100% nonrebreather less frequently for episodes of "recovery". Right chest Thoravent remains in place to low continuous wall suction -20 cm H2O. Intermittent airleak is present. Scant serous drainage with less than 10 mL output in the last 24 hours. He is achieving 1250 to 1500 mL on his incentive spirometry with encouragement. Chest x-ray results reviewed. Objective - Vital Signs Vital signs: Vital Signs Temp 97.6 F 08/07/23 07:54 Pulse 108 H 08/07/23 08:34 Resp 24 08/07/23 08:12 BP 100/67 08/07/23 07:54 Pulse Ox 91 L 08/07/23 07:54 FiO2 40 08/03/23 15:20 Intake & Output 08/06/23 08/07/23 08/07/23 18:59 06:59 18:59 Intake Total 472 540 540 Output Total 650 200 230 Balance -178 340 310 Weight 58.9 kg Intake: IV 10 Invasive Line 4 10 Oral 462 540 540 Output: Chest Tube Drainage 0 30 Right Anterior Chest 0 30 Urine 650 200 200 Other: Voiding Method Urinal Urinal Urinal - Exam CONSTITUTIONAL: Awake and alert, cooperative, cachectic, no pain, no acute distress. RESPIRATORY: Lungs sounds bilaterally, right greater than left with few scattered crackles throughout. Respirations symmetrical and nonlabored. Currently on 12 L high flow nasal cannula with oxygen saturation 96%. Achieving 1250 to 1500 mL on his incentive spirometry. Strong productive cough. Right sided Thora-vent present to anterior chest wall and connected to atrium with continuous low wall suction 20 mm H2O, intermittent air leak present. CARDIOVASCULAR: S1, S2 present. Regular tachycardic rate and rhythm, sinus tachycardia rhythm on telemetry, heart rate 104 bpm. Palpable peripheral pulses bilaterally. No edema present. No calf pain or tenderness noted GASTROINTESTINAL: Abdomen soft, nontender, nondistended without organomegaly. There is no rebound or guarding present. Active bowel sounds present 4 quadrants. GENITOURINARY: Continues to void. INTEGUMENTARY: Skin is warm and dry with no clubbing or cyanosis. NEUROLOGIC: Cranial nerves II through XII intact, normal coordination, no focal deficits, speech is normal. MUSKULOSKELETAL: Able to move all extremities, strength equal bilaterally, normal posture. PSYCHIATRIC: Alert and oriented to person place and time, appropriate affect, intact judgment and insight. - Allied health notes Allied health notes reviewed: nursing - Labs CBC & Chem 7: 08/06/23 09:21 08/06/23 09:21 Labs: Abnormal Lab Results - Last 24 Hours (Table) 08/06/23 Range/Units 09:21 Sodium 131 L (137-145) mmol/L Creatinine 0.51 L (0.66-1.25) mg/dL Glucose 126 H (74-99) mg/dL Microbiology - Last 24 Hours (Table) 07/29/23 07:30 Fungal Culture - Preliminary Pleural Fluid - Imaging and Cardiology Chest x-ray: report reviewed, image reviewed Assessment and Plan Assessment: Acute hypoxic respiratory failure, currently on 12 L high flow nasal cannula oxygen, using the 100% nonrebreather for recovery with activity Pneumonia Right-sided pneumothorax after thoracentesis, status post right Thoravent placement with persistent intermittent airleak Shortness of breath, likely secondary to above Metastatic non-small cell lung carcinoma Previous tobacco dependence, COPD Plan: Keep right Thoravent to low continuous wall suction -20 cm H2O, continue to monitor for airleak resolution. Encourage use of incentive spirometry 10 times every hour while awake. Wean oxygen as tolerated, oxygen, inhaler management per pulmonary/critical care recommendations. Medical management of other comorbidities per primary care service, pulmonology and oncology. Continue to hold corticosteroids per discussion with Dr. Negrete and Dr. Caro. Increase activity as tolerated. Continue to monitor daily chest x-rays. More recommendations to follow based on patient's clinical course. Time with Patient: Less than 30
[2023-08-07] MEDS: HYDROmorphone 0.5 MG/0.5 ML SYRINGE IVP PRN (11:29)
--- NOTE | 2023-08-08 08:00 | XR ---
EXAMINATION TYPE: XR chest 1V portable DATE OF EXAM: 08/08/2023 HISTORY: Shortness of breath. COMPARISON: August 07, 2023 TECHNIQUE: Single view of the chest is submitted. FINDINGS: Right apical pleural catheter is redemonstrated. There is enlargement of right upper lobe pneumothora x with apical pleural distance of about 4.7 cm versus 2.8 cm previously. Right perihilar opacity and scattered reticulonodular infiltrates persist unchanged. Small right-side d pleural effusion. The heart is stable. Hilar and mediastinal structures are within normal limits. Degenerative changes are seen of the dorsal spine. IMPRESSION: 1. There is enlargement of right upper lobe pneumothorax with apical pleural distance of about 4.7 c m versus 2.8 cm previously.
--- NOTE | 2023-08-08 10:36 | P.PN ---
Subjective Progress Note Date: 08/08/23 Principal diagnosis: Acute hypoxic respiratory failure, right-sided pleural effusion and subsequent right-sided pneumothorax after thoracentesis with placement of right Thoravent w ith persistent airleak, pneumonia. Past medical history significant for metastatic non-small cell lung carcinoma, previous tobacco dependence, and COPD. Status post right Thoravent placement by Dr. Santillan on 07/29/2023. The patient was seen and examined today August 08, 2023 at his bedside on the third floor cardiac stepdown unit. The patient is currently sitting up to the bedside chair, is awake, alert, oriented x 3 and is in no acute apparent distress. Reports he slept in the chair last night and slept fairly well. Denies any complaints of pain at this time, but reports that he is having some episodes of shortness of breath with activity. Oxygen saturations are 96% on 12 L high flow nasal cannula, and he reports that he is still using the 100% nonrebreather for episodes of recovery with activity. Right Thoravent chest tube remains in place and is connected to a Pleur-evac [place] system on low continuous wall suction -20 cm H2O. Intermittent air leak is present with coughing. Draining scant serous drainage. Chest x-ray results reviewed, continues to show a right upper lobe pneumothorax. Objective - Vital Signs Vital signs: Vital Signs Temp 97.6 F 08/07/23 07:54 Pulse 101 H 08/08/23 08:52 Resp 22 08/08/23 07:52 BP 103/75 08/08/23 07:52 Pulse Ox 91 L 08/08/23 08:38 FiO2 40 08/03/23 15:20 Intake & Output 08/07/23 08/08/23 08/08/23 18:59 06:59 18:59 Intake Total 776 540 Output Total 480 0 0 Balance 296 540 0 Intake: Oral 776 540 Output: Chest Tube Drainage 30 0 0 Right Anterior Chest 30 0 0 Urine 450 Other: Voiding Method Urinal Urinal Urinal # Voids 2 1 # Bowel Movements 0 - Exam CONSTITUTIONAL: Awake and alert, cooperative, cachectic, no pain, no acute distress. RESPIRATORY: Lungs sounds bilaterally, right greater than left. Respirations symmetrical and nonlabored. Currently on 12 L high flow nasal cannula with oxygen saturation 96%. Achieving 1000 mL on his incentive spirometry. Strong productive cough productive cough with green sputum. Right sided Thora-vent present to anterior chest wall and connected to atrium with continuous low wall suction 20 mm H2O, intermittent air leak present with coughing. CARDIOVASCULAR: S1, S2 present. Regular tachycardic rate and rhythm, remote telemetry showing normal sinus rhythm heart rate 95 bpm. Palpable peripheral pulses bilaterally. No edema present. No calf pain or tenderness noted GASTROINTESTINAL: Abdomen soft, nontender, nondistended without organomegaly. There is no rebound or guarding present. Active bowel sounds present 4 quadrants. GENITOURINARY: Continues to void. INTEGUMENTARY: Skin is warm and dry with no clubbing or cyanosis. NEUROLOGIC: Cranial nerves II through XII intact, normal coordination, no focal deficits, speech is normal. MUSKULOSKELETAL: Able to move all extremities, strength equal bilaterally, normal posture, generalized weakness. PSYCHIATRIC: Alert and oriented to person place and time, appropriate affect, intact judgment and insight. - Allied health notes Allied health notes reviewed: nursing - Labs CBC & Chem 7: 08/06/23 09:21 08/06/23 09:21 - Imaging and Cardiology Chest x-ray: report reviewed, image reviewed Assessment and Plan Assessment: Acute hypoxic respiratory failure, currently on 12 L high flow nasal cannula oxygen, using the 100% nonrebreather for recovery with activity Pneumonia Right-sided pneumothorax after thoracentesis, status post right Thoravent placement with persistent intermittent airleak Shortness of breath, likely secondary to above Metastatic non-small cell lung carcinoma Previous tobacco dependence, COPD Plan: Keep right Thoravent to low continuous wall suction, increase suction to -30 cm H2O, continue to monitor for airleak resolution. Encourage use of incentive spirometry 10 times every hour while awake. Wean oxygen as tolerated, oxygen, inhaler management per pulmonary/critical care recommendations. Medical management of other comorbidities per primary care service, pulmonology and oncology. Continue to hold corticosteroids per discussion with Dr. Negrete and Dr. aCro. Increase activity as tolerated. Continue to monitor daily chest x-rays. More recommendations to follow based on patient's clinical course. Time with Patient: Greater than 30
[2023-08-08 10:57] LABS: Basophils % (A) 0 %; Eosinophils # (A) 0.1 k/uL (0-0.7); Eosinophils % (A) 1 %; HCT 40.4 % (39.0-53.0); HGB 13.3 gm/dL (13.0-17.5); Lymphocytes # (A) 0.3 k/uL (1.0-4.8); Lymphocytes % (A) 2 %; MCH 33.2 pg (25.0-35.0); MCV 100.7 fL (80.0-100.0); Macrocytosis Slight; Mean Platelet Volume 8.5; Monocytes # (A) 0.3 k/uL (0-1.0); Monocytes % (A) 3 %; Neutrophils # (A) 11.4 k/uL (1.3-7.7); Neutrophils % (A) 94 %; Platelet Count 266 k/uL (150-450); RBC 4.02 m/uL (4.30-5.90); RDW 14.7 % (11.5-15.5); WBC 12.2 k/uL (3.8-10.6)
[2023-08-08 11:16] LABS: African American GFR (CKD) >90 (>60 ml/min/1.73 sqM); Anion Gap 6 mmol/L; Blood Urea Nitrogen 16 mg/dL (9-20); Calcium 7.8 mg/dL (8.4-10.2); Carbon Dioxide 25 mmol/L (22-30); Chloride 100 mmol/L (98-107); Glucose 95 mg/dL (74-99); Non-African American GFR(CKD) >90 (>60 ml/min/1.73 sqM); Potassium 4.3 mmol/L (3.5-5.1); Sodium 131 mmol/L (137-145)
--- NOTE | 2023-08-08 12:36 | P.PN ---
Subjective Progress Note Date: 08/08/23 Principal diagnosis: Respiratory failure. Acute hypoxic respiratory failure, multifactorial am seeing this patient in consultation today July 28, 2023 in the emergency room after he presented with complaints of increased shortness of breath, worsening since Wednesday. Patient is a 58-year-old white male with past medical history significant for metastatic non-small cell lung carcinoma, COPD, former tobacco dependence. He follows with Dr. Avilez in the pulmonary office. Patient has biopsy-proven non-small cell carcinoma, with metastasis within the chest, brain, and diffuse osseous metastasis. He also has a right renal nodule which is being followed up by urology. He has been following with radiation oncology and medical oncology. He has been treated with immunotherapy in the past, but has failed treatment. He has recently been started on daily Gilotrif on July 14. Since Wednesday, the patient has had worsening shortness of breath. This is especially noticeable during exertion. He is not normally oxygen dependent at home. He has been wheezing while at home. He has also had a change in his chronic cough with limited amounts of sputum production. Denies any fevers, chills, chest pain, hemoptysis. He presented to the emergency room last night with the above-mentioned symptoms. He is currently lying in bed, on 4 L/min nasal cannula, in no acute distress. He is generally weak and requires assistance to sit up in bed. His is at bedside. Chest x-ray on arrival demonstrated a new bilateral infiltrates, especially involving the left upper imelda ng field, chronic right lung changes, and a chronic right-sided pleural effusion. These findings are concerning for bilateral multifocal pneumonia or possible pulmonary drug toxicity. CBC on arrival was fairly unremarkable. WBC count 10.3, hematocrit 13.5, hematocrit 39.7, platelets 324. CMP on arrival: Sodium 131, potassium 3.5, chloride 101, serum bicarb 22, BUN 14, creatinine 0.52, glucose 105. Infusing at 75 mL/h. Lactic acid level not elevated. Mild elevation in LFTs. Troponin less than 0.012. NT proBNP not elevated. Urinalysis not concerning for UTI. Negative for influenza, RSV, COVID. Patient has been started on empiric antibiotics. He is afebrile. Vital signs are stable. Patient was reevaluated today on 07/29/23, I transferred the patient early this morning to the ICU mostly because of worsening respiratory status. Patient was placed on 15 L high flow nasal cannula on the floor, and his O2 saturation was in the 80s. Transferred the patient to the ICU, came in and evaluated the patient, and recommended immediate thoracentesis for his pleural effusion. This was performed at bedside, and I was able to drain 1150 cc of serosanguineous fluid patient had dramatic improvement clinically, follow-up chest x-ray showed apical right-sided pneumothorax however I believe it is not a true pneumothorax, I believe mostly due to trapped lung that did not fully expand any rate patient will have a follow-up chest x-ray in few hours after the thoracentesis. Fluid was sent for different diagnostic studies, and clinically felt much betterWBC count is 11.6 hemoglobin 12.4 basic metabolic profile is normal renal profile is normal Reevaluated today on 07/30/2023, patient remains in the ICU, feeling better today, is breathing easier, nonetheless remains on Airvo, 60% FiO2 and 50 L flow ontinues to have Thora vent in place, small tiny right-sided apical pneumothorax is noted, continues to have significant amount of air and fluid coming out of the Thora vent tube. Cytology on the fluid is pending/pleural effusion cytology is pending. WBC is 14.0 hemoglobin 11.7 his basic metabolic profile is normal except for low potassium of 3.2, patient is requiring narcotics for pain control Patient was reevaluated today on 07/31/2023, remains in the ICU, patient is an overflow, doing well, on 50 L high flow and 50% FiO2 via Airvo. Feeling better today compared to yesterday, continues to have a minimal leak in the Pleur-evac from his Thora vent. Drained about 200 cc over the last 24 hours from his Thora vent/chest tube. Chest x-ray showed significant improvement in his right-sided pneumothorax, however there is significant airspace disease involving the left lung, patient is on steroids, and today I recommended 1 dose of Lasix 20 mg IV push to be given. WBC count is 9.9 hemoglobin is 12 electrolytes are normal renal profile is normal, final report on his pleural effusion is pending so far no growth Reevaluated today on 08/01/2023, patient is now on the cardiac floor, basically about the same, remains on Airvo at 50% FiO2 and 50% liters flow, continues to have the Thora vent in place, connected to Pleur-evac, continues to have minimal air leak, right lung is expanded however still has a small right apical pneumothorax. The pneumonic process in the left lung seems to be improving a bit based on the chest x-ray. Clinically the patient is feeling better, breathing a bit easier. CBC today is relatively normal WBC count is 9.5 hemoglobin is 12.8 basic metabolic profile is normal renal profile is normal. Patient remains on antibiotics, bronchodilators, and steroids cytology from the pleural effusion is pending patient has been previously diagnosed with metastatic non-small cell lung cancer Progress note dated August 02, 2023. This is a 58-year-old male seen in room 364. The patient continues on Airvo, at 50 L/min with an FiO2 of 50%. He continues on Zosyn. He is getting saline at 20 cc an hour. The patient has a right-sided Thora vent in place. The patient does have a small air leak. He appears stable from the pulmonary standpoint. His biggest complaint today is that he is constipated. No new labs today. Laboratory data from August 01 showed a white count of 9.5, hemoglobin 12.8, and a normal platelet count. Sodium 135, with a normal potassium chloride and CO2. BUN and creatinine were 22 and 0.6. Microbiologic data thus far is negative. Chest x-ray shows a small right apical pneumothorax, slightly larger in size, now 4 cm versus 3.2 cm previously. There is also some diffuse bilateral infiltrates, mostly in the right midlung. Progress note dated August 03, 2023. This is a 58-year-old male seen in room 364. The patient continues on Airvo, with settings of 50 L/min, and an FiO2 40%. We will check a chest x-ray today. We have asked cardiothoracic surgery to see the patient, because the patient has a persistent small air leak, from the pneumothorax, after thoracentesis. He continues on Zosyn. No IV fluids. Clinically, he feels reasonable. He is hoping that the Thora vent can come out soon. Yesterday's chest x-ray showed an enlarging right-sided pneumothorax. Current labs include a white count of 10.9, hemoglobin 14, hematocrit 42, and a normal platelet count. Sodium 133, potassium 4.2, chloride 102, CO2 24, BUN 22, creatinine 0.53. Albumin is 2.9. Progress note dated August 04, 2023. 58-year-old male again seen in room 364. The patient is currently on a partial rebreather mask, along with high flow nasal cannula. Yesterday, cardiothoracic surgery, wanted the patient changed from suction, to waterseal. Unfortunately, the patient became very short of breath, required high concentrations of oxygen, and I was called. I asked for an immediate stat portable chest x-ray, which showed a worsening right-sided pneumothorax. Afterwards I told him to place the patient back on suction. Subsequent x-ray showed almost near complete expansion of that right lung. We did ask cardiothoracic surgery to see the patient, and they recommended stopping the corticosteroids, and determining in the next few days, whether or not the patient would be a candidate for some sort of surgical procedure. The patient's not receiving any IV fluids. No new labs today other than a glucose of 123. Chest x-ray shows an improvement in the right-sided pneumothorax. Thora vent remains in place. CT scan of the chest shows a moderately sized right pneumothorax, with Thora vent catheter in place. There is right chest wall subcutaneous emphysema. There is a small right-sided pleural effusion, and a right perihilar masslike consolidation. Other noted findings on CT scan are reviewed. Progress note dated August 05, 2023. The patient is again seen in room 364. The patient is currently on 6 L high flow nasal cannula, and occasionally, we use a partial rebreather mask, when his sats drop below 90%. The patient does have a continuing leak, from the right Thora vent device, mostly when he coughs, not so much when he takes a deep breath. The patient is getting saline at 75 cc an hour. The patient's chest x- ray shows a relatively small right apical pneumothorax. Corticosteroids were discontinued, only to be restarted by oncology. The patient should not be getting steroids at the current time. Labs include a white count 13.1, hemoglobin 13.7, hematocrit 40.7, and a platelet count of 331,000. Sodium 132, potassium 4.1, chlorides 100, CO2 31, BUN 24, creatinine 0.58. Altered data is negative. Chest x-ray shows a small right apical pneumothorax. Progress note dated August 06, 2023. The patient is seen today in room 364. Last night, the patient became acutely short of breath, and was notified by the nurses. I recommended high flow nasal O2, as well as either a partial rebreather mask or a nonrebreather mask. The patient's chest x-ray, that was ordered last night, stat, included a large right-sided pneumothorax. The patient is seen today in room 364. He is on 11 L high flow oxygen. The patient is on saline at 75 cc an hour. The patient continues to have a leak. We had a conversation today about CODE STATUS. The patient would not want to be on life support. Both him and his agree. The nurse heard the conversation, along with my nurse practitioner. White count is 13.4, hemoglobin 14.4, hematocrit 42.7, platelet count 274,000. Sodium 131, potassium 3.9, chloride 99, CO2 27, BUN 19, creatinine 0.51. Glucose 126. Calcium 8.7 magnesium 1.9. Cultures, have thus far been negative. Chest x-ray this morning, it is similar to the x-ray that was done about 1:00 in the morning last night. It shows a slightly larger right-sided apical pneumothorax. Thora vent is in place. Progress note dated August 07, 2023. 58-year-old male seen today in room 364. The patient is currently on 12 L high flow oxygen, and occasionally has a partial rebreather that he uses. The patient's chest x-ray is unchanged. It shows a right apical pneumothorax. The patient is also receiving saline at 50 cc an hour. The patient still has a leak, from the right lung, with deep breathing, or coughing. Steroids have been discontinued. I did have a conversation with medical oncology yesterday about that. No new labs today. Chest x-rays reviewed. Clinically, the patient stable. Progress note dated August 08, 2023. 58-year-old male with a history of metastatic lung cancer, seen today in room 364. The patient continues on 12 L high flow oxygen. In addition, he uses a partial rebreather, from time to time to maintain saturations. He is getting saline at 50 cc an hour. Today's chest x-ray shows a larger right apical pneumothorax, than previous x-rays. The Thora vent device remains in place, on suction. Cardiothoracic surgery is following. Corticosteroids have been discontinued. White count is 12.2, hemoglobin 13.3, hematocrit 40.4, and platelet count 266,000. Sodium 131, potassium 4.3, chloride 100, CO2 25, anion gap 6, BUN 16, creatinine 0.35. Calcium is 7.8. Cultures are negative at this point. Objective - Vital Signs Vital signs: Vital Signs Temp 97.6 F 08/07/23 07:54 Pulse 100 08/08/23 12:16 Resp 20 08/08/23 12:16 BP 110/65 08/08/23 12:16 Pulse Ox 91 L 08/08/23 12:16 FiO2 40 08/03/23 15:20 Intake & Output 08/07/23 08/08/23 08/08/23 18:59 06:59 18:59 Intake Total 776 540 Output Total 480 0 50 Balance 296 540 -50 Intake: Oral 776 540 Output: Chest Tube Drainage 30 0 50 Right Anterior Chest 30 0 50 Urine 450 Other: Voiding Method Urinal Urinal Urinal # Voids 2 1 # Bowel Movements 0 - Exam No acute distress, oriented 3. Currently on high flow nasal cannula, and a partial rebreather mask, prn. HEENT examination is grossly unremarkable. Mucous membranes are moist. No oral lesions. Neck supple. Full range of motion. No adenopathy thyromegaly or neck vein distention. Cardiovascular examination reveals regular rhythm rate. S1-S2 normal. No S3 or S4. No discernible murmur noted. Heart rate 94 bpm. Lungs reveal clear mild scattered rhonchi bilaterally. No wheezes or crackles. Right-sided Thora vent is noted. A small leak is noted. No subcutaneous emphysema. Saturations are 91 %. Abdomen soft bowel sounds are heard. No masses or tenderness. Extremities are intact. No cyanosis clubbing or edema. Skin is without rash or lesion. Neurologic examination is brief but nonfocal. 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 In addition, the patient had a large right-sided effusion, which required thoracentesis. Acute exacerbation of COPD. Right pneumothorax, following right thoracentesis, status post Thora vent placement. Non-small cell lung cancer with metastasis to the chest, brain, and bone. Right renal nodule, suspicious for malignancy. T12 kyphoplasty. Former smoker. 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 Constipation Plan: Plan dated August 02, 2023. Today's chest x-ray shows a slightly larger right apical pneumothorax. The patient's lung may never fully expand, as he may have a trapped lung. There is still a small leak. I will leave the Thora vent in for now. Labs, x-rays, and medications are reviewed. The patient continues on bronchodilators, corticosteroids. The patient has metastatic lung cancer, so his overall progn osis is very poor. We will continue to follow make recommendations along the way. Prognosis is certainly very guarded. The patient's major complaint today was constipation. Plan dated August 03, 2023. The patient will have a chest x-ray done today. Normal was ordered. In addition, will have cardiothoracic surgery see the patient, because of the persistent air leak on the right side. The Thora vent remains in place. Yesterday's chest x-ray showed a slightly larger right-sided pneumothorax. Labs, x-rays, and medications are reviewed. The patient has a history of metastatic lung cancer. Prognosis is certainly guarded. The patient continues on Diflucan, albuterol sulfate, and ipratropium bromide, Solu-Medrol, and Zosyn. We will continue to follow make recommendations along the way. We will await input by cardiothoracic surgery. Plan dated August 04, 2023. I had the opportunity to speak to Dr. Negrete about this patient and what to do next. We are going to stop the corticosteroids, which may improve the healing process. In addition, the Thora vent will remain on suction for the time being. Dr. Negrete thinks there is no really good solution for this patient, and surg varsha is not guaranteed to be effective. Nonetheless, we will give the patient a few days off the corticosteroids, see how he responds. Currently he is on high flow nasal cannula, and a partial rebreather mask. Labs, x-rays, and medications are reviewed. Corticosteroids are discontinued. Additional recommendations and suggestions are forthcoming. Prognosis is certainly guarded. Plan dated August 05, 2023. Corticosteroids should be discontinued altogether. Were hoping, that the patient expands the right lung fully, without a leak, but if he does not, surgery may be indicated next week. I did speak to Dr. Negrete about the options. None of which are good. Nonetheless, the patient's apical pneumothorax today is smaller. He has a persistently, mostly when he coughs, not so much when he takes a deep breath. Labs, x-rays, medications are reviewed. The patient's overall prognosis remains very guarded. We will continue to follow the patient, make recommendations along the way. Plan dated August 06, 2023. The patient's right apical pneumothorax is slightly larger today than it was yesterday. The patient did have an episode of acute shortness of breath last night, and required high flow nasal O2, as well as a partial rebreather mask. The corticosteroids have been discontinued, hoping that the patient's right lung will expand, and his leak will dissipate. He currently still has a leak, mostly with coughing, not so much with breathing. Labs, x-rays, and medications are reviewed. We are trying to avoid a surgery. Finally, we had a conversation about CODE STATUS. The patient clearly does not want to be on life support, and states that he is a DNR/DNI. His who was in the room, agreed. The conversation was witnessed by the floor nurse, and my nurse practitioner. We will continue to follow make recommendations along the way. Prognosis is certainly very guarded. Plan dated August 07, 2023. The patient continues on high flow nasal O2, supplemented with a partial rebreather mask. The patient's corticosteroids have been discontinued. We did have a long conversation with the patient yesterday, about CODE STATUS, and he decided that he did not want to be intubated or mechanically ventilated. I believe that to be the best decision for this patient. I did have a conversation with medical oncology, about the corticosteroids. For now, no corticosteroids. The patient still has a leak, from the right sided pneumothorax. Labs, x-rays, and medications are reviewed. The patient's prognosis is guarded. He may require surgery next week, as discussed with Dr. Negrete, the cardiothoracic surgeon. Plan dated August 08, 2023. The patient's pneumothorax, is larger on the right side. The patient still has a leak, from the Thora vent device. Labs, x-rays, and medications are reviewed. The patient continues on high flow nasal O2 at 12 L, as well as a partial rebreather, from time to time. Dr. Negrete saw the patient last week, and will be considering surgery. We discontinue the corticosteroids, to aid in the healing process. Patient's overall prognosis remains very guarded. Labs, x- rays, and medications are reviewed. Will continue to follow the patient, make recommendations along the way. The Thora vent should remain on suction. Time with Patient: Less than 30
--- NOTE | 2023-08-09 00:31 | P.PN ---
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 Patient completed 6 cycles of concurrent chemoradiation on 02/08/2023 and radiation therapy completed on 02/16/2023. CT neck,/chest and abdomen on 02/24/2023 showed stable disease. He was started on cycle 1 of consolidative durvalumab on 03/19/2023. Bronchoscopy on 06/04/2023 with the biopsy of the right hilar region reveals evidence of poorly differentiated non- small cell carcinoma. PET scan showed evidence of metastasis to the bones including right lower ribs/pelvis/C2 and L5 vertebral bodies, intra-abdominal lymphadenopathy, right hilar region. MRI brain showed at least 6 peripherally enhancing lesions. Patient was started on afatinib about 2 weeks ago. Patient presented to ER with complaints of worsening shortness of breath. Patient is requiring 9 L oxygen via nasal cannula. Otherwise denies any complaints of fever or chills. No nausea vomiting. No hematemesis or melena. No headache or dizziness. Patient also having generalized weakness and requiring assistance with sitting up and ambulation. Chest x-ray showed increased right upper lobe lung airspace opacities correlate for pneumonia. EKG showed sinus tachycardia with occasional ventricular premature complexes. Laboratory data showed WBC 10.3 hemoglobin 13.5 and platelets 324 Sodium 131 potassium 3.5 chloride 101 bicarb is 22 BUN 14 and creatinine 0.52 and blood sugar is 105 and calcium 8.3 AST 48 ALT 65 and alk phos 138. Troponin x 1 negative and procalcitonin level is 0.2 Urinalysis is negative for infection Influenza A, B, Legionella, RSV and COVID-19 PCR not detected. 07/29/2023 Patient is seen and evaluated in follow-up this morning continues to be in the ICU with multiple medical consultations following including oncology and pulmonary ems director. Patient is status post thoracentesis on the right with approximately 3.2 liters removed. Patient requiring more oxygen currently maintained on airvo 60/80. Patient is lethargic and significantly weak and appears restless in mild respiratory distress. Patient reports not much of an appetite and has been tolerating supplements and will continue. Patient with significant weakness although respiratory status making it difficult for ambulation. Patient also reports to not sleeping well and will add low-dose medication as needed. Patient is currently afebrile with no reported chest pain. Cultures have been sent and pending. 07/30/2023 Patient is seen in follow-up this morning continues to be in the ICU maintained on airvo 60/50 and continues with significant shortness of breath although feels slightly improved. Patient continues with chest tube and is status postthoracentesis. Cytology is pending. Patient is afebrile. Patient continues to be significantly weak and extremely dyspneic with minimal exertion. Encouraged oral intake. 07/31/2023 Patient is seen in follow-up today continues to be in the ICU with multiple medical consultations following. Weaning FiO2 as tolerated currently maintained on 5050 of airvo with supplemental oxygen of nonrebreather as needed. Patient continues with Pleurx catheter on the right chest wall with pulmonary following. Sputum culture showing Shanta and patient is also continued on Zosyn and will continue for now. Patient reports having some mouth soreness and does appear to have thrush. Patient is afebrile with no reported chest pain. Patient with overall weakness and prolonged hospitalization, recommend increased activity as tolerated. Overall prognosis remains guarded. 08/01/2023 Patient is seen in follow-up today has been transferred out of the ICU on 3 S. continued on IV Lasix daily along with continued IV steroids and Zosyn. Patient continues with Pleurx catheter and cultures preliminary showing no growth. Patient continues on Airvo at 50/50 and weaning as tolerated. White count has normalized and hemoglobin is stable at 12.8, sodium is 135 with a potassium of 4.3 and electrolytes within normal limits. Patient with weakness will have PT/OT evaluate once respiratory status more stable. Encouraged oral intake. Patient also to continue on Diflucan for oral thrush. 08/02/2023 patient is seen in follow-up today reports his breathing is slightly improved although continues on airvo 50/50 with pulmonary following. Patient also continues with Pleurx catheter noted of the right chest with serous drainage. Patient is continued on Zosyn along with Diflucan for oral thrush. Patient with prolonged hospitalization and generalized weakness, will have PT/OT therapy evaluate the patient. Patient reports has not had a bowel movement in a few days and is feeling constipated. Will add lactulose to make it 3 times daily as needed. Patient is afebrile with no reports of chest pain or palpitations. Follow-up chest x-ray today shows right apical pneumothorax slightly larger in size now 4.0 cm versus 3.2 cm previously with continued right side Thora vent with continued similar diffuse interstitial densities and right midlung opacities. 08/03/2023 Patient is seen in follow-up continues on the stepdown unit currently maintained on Airvo and attempting to wean as patient also continues with 15 L nonrebr eather. Airvo being titrated down to 40 and patient is tolerating. Patient continues with shortness of breath and also has Pleurx catheter on the right reporting he feels his shortness of breath is slightly improving. Patient inquiring about when he can go home and discussed with him as well as family at the bedside he would need to be titrated down to nasal cannula prior to discharge. Patient has been using incentive spirometer and sitting up more often working to wean as tolerated. Patient with significant weakness being evaluated by physical therapy and recommend daily. Encouraged oral intake. Patient remains afebrile. 08/04/2023 Patient is seen in follow-up with multiple medical consultations following including cardiothoracic surgery and pulmonary ems director. Patient maintained on high flow nasal cannula at 6 L as well as 15 L nonrebreather and patient is off Airvo. Patient had an episode overnight of extreme chest pain and shortness of breath and chest x-ray was performed showing right-sided pneumothorax as patient was off suction and per nursing staff immediately placed back on suction with repeat chest x-ray showing resolution of the pneumothorax. CT surgery foll owing and have discontinued corticosteroids and will monitor closely over the next few days with attempts to weaning from suctioning and discuss further about treatment plan moving forward if patient requires surgical intervention. Follow-up chest x-ray ordered and will also follow-up with repeat labs. Patient was on IV Lasix daily although appears clinically dry and will initiate gentle hydration and again follow-up with repeat labs. Sodium is 133. 08/05/2023 Patient is seen in follow-up today with pulmonary, CT surgery, oncology following and patient continues with significant shortness of breath. Chest x- ray reveals smaller pneumo thorax and continues with Pleurx catheter to suction. Corticosteroids discontinued. Patient continues on gentle IV hydration and Lasix was also discontinued. Patient reports has not had a bowel movement again in a day and will make lactulose 3 times daily scheduled until having bowel movements. Encouraged oral intake and increased activity as tolerated. Patient is currently sitting up in the chair. Patient on 6 L nasal cannula and intermittently using nonrebreather. Encouraged the patient to continue with incentive spirometer and limiting nonrebreather use. Will follow-up on repeat labs. 08/06/2023 Patient is seen and evaluated in follow-up today continues on high flow nasal cannula currently on 11 to 12 L high flow and attempting to wean as tolerated. Patient continues to report right-sided chest wall pain with inspiration and coughing. Patient reports to having bowel movements and will make lactulose as needed. Patient continues on gentle hydration and encouraged oral intake as patient sodium is slightly low at 131. Patient reports not having much of an appetite. Patient is afebrile and continued on breathing treatments. All steroids are on hold. 08/07/2023 Patient is currently resting in the bed. On high flow oxygen at 12 L. Chest x- ray today showed stable chest with right upper lobe thoracotomy tube with persistent right apical pneumothorax unchanged. Laboratory data reviewed from yesterday. Patient is being continued on normal saline at 50 cc/h. No other acute overnight issues. Oncology and pulmonary is on board. Review of systems: Constitutional: reports of fatigue but improved, no fever, or chills, less anxious Cardiovascular: No reports of chest pain or palpitations, reports chest wall pains on the right with cough Respiratory: reports of continued shortness of breath and cough, although reports this feeling slightly improved GI: No reports of nausea, vomiting, or diarrhea, reports not much of an appetite, but eating a little more, reports of having bowel movements : No reports of dysuria or retention Neurovascular: reports of generalized weakness All medications have been reviewed PHYSICAL EXAMINATION: Patient is sitting up in the chair, maintained on 12 L high flow nasal cannula, awake alert and oriented, appears weak... Thin built, elderly appearing, ill- appearing HEENT: Normocephalic. Neck is supple. Pupils reactive. Nostrils clear. Oral cavity is moist. Neck reveals no JVD, carotid bruits, or thyromegaly. CHEST EXAMINATION: Trachea is central. Symmetrical expansion. Bilateral scattered rhonchi and coarse sounds. Basilar diminished sounds. Worse on the right CARDIAC: Normal S1, S2 with no gallops. No murmurs ABDOMEN: Soft. Thin, scaphoid bowel sounds present. Nontender. No organomegaly. No abdominal bruits. Extremities: reveal no edema. No clubbing or cyanosis Neurologically awake, alert, oriented x3 with well-coordinated movements. No gross focal deficits noted, diffusely weak Skin: No rash or skin lesions. Psychiatric: Cooperative. Non-suicidal, slightly anxious at times Musculoskeletal: No joint swelling or deformity. Assessment: Acute on chronic hypoxemic respiratory failure with right upper lobe pneumonia and metastatic lung cancer and pleural effusion. Possible afatinib pneumonitis cannot be excluded. Currently maintained on 11 to 12 L high flow nasal cannula along with 15 L nonrebreather at times, recommend limiting nonrebreather Right pneumothorax, following right thoracentesis, status post Thora vent placement. Non-small cell lung cancer status post chemoradiation, with metastasis to right lower rib, pelvis, vertebral bodies and brain metastatic lesions. Patient was started on afatinib about 2 weeks ago. Treatment currently on hold with hematology/oncology following Oral thrush with sputum culture showing Shanta COPD with mild exacerbation Hypovolemic hyponatremia, likely secondary to poor oral intake Mild transaminitis Recent kyphoplasty in May 2023 Chronic right-sided pleural effusion. Likely malignant effusion, status post thoracentesis on the right with trapped lung post thoracentesis noted requiring chest tube on 07/29/2023 Prior history of smoking GI and DVT prophylaxis with PPI and heparin subcu Full code Plan: Patient will be continued on oxygen supplementation and Weaning FiO2 as tolerated. Currently maintained on 11 to 12 L high flow nasal cannula along with intermittent periods of 15 L nonrebreather. Attempting to wean FiO2 as tolerated. Patient continues with Pleurx catheter on the right and CT surgery following recommending holding corticosteroids and monitoring closely over the next few days to determine if patient requires surgical intervention. Chest x- ray daily Patient continuing with bowel regimen and lactulose and reports is having bowel movements and will make lactulose as needed Patient is continued on Diflucan sputum culture showed Shanta. Antibiotics have been discontinued and being closely monitored off antibiotic therapy. Patient with thrush and will continue cool solution with nystatin, discontinue Diflucan Patient to continue on DuoNebs and was maintained on low-dose Lasix although appears clinically dry and will continue gentle hydration and follow-up with repeat labs. Oncology following as well as patient was continued on cancer treatment which is currently on hold and will follow-up in the outpatient setting encouraged oral intake and increased activity as tolerated. PT/OT therapy following and working with the patient. Recommend daily as patient has had prolonged hospitalization and plans on returning home on discharge Due to multiple complex medical issues with metastasis, overall prognosis remains extremely poor and guarded at this time Objective - Vital Signs Vital signs: Vital Signs Temp 97.6 F 08/07/23 07:54 Pulse 100 08/07/23 21:30 Resp 20 08/07/23 20:00 BP 110/82 08/07/23 20:00 Pulse Ox 90 L 08/07/23 21:22 FiO2 40 08/03/23 15:20 Intake & Output 08/07/23 08/07/23 08/08/23 06:59 18:59 06:59 Intake Total 540 776 Output Total 200 480 0 Balance 340 296 0 Intake: Oral 540 776 Output: Chest Tube Drainage 0 30 0 Right Anterior Chest 0 30 0 Urine 200 450 Other: Voiding Method Urinal Urinal Urinal # Voids 2 # Bowel Movements 0 - Labs CBC & Chem 7: 08/08/23 09:29 08/08/23 09:29
--- NOTE | 2023-08-09 00:34 | P.PN ---
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 Patient completed 6 cycles of concurrent chemoradiation on 02/08/2023 and radiation therapy completed on 02/16/2023. CT neck,/chest and abdomen on 02/24/2023 showed stable disease. He was started on cycle 1 of consolidative durvalumab on 03/19/2023. Bronchoscopy on 06/04/2023 with the biopsy of the right hilar region reveals evidence of poorly differentiated non- small cell carcinoma. PET scan showed evidence of metastasis to the bones including right lower ribs/pelvis/C2 and L5 vertebral bodies, intra-abdominal lymphadenopathy, right hilar region. MRI brain showed at least 6 peripherally enhancing lesions. Patient was started on afatinib about 2 weeks ago. Patient presented to ER with complaints of worsening shortness of breath. Patient is requiring 9 L oxygen via nasal cannula. Otherwise denies any complaints of fever or chills. No nausea vomiting. No hematemesis or melena. No headache or dizziness. Patient also having generalized weakness and requiring assistance with sitting up and ambulation. Chest x-ray showed increased right upper lobe lung airspace opacities correlate for pneumonia. EKG showed sinus tachycardia with occasional ventricular premature complexes. Laboratory data showed WBC 10.3 hemoglobin 13.5 and platelets 324 Sodium 131 potassium 3.5 chloride 101 bicarb is 22 BUN 14 and creatinine 0.52 and blood sugar is 105 and calcium 8.3 AST 48 ALT 65 and alk phos 138. Troponin x 1 negative and procalcitonin level is 0.2 Urinalysis is negative for infection Influenza A, B, Legionella, RSV and COVID-19 PCR not detected. 07/29/2023 Patient is seen and evaluated in follow-up this morning continues to be in the ICU with multiple medical consultations following including oncology and pulmonary marketing operations consultant. Patient is status post thoracentesis on the right with approximately 3.2 liters removed. Patient requiring more oxygen currently maintained on airvo 60/80. Patient is lethargic and significantly weak and appears restless in mild respiratory distress. Patient reports not much of an appetite and has been tolerating supplements and will continue. Patient with significant weakness although respiratory status making it difficult for ambulation. Patient also reports to not sleeping well and will add low-dose medication as needed. Patient is currently afebrile with no reported chest pain. Cultures have been sent and pending. 07/30/2023 Patient is seen in follow-up this morning continues to be in the ICU maintained on airvo 60/50 and continues with significant shortness of breath although feels slightly improved. Patient continues with chest tube and is status postthoracentesis. Cytology is pending. Patient is afebrile. Patient continues to be significantly weak and extremely dyspneic with minimal exertion. Encouraged oral intake. 07/31/2023 Patient is seen in follow-up today continues to be in the ICU with multiple medical consultations following. Weaning FiO2 as tolerated currently maintained on 5050 of airvo with supplemental oxygen of nonrebreather as needed. Patient continues with Pleurx catheter on the right chest wall with pulmonary following. Sputum culture showing Shanta and patient is also continued on Zosyn and will continue for now. Patient reports having some mouth soreness and does appear to have thrush. Patient is afebrile with no reported chest pain. Patient with overall weakness and prolonged hospitalization, recommend increased activity as tolerated. Overall prognosis remains guarded. 08/01/2023 Patient is seen in follow-up today has been transferred out of the ICU on 3 S. continued on IV Lasix daily along with continued IV steroids and Zosyn. Patient continues with Pleurx catheter and cultures preliminary showing no growth. Patient continues on Airvo at 50/50 and weaning as tolerated. White count has normalized and hemoglobin is stable at 12.8, sodium is 135 with a potassium of 4.3 and electrolytes within normal limits. Patient with weakness will have PT/OT evaluate once respiratory status more stable. Encouraged oral intake. Patient also to continue on Diflucan for oral thrush. 08/02/2023 patient is seen in follow-up today reports his breathing is slightly improved although continues on airvo 50/50 with pulmonary following. Patient also continues with Pleurx catheter noted of the right chest with serous drainage. Patient is continued on Zosyn along with Diflucan for oral thrush. Patient with prolonged hospitalization and generalized weakness, will have PT/OT therapy evaluate the patient. Patient reports has not had a bowel movement in a few days and is feeling constipated. Will add lactulose to make it 3 times daily as needed. Patient is afebrile with no reports of chest pain or palpitations. Follow-up chest x-ray today shows right apical pneumothorax slightly larger in size now 4.0 cm versus 3.2 cm previously with continued right side Thora vent with continued similar diffuse interstitial densities and right midlung opacities. 08/03/2023 Patient is seen in follow-up continues on the stepdown unit currently maintained on Airvo and attempting to wean as patient also continues with 15 L nonrebr eather. Airvo being titrated down to 40 and patient is tolerating. Patient continues with shortness of breath and also has Pleurx catheter on the right reporting he feels his shortness of breath is slightly improving. Patient inquiring about when he can go home and discussed with him as well as family at the bedside he would need to be titrated down to nasal cannula prior to discharge. Patient has been using incentive spirometer and sitting up more often working to wean as tolerated. Patient with significant weakness being evaluated by physical therapy and recommend daily. Encouraged oral intake. Patient remains afebrile. 08/04/2023 Patient is seen in follow-up with multiple medical consultations following including cardiothoracic surgery and pulmonary marketing operations consultant. Patient maintained on high flow nasal cannula at 6 L as well as 15 L nonrebreather and patient is off Airvo. Patient had an episode overnight of extreme chest pain and shortness of breath and chest x-ray was performed showing right-sided pneumothorax as patient was off suction and per nursing staff immediately placed back on suction with repeat chest x-ray showing resolution of the pneumothorax. CT surgery foll owing and have discontinued corticosteroids and will monitor closely over the next few days with attempts to weaning from suctioning and discuss further about treatment plan moving forward if patient requires surgical intervention. Follow-up chest x-ray ordered and will also follow-up with repeat labs. Patient was on IV Lasix daily although appears clinically dry and will initiate gentle hydration and again follow-up with repeat labs. Sodium is 133. 08/05/2023 Patient is seen in follow-up today with pulmonary, CT surgery, oncology following and patient continues with significant shortness of breath. Chest x- ray reveals smaller pneumo thorax and continues with Pleurx catheter to suction. Corticosteroids discontinued. Patient continues on gentle IV hydration and Lasix was also discontinued. Patient reports has not had a bowel movement again in a day and will make lactulose 3 times daily scheduled until having bowel movements. Encouraged oral intake and increased activity as tolerated. Patient is currently sitting up in the chair. Patient on 6 L nasal cannula and intermittently using nonrebreather. Encouraged the patient to continue with incentive spirometer and limiting nonrebreather use. Will follow-up on repeat labs. 08/06/2023 Patient is seen and evaluated in follow-up today continues on high flow nasal cannula currently on 11 to 12 L high flow and attempting to wean as tolerated. Patient continues to report right-sided chest wall pain with inspiration and coughing. Patient reports to having bowel movements and will make lactulose as needed. Patient continues on gentle hydration and encouraged oral intake as patient sodium is slightly low at 131. Patient reports not having much of an appetite. Patient is afebrile and continued on breathing treatments. All steroids are on hold. 08/07/2023 Patient is currently resting in the bed. On high flow oxygen at 12 L. Chest x- ray today showed stable chest with right upper lobe thoracotomy tube with persistent right apical pneumothorax unchanged. Laboratory data reviewed from yesterday. Patient is being continued on normal saline at 50 cc/h. No other acute overnight issues. Oncology and pulmonary is on board. 08/08/2023 Patient is currently resting in the bed. Awake alert and oriented x 3. Still on 12 L high flow oxygen. Denies any complaints of chest pain. Chest x-ray today showed base enlargement of right upper lobe pneumothorax with apical pleural distance of about 4.7 cm versus 2.[address] surgery and pulmonary is on board. Laboratory showed WBC 12.2 hemoglobin 13.3 and platelets 266 Sodium 131 potassium 4.3 chloride 100 bicarb is 25 BUN 16 and creatinine 0.35 and blood sugar 95 and calcium 7.8. Review of systems: Constitutional: reports of fatigue but improved, no fever, or chills, less anxious Cardiovascular: No reports of chest pain or palpitations, reports chest wall pains on the right with cough Respiratory: reports of continued shortness of breath and cough, although reports this feeling slightly improved GI: No reports of nausea, vomiting, or diarrhea, reports not much of an appetite, but eating a little more, reports of having bowel movements : No reports of dysuria or retention Neurovascular: reports of generalized weakness All medications have been reviewed PHYSICAL EXAMINATION: Patient is sitting up in the chair, maintained on 12 L high flow nasal cannula, awake alert and oriented, appears weak... Thin built, elderly appearing, ill-appearing HEENT: Normocephalic. Neck is supple. Pupils reactive. Nostrils clear. Oral cavity is moist. Neck reveals no JVD, carotid bruits, or thyromegaly. CHEST EXAMINATION: Trachea is central. Symmetrical expansion. Bilateral scattered rhonchi and coarse sounds. Basilar diminished sounds. Worse on the right CARDIAC: Normal S1, S2 with no gallops. No murmurs ABDOMEN: Soft. Thin, scaphoid bowel sounds present. Nontender. No organomegaly. No abdominal bruits. Extremities: reveal no edema. No clubbing or cyanosis Neurologically awake, alert, oriented x3 with well-coordinated movements. No g ross focal deficits noted, diffusely weak Skin: No rash or skin lesions. Psychiatric: Cooperative. Non-suicidal, slightly anxious at times Musculoskeletal: No joint swelling or deformity. Assessment: Acute on chronic hypoxemic respiratory failure with right upper lobe pneumonia and metastatic lung cancer and pleural effusion. Possible afatinib pneumonitis cannot be excluded. Currently maintained on 11 to 12 L high flow nasal cannula along with 15 L nonrebreather at times, recommend limiting nonrebreather Right pneumothorax, following right thoracentesis, status post Thora vent placement. Non-small cell lung cancer status post chemoradiation, with metastasis to right lower rib, pelvis, vertebral bodies and brain metastatic lesions. Patient was started on afatinib about 2 weeks ago. Treatment currently on hold with hematology/oncology following Oral thrush with sputum culture showing Shanta COPD with mild exacerbation Hypovolemic hyponatremia, likely secondary to poor oral intake Mild transaminitis Recent kyphoplasty in May 2023 Chronic right-sided pleural effusion. Likely malignant effusion, status post thoracentesis on the right with trapped lung post thoracentesis noted requiring chest tube on 07/29/2023 Prior history of smoking GI and DVT prophylaxis with PPI and heparin subcu Full code Plan: Patient will be continued on oxygen supplementation and Weaning FiO2 as tolerated. Currently maintained on 11 to 12 L high flow nasal cannula along with intermittent periods of 15 L nonrebreather. Attempting to wean FiO2 as tolerated. Patient continues with Pleurx catheter on the right and CT surgery following recommending holding corticosteroids and monitoring closely over the next few days to determine if patient requires surgical intervention. Chest x-ray daily Patient continuing with bowel regimen and lactulose and reports is having bowel movements and will make lactulose as needed Patient is continued on Diflucan sputum culture showed Shanta. Antibiotics have been discontinued and being closely monitored off antibiotic therapy. Patient with thrush and will continue cool solution with nystatin, discontinue Diflucan Patient to continue on DuoNebs and was maintained on low-dose Lasix although appears clinically dry and will continue gentle hydration and follow-up with repeat labs. Oncology following as well as patient was continued on cancer treatment which is currently on hold and will follow-up in the outpatient setting encouraged oral intake and increased activity as tolerated. PT/OT therapy following and working with the patient. Recommend daily as patient has had prolonged hospitalization and plans on returning home on discharge Due to multiple complex medical issues with metastasis, overall prognosis remains extremely poor and guarded at this time Objective - Vital Signs Vital signs: Vital Signs Temp 97.6 F 08/07/23 07:54 Pulse 96 08/08/23 16:38 Resp 20 08/08/23 16:38 BP 112/65 08/08/23 16:38 Pulse Ox 90 L 08/08/23 16:38 FiO2 40 08/03/23 15:20 Intake & Output 08/07/23 08/08/23 08/08/23 18:59 06:59 18:59 Intake Total 776 540 20 Output Total 480 0 50 Balance 296 540 -30 Intake: IV 20 Invasive Line 5 20 Oral 776 540 Output: Chest Tube Drainage 30 0 50 Right Anterior Chest 30 0 50 Urine 450 Other: Voiding Method Urinal Urinal Urinal # Voids 2 1 1 # Bowel Movements 0 - Labs CBC & Chem 7: 08/08/23 09:29 08/08/23 09:29 Labs: Abnormal Lab Results - Last 24 Hours (Table) 08/08/23 08/08/23 Range/Units 09:29 09:29 WBC 12.2 H (3.8-10.6) k/uL RBC 4.02 L (4.30-5.90) m/uL MCV 100.7 H (80.0-100.0) fL Neutrophils # 11.4 H (1.3-7.7) k/uL Lymphocytes # 0.3 L (1.0-4.8) k/uL Sodium 131 L (137-145) mmol/L Creatinine 0.35 L (0.66-1.25) mg/dL Calcium 7.8 L (8.4-10.2) mg/dL
--- NOTE | 2023-08-09 07:58 | P.PN ---
Subjective Progress Note Date: 08/09/23 Principal diagnosis: Acute hypoxic respiratory failure, pneumonia, right-sided pneumothorax after thoracentesis for right-sided pleural effusion and placement of right-sided Thora-vent with persistent air leak. History of metastatic non-small cell lung carcinoma, previous tobacco dependence, COPD The patient was seen and examined this morning sitting up in bed on the cardiac stepdown unit taking his supplemental nonrebreather off and on to be able to talk. Reports being "bored". He is currently on 15 L high flow nasal cannula with oxygen saturation 88 to 91%, he does continue to cover his mouth with a nonrebreather to help him "catch up with his breathing". Right-sided Thora-vent remains connected to -30 cm continuous wall suction, positive tidaling, intermittent air leak with coughing and sometimes with expiration. Chest x-ray reviewed. Objective - Vital Signs Vital signs: Vital Signs Temp 97.6 F 08/07/23 07:54 Pulse 116 H 08/09/23 04:00 Resp 24 08/09/23 04:00 BP 96/62 08/09/23 04:00 Pulse Ox 88 L 08/09/23 04:00 FiO2 40 08/03/23 15:20 Intake & Output 08/08/23 08/09/23 08/09/23 18:59 06:59 18:59 Intake Total 260 20 Output Total 50 70 Balance 210 -50 Intake: IV 20 20 Invasive Line 5 20 20 Oral 240 Output: Chest Tube Drainage 50 70 Right Anterior Chest 50 70 Other: Voiding Method Urinal Urinal # Voids 1 - Exam CONSTITUTIONAL: Appears somewhat comfortable, cooperative, no acute distress RESPIRATORY: Lungs sounds diminished with expiratory wheeze present on the right side. Respirations even, nonlabored. Currently on 15 L nasal cannula with oxygen saturation 88-91%, supplementing with nonrebreather. Able to achieve 1000 mL on incentive spirometry. Strong cough. CARDIOVASCULAR: S1, S2 present. Regular rate and rhythm, sinus rhythm on telem etry. Palpable peripheral pulses bilaterally. No edema present. No calf pain or tenderness noted. SCDs present. GASTROINTESTINAL: Abdomen soft, nontender, nondistended. Active bowel sounds present 4 quadrants. Tolerating diet. Positive bowel movement 2/2 GENITOURINARY: Continues to void INTEGUMENTARY: Skin is warm and dry NEUROLOGIC: Cranial nerves II through XII intact MUSKULOSKELETAL: Able to move all extremities, strength equal bilaterally PSYCHIATRIC: Alert and oriented to person place and time, appropriate affect, intact judgment and insight INVASIVE LINES AND TUBES: Right-sided Thora-vent present to -30 cm continuous wall suction, intermittent airleak present with coughing and occasionally with expiration - Allied health notes Allied health notes reviewed: nursing - Labs CBC & Chem 7: 08/08/23 09:29 08/08/23 09:29 Labs: Abnormal Lab Results - Last 24 Hours (Table) 08/08/23 08/08/23 Range/Units 09:29 09:29 WBC 12.2 H (3.8-10.6) k/uL RBC 4.02 L (4.30-5.90) m/uL MCV 100.7 H (80.0-100.0) fL Neutrophils # 11.4 H (1.3-7.7) k/uL Lymphocytes # 0.3 L (1.0-4.8) k/uL Sodium 131 L (137-145) mmol/L Creatinine 0.35 L (0.66-1.25) mg/dL Calcium 7.8 L (8.4-10.2) mg/dL - Imaging and Cardiology Chest x-ray: image reviewed Assessment and Plan Assessment: Acute hypoxic respiratory failure Pneumonia Right-sided pleural effusion, status postthoracentesis Right-sided pneumothorax after thoracentesis, status postplacement of right- sided Thora-vent with persistent air leak Shortness of breath Metastatic non-small cell lung carcinoma Previous tobacco dependence, COPD Plan: Keep right Thoravent to low continuous wall suction -30 cm H2O, continue to monitor for airleak resolution. Encourage use of incentive spirometry 10 times every hour while awake. Wean oxygen as tolerated Increase activity as tolerated Medical management of other core morbidities per primary care service, pulmonology and oncology Patient has very poor prognosis, consider hospice More recommendations to follow
--- NOTE | 2023-08-09 08:02 | XR ---
EXAMINATION TYPE: XR chest 1V portable DATE OF EXAM: 08/09/2023 COMPARISON: 08/08/2023 HISTORY: Right pneumothorax TECHNIQUE: Single frontal view of the chest is obtained. FINDINGS: There is interval improvement size right-sided pneumothorax. A diffuse interstitial change s with small bilateral effusions. Heart size stable. Right-sided hilar consolidation or mass stable. Degenerative changes spine with previous vertebroplasty. IMPRESSION: 1. Interval improvement in size of pneumothorax now estimated at 20%. 2 stable right hilar mass or consolidation. Clinically correlate for pulmonary fibrosis.
[2023-08-09 08:45] LABS: Basophils % (A) 0 %; Eosinophils # (A) 0.1 k/uL (0-0.7); Eosinophils % (A) 1 %; HCT 40.7 % (39.0-53.0); HGB 13.9 gm/dL (13.0-17.5); Lymphocytes # (A) 0.3 k/uL (1.0-4.8); Lymphocytes % (A) 3 %; MCH 33.9 pg (25.0-35.0); MCHC 34.3 g/dL (31.0-37.0); MCV 98.8 fL (80.0-100.0); Macrocytosis Slight; Monocytes # (A) 0.4 k/uL (0-1.0); Monocytes % (A) 3 %; Neutrophils # (A) 10.3 k/uL (1.3-7.7); Neutrophils % (A) 93 %; Platelet Count 282 k/uL (150-450); RBC 4.12 m/uL (4.30-5.90); RDW 14.5 % (11.5-15.5); WBC 11.1 k/uL (3.8-10.6)
[2023-08-09 08:57] LABS: African American GFR (CKD) >90 (>60 ml/min/1.73 sqM); Anion Gap 4 mmol/L; Blood Urea Nitrogen 18 mg/dL (9-20); Calcium 8.1 mg/dL (8.4-10.2); Carbon Dioxide 28 mmol/L (22-30); Chloride 99 mmol/L (98-107); Glucose 104 mg/dL (74-99); Non-African American GFR(CKD) >90 (>60 ml/min/1.73 sqM); Potassium 4.4 mmol/L (3.5-5.1); Sodium 131 mmol/L (137-145)
[2023-08-09] MEDS: methylPREDNISolone SOD SUCCI 125 MG/2 ML VIAL IV SCH (11:18)
[2023-08-09] MEDS: MORPHINE SULFATE 4 MG/ML SYRINGE IVP STA (12:03)
[2023-08-09] MEDS: LORazepam 2 MG/ML INJ IV STA (12:44)
--- NOTE | 2023-08-09 12:58 | P.PN ---
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 Patient completed 6 cycles of concurrent chemoradiation on 02/08/2023 and radiation therapy completed on 02/16/2023. CT neck,/chest and abdomen on 02/24/2023 showed stable disease. He was started on cycle 1 of consolidative durvalumab on 03/19/2023. Bronchoscopy on 06/04/2023 with the biopsy of the right hilar region reveals evidence of poorly differentiated non- small cell carcinoma. PET scan showed evidence of metastasis to the bones including right lower ribs/pelvis/C2 and L5 vertebral bodies, intra-abdominal lymphadenopathy, right hilar region. MRI brain showed at least 6 peripherally enhancing lesions. Patient was started on afatinib about 2 weeks ago. Patient presented to ER with complaints of worsening shortness of breath. Patient is requiring 9 L oxygen via nasal cannula. Otherwise denies any complaints of fever or chills. No nausea vomiting. No hematemesis or melena. No headache or dizziness. Patient also having generalized weakness and requiring assistance with sitting up and ambulation. Chest x-ray showed increased right upper lobe lung airspace opacities correlate for pneumonia. EKG showed sinus tachycardia with occasional ventricular premature complexes. Laboratory data showed WBC 10.3 hemoglobin 13.5 and platelets 324 Sodium 131 potassium 3.5 chloride 101 bicarb is 22 BUN 14 and creatinine 0.52 and blood sugar is 105 and calcium 8.3 AST 48 ALT 65 and alk phos 138. Troponin x 1 negative and procalcitonin level is 0.2 Urinalysis is negative for infection Influenza A, B, Legionella, RSV and COVID-19 PCR not detected. 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 Patient is status post thoracentesis on the right with approximately 3.2 liters removed. Patient requiring more oxygen currently maintained on airvo 60/80. Patient is lethargic and significantly weak and appears restless in mild respiratory distress. Patient reports not much of an appetite and has been tolerating supplements and will continue. Patient with significant weakness although respiratory status making it difficult for ambulation. Patient also reports to not sleeping well and will add low-dose medication as needed. Patient is currently afebrile with no reported chest pain. Cultures have been sent and pending. 07/30/2023 Patient is seen in follow-up this morning continues to be in the ICU maintained on airvo 60/50 and continues with significant shortness of breath although feels slightly improved. Patient continues with chest tube and is status postthoracentesis. Cytology is pending. Patient is afebrile. Patient continues to be significantly weak and extremely dyspneic with minimal exertion. Encouraged oral intake. 07/31/2023 Patient is seen in follow-up today continues to be in the ICU with multiple medical consultations following. Weaning FiO2 as tolerated currently maintained on 5050 of airvo with supplemental oxygen of nonrebreather as needed. Patient continues with Pleurx catheter on the right chest wall with pulmonary following. Sputum culture showing Shanta and patient is also continued on Zosyn and will continue for now. Patient reports having some mouth soreness and does appear to have thrush. Patient is afebrile with no reported chest pain. Patient with overall weakness and prolonged hospitalization, recommend increased activity as tolerated. Overall prognosis remains guarded. 08/01/2023 Patient is seen in follow-up today has been transferred out of the ICU on 3 S. continued on IV Lasix daily along with continued IV steroids and Zosyn. Patient continues with Pleurx catheter and cultures preliminary showing no growth. Patient continues on Airvo at 50/50 and weaning as tolerated. White count has normalized and hemoglobin is stable at 12.8, sodium is 135 with a potassium of 4.3 and electrolytes within normal limits. Patient with weakness will have PT/OT evaluate once respiratory status more stable. Encouraged oral intake. Patient also to continue on Diflucan for oral thrush. 08/02/2023 patient is seen in follow-up today reports his breathing is slightly improved although continues on airvo 50/50 with pulmonary following. Patient also continues with Pleurx catheter noted of the right chest with serous drainage. Patient is continued on Zosyn along with Diflucan for oral thrush. Patient with prolonged hospitalization and generalized weakness, will have PT/OT therapy evaluate the patient. Patient reports has not had a bowel movement in a few days and is feeling constipated. Will add lactulose to make it 3 times daily as needed. Patient is afebrile with no reports of chest pain or palpitations. Follow-up chest x-ray today shows right apical pneumothorax slightly larger in size now 4.0 cm versus 3.2 cm previously with continued right side Thora vent with continued similar diffuse interstitial densities and right midlung opacities. 08/03/2023 Patient is seen in follow-up continues on the stepdown unit currently maintained on Airvo and attempting to wean as patient also continues with 15 L nonre breather. Airvo being titrated down to 40 and patient is tolerating. Patient continues with shortness of breath and also has Pleurx catheter on the right reporting he feels his shortness of breath is slightly improving. Patient inquiring about when he can go home and discussed with him as well as family at the bedside he would need to be titrated down to nasal cannula prior to discharge. Patient has been using incentive spirometer and sitting up more often working to wean as tolerated. Patient with significant weakness being evaluated by physical therapy and recommend daily. Encouraged oral intake. Patient remains afebrile. 08/04/2023 Patient is seen in follow-up with multiple medical consultations following including cardiothoracic surgery and pulmonary race car driver. Patient maintained on high flow nasal cannula at 6 L as well as 15 L nonrebreather and patient is off Airvo. Patient had an episode overnight of extreme chest pain and shortness of breath and chest x-ray was performed showing right-sided pneumothorax as patient was off suction and per nursing staff immediately placed back on suction with repeat chest x-ray showing resolution of the pneumothorax. CT surgery fo llowing and have discontinued corticosteroids and will monitor closely over the next few days with attempts to weaning from suctioning and discuss further about treatment plan moving forward if patient requires surgical intervention. Follow-up chest x-ray ordered and will also follow-up with repeat labs. Patient was on IV Lasix daily although appears clinically dry and will initiate gentle hydration and again follow-up with repeat labs. Sodium is 133. 08/05/2023 Patient is seen in follow-up today with pulmonary, CT surgery, oncology following and patient continues with significant shortness of breath. Chest x- ray reveals smaller pneumo thorax and continues with Pleurx catheter to suction. Corticosteroids discontinued. Patient continues on gentle IV hydration and Lasix was also discontinued. Patient reports has not had a bowel movement again in a day and will make lactulose 3 times daily scheduled until having bowel movements. Encouraged oral intake and increased activity as tolerated. Patient is currently sitting up in the chair. Patient on 6 L nasal cannula and intermittently using nonrebreather. Encouraged the patient to continue with incentive spirometer and limiting nonrebreather use. Will follow-up on repeat labs. 08/06/2023 Patient is seen and evaluated in follow-up today continues on high flow nasal cannula currently on 11 to 12 L high flow and attempting to wean as tolerated. Patient continues to report right-sided chest wall pain with inspiration and cou ghing. Patient reports to having bowel movements and will make lactulose as needed. Patient continues on gentle hydration and encouraged oral intake as patient sodium is slightly low at 131. Patient reports not having much of an appetite. Patient is afebrile and continued on breathing treatments. All steroids are on hold. 08/07/2023 Patient is currently resting in the bed. On high flow oxygen at 12 L. Chest x- ray today showed stable chest with right upper lobe thoracotomy tube with pers istent right apical pneumothorax unchanged. Laboratory data reviewed from yesterday. Patient is being continued on normal saline at 50 cc/h. No other acute overnight issues. Oncology and pulmonary is on board. 08/08/2023 Patient is currently resting in the bed. Awake alert and oriented x 3. Still on 12 L high flow oxygen. Denies any complaints of chest pain. Chest x-ray today showed base enlargement of right upper lobe pneumothorax with apical pleural distance of about 4.7 cm versus 2.[address] surgery and pulmonary is on board. Laboratory showed WBC 12.2 hemoglobin 13.3 and platelets 266 Sodium 131 potassium 4.3 chloride 100 bicarb is 25 BUN 16 and creatinine 0.35 and blood sugar 95 and calcium 7.8. 08/09/2023 Patient is seen in follow-up today with multiple family members at bedside. Pulmonary following along with oncology and cardiothoracic surgery and patient continues to clinically decline and requiring more oxygen and his respiratory status has been declining. Patient is on high flow 12 L along with 15 L nonrebreather and desats quickly into the 70s with minimal movement. Patient appears exhausted and leaning forward in the tripod position working on catching his breath although was in some severe distress. Hospice consult was placed and pending at this time. Patient will meet inpatient criteria and awaiting to speak further with hospice. Multiple family members in agreement with making him comfortable and will continue with as needed comfort medications along with Ativan as patient is a little agitated and restless. Patient is currently afebrile and has not been eating. Patient reports to minimal sleep last night as his breathing was compromised and difficulty catching his breath. Review of systems: Constitutional: reports of fatigue but improved, no fever, or chills, extremely anxious Cardiovascular: No reports of chest pain or palpitations, reports chest wall pains on the right with cough Respiratory: reports of continued shortness of breath and cough and feels like having difficulty catching his breath GI: No reports of nausea, vomiting, or diarrhea, reports not much of an appetite, reports no appetite at all and not eating : No reports of dysuria or retention Neurovascular: reports of generalized weakness All medications have been reviewed PHYSICAL EXAMINATION: Patient is sitting up in the chair in the tripod position attempting to catch his breath, maintained on 12 L high flow nasal cannula as well as 15 L nonreb reather, awake alert and oriented, appears weak... Extremely anxious Thin built, elderly appearing, ill-appearing HEENT: Normocephalic. Neck is supple. Pupils reactive. Nostrils clear. Oral cavity is moist. Neck reveals no JVD, carotid bruits, or thyromegaly. CHEST EXAMINATION: Trachea is central. Symmetrical expansion. Bilateral scattered rhonchi and coarse sounds. Basilar diminished sounds. Tachypneic and working to breathe CARDIAC: Normal S1, S2 with no gallops. No murmurs ABDOMEN: Soft. Thin, scaphoid bowel sounds present. Nontender. No organomegaly. No abdominal bruits. Extremities: reveal no edema. No clubbing or cyanosis Neurologically awake, alert, oriented x3 with well-coordinated movements. No gross focal deficits noted, diffusely weak Skin: No rash or skin lesions. Psychiatric: Cooperative. Non-suicidal, extremely anxious today Musculoskeletal: No joint swelling or deformity. Assessment: Acute on chronic hypoxemic respiratory failure with right upper lobe pneumonia and metastatic lung cancer and pleural effusion. Possible afatinib pneumonitis cannot be excluded. Currently maintained on 11 to 12 L high flow nasal cannula along with 15 L nonrebreather at times, recommend limiting nonrebreather Right pneumothorax, following right thoracentesis, status post Thora vent placement. Non-small cell lung cancer status post chemoradiation, with metastasis to right lower rib, pelvis, vertebral bodies and brain metastatic lesions. Patient was started on afatinib about 2 weeks ago. Treatment currently on hold with hematology/oncology following Oral thrush with sputum culture showing Shanta COPD with mild exacerbation Hypovolemic hyponatremia, likely secondary to poor oral intake Mild transaminitis Recent kyphoplasty in May 2023 Chronic right-sided pleural effusion. Likely malignant effusion, status post thoracentesis on the right with trapped lung post thoracentesis noted requiring chest tube on 07/29/2023 Prior history of smoking GI and DVT prophylaxis with PPI and heparin subcu Full code Plan: Patient will be continued on oxygen supplementation and currently on 12 L high flow along with nonrebreather and continues to report shortness of breath. Lengthy discussion was had with pulmonary along with CT surgery and discussing possible hospice Hospice consult was placed and pending at this time. Patient would meet GIP criteria and family is agreeable and would like to make the patient comfortable. Will discuss possible morphine drip Due to multiple complex medical issues with metastasis, overall prognosis remains extremely poor and guarded at this time CODE STATUS was addressed and patient is made no code The impression and plan of care has been dictated by Merle Kenny, Nurse Practitioner as directed. Dr. Magdi MD I have performed a history and examination and MDM of this patient, discussed the same with the dictator, and agree with the dictator's assessment and plan as written ,documented as a scribe. Based on total visit time, I have performed more than 50% of the visit. Objective - Vital Signs Vital signs: Vital Signs Temp 97.6 F 08/07/23 07:54 Pulse 116 H 08/09/23 09:07 Resp 24 08/09/23 04:00 BP 96/62 08/09/23 04:00 Pulse Ox 88 L 08/09/23 04:00 FiO2 40 08/03/23 15:20 Intake & Output 08/08/23 08/09/23 08/09/23 18:59 06:59 18:59 Intake Total 260 20 180 Output Total 50 70 Balance 210 -50 180 Intake: IV 20 20 Invasive Line 5 20 20 Oral 240 180 Output: Chest Tube Drainage 50 70 Right Anterior Chest 50 70 Other: Voiding Method Urinal Urinal # Voids 1 - Labs CBC & Chem 7: 08/09/23 08:06 02/05/24 08:06 Labs: Abnormal Lab Results - Last 24 Hours (Table) 08/08/23 08/08/23 08/09/23 Range/Units 09:29 09:29 08:06 WBC 12.2 H 11.1 H (3.8-10.6) k/uL RBC 4.02 L 4.12 L (4.30-5.90) m/uL MCV 100.7 H (80.0-100.0) fL Neutrophils # 11.4 H 10.3 H (1.3-7.7) k/uL Lymphocytes # 0.3 L 0.3 L (1.0-4.8) k/uL Sodium 131 L (137-145) mmol/L Creatinine 0.35 L (0.66-1.25) mg/dL Glucose (74-99) mg/dL Calcium 7.8 L (8.4-10.2) mg/dL 08/09/23 Range/Units 08:06 WBC (3.8-10.6) k/uL RBC (4.30-5.90) m/uL MCV (80.0-100.0) fL Neutrophils # (1.3-7.7) k/uL Lymphocytes # (1.0-4.8) k/uL Sodium 131 L (137-145) mmol/L Creatinine 0.42 L (0.66-1.25) mg/dL Glucose 104 H (74-99) mg/dL Calcium 8.1 L (8.4-10.2) mg/dL
[2023-08-09 13:41] VITALS: BP 96/68; PULSE 138; RESP 18
--- NOTE | 2023-08-09 14:12 | P.PN ---
Subjective Progress Note Date: 08/09/23 On 08/09/2023, I am seeing the patient for a follow-up. This patient is doing very poor and the patient is currently on 100% nonrebreather facemask in addition to high flow oxygen 10 L/min nasal cannula. The patient is short of breath even at rest. The patient is unable to lay down flat and he is sitting up in a chair. He is known to have metastatic non-small cell lung cancer. Initially this was thought to be of a squamous cell type. Nevertheless, the most recent pleural fluid that was drained showed that the patient has an underlying adenocarcinoma. The chest x-ray from today still showing a right- sided pneumothorax.The patient has a [address] Right-sided pneumothorax estimated to be around percent and the patient continues to have some subcutaneous emphysema along the right chest. There is also a right hilar mass along with some consolidation of the right lung. In comparison, there is some interval improvement in size of the right-sided pneumothorax. There is also increased interstitial changes and small bilateral pleural effusions. Note that the patient was admitted to the hospital on 07/28/2023 and the patient was seen by Dr. Henry. The patient was receiving treatment with afatinib and there was a concern that the patient was having acute pneumonitis and based on that, the treatment was stopped and the patient was given steroids. In terms of his lung cancer history, In September 2022, he reported painless lymphadenopathy in the right neck/shoulder. Prior to this, he had been having increased discomfort in the right chest wall radiating to the mid back on coughing or deep inspiration. He was seen by Dr. Marks and when his right neck lymphadenopathy did not resolve following administration of steroids, CT of the neck done 10/09/2022 revealed 2.4 x 1.9 cm right supraclavicular lymph node at the level of the right thyroid along with lymphadenopathy at the level of the vocal cords. In addition, there was a 1.1 x 0.7 cm spiculated nodule in the right lung apex and a 1 x 0.8 cm right lung nodule consistent with postinflammatory changes and nodular scarring. Given these findings, PET/CT was done 11/07/2022 revealing FDG avid lymphadenopathy in the right neck (SUV of 5, measuring 7 mm in largest dimension), right lung apex mass measuring 2.1 x 1.4 cm (SUV 7.6), mediastinal lymphadenopathy in the paratracheal, precarinal, subcarinal regions, right hilar lymphadenopathy, and left periaortic lymphadenopathy. There was right axillary lymphadenopathy that was mildly FDG avid, that was thought to be secondary to recent vaccination to shingles proximately 3 to 4 days prior to PET/CT. Core needle biopsy of the right supraclavicular lymph node on 11/04/2022 was consistent with metastatic poorly differentiated non-small cell carcinoma. IHC was po sitive for CK7 and focal positivity for CDX2 and GATA3. Rare positivity was noted for p40. IHC was negative for CK20, Napsin A, TTF-1. Based on this pattern, no clear primary could be established. Based on the imaging findings and history provided, lung primary was suspected as the most likely site, but GI primary (esophageal, gastric, pancreatic) and urothelial carcinomas could not be definitively excluded. EGD/colonoscopy 11/25/2022, no significant abnormalities. Cancer type ID noted 71% consistent with squamous cell lung carcinoma along with a 25% probability of lung adenocarcinoma. Head and neck primary was noted to be less than 5% probability. Guardant 360 and NGS from the tissue noted non targetable TP53 and PTEN mutations. EGFR mutation on Guardant 360, which was originally believed to be non-sensitizing mutation located exon 15. Given the information reviewed, he had squamous cell carcinoma of the lung . Bronchoscopy performed on 06/04/2023 with biopsy of the right hilar region revealed evidence of poorly differentiated non-small cell carcinoma positive for CK7 and negative for p40, Napsin A, and TTF-1. Moraxella Catarra grown from cultures on bronchoscopy. PET/CT 06/11/2023 noted evidence of metastasis to the bones including right lower ribs/pelvis/C2 and L5 vertebral bodies, intra-abdominal lymphadenopathy, and right hilar region. MRI brain showed at least 6 peripherally enhancing lesions. His malignancy progressed early on with consolidative immunotherapy. Concerned that progression may have occurred due to presence of EGFR mutation, which is known to be resistant to immunotherapy. Afatinib was started about 2 weeks ago. Objective - Vital Signs Vital signs: Vital Signs Temp 97.6 F 08/07/23 07:54 Pulse 116 H 08/09/23 09:07 Resp 24 08/09/23 04:00 BP 96/62 08/09/23 04:00 Pulse Ox 88 L 08/09/23 04:00 FiO2 40 08/03/23 15:20 Intake & Output 08/08/23 08/09/23 08/09/23 18:59 06:59 18:59 Intake Total 260 20 180 Output Total 50 70 Balance 210 -50 180 Intake: IV 20 20 Invasive Line 5 20 20 Oral 240 180 Output: Chest Tube Drainage 50 70 Right Anterior Chest 50 70 Other: Voiding Method Urinal Urinal # Voids 1 - Exam Significant respiratory distress to the point where the patient is unable to lay down flat, sitting up on the chair, labored breathing, tachypneic and tachycardic and he is currently on high flow nasal cannula, and a partial rebreather mask, prn. HEENT examination is grossly unremarkable. Mucous membranes are moist. No oral lesions. Neck supple. Full range of motion. No adenopathy thyromegaly or neck vein distention. Cardiovascular examination reveals regular rhythm rate. S1-S2 normal. No S3 or S4. No discernible murmur noted. Lungs reveal clear mild scattered rhonchi bilaterally. No wheezes or crackles. Right-sided Thora vent is noted. A small leak is noted. No subcutaneous emphy sema. Abdomen soft bowel sounds are heard. No masses or tenderness. Extremities are intact. No cyanosis clubbing or edema. Skin is without rash or lesion. Neurologic examination is brief but nonfocal. Lethargic, able to communicate and answer simple questions without any major difficulties. No focal neurological deficit. - Labs CBC & Chem 7: 08/09/23 08:06 08/09/23 08:06 Labs: Abnormal Lab Results - Last 24 Hours (Table) 08/08/23 08/08/23 08/09/23 Range/Units 09:29 09:29 08:06 WBC 12.2 H 11.1 H (3.8-10.6) k/uL RBC 4.02 L 4.12 L (4.30-5.90) m/uL MCV 100.7 H (80.0-100.0) fL Neutrophils # 11.4 H 10.3 H (1.3-7.7) k/uL Lymphocytes # 0.3 L 0.3 L (1.0-4.8) k/uL Sodium 131 L (137-145) mmol/L Creatinine 0.35 L (0.66-1.25) mg/dL Glucose (74-99) mg/dL Calcium 7.8 L (8.4-10.2) mg/dL 08/09/23 Range/Units 08:06 WBC (3.8-10.6) k/uL RBC (4.30-5.90) m/uL MCV (80.0-100.0) fL Neutrophils # (1.3-7.7) k/uL Lymphocytes # (1.0-4.8) k/uL Sodium 131 L (137-145) mmol/L Creatinine 0.42 L (0.66-1.25) mg/dL Glucose 104 H (74-99) mg/dL Calcium 8.1 L (8.4-10.2) mg/dL Assessment and Plan Plan: Metastatic non-small cell lung cancer. Initially this was thought to be related to squamous cell carcinoma. Nevertheless, the tumor was profoundly poorly differentiated. The patient is disease progressed on immunotherapy. Subsequently, the patient was started on afatinib and this was started approximately 2 weeks ago. Note that, the he developed a large right-sided pleural effusion that was drained during this current hospital stay and this was called to be adenocarcinoma. The patient for now has metastatic disease including [employer] involvement. The patient was treated afatinib and he was supposed to get some better palliative radiation therapy to his rib cage and to the brain metastases. Acute hypoxemic respiratory failure, multifactorial, including presence of metastatic non-small cell lung cancer, right-sided pleural effusion and right- sided pneumothorax in addition to background COPD. The patient is quite dyspneic at this point on 100% nonrebreather facemask in addition to high flow oxygen. Possibility of immunotherapy related pneumonitis cannot be completely ruled out Acute exacerbation of COPD. Right pneumothorax, following right thoracentesis, status post Thora vent placement. The chest x-ray shows improvement in aeration of the right lung although there is probably another 20% pneumothorax on the right side. This was explained to the family. Non-small cell lung cancer with metastasis to the chest, brain, and bone. Findings are consistent with adenocarcinoma as the pleural fluid showed adenocarcinoma. Right renal nodule, suspicious for malignancy. T12 kyphoplasty. Former smoker. 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 Constipation Plan: Extremely poor prognosis I like to for further compensation and respiratory failure Had a nice discussion with the family The understood the situation and the plan is to consult hospice care for this patient.
--- NOTE | 2023-08-10 10:25 | P.DS ---
Providers Date of admission: 07/27/23 19:45 Expected date of discharge: 08/09/23 Attending physician: Deep Fairbanks Consults: 07/27/23 19:43 Consult Physician Routine Consulting Provider: Nery Gamez Consult Reason/Comments: lung cancer Do you want consulting provider notified?: Yes Consult Physician Routine Consulting Provider: Tessa Avilez Consult Reason/Comments: pleural effusion, pneumonia Do you want consulting provider notified?: Yes 08/03/23 10:50 Consult Physician Routine Consulting Provider: Steve Flanagan Consult Reason/Comments: Persistent leak right chest Do you want consulting provider notified?: Yes Primary care physician: [facility] Course: Final diagnosis Acute on chronic hypoxemic respiratory failure with right upper lobe pneumonia a nd metastatic lung cancer and pleural effusion. Possible afatinib pneumonitis cannot be excluded. Currently maintained on 11 to 12 L high flow nasal cannula along with 15 L nonrebreather at times, recommend limiting nonrebreather Right pneumothorax, following right thoracentesis, status post Thora vent placement. Non-small cell lung cancer status post chemoradiation, with metastasis to right lower rib, pelvis, vertebral bodies and brain metastatic lesions. Patient was started on afatinib about 2 weeks ago. Treatment currently on hold with hematology/oncology following Oral thrush with sputum culture showing Shanta COPD with mild exacerbation Hypovolemic hyponatremia, likely secondary to poor oral intake Mild transaminitis Recent kyphoplasty in May 2023 Chronic right-sided pleural effusion. Likely malignant effusion, status post thoracentesis on the right with trapped lung post thoracentesis noted requiring chest tube on 07/29/2023 Prior history of smoking GI and DVT prophylaxis with PPI and heparin subcu No code Discharge disposition Patient is being transferred in critical condition with extremely poor prognosis to [facility] GIP criteria . Patient will be on comfort measures. Total time taken is greater than 35 minutes. Hospital course This is a 58-year-old male who was recently admitted with acute hypoxic respiratory failure secondary to a right upper lobe pneumonia with metastatic lung cancer and recurrent effusions. Patient is status post thoracentesis with a right pneumothorax concerns for trapped lung s/p Pleurx catheter placement. Patient requiring extreme amounts of oxygen including Airvo and ICU management for some time. Patient was slightly improved maintained on Airvo and titrated off to high flow and continued to require high flow as well as nonrebreather. Patient having worsening respiratory decline had lengthy discussion with pulmonary resident doctor along with CT surgery and family met with [facility]. Patient family would like to keep him comfortable and has met GIP criteria and is being started on a morphine drip. Please refer to other consultation notes for further HPI. Physical exam: Gen: This is a 58-year-old male who is awake, alert and oriented x 3, anxious, appears in respiratory distress HEENT: Head is atraumatic, normocephalic. Pupils equal, round. Sclerae is anicteric. NECK: Supple. No JVD. No lymphadenopathy. No thyromegaly. LUNGS: Diminished breath sounds bilaterally with scattered coarse crackles and rhonchi worse on the right. No intercostal retractions. HEART: Regular rate and rhythm. No murmur. ABDOMEN: Soft. Bowel sounds are present. No masses. No tenderness. EXTREMITIES: No pedal edema. No calf tenderness. NEUROLOGICAL: Patient is awake, alert and oriented x3. Anxious, restless cranial nerves 2 through 12 are grossly intact. Diffusely weak Please refer to medication reconciliation sheet for a list of medications. The impression and plan of care has been dictated by Merle Kenny, Nurse Practitioner as directed. Dr. Magdi MD I have performed a history and examination and MDM of this patient, discussed the same with the dictator, and agree with the dictator's assessment and plan as written ,documented as a scribe. Based on total visit time, I have performed more than 50% of the visit. Patient Condition at Discharge: Poor Plan - Discharge Summary Discharge Rx Participant: Yes New Discharge Prescriptions: No Action Omeprazole Magnesium [PriLOSEC OTC] 20 mg PO DAILY Ondansetron [Zofran] 4 mg PO Q4H PRN PRN Reason: Nausea Albuterol Sulfate [Albuterol Sulfate Hfa] 2 puff INHALATION RT-Q4H PRN PRN Reason: Shortness Of Breath Lactulose 30 gm PO DAILY PRN PRN Reason: Constipation Morphine Sulfate Ir [MSIR] 15 mg PO Q4H Docusate [Colace] 200 mg PO DAILY Afatinib Dimaleate [Gilotrif] 40 mg PO DAILY@0830 Discharge Medication List Afatinib Dimaleate [Gilotrif] 40 mg PO DAILY@0830 07/27/23 [History] Albuterol Sulfate [Albuterol Sulfate Hfa] 2 puff INHALATION RT-Q4H PRN 07/27/23 [History] Docusate [Colace] 200 mg PO DAILY 07/27/23 [History] Lactulose 30 gm PO DAILY PRN 07/27/23 [History] Morphine Sulfate Ir [MSIR] 15 mg PO Q4H 07/27/23 [History] Omeprazole Magnesium [PriLOSEC OTC] 20 mg PO DAILY 07/27/23 [History] Ondansetron [Zofran] 4 mg PO Q4H PRN 07/27/23 [History] Follow up Appointment(s)/Referral(s): Nery Gamez MD [STAFF PHYSICIAN] - 08/17/23 3:30 pm Rigo Dinero MD [Primary Care Provider] - 1-2 days [facility], [NON-STAFF] - Jim Bolanos MD [STAFF PHYSICIAN] - 08/04/23 1:15 pm Discharge Disposition: HOME WITH HOSPICE
--- NOTE | 2023-08-16 18:05 | CDI ---
Documentation Clarification Form Date: 08/11/2023 08:13:00 PM From: Antonia Madrigal RN, CCDS Phone: [phone] Admit Date: 07/27/2023 07:45:00 PM Patient Name: Benjamin Rojas Visit Number: [id number] Discharge Date 08/17/2023 ATTENTION: The Clinical Documentation Specialists (CDI) and [facility] Coding Staff appreciate your assistance in clarifying documentation. Please respond to the clarification below the line at the bottom and electronically sign. The CDI & [facility] Coding staff will review the response and follow-up if needed. Please note: Queries are made part of the Legal Health Record. If you have any questions, please contact the author of this message via ITS. Dr. Tessa Avilez Right side pneumothorax, trapped lungs documented in the operative report on 07/29/23 and Thora-Vent was placed, and patient had a right thoracentesis on 07/29/23. Additional clarification is requested regarding the relationship, if any, that exists between the diagnosis and the procedure. Patients Admitting Diagnosis: Right-sided pleural effusion Post-Operative Diagnosis: Same Procedure performed: Right sided thoracentesis History/Risk Factors: Non-small cell lung cancer with metastasis to the chest brain and skeletal metastasis, COPD, Former smoker Clinical Indicators: 58-year-old white male with complaints of increased shortness of breath, had biopsy-proven non-small cell carcinoma, with metastasis within the chest, and diffuse osseous metastasis. Started on daily Gilotrif in July. Developed worsening shortness of breath. 07/28 CT chest Moderate right and small left pleural effusions. Atypical pneumonia should be considered. Pneumonitis. 07/29 CXR: Redemonstrated volume loss right hemithorax with underlying pleural effusion 07/29 Pulmonary progress note: Trapped lung post thoracentesis, doubt iatrogenic pneumothorax, 07/29/202308/09 Pulmonary progress note: Right pneumothorax, following right thoracentesis, status post Thora vent placement. The chest x-ray shows improvement in aeration of the right lung although there is probably another 20% pneumothorax on the right side. This was explained to the family. Non-small cell lung cancer with metastasis to the chest, brain, and bone. Findings are consistent with adenocarcinoma as the pleural fluid showed adenocarcinoma. Treatment: ICU Cardiac Telemetry/Monitoring Monitor O2 Sat's (titrate) Solu-Medrol 60 MG IV Daily Zosyn 3.375 IVPB q8 HRS Azythromycin 250 MG IVPB 07/27-07/29 Thora vent/chest tube to suction per orders Bronchodilators/DuoNeb's per orders What relationship, if any, exists between the diagnosis of Pneumothorax, post thoracentesis, and the procedure: [ ] [Pneumothorax is a complication of surgical procedure [ ] Pneumothorax is an expected outcome of the surgical procedure [ x ] Pneueumothorax is due to trapped lung related to patients co-morbid condition(s) of right lung cancer and not a complication of the procedure [ ] Other please specify ____ [ ] Unable to determine (Template Last Revised: September 2020) MTDD
== END 2023-08-09 13:09 | disposition hospice, inpatient (51) | DRG 205 ==
LOC: EC 17:01 → 5NMEDONC 19:45 → 2SICU 07-29 07:14 → 3SCARD 07-31 21:22
PROVIDERS: ADMIT Hospitalist; ATTEND Hospitalist
PROC: 0W993ZX Drainage of Right Pleural Cavity, Percutaneous Approach, Diagnostic (ICD-10-PCS; principal; 2023-07-29)
PROC: 0W9930Z Drainage of Right Pleural Cavity with Drainage Device, Percutaneous Approach (ICD-10-PCS; 2023-07-29)
DX: J70.2 Acute drug-induced interstitial lung disorders (principal); J96.21 Acute and chronic respiratory failure with hypoxia; B37.0 Candidal stomatitis; C79.51 Secondary malignant neoplasm of bone; C77.0 Secondary and unspecified malignant neoplasm of lymph nodes of head, face and neck; C79.89 Secondary malignant neoplasm of other specified sites; C34.11 Malignant neoplasm of upper lobe, right bronchus or lung; E87.1 Hypo-osmolality and hyponatremia; J44.1 Chronic obstructive pulmonary disease with (acute) exacerbation; J44.0 Chronic obstructive pulmonary disease with (acute) lower respiratory infection; J93.83 Other pneumothorax; C79.31 Secondary malignant neoplasm of brain; J91.0 Malignant pleural effusion; I10 Essential (primary) hypertension; D63.0 Anemia in neoplastic disease; Z66 Do not resuscitate; T45.1X5A Adverse effect of antineoplastic and immunosuppressive drugs, initial encounter; E86.1 Hypovolemia; F41.9 Anxiety disorder, unspecified; R74.01 Elevation of levels of liver transaminase levels; K59.00 Constipation, unspecified; Z99.81 Dependence on supplemental oxygen; Z79.891 Long term (current) use of opiate analgesic; Z79.899 Other long term (current) drug therapy; Z87.891 Personal history of nicotine dependence; Z92.3 Personal history of irradiation; Z92.21 Personal history of antineoplastic chemotherapy; Z98.1 Arthrodesis status
CPT/HCPCS: 36415; 71045; 71046; 71250; 71260; 76604; 80048; 80053; 81001; 83605; 83735; 83880; 84145; 84484; 85025; 85027; 85610; 85730; 87040; 87070; 87102; 87116; 87205; 87206; 87449; 87636; 88108; 88305; 88341; 88342; 89050; 93005; 94640; 94760; 96361; 96365; 96366; 96367; 96368; 96372; 96375; 96376; 99285

== ENCOUNTER 2023-08-09 13:00 | Inpatient (IN) | payer MEDICAID ==
[2023-08-09] MEDS ORDERED: ATROPINE OPHTH SOLN 1% 5ML BTL SUBLINGUAL PRN (13:02)
[2023-08-09] MEDS ORDERED: GLYCOPYRROLATE 0.2 MG/ML 2 ML VIAL IVP PRN (13:02)
[2023-08-09] MEDS ORDERED: ONDANSETRON 4 MG/2 ML VIAL IVP PRN (13:02)
[2023-08-09] MEDS ORDERED: ACETAMINOPHEN TAB 325 MG TAB PO PRN (13:02)
[2023-08-09] MEDS ORDERED: DRY MOUTH SPRAY 44.3 SPRAY/44.3 ML SPRAY MUCOUS MEM PRN (13:02)
[2023-08-09] MEDS: MORPHINE SULFATE 4 MG/ML SYRINGE IV PRN (13:27)
[2023-08-09] MEDS: MORPHINE SULFATE (100 MG/2 ML) 100 MG in SODIUM CHLORIDE 0.9% 100 ML IV SCH (13:32)
[2023-08-09] MEDS: LORazepam 2 MG/ML INJ IV PRN (13:32)
[2023-08-09] MEDS: SCOPOLAMINE 1 MG/72 HR PATCH TRANSDERM SCH (15:01)
[2023-08-10 06:06] VITALS: PULSE 127
[2023-08-10 08:35] VITALS: RESP 16
--- NOTE | 2023-08-10 10:28 | P.HPIM ---
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 Patient completed 6 cycles of concurrent chemoradiation on 02/08/2023 and radiation therapy completed on 02/16/2023. CT neck,/chest and abdomen on 02/24/2023 showed stable disease. He was started on cycle 1 of consolidative durvalumab on 03/19/2023. Bronchoscopy on 06/04/2023 with the biopsy of the right hilar region reveals evidence of poorly differentiated non- small cell carcinoma. PET scan showed evidence of metastasis to the bones incl uding right lower ribs/pelvis/C2 and L5 vertebral bodies, intra-abdominal lymphadenopathy, right hilar region. MRI brain showed at least 6 peripherally enhancing lesions. Patient was started on afatinib about 2 weeks ago. Patient presented to ER with complaints of worsening shortness of breath. Patient is requiring 9 L oxygen via nasal cannula. Otherwise denies any complaints of fever or chills. No nausea vomiting. No hematemesis or melena. No headache or dizziness. Patient also having generalized weakness and requiring assistance with sitting up and ambulation. Chest x-ray showed increased right upper lobe lung airspace opacities correlate for pneumonia. EKG showed sinus tachycardia with occasional ventricular premature complexes. Laboratory data showed WBC 10.3 hemoglobin 13.5 and platelets 324 Sodium 131 potassium 3.5 chloride 101 bicarb is 22 BUN 14 and creatinine 0.52 and blood sugar is 105 and calcium 8.3 AST 48 ALT 65 and alk phos 138. Troponin x 1 negative and procalcitonin level is 0.2 Urinalysis is negative for infection Influenza A, B, Legionella, RSV and COVID-19 PCR not detected. 07/29/2023 Patient is seen and evaluated in follow-up this morning continues to be in the ICU with multiple medical consultations following including oncology and pulmonary size changer. Patient is status post thoracentesis on the right with approximately 3.2 liters removed. Patient requiring more oxygen currently maintained on airvo 60/80. Patient is lethargic and significantly weak and appears restless in mild respiratory distress. Patient reports not much of an appetite and has been tolerating supplements and will continue. Patient with significant weakness although respiratory status making it difficult for ambulation. Patient also reports to not sleeping well and will add low-dose medication as needed. Patient is currently afebrile with no reported chest pain. Cultures have been sent and pending. 07/30/2023 Patient is seen in follow-up this morning continues to be in the ICU maintained on airvo 60/50 and continues with significant shortness of breath although feels slightly improved. Patient continues with chest tube and is status postthoracentesis. Cytology is pending. Patient is afebrile. Patient continues to be significantly weak and extremely dyspneic with minimal exertion. Encouraged oral intake. 07/31/2023 Patient is seen in follow-up today continues to be in the ICU with multiple medical consultations following. Weaning FiO2 as tolerated currently maintained on 5050 of airvo with supplemental oxygen of nonrebreather as needed. Patient continues with Pleurx catheter on the right chest wall with pulmonary following. Sputum culture showing Shanta and patient is also continued on Zosyn and will continue for now. Patient reports having some mouth soreness and does appear to have thrush. Patient is afebrile with no reported chest pain. Patient with overall weakness and prolonged hospitalization, recommend increased activity as tolerated. Overall prognosis remains guarded. 08/01/2023 Patient is seen in follow-up today has been transferred out of the ICU on 3 S. continued on IV Lasix daily along with continued IV steroids and Zosyn. Patient continues with Pleurx catheter and cultures preliminary showing no growth. Patient continues on Airvo at 50/50 and weaning as tolerated. White count has normalized and hemoglobin is stable at 12.8, sodium is 135 with a potassium of 4.3 and electrolytes within normal limits. Patient with weakness will have PT/OT evaluate once respiratory status more stable. Encouraged oral intake. Patient also to continue on Diflucan for oral thrush. 08/02/2023 patient is seen in follow-up today reports his breathing is slightly improved although continues on airvo 50/50 with pulmonary following. Patient also continues with Pleurx catheter noted of the right chest with serous drainage. Patient is continued on Zosyn along with Diflucan for oral thrush. Patient with prolonged hospitalization and generalized weakness, will have PT/OT therapy evaluate the patient. Patient reports has not had a bowel movement in a few days and is feeling constipated. Will add lactulose to make it 3 times daily as needed. Patient is afebrile with no reports of chest pain or palpitations. Follow-up chest x-ray today shows right apical pneumothorax slightly larger in size now 4.0 cm versus 3.2 cm previously with continued right side Thora vent with continued similar diffuse interstitial densities and right midlung opacities. 08/03/2023 Patient is seen in follow-up continues on the stepdown unit currently maintained on Airvo and attempting to wean as patient also continues with 15 L nonrebreather. Airvo being titrated down to 40 and patient is tolerating. Patient continues with shortness of breath and also has Pleurx catheter on the right reporting he feels his shortness of breath is slightly improving. Patient inquiring about when he can go home and discussed with him as well as family at the bedside he would need to be titrated down to nasal cannula prior to discharge. Patient has been using incentive spirometer and sitting up more often working to wean as tolerated. Patient with significant weakness being evaluated by physical therapy and recommend daily. Encouraged oral intake. Patient remains afebrile. 08/04/2023 Patient is seen in follow-up with multiple medical consultations following including cardiothoracic surgery and pulmonary size changer. Patient maintained on high flow nasal cannula at 6 L as well as 15 L nonrebreather and patient is off Airvo. Patient had an episode overnight of extreme chest pain and shortness of breath and chest x-ray was performed showing right-sided pneumothorax as patient was off suction and per nursing staff immediately placed back on suction with repeat chest x-ray showing resolution of the pneumothorax. CT surgery following and have discontinued corticosteroids and will monitor closely over the next few days with attempts to weaning from suctioning and discuss further about treatment plan moving forward if patient requires surgical intervention. Follow-up chest x-ray ordered and will also follow-up with repeat labs. Patient was on IV Lasix daily although appears clinically dry and will initiate gentle hydration and again follow-up with repeat labs. Sodium is 133. 08/05/2023 Patient is seen in follow-up today with pulmonary, CT surgery, oncology following and patient continues with significant shortness of breath. Chest x- ray reveals smaller pneumo thorax and continues with Pleurx catheter to suction. Corticosteroids discontinued. Patient continues on gentle IV hydration and Lasix was also discontinued. Patient reports has not had a bowel movement again in a day and will make lactulose 3 times daily scheduled until having bowel movements. Encouraged oral intake and increased activity as tolerated. Patient is currently sitting up in the chair. Patient on 6 L nasal cannula and inter mittently using nonrebreather. Encouraged the patient to continue with incentive spirometer and limiting nonrebreather use. Will follow-up on repeat labs. 08/06/2023 Patient is seen and evaluated in follow-up today continues on high flow nasal cannula currently on 11 to 12 L high flow and attempting to wean as tolerated. Patient continues to report right-sided chest wall pain with inspiration and coughing. Patient reports to having bowel movements and will make lactulose as needed. Patient continues on gentle hydration and encouraged oral intake as patient sodium is slightly low at 131. Patient reports not having much of an appetite. Patient is afebrile and continued on breathing treatments. All steroids are on hold. 08/07/2023 Patient is currently resting in the bed. On high flow oxygen at 12 L. Chest x- ray today showed stable chest with right upper lobe thoracotomy tube with persistent right apical pneumothorax unchanged. Laboratory data reviewed from yesterday. Patient is being continued on normal saline at 50 cc/h. No other acute overnight issues. Oncology and pulmonary is on board. 08/08/2023 Patient is currently resting in the bed. Awake alert and oriented x 3. Still on 12 L high flow oxygen. Denies any complaints of chest pain. Chest x-ray today showed base enlargement of right upper lobe pneumothorax with apical pleural distance of about 4.7 cm versus 2.[address] surgery and pulmonary is on board. Laboratory showed WBC 12.2 hemoglobin 13.3 and platelets 266 Sodium 131 potassium 4.3 chloride 100 bicarb is 25 BUN 16 and creatinine 0.35 and blood sugar 95 and calcium 7.8. 08/09/2023 Patient is seen in follow-up today with multiple family members at bedside. Pulmonary following along with oncology and cardiothoracic surgery and patient continues to clinically decline and requiring more oxygen and his respiratory status has been declining. Patient is on high flow 12 L along with 15 L nonrebreather and desats quickly into the 70s with minimal movement. Patient appears exhausted and leaning forward in the tripod position working on catching his breath although was in some severe distress. Hospice consult was placed and pending at this time. Patient will meet inpatient criteria and awaiting to speak further with hospice. Multiple family members in agreement with making him comfortable and will continue with as needed comfort medications along with Ativan as patient is a little agitated and restless. Patient is currently afebrile and has not been eating. Patient reports to minimal sleep last night as his breathing was compromised and difficulty catching his breath. Patient and family met with [facility] and does meet inpatient criteria and will be signing on for comfort measures only. Review of systems: Constitutional: reports of fatigue but improved, no fever, or chills, extremely anxious Cardiovascular: No reports of chest pain or palpitations, reports chest wall pains on the right with cough Respiratory: reports of continued shortness of breath and cough and feels like having difficulty catching his breath GI: No reports of nausea, vomiting, or diarrhea, reports not much of an appetite, reports no appetite at all and not eating : No reports of dysuria or retention Neurovascular: reports of generalized weakness All medications have been reviewed PHYSICAL EXAMINATION: Patient is sitting up in the chair in the tripod position attempting to catch his breath, maintained on 12 L high flow nasal cannula as well as 15 L nonrebreather, awake alert and oriented, appears weak... Extremely anxious Thin built, elderly appearing, ill-appearing HEENT: Normocephalic. Neck is supple. Pupils reactive. Nostrils clear. Oral cavity is moist. Neck reveals no JVD, carotid bruits, or thyromegaly. CHEST EXAMINATION: Trachea is central. Symmetrical expansion. Bilateral scattered rhonchi and coarse sounds. Basilar diminished sounds. Tachypneic and working to breathe CARDIAC: Normal S1, S2 with no gallops. No murmurs ABDOMEN: Soft. Thin, scaphoid bowel sounds present. Nontender. No organomegaly. No abdominal bruits. Extremities: reveal no edema. No clubbing or cyanosis Neurologically awake, alert, oriented x3 with well-coordinated movements. No gross focal deficits noted, diffusely weak Skin: No rash or skin lesions. Psychiatric: Cooperative. Non-suicidal, extremely anxious today Musculoskeletal: No joint swelling or deformity. Assessment: Acute on chronic hypoxemic respiratory failure with right upper lobe pneumonia and metastatic lung cancer and pleural effusion. Possible afatinib pneumonitis cannot be excluded. Currently maintained on 11 to 12 L high flow nasal cannula along with 15 L nonrebreather at times, recommend limiting nonrebreather Right pneumothorax, following right thoracentesis, status post Thora vent placement. Non-small cell lung cancer status post chemoradiation, with metastasis to right lower rib, pelvis, vertebral bodies and brain metastatic lesions. Oral thrush with sputum culture showing Shanta COPD with mild exacerbation Hypovolemic hyponatremia, likely secondary to poor oral intake Mild transaminitis Recent kyphoplasty in May 2023 Chronic right-sided pleural effusion. Likely malignant effusion, status post thoracentesis on the right with trapped lung post thoracentesis noted requiring chest tube on 07/29/2023 Prior history of smoking No code Plan: Patient continued to have respiratory decline requiring more oxygen feeling unable to catch breath. Lengthy discussion was had with pulmonary size changer along with cardiothoracic with no plans for intervention and family meeting with hospice as the ultimate goal is to make the patient comfortable. [facility] hospice following and has met meets criteria and will be signing on and starting morphine drip. We will continue to follow with [facility] during hospitalization. Overall prognosis remains extremely poor. The impression and plan of care has been dictated by Merle Kenny, Nurse Practitioner as directed. Dr. Magdi MD I have performed a history and examination and MDM of this patient, discussed the same with the dictator, and agree with the dictator's assessment and plan as written ,documented as a scribe. Based on total visit time, I have performed more than 50% of the visit. Past Medical History Past Medical History: Cancer, COPD Additional Past Medical History / Comment(s): Small cell carcinoma - lung. CHEMO AND RADIATION, Mild COPD. History of Any Multi-Drug Resistant Organisms: None Reported Past Surgical History: Orthopedic Surgery Additional Past Surgical History / Comment(s): LEFT HAND SURGERY, COLONOSCOPY. T-12 FUSION FOR FX, Past Anesthesia/Blood Transfusion Reactions: No Reported Reaction Past Psychological History: No Psychological Hx Reported Smoking Status: Former smoker Past Alcohol Use History: None Reported Past Drug Use History: None Reported - Past Family History Mother Family Medical History: No Reported History Medications and Allergies Home Medications Medication Instructions Recorded Confirmed Type Afatinib Dimaleate [Gilotrif] 40 mg PO DAILY@0830 07/27/23 08/09/23 History Albuterol Sulfate [Albuterol 2 puff INHALATION RT-Q4H PRN 07/27/23 08/09/23 History Sulfate Hfa] Docusate [Colace] 200 mg PO DAILY 07/27/23 08/09/23 History Lactulose 30 gm PO DAILY PRN 07/27/23 08/09/23 History Morphine Sulfate Ir [MSIR] 15 mg PO Q4H 07/27/23 08/09/23 History Omeprazole Magnesium [PriLOSEC OTC] 20 mg PO DAILY 07/27/23 08/09/23 History Ondansetron [Zofran] 4 mg PO Q4H PRN 07/27/23 08/09/23 History Allergies Allergy/AdvReac Type Severity Reaction Status Date / Time No Known Allergies Allergy Verified 08/09/23 15:54 Physical Exam Vitals: Vital Signs Pulse Resp 08/10/23 08:07 16 08/10/23 04:00 127 H 14 08/10/23 02:00 113 H 14 08/10/23 00:00 126 H 14 08/09/23 21:10 122 H 26 H 08/09/23 20:00 113 H 26 H 08/09/23 16:00 18 08/09/23 14:00 135 H Intake and Output 08/09/23 08/10/23 08/10/23 22:59 06:59 14:59 Intake Total 82.790 73.44 103.887 Balance 82.790 73.44 103.887 Intake: Intake, IV Titration 82.790 73.44 103.887 Amount Morphine Sulfate (100 mg/ 82.790 73.44 103.887 2 ml) 100 mg In Sodium Chloride 0.9% 100 ml @ 2 MG/HR 2.04 mls/hr IV . Q24H [facility] Rx#:[id number] Other: Voiding Method Indwelling Catheter Indwelling Catheter
--- NOTE | 2023-08-10 10:37 | P.DS ---
Providers Date of admission: 08/09/23 13:10 Expected date of discharge: 08/10/23 Attending physician: Deep Fairbanks Primary care physician: [facility] Course: Preliminary cause of Non-small cell lung carcinoma with metastasis Final diagnosis Acute on chronic hypoxemic respiratory failure with right upper lobe pneumonia and metastatic lung cancer and pleural effusion. Possible afatinib pneumonitis cannot be excluded. Right pneumothorax, following right thoracentesis, status post Thora vent placement. Non-small cell lung cancer status post chemoradiation, with metastasis to right lower rib, pelvis, vertebral bodies and brain metastatic lesions. Oral thrush with sputum culture showing Shanta COPD with mild exacerbation Hypovolemic hyponatremia, likely secondary to poor oral intake Mild transaminitis Recent kyphoplasty in May 2023 Chronic right-sided pleural effusion. Likely malignant effusion, status post thoracentesis on the right with trapped lung post thoracentesis noted requiring chest tube on 07/29/2023 Prior history of smoking No code Discharge disposition Patient has . According to nursing documentation time of was at 0839 on 08/10/2023 patient was continued on [facility] hospice services on morphine drip. Total time taken is greater than 35 minutes Hospital course This is a 58-year-old male who was recently admitted with increased hypoxic respiratory failure with concerns of right upper lobe pneumonia and also was recently diagnosed with non-small cell lung carcinoma status post chemoradiation with noted metastasis to the right lower lobe rib, pelvis, vertebral bodies along with brain. Patient was continued on immunotherapy and having right-sided pleural effusion becoming more short of breath requiring ICU hospitalization and high flows of oxygen. Patient was on Airvo for some time initially did somewhat better after Pleurx catheter placement on the right from post thoracentesis. Unable to get off suction and remove the chest tube catheter having difficulties with continued pneumothorax. Patient had become more restless requiring more oxygen demands maintained on high flow along with nonrebreather and ultimately discussion was had about overall poor prognosis and discussed hospice and family were agreeable with the consult. Patient met with [facility] along with multiple family members and met criteria and was agreeable to comfort measures. Patient was placed on comfort measures only and this morning at 0839. Family present at bedside. Please refer to other consultation notes for further HPI. The impression and plan of care has been dictated by Merle Kenny, Nurse Practitioner as directed. Dr. Magdi MD I have performed a history and examination and MDM of this patient, discussed the same with the dictator, and agree with the dictator's assessment and plan as written ,documented as a scribe. Based on total visit time, I have performed more than 50% of the visit. Patient Condition at Discharge: Poor Plan - Discharge Summary New Discharge Prescriptions: No Action Omeprazole Magnesium [PriLOSEC OTC] 20 mg PO DAILY Ondansetron [Zofran] 4 mg PO Q4H PRN PRN Reason: Nausea Albuterol Sulfate [Albuterol Sulfate Hfa] 2 puff INHALATION RT-Q4H PRN PRN Reason: Shortness Of Breath Lactulose 30 gm PO DAILY PRN PRN Reason: Constipation Morphine Sulfate Ir [MSIR] 15 mg PO Q4H Docusate [Colace] 200 mg PO DAILY Afatinib Dimaleate [Gilotrif] 40 mg PO DAILY@0830 Discharge Medication List Afatinib Dimaleate [Gilotrif] 40 mg PO DAILY@0830 07/27/23 [History] Albuterol Sulfate [Albuterol Sulfate Hfa] 2 puff INHALATION RT-Q4H PRN 07/27/23 [History] Docusate [Colace] 200 mg PO DAILY 07/27/23 [History] Lactulose 30 gm PO DAILY PRN 07/27/23 [History] Morphine Sulfate Ir [MSIR] 15 mg PO Q4H 07/27/23 [History] Omeprazole Magnesium [PriLOSEC OTC] 20 mg PO DAILY 07/27/23 [History] Ondansetron [Zofran] 4 mg PO Q4H PRN 07/27/23 [History]
== END 2023-08-10 11:58 | disposition expired | DRG 951 ==
LOC: 3SCARD 13:10
PROVIDERS: ADMIT Hospitalist; ATTEND Hospitalist
DX: Z51.5 Encounter for palliative care (principal); J96.21 Acute and chronic respiratory failure with hypoxia; J18.9 Pneumonia, unspecified organism; B37.0 Candidal stomatitis; C34.90 Malignant neoplasm of unspecified part of unspecified bronchus or lung; C79.31 Secondary malignant neoplasm of brain; J44.0 Chronic obstructive pulmonary disease with (acute) lower respiratory infection; J44.1 Chronic obstructive pulmonary disease with (acute) exacerbation; J91.0 Malignant pleural effusion; E87.1 Hypo-osmolality and hyponatremia; Z66 Do not resuscitate; E86.1 Hypovolemia; R74.01 Elevation of levels of liver transaminase levels; Z87.891 Personal history of nicotine dependence; Z92.21 Personal history of antineoplastic chemotherapy; Z92.3 Personal history of irradiation; Z99.81 Dependence on supplemental oxygen